=== PATIENT | male | born 1955 | race Caucasian/White ===

== ENCOUNTER 2017-03-12 15:25 | Inpatient (IN) | payer OTHER, BC ==
--- NOTE | 2017-03-12 16:34 | PDOC ---
History of Present Illness - General History Source: Patient Exam Limitations: No Limitations - History of Present Illness Initial Comments: 03/12/17 17:08 Patient is a 62 year old male with a significant past medical history of factor 5 Leiden deficiency, multiple DVTs RLE, H/O PE, 0.4cm Aortic aneurysm (last evaluated 1 month ago), b/l inguinal hernias s/p repair, HTN, DM2, EtOH abuse and h/o colonic polyps who presents to the ED requesting detox for EtOH abuse because he is going through a withdrawal. Patient states that his last drinking was 15 hours ago. Patient is requesting inpatient admission for detox rather than park care admission. PMH: Factor five LEiden deficiency, DVTs RLE, H/O PE, .4cm Aortic aneurysm ( last evaluated 1 month ago), b/l inguinal hernias s/p repair, HTN, DM2 and h/o colonic polyps. PSHX: Polypectomy, Thoracotomy for thrombectomy, IVC filter placement, Cholecystectomy SH: EtOH abuse for 40 years, non smoker, retired [employer]. PCP - Dr. Burnett GI - Dr. Sotelo Bucket Wash Operator - Dr. Pierce <Viridiana Kuo - Last Filed: 03/12/17 17:07> <Lola Carr - Last Filed: 03/12/17 19:47> - General Chief Complaint: Substance Abuse Stated Complaint: DETOX Past History <Viridiana Kuo - Last Filed: 03/12/17 17:07> - Past Medical History Anemia: No Asthma: No Cancer: No Cardiac Disorders: Yes (AORTIC ANEURSYM-"UNCHANGED") CVA: No COPD: No (60% LUNG CAPACITY DUE TO PE) CHF: No Dementia: No Diabetes: Yes GI Disorders: Yes (COLON ADENOMAS, GASTRIC POLYPS, GERD) Disorders: No HTN: Yes Hypercholesterolemia: Yes Liver Disease: Yes (MURPHY/ETOH) Seizures: No Thyroid Disease: Yes - Surgical History Abdominal Surgery: Yes (UMBILICAL HERNIA,LEFT AND RIGHT INGUINAL HERNIA WITH MESH) Appendectomy: No Cardiac Surgery: No Cholecystectomy: Yes Lung Surgery: Yes (MEDIAN STERNOTOMY FOR LUNG EMBOLECTOMIES) Neurologic Surgery: No Orthopedic Surgery: Yes (C-SPINE MICRODISECTOMY 01/02, LUMBOSACRAL LAMINECTMY) - Psycho/Social/Smoking Cessation Hx Suicidal Ideation: No Smoking History: Never smoked Have you smoked in the past 12 months: No Information on smoking cessation initiated: No Hx Alcohol Use: Yes (12pack beer) Drug/Substance Use Hx: No Substance Use Type: Alcohol Hx Substance Use Treatment: No <BrunoMiltontra Hermanh - Last Filed: 03/12/17 19:47> - Past Medical History Allergies/Adverse Reactions: Allergies Allergy/AdvReac Type Severity Reaction Status Date / Time hydromorphone HCl AdvReac HALLUCINATION, Verified 03/12/17 15:36 [From Dilaudid] personality changes Home Medications: Ambulatory Orders Cyanocobalamin/FA/Pyridoxine [Folbee Tablet] 81 mg PO DAILY 03/12/17 Dapagliflozin Propanediol [Farxiga] 5 mg PO DAILY 03/12/17 Insulin Glargine,Hum.rec.anlog [Lantus (nf)] 30 units SQ DAILY 03/12/17 Insulin Lispro [Humalog] 0 unit SQ ASDIR PRN 03/12/17 Losartan Potassium 50 mg PO DAILY 03/12/17 Metoprolol Succinate [Toprol Xl] 100 mg PO DAILY 03/12/17 Ranitidine [Zantac -] 150 mg PO DAILY 03/12/17 Rivaroxaban [Xarelto -] 20 mg PO DAILY 03/12/17 Review of Systems - Review of Systems Able to Perform ROS?: Yes Comments:: 03/12/17 17:08 CONSTITUTIONAL: Present: tremors Absent: fever, chills, diaphoresis, generalized weakness, malaise, loss of appetite HEENT: Absent: rhinorrhea, nasal congestion, throat pain, throat swelling, difficulty swallowing, mouth swelling, ear pain, eye pain, visual Changes CARDIOVASCULAR: Absent: chest pain, syncope, palpitations, irregular heart rate, lightheadedness , peripheral edema RESPIRATORY: Absent: cough, shortness of breath, dyspnea with exertion, orthopnea, wheezing, stridor, hemoptysis GASTROINTESTINAL: Absent: abdominal pain, abdominal distension, nausea, vomiting, diarrhea, constipation, melena, hematochezia GENITOURINARY: Absent: dysuria, frequency, urgency, hesitancy, hematuria, flank pain, genital pain MUSCULOSKELETAL: Absent: myalgia, arthralgia, joint swelling SKIN: Absent: rash, itching, pallor HEMATOLOGIC/IMMUNOLOGIC: Absent: easy bleeding, easy bruising, lymphadenopathy, frequent infections ENDOCRINE: Absent: unexplained weight gain, unexplained weight loss, heat intolerance, cold intolerance NEUROLOGIC: Absent: headache, focal weakness or paresthesias, dizziness, unsteady gait, seizure, mental status changes, bladder or bowel incontinence PSYCHIATRIC: Absent: anxiety, depression, suicidal or homicidal ideation, hallucinations. <Viridiana Kuo - Last Filed: 03/12/17 17:07> *Physical Exam - Vital Signs Last Vital Signs Temp Pulse Resp BP Pulse Ox 98.1 F 98 H 19 151/80 98 03/12/17 15:35 03/12/17 15:35 03/12/17 15:35 03/12/17 15:35 03/12/17 15:35 - Physical Exam Comments: 03/12/17 17:09 GENERAL: +Tremulous, +face flushed. Well developed, well nourished. Awake and alert. No acute distress. HEENT: Normocephalic, atraumatic. PERRLA, EOMI. No conjunctival pallor. Sclera are non- icteric. Moist mucous membranes. Oropharynx is clear. NECK: Supple. Full ROM. No JVD. Carotid pulses 2+ and symmetric, without bruits. No thyromegaly. No lymphadenopathy. CARDIOVASCULAR: +Tachycardic. No murmurs, rubs, or gallops. Distal pulses are 2+ and symmetric. PULMONARY: No evidence of respiratory distress. Lungs clear to auscultation bilaterally. No wheezing, rales or rhonchi. ABDOMINAL: Soft. Non-tender. Non-distended. No rebound or guarding. No organomegaly. Normoactive bowel sounds. MUSCULOSKELETAL Normal range of motion at all joints. No bony deformities or tenderness. No CVA tenderness. EXTREMITIES: No cyanosis. No clubbing. No edema. No calf tenderness. SKIN: Warm and dry. Normal capillary refill. No rashes. No jaundice. NEUROLOGICAL: Alert, awake, appropriate. Cranial nerves 2-12 intact. No deficits to light touch and temperature in face, upper extremities and lower extremities. No motor deficits in the in face, upper extremities and lower extremities. Normoreflexic in the upper and lower extremities. Normal speech. Toes are down-going bilaterally. Gait is normal without ataxia. PSYCHIATRIC: Cooperative. Good eye contact. Appropriate mood and affect. <Viridiana Kuo - Last Filed: 03/12/17 17:07> - Vital Signs Last Vital Signs Temp Pulse Resp BP Pulse Ox 98.1 F 98 H 19 151/80 98 03/12/17 15:35 03/12/17 15:35 03/12/17 15:35 03/12/17 15:35 03/12/17 15:35 <Lola Carr - Last Filed: 03/12/17 19:47> ED Treatment Course - Medications Given in the ED: ED Medications Discontinued Medications Generic Name Dose Route Start Last Admin Trade Name Freq PRN Reason Stop Dose Admin Chlordiazepoxide HCl 50 mg 03/12/17 16:52 03/12/17 16:56 Librium - PO 03/12/17 16:53 50 mg ONCE ONE Administration <Viridiana Kuo - Last Filed: 03/12/17 17:07> - LABORATORY CBC & Chemistry Diagram: 03/12/17 17:21 03/12/17 17:21 <Lola Carr - Last Filed: 03/12/17 19:47> Medical Decision Making - Medical Decision Making 03/12/17 17:03 A call was placed to Dr. Sotelo and case was discussed. 03/12/17 17:05 A call was placed to Dr. Burnett at his service. 03/12/17 17:[address] Corona <Viridiana Kuo - Last Filed: 03/12/17 17:07> *DC/Admit/Observation/Transfer - Attestations Scribe Attestion: 03/12/17 17:10 Documentation prepared by ERMIAS Palmer, acting as medical dir for Lola Carr MD. <Viridiana Kuo - Last Filed: 03/12/17 17:07> - Discharge Dispostion Admit: Yes <Lola Carr - Last Filed: 03/12/17 19:47> Diagnosis at time of Disposition: Alcohol withdrawal Qualifiers: Complication of substance-induced condition: uncomplicated Qualified Code(s): F10.230 - Alcohol dependence with withdrawal, uncomplicated Diabetes mellitus Qualifiers: Diabetes mellitus type: type 2 Diabetes mellitus complication status: with hyperglycemia Diabetes mellitus technician terminal and repeater insulin use: without snf use Qualified Code(s): E11.65 - Type 2 diabetes mellitus with hyperglycemia - Discharge Dispostion Condition at time of disposition: Stable
[2017-03-12] MEDS ORDERED: chlordiazePOXIDE HCL 25 MG CAPSULE PO ONE (16:52)
[2017-03-12] MEDS ORDERED: chlordiazePOXIDE HCL 25 MG CAPSULE ONE (16:54)
[2017-03-12] MEDS ORDERED: FOLIC ACID INJECTION - 1 MG, THIAMINE HCL 100 MG, MULTIVIT INJECTION ADULT 10 ML in SOD... IVPB ONE (17:27)
[2017-03-12 17:29] LABS: BASOPHIL 0.6 % (0-2.0); EOSINOPHIL 0.3 % (0-4.5); MCH 32.3 pg (25.7-33.7); MCHC 33.1 g/dl (32.0-35.9); MEAN CELL VOLUME 97.6 fl (80-96); MEAN PLT VOLUME 9.2 fl (7.5-11.1); PLATELET COUNT 82 K/MM3 (134-434); RDW 14.7 % (11.9-15.9); WHITE BLOOD COUNT 4.2 K/mm3 (4.0-10.0)
[2017-03-12 18:00] LABS: ALBUMIN 3.6 g/dl (3.4-5.0); ANION GAP 15 (8-16); BILIRUBIN,TOTAL 1.6 mg/dL (0.2-1.0); CALCIUM 8.5 mg/dL (8.5-10.1); CO2 21 mmol/L (21-32); COCKROFT - GAULT 171.9; CREATININE 0.7 mg/dL (0.7-1.3); GLUCOSE,RANDOM 162 mg/dL (74-106); SGOT/AST 152 U/L (15-37); SGPT/ALT 73 U/L (12-78); TOT PROT 7.9 g/dl (6.4-8.2)
[2017-03-12 18:01] LABS: ALK PHOS 121 U/L (45-117)
[2017-03-12 22:03] VITALS: BMI 31.2
[2017-03-12] MEDS ORDERED: INSULIN (NOVOLOG) ASPART 100 UNITS/ML 10ML VIAL ONE (22:09)
[2017-03-12] MEDS: INSULIN SLIDING SCALE (NOVOLOG) 1 VIAL SQ SCH (22:13)
[2017-03-12] MEDS: chlordiazePOXIDE HCL 25 MG CAPSULE PO SCH (22:13)
[2017-03-12] MEDS: SODIUM CHLORIDE 1,000 ML IV SCH (22:45)
[2017-03-13] MEDS: chlordiazePOXIDE HCL 25 MG CAPSULE PO PRN ×3 (01:13→14:03)
[2017-03-13] MEDS: chlordiazePOXIDE HCL 25 MG CAPSULE PO SCH ×4 (04:28→23:00)
[2017-03-13] MEDS: INSULIN SLIDING SCALE (NOVOLOG) 1 VIAL SQ SCH ×4 (06:18→21:26)
[2017-03-13] MEDS ORDERED: INSULIN (NOVOLOG) ASPART 100 UNITS/ML 10ML VIAL ONE ×2 (06:26→11:10)
[2017-03-13 08:57] LABS: BASOPHIL 0.8 % (0-2.0); EOSINOPHIL 0.2 % (0-4.5); MCH 32.6 pg (25.7-33.7); MCHC 33.1 g/dl (32.0-35.9); MEAN CELL VOLUME 98.6 fl (80-96); MEAN PLT VOLUME 9.5 fl (7.5-11.1); NEUTROPHILS 64.8 % (42.8-82.8); PLATELET COUNT 57 K/MM3 (134-434); RDW 14.7 % (11.9-15.9); WHITE BLOOD COUNT 3.5 K/mm3 (4.0-10.0)
[2017-03-13 09:21] LABS: ALBUMIN 3.3 g/dl (3.4-5.0); ANION GAP 16 (8-16); CALCIUM 8.4 mg/dL (8.5-10.1); CO2 21 mmol/L (21-32); COCKROFT - GAULT 149.38; CREATININE 0.8 mg/dL (0.7-1.3); GLUCOSE,RANDOM 120 mg/dL (74-106); MAGNESIUM 1.4 mg/dL (1.8-2.4); PHOSPHOROUS 2.6 mg/dL (2.5-4.9); SGOT/AST 97 U/L (15-37); SGPT/ALT 55 U/L (12-78)
[2017-03-13 09:23] LABS: ALK PHOS 104 U/L (45-117); TOT PROT 6.9 g/dl (6.4-8.2)
[2017-03-13] MEDS: METOPROLOL SUCCINATE 100 MG TAB.SR.24H (FP) PO SCH (10:01)
[2017-03-13] MEDS: LOSARTAN POTASSIUM 50 MG TABLET (FP) PO SCH (10:01)
[2017-03-13] MEDS: RANITIDINE HCL 150 MG TABLET (FP) PO SCH (10:01)
[2017-03-13] MEDS ORDERED: MAGNESIUM SULF 50% (8.12 MEQ/2 ML-1 GM VIAL) IVPB ONE (11:30)
--- NOTE | 2017-03-13 11:52 | HP ---
Admitting History and Physical - Primary Care Physician PCP: Stoney Burnett - Admission Chief Complaint: I needed to come in History of Present Illness: Mr Valle is a pleasant 62 year old male who comes in for alcohol withdrawal and detox. He says over the past 4 years he has drank a 12 pack of beer and shots of bourbon every night. He says it was making him feel bad and he was begin to fall and for this reason he decided to stop. After he stopped he began to feel very weak and dizzy. He says he also became very shaky. Because of this he came in. He denies hallucinations, fevers, chills, passing out, chest pain, shortness of breath, nausea, vomiting, diarrhea, constipation, difficulty or pain on urination, or swelling. He still feels very weak and shaky. He could not go to [facility] secondary to a conflict with his profession. 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 HTN. Chronic RBBB), HTN Pulmonary: Yes: Pulmonary Embolus (s/p IVC filter and open embolectomy at [facility]) Heme/Onc: Yes: Other (Factor V Leiden) Psych: Yes: Addictions (ETOH) Musculoskeletal: Yes: Chronic low back pain Endocrine: Yes: Diabetes Mellitus - Smoking History Smoking history: Never smoked Have you smoked in the past 12 months: No - Alcohol/Substance Use Hx Alcohol Use: Yes (12pack beer) Number of Drinks Daily: 6 (Beers) History of Substance Use: reports: None - Social History ADL: Independent History of Recent Travel: No Home Medications - Allergies Allergies/Adverse Reactions: Allergies Allergy/AdvReac Type Severity Reaction Status Date / Time hydromorphone HCl AdvReac HALLUCINATION, Verified 03/12/17 15:36 [From Dilaudid] personality changes - Home Medications Home Medications: Ambulatory Orders Cyanocobalamin/FA/Pyridoxine [Folbee Tablet] 81 mg PO DAILY 03/12/17 Dapagliflozin Propanediol [Farxiga] 5 mg PO DAILY 03/12/17 Insulin Glargine,Hum.rec.anlog [Lantus (nf)] 30 units SQ DAILY 03/12/17 Insulin Lispro [Humalog] 0 unit SQ ASDIR PRN 03/12/17 Losartan Potassium 50 mg PO DAILY 03/12/17 Metoprolol Succinate [Toprol Xl] 100 mg PO DAILY 03/12/17 Ranitidine [Zantac -] 150 mg PO DAILY 03/12/17 Rivaroxaban [Xarelto -] 20 mg PO DAILY 03/12/17 Bifidobacterium Infantis [Align] 10.5 mg PO DAILY 03/13/17 Cholecalciferol (Vitamin D3) [D-2000] 1,000 unit PO DAILY 03/13/17 Cyanocobalamin/Cobamamide [B-12 5,000 Mcg Sublingual Tab] 1 each SL DAILY Milk Thistle 300 mg PO BID 03/13/17 Family Disease History - Family Disease History Family Disease History: Heart Disease: Brother (CHF), CA: Father (Lung cancer with bone mets), Mother (liver CA), Sister (Colon CA) Review of Systems Findings/Remarks: Full review of systems obtained, as per HPI and otherwise negative Physical Examination Vital Signs: Vital Signs Temperature 98.2 F 03/13/17 08:00 Pulse Rate 69 03/13/17 08:00 Respiratory Rate 18 03/13/17 08:00 Blood Pressure 138/76 03/13/17 08:00 O2 Sat by Pulse Oximetry (%) 98 03/12/17 15:35 Constitutional: Yes: No Distress, Calm, Obese Eyes: Yes: Conjunctiva Clear, EOM Intact, PERRL HENT: Yes: Atraumatic, Normocephalic Cardiovascular: Yes: Regular Rate and Rhythm. No: Gallop, Murmur, Rub Respiratory: Yes: Regular, CTA Bilaterally. No: Rales, Rhonchi, Wheezes Gastrointestinal: Yes: Normal Bowel Sounds, Soft. No: Ascites, Tenderness Extremities: Yes: WNL Edema: No Neurological: Yes: Tremors, Weakness Labs: CBC, BMP 03/13/17 08:43 03/13/17 08:43 Imaging - Results Chest X-ray: Report Reviewed, Image Reviewed EKG: Image Reviewed Problem List - Problems (1) Alcohol withdrawal Assessment/Plan: -patient admitted to the hospital -on librium taper -VSS, only with tremors -Dr Wick consulted -PT for weakness Code(s): F10.239 - ALCOHOL DEPENDENCE WITH WITHDRAWAL, UNSPECIFIED Qualifiers : Complication of substance-induced condition: uncomplicated Qualified Code(s): F10.230 - Alcohol dependence with withdrawal, uncomplicated (2) Diabetes mellitus Assessment/Plan: -continue farxiga -diabetic diet Code(s): E11.9 - TYPE 2 DIABETES MELLITUS WITHOUT COMPLICATIONS Qualifiers: Diabetes mellitus type: type 2 Diabetes mellitus complication status: with hyperglycemia Diabetes mellitus senior living insulin use: without senior living use Qualified Code(s): E11.65 - Type 2 diabetes mellitus with hyperglycemia; Z79.4 - nursing home (current) use of insulin (3) Factor 5 Leiden mutation, heterozygous Assessment/Plan: -anticoagulated Code(s): D68.51 - ACTIVATED PROTEIN C RESISTANCE (4) HTN (hypertension) Assessment/Plan: -some hypertension, suspect that is from withdrawal -continue toprol xl and cozaar Code(s): I10 - ESSENTIAL (PRIMARY) HYPERTENSION Qualifiers: Hypertension type: essential hypertension Qualified Code(s): I10 - Essential (primary) hypertension (5) H/O pulmonary thrombosis Assessment/Plan: -continue xarelto Code(s): Z86.711 - PERSONAL HISTORY OF PULMONARY EMBOLISM (6) Hypomagnesemia Assessment/Plan: -secondary to chronic alcohol abuse -replace with IV magnesium -monitor Code(s): E83.42 - HYPOMAGNESEMIA
[2017-03-13] MEDS: RIVAROXABAN 20 MG TABLET PO SCH (12:07)
[2017-03-13] MEDS: DAPAGLIFLOZIN PROPANEDIOL 5 MG PO SCH (12:50)
--- NOTE | 2017-03-13 15:40 | CONSULT ---
[id number] - History History of Present Illness: 62 y/o man with a long hx. of alcoholism is admitted for detox. Pt. came to ED because of severe withdrawal sx. 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 HTN. Chronic RBBB), HTN Pulmonary: Yes: Pulmonary Embolus (s/p IVC filter and open embolectomy at [facility]) Psych: Yes: Addictions (ETOH) Musculoskeletal: Yes: Chronic low back pain Endocrine: Yes: Diabetes Mellitus - Significant Medical Findings: Laboratory Tests 03/12/17 03/12/17 03/12/17 17:21 17:21 17:21 WBC 4.2 RBC 4.69 Hgb 15.1 Hct 45.8 MCV 97.6 H MCHC 33.1 RDW 14.7 Plt Count 82 L MPV 9.2 Neutrophils % 73.0 Lymphocytes % 17.4 D Monocytes % 8.7 Eosinophils % 0.3 D Basophils % 0.6 Sodium 142 Potassium 4.0 Chloride 106 Carbon Dioxide 21 Anion Gap 15 BUN 8 Creatinine 0.7 Creat Clearance w eGFR > 60 POC Glucometer Random Glucose 162 H Calcium 8.5 Phosphorus Magnesium Total Bilirubin 1.6 H D AST 152 H D ALT 73 D Alkaline Phosphatase 121 H Total Protein 7.9 D Albumin 3.6 D Alcohol, Quantitative 249.8 H* 03/12/17 03/12/17 03/13/17 18:32 22:11 06:15 WBC RBC Hgb Hct MCV MCHC RDW Plt Count MPV Neutrophils % Lymphocytes % Monocytes % Eosinophils % Basophils % Sodium Potassium Chloride Carbon Dioxide Anion Gap BUN Creatinine Creat Clearance w eGFR POC Glucometer 152.57855 159 101 Random Glucose Calcium Phosphorus Magnesium Total Bilirubin AST ALT Alkaline Phosphatase Total Protein Albumin Alcohol, Quantitative 03/13/17 03/13/17 03/13/17 08:43 08:43 11:25 WBC 3.5 L RBC 4.14 Hgb 13.5 D Hct 40.8 MCV 98.6 H MCHC 33.1 RDW 14.7 Plt Count 57 L D MPV 9.5 Neutrophils % 64.8 Lymphocytes % 21.8 D Monocytes % 12.4 H Eosinophils % 0.2 Basophils % 0.8 Sodium 143 Potassium 3.5 Chloride 106 Carbon Dioxide 21 Anion Gap 16 BUN 11 D Creatinine 0.8 Creat Clearance w eGFR > 60 POC Glucometer 147 Random Glucose 120 H D Calcium 8.4 L Phosphorus 2.6 Magnesium 1.4 L D Total Bilirubin 2.0 H D AST 97 H D ALT 55 D Alkaline Phosphatase 104 Total Protein 6.9 Albumin 3.3 L Alcohol, Quantitative labs noted CIWA Score - CIWA Score Nausea/Vomitin-Mild Nausea/No Vomiting Muscle Tremors: 5 Anxiety: 5 Agitation: 4-Moderately Restless Paroxysmal Sweats: 3 Orientation: 1-Uncertain about Date Tacttile Disturbances: 1-Very Mild Itch/Numbness Auditory Disturbances: 0-None Visual Disturbances: 0-None Headache: 0-None Present CIWA-Ar Total Score: 20 Assessment Plan - Diagnosis (1) Alcohol dependence with uncomplicated withdrawal Status: Acute - Plan Plan: Detox with librium & refer to rehab - Medication Detox Regimen/Protocol: Librium
[2017-03-13 16:07] LABS: URINE APPEARANCE CLEAR; URINE BILIRUBIN NEGATIVE (NEGATIVE); URINE COLOR YELLOW; URINE GLUCOSE (UA) 3+ (NEGATIVE); URINE KETONE 2+ (NEGATIVE); URINE LEUK ESTERASE NEGATIVE (NEGATIVE); URINE NITRITE NEGATIVE (NEGATIVE); URINE PROTEIN NEGATIVE (NEGATIVE); URINE UROBILINOGEN 4.0 E.U/dl E.U./dl (0.2-1.0)
[2017-03-13 16:10] LABS: URINE BLOOD 2+ (NEGATIVE)
[2017-03-13 16:13] LABS: URINE MUCUS RARE; URINE RBC 56 /hpf (0-3); URINE WBC <1 /hpf (3-5)
[2017-03-13] MEDS: SODIUM CHLORIDE 1,000 ML IV SCH (17:59)
[2017-03-13] MEDS ORDERED: chlordiazePOXIDE HCL 25 MG CAPSULE PO ONE (20:00)
[2017-03-14] MEDS: chlordiazePOXIDE HCL 25 MG CAPSULE PO SCH ×3 (05:25→16:39)
[2017-03-14] MEDS: SODIUM CHLORIDE 1,000 ML IV SCH (05:25)
[2017-03-14] MEDS: INSULIN SLIDING SCALE (NOVOLOG) 1 VIAL SQ SCH ×4 (06:21→21:55)
[2017-03-14 07:29] LABS: BASOPHIL 0.6 % (0-2.0); EOSINOPHIL 1.1 % (0-4.5); MCH 32.4 pg (25.7-33.7); MCHC 32.7 g/dl (32.0-35.9); MEAN CELL VOLUME 99.1 fl (80-96); MEAN PLT VOLUME 9.3 fl (7.5-11.1); NEUTROPHILS 61.4 % (42.8-82.8); PLATELET COUNT 45 K/MM3 (134-434); RDW 14.2 % (11.9-15.9); WHITE BLOOD COUNT 3.9 K/mm3 (4.0-10.0)
--- NOTE | 2017-03-14 08:20 | EKG ---
Test Reason : Blood Pressure : / mmHG Vent. Rate : 075 BPM Atrial Rate : 075 BPM P-R Int : 180 ms QRS Dur : 108 ms QT Int : 426 ms P-R-T Axes : 033 -37 050 degrees QTc Int : 475 ms NORMAL SINUS RHYTHM LEFT AXIS DEVIATION INCOMPLETE RIGHT BUNDLE BRANCH BLOCK T WAVE ABNORMALITY, CONSIDER ANTERIOR ISCHEMIA PROLONGED QT ABNORMAL ECG WHEN COMPARED WITH ECG OF 20-MAR-2016 08:37, T WAVE VARIATION Confirmed by NOBLE MAIER, ROLANDA ([id number]) on 03/14/2017 8:19:45 AM Referred By: Confirmed By:ROLANDA DICKEY MD
[2017-03-14 08:22] LABS: BILIRUBIN,DIRECT 1.1 mg/dL (0.0-0.2); BILIRUBIN,TOTAL 2.1 mg/dL (0.2-1.0); COCKROFT - GAULT 149.38; CREATININE 0.8 mg/dL (0.7-1.3); MAGNESIUM 1.8 mg/dL (1.8-2.4); PHOSPHOROUS 2.1 mg/dL (2.5-4.9); TOT PROT 6.5 g/dl (6.4-8.2)
[2017-03-14] MEDS: DAPAGLIFLOZIN PROPANEDIOL 5 MG PO SCH (09:22)
[2017-03-14] MEDS: RANITIDINE HCL 150 MG TABLET (FP) PO SCH (09:23)
[2017-03-14] MEDS: THIAMINE HCL 100 MG TABLET (FP) PO SCH (09:23)
[2017-03-14] MEDS: FOLIC ACID 1 MG TABLET (FP) PO SCH (09:23)
[2017-03-14] MEDS: LOSARTAN POTASSIUM 50 MG TABLET (FP) PO SCH (09:23)
[2017-03-14] MEDS: METOPROLOL SUCCINATE 100 MG TAB.SR.24H (FP) PO SCH (09:23)
[2017-03-14] MEDS: RIVAROXABAN 20 MG TABLET PO SCH (09:23)
[2017-03-14] MEDS ORDERED: POTASSIUM CHLORIDE TABS 20 MEQ TABLET.ER (FP) PO ONE (12:28)
--- NOTE | 2017-03-14 14:11 | FALL ---
Fall Exam - Event Witnessed fall: No Location of Fall: Patient Room Fall from: bed->chair - Pre-Fall Fall Risk: High Risk Mental Status: Alert, Cooperative Current Medications: Current Medications Generic Name Dose Route Start Last Admin Trade Name Freq PRN Reason Stop Dose Admin Chlordiazepoxide HCl 25 mg 03/12/17 19:53 03/13/17 14:03 Librium - PO 03/15/17 19:52 25 mg Q4H PRN Administration WITHDRAWAL(CONT SUBST) Chlordiazepoxide HCl 25 mg 03/13/17 23:00 03/14/17 10:38 Librium - PO 03/14/17 17:01 25 mg Q0M-OOQ AKI Administration Chlordiazepoxide HCl 15 mg 03/14/17 23:00 Librium - PO 03/15/17 17:01 [id number] AKI Chlordiazepoxide HCl 10 mg 03/15/17 23:00 Librium - PO 03/16/17 17:01 W1P-XAQ AKI Folic Acid 1 mg 03/14/17 10:00 03/14/17 09:23 Folic Acid - PO 1 mg DAILY AKI Administration Insulin Aspart 0 vial 03/12/17 22:00 03/14/17 11:44 Novolog Vial Sliding Scale - SQ Not Given ACHS [facility] Protocol Losartan Potassium 50 mg 03/13/17 10:00 03/14/17 09:23 Cozaar - PO 50 mg DAILY AKI Administration Metoprolol Succinate 100 mg 03/13/17 10:00 03/14/17 09:23 Toprol Xl - PO 100 mg DAILY AKI Administration Non-Formulary Medication 81 mg 03/13/17 10:00 03/14/17 09:23 Cyanocobalamin/Fa/Pyridoxine [Folbee Tablet] PO Not Given DAILY AKI Dapagliflozin 5 mg 03/13/17 10:00 03/14/17 09:22 Propanediol (Farxiga PO 5 mg ) 5 Mg Tablet (Pt's DAILY AKI Administration Own) Potassium Phos/Sodium Phos 1 packet 03/14/17 14:00 Phos-Nak Packet - PO TID AKI Ranitidine HCl 150 mg 03/13/17 10:00 03/14/17 09:23 Zantac - PO 150 mg DAILY AKI Administration Rivaroxaban 20 mg 03/13/17 10:00 03/14/17 09:23 Xarelto - PO 20 mg DAILY AKI Administration Thiamine HCl 100 mg 03/14/17 10:00 03/14/17 09:23 Vitamin B1 - PO 100 mg DAILY AKI Administration - Post-Fall Patient Outcome: Hematoma (no obvious hematoma, however redness to L oribital, R nare nose bleed), Abrasion/Bruise (L knee) Treatment: Ice Pack Vital Signs: Vital Signs Temperature 98.6 F 03/14/17 08:02 Pulse Rate 56 L 03/14/17 08:02 Respiratory Rate 18 03/14/17 08:02 Blood Pressure 123/62 03/14/17 08:02 O2 Sat by Pulse Oximetry (%) 96 03/13/17 20:24 LOC Post-Fall: Unchanged Identify factors for HIGH RISK for Head Injury: Pt on anticoagulant, Alcoholic pt w liver dysf (xaralto)
--- NOTE | 2017-03-14 14:16 | HOSP ---
Physical Examination Vital Signs: Vital Signs Temperature 98.6 F 03/14/17 08:02 Pulse Rate 56 L 03/14/17 08:02 Respiratory Rate 18 03/14/17 08:02 Blood Pressure 123/62 03/14/17 08:02 O2 Sat by Pulse Oximetry (%) 96 03/13/17 20:24 Labs: CBC, BMP 03/14/17 06:40 03/14/17 06:40 Hospitalist Encounter Assessment: Called s/p unwitnessed fall. Pt states he was trasnferring from the bed to the chair, he was unable to find wall support and fell. He says he hit his head, his L eye, and his entire front side. He sustained an abrasion to his L knee and has a right nares nose bleed. PE Neuro: alert, awake, cn 2-12 intact HEENT: L orbital redness, mild swelling, no crepitus, no tenderness to palpation of face and skull, R nare epistaxis Abd: protubrent abd Ext: R knee abrasion , L knee abrasion no bleeding Plan: Stat Head CT Facial xray Rib xray series L knee/pelvic/hip Dr. Corona Primary notified, will follow results
--- NOTE | 2017-03-14 14:36 | PN ---
Progress Note, Physician Chief Complaint: Mr Leary says he is feeling better today, however still with tremors but improving. No cp, sob, n/v. PT notes patient is leaning to right side - Current Medication List Current Medications: Active Medications Chlordiazepoxide HCl (Librium -) 25 mg PO Q4H PRN PRN Reason: WITHDRAWAL(CONT SUBST) Stop: 03/15/17 19:52 Last Admin: 03/13/17 14:03 Dose: 25 mg Chlordiazepoxide HCl (Librium -) 25 mg PO [id number] [facility] Stop: 03/14/17 17:01 Last Admin: 03/14/17 10:38 Dose: 25 mg Chlordiazepoxide HCl (Librium -) 15 mg PO [id number] [facility] Stop: 03/15/17 17:01 Chlordiazepoxide HCl (Librium -) 10 mg PO [id number] [facility] Stop: 03/16/17 17:01 Folic Acid (Folic Acid -) 1 mg PO DAILY [facility] Last Admin: 03/14/17 09:23 Dose: 1 mg Insulin Aspart (Novolog Vial Sliding Scale -) 0 vial SQ ACHS [facility] PRN Reason: Protocol Last Admin: 03/14/17 11:44 Dose: Not Given Losartan Potassium (Cozaar -) 50 mg PO DAILY [facility] Last Admin: 03/14/17 09:23 Dose: 50 mg Metoprolol Succinate (Toprol Xl -) 100 mg PO DAILY [facility] Last Admin: 03/14/17 09:23 Dose: 100 mg Non-Formulary Medication (Cyanocobalamin/Fa/Pyridoxine [Folbee Tablet]) 81 mg PO DAILY [facility] Last Admin: 03/14/17 09:23 Dose: Not Given Dapagliflozin Propanediol (Farxiga ) 5 Mg Tablet (Pt's Own) 5 mg PO DAILY [facility] Last Admin: 03/14/17 09:22 Dose: 5 mg Potassium Phos/Sodium Phos (Phos-Nak Packet -) 1 packet PO TID [facility] Ranitidine HCl (Zantac -) 150 mg PO DAILY [facility] Last Admin: 03/14/17 09:23 Dose: 150 mg Rivaroxaban (Xarelto -) 20 mg PO DAILY [facility] Last Admin: 03/14/17 09:23 Dose: 20 mg Thiamine HCl (Vitamin B1 -) 100 mg PO DAILY [facility] Last Admin: 03/14/17 09:23 Dose: 100 mg - Objective Vital Signs: Vital Signs Temperature 98.9 F 03/14/17 14:11 Pulse Rate 67 03/14/17 14:11 Respiratory Rate 18 03/14/17 14:11 Blood Pressure 128/73 03/14/17 14:11 O2 Sat by Pulse Oximetry (%) 96 03/13/17 20:24 Constitutional: Yes: Well Nourished, No Distress, Calm Cardiovascular: Yes: Regular Rate and Rhythm. No: Gallop, Murmur, Rub Respiratory: Yes: Regular, CTA Bilaterally. No: Rales, Rhonchi, Wheezes Gastrointestinal: Yes: Normal Bowel Sounds, Soft. No: Distention, Tenderness Musculoskeletal: No: Muscle Weakness Extremities: Yes: WNL Edema: No Neurological: Yes: Alert, Oriented, Cran Nerves II-XII Intact. No: Facial Droop , Loss of Sensation, Numbness, Weakness Labs: CBC, BMP 03/14/17 06:40 03/14/17 06:40 Problem List - Problems (1) Alcohol withdrawal Code(s): F10.239 - ALCOHOL DEPENDENCE WITH WITHDRAWAL, UNSPECIFIED Qualifiers : Complication of substance-induced condition: uncomplicated Qualified Code(s): F10.230 - Alcohol dependence with withdrawal, uncomplicated (2) Diabetes mellitus Code(s): E11.9 - TYPE 2 DIABETES MELLITUS WITHOUT COMPLICATIONS Qualifiers: Diabetes mellitus type: type 2 Diabetes mellitus complication status: with hyperglycemia Diabetes mellitus nursing home insulin use: without rat exterminator use Qualified Code(s): E11.65 - Type 2 diabetes mellitus with hyperglycemia; Z79.4 - medical terminologist (current) use of insulin (3) Factor 5 Leiden mutation, heterozygous Code(s): D68.51 - ACTIVATED PROTEIN C RESISTANCE (4) HTN (hypertension) Code(s): I10 - ESSENTIAL (PRIMARY) HYPERTENSION Qualifiers: Hypertension type: essential hypertension Qualified Code(s): I10 - Essential (primary) hypertension (5) H/O pulmonary thrombosis Code(s): Z86.711 - PERSONAL HISTORY OF PULMONARY EMBOLISM (6) Hypomagnesemia Code(s): E83.42 - HYPOMAGNESEMIA (7) Hypophosphatemia Code(s): E83.39 - OTHER DISORDERS OF PHOSPHORUS METABOLISM (8) Weakness Code(s): R53.1 - WEAKNESS Assessment/Plan (1) Alcohol withdrawal Assessment/Plan: -appreciate addiction medicine assistance -continue librium taper -patient's tremors much improved today Code(s): F10.239 - ALCOHOL DEPENDENCE WITH WITHDRAWAL, UNSPECIFIED Qualifiers : Complication of substance-induced condition: uncomplicated Qualified Code(s): F10.230 - Alcohol dependence with withdrawal, uncomplicated (2) Diabetes mellitus Assessment/Plan: -continue farxiga -diabetic diet Code(s): E11.9 - TYPE 2 DIABETES MELLITUS WITHOUT COMPLICATIONS Qualifiers: Diabetes mellitus type: type 2 Diabetes mellitus complication status: with hyperglycemia Diabetes mellitus nursing home insulin use: without nursing home use Qualified Code(s): E11.65 - Type 2 diabetes mellitus with hyperglycemia; Z79.4 - long-term (current) use of insulin (3) Factor 5 Leiden mutation, heterozygous Assessment/Plan: -anticoagulated Code(s): D68.51 - ACTIVATED PROTEIN C RESISTANCE (4) HTN (hypertension) Assessment/Plan: -improved control -continue toprol xl and cozaar Code(s): I10 - ESSENTIAL (PRIMARY) HYPERTENSION Qualifiers: Hypertension type: essential hypertension Qualified Code(s): I10 - Essential (primary) hypertension (5) H/O pulmonary thrombosis Assessment/Plan: -continue xarelto Code(s): Z86.711 - PERSONAL HISTORY OF PULMONARY EMBOLISM (6) Hypomagnesemia Assessment/Plan: -replaced Code(s): E83.42 - HYPOMAGNESEMIA (7) Hypophosphatemia -replace (8) Weakness -patient with R sided leaning -also with weakness/unsteadiness with PT -evaluated, did not note facial droop -also able to move all four extremities at equal strength without difficulty -no sensory loss -will consult neurology for further evaluation
--- NOTE | 2017-03-14 16:09 | CONSULT ---
Consult - text type - Consultation Consultation Note: Neurology History of Present Illness Patient is a 62 year old male with a significant past medical history of factor 5 Leiden deficiency, multiple DVTs RLE, H/O PE, 0.4cm Aortic aneurysm (last evaluated 1 month ago), b/l inguinal hernias s/p repair, HTN, DM2, EtOH abuse and h/o colonic polyps who presents to the ED requesting detox for EtOH abuse because he is going through a withdrawal. The patient was to be leaning to the right and did have fall today. Completed CT head and without acute changes. 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 His strength seems intact and does not seem to be CVA, but I believe rehab would be beneficial for multifactorial gait disorder. - General Chief Complaint: Substance Abuse Stated Complaint: DETOX Past History - Past Medical History Anemia: No Asthma: No Cancer: No Cardiac Disorders: Yes (AORTIC ANEURSYM-"UNCHANGED") CVA: No COPD: No (60% LUNG CAPACITY DUE TO PE) CHF: No Dementia: No Diabetes: Yes GI Disorders: Yes (COLON ADENOMAS, GASTRIC POLYPS, GERD) Disorders: No HTN: Yes Hypercholesterolemia: Yes Liver Disease: Yes (MURPHY/ETOH) Seizures: No Thyroid Disease: Yes - Surgical History Abdominal Surgery: Yes (UMBILICAL HERNIA,LEFT AND RIGHT INGUINAL HERNIA WITH MESH) Appendectomy: No Cardiac Surgery: No Cholecystectomy: Yes Lung Surgery: Yes (MEDIAN STERNOTOMY FOR LUNG EMBOLECTOMIES) Neurologic Surgery: No Orthopedic Surgery: Yes (C-SPINE MICRODISECTOMY 01/02, LUMBOSACRAL LAMINECTMY) - Psycho/Social/Smoking Cessation Hx Suicidal Ideation: No Smoking History: Never smoked Have you smoked in the past 12 months: No Information on smoking cessation initiated: No Hx Alcohol Use: Yes (12pack beer) Drug/Substance Use Hx: No Substance Use Type: Alcohol Hx Substance Use Treatment: No - Past Medical History Allergies/Adverse Reactions: Allergies Allergy/AdvReac Type Severity Reaction Status Date / Time hydromorphone HCl AdvReac HALLUCINATION, Verified 03/12/17 15:36 [From Dilaudid] personality changes Home Medications: Ambulatory Orders Cyanocobalamin/FA/Pyridoxine [Folbee Tablet] 81 mg PO DAILY 03/12/17 Dapagliflozin Propanediol [Farxiga] 5 mg PO DAILY 03/12/17 Insulin Glargine,Hum.rec.anlog [Lantus (nf)] 30 units SQ DAILY 03/12/17 Insulin Lispro [Humalog] 0 unit SQ ASDIR PRN 03/12/17 Losartan Potassium 50 mg PO DAILY 03/12/17 Metoprolol Succinate [Toprol Xl] 100 mg PO DAILY 03/12/17 Ranitidine [Zantac -] 150 mg PO DAILY 03/12/17 Rivaroxaban [Xarelto -] 20 mg PO DAILY 03/12/17 Review of Systems CONSTITUTIONAL: Present: tremors Absent: fever, chills, diaphoresis, generalized weakness, malaise, loss of appetite HEENT: Absent: rhinorrhea, nasal congestion, throat pain, throat swelling, difficulty swallowing, mouth swelling, ear pain, eye pain, visual Changes CARDIOVASCULAR: Absent: chest pain, syncope, palpitations, irregular heart rate, lightheadedness , peripheral edema RESPIRATORY: Absent: cough, shortness of breath, dyspnea with exertion, orthopnea, wheezing, stridor, hemoptysis GASTROINTESTINAL: Absent: abdominal pain, abdominal distension, nausea, vomiting, diarrhea, constipation, melena, hematochezia GENITOURINARY: Absent: dysuria, frequency, urgency, hesitancy, hematuria, flank pain, genital pain MUSCULOSKELETAL: Absent: myalgia, arthralgia, joint swelling SKIN: Absent: rash, itching, pallor HEMATOLOGIC/IMMUNOLOGIC: Absent: easy bleeding, easy bruising, lymphadenopathy, frequent infections ENDOCRINE: Absent: unexplained weight gain, unexplained weight loss, heat intolerance, cold intolerance NEUROLOGIC: Absent: headache, focal weakness or paresthesias, dizziness, unsteady gait, seizure, mental status changes, bladder or bowel incontinence PSYCHIATRIC: Absent: anxiety, depression, suicidal or homicidal ideation, hallucinations. *Physical Exam Vital Signs Temperature 98.5 F 03/14/17 16:01 Pulse Rate 65 03/14/17 16:01 Respiratory Rate 18 03/14/17 16:01 Blood Pressure 129/81 03/14/17 16:01 O2 Sat by Pulse Oximetry (%) 97 03/14/17 09:00 Well developed, well nourished. Awake and alert. No acute distress. HEENT: Normocephalic, atraumatic. PERRLA, EOMI. No conjunctival pallor. Sclera are non- icteric. Moist mucous membranes. Oropharynx is clear. NECK: Supple. Full ROM. No JVD. Carotid pulses 2+ and symmetric, without bruits. No thyromegaly. No lymphadenopathy. CARDIOVASCULAR: +Tachycardic. No murmurs, rubs, or gallops. Distal pulses are 2+ and symmetric. PULMONARY: No evidence of respiratory distress. Lungs clear to auscultation bilaterally. No wheezing, rales or rhonchi. ABDOMINAL: Soft. Non-tender. Non-distended. No rebound or guarding. No organomegaly. Normoactive bowel sounds. MUSCULOSKELETAL Normal range of motion at all joints. No bony deformities or tenderness. No CVA tenderness. EXTREMITIES: No cyanosis. No clubbing. No edema. No calf tenderness. SKIN: Warm and dry. Normal capillary refill. No rashes. No jaundice. NEUROLOGICAL: Alert, awake, appropriate. Cranial nerves 2-12 intact. No deficits to light touch and temperature in face, upper extremities and lower extremities. No motor deficits in the in face, upper extremities and lower extremities. Normoreflexic in the upper and lower extremities. Normal speech. Toes are down-going bilaterally. Gait is normal without ataxia. PSYCHIATRIC: Cooperative. Good eye contact. Appropriate mood and affect. CBCD WBC 3.9 K/mm3 (4.0-10.0) L 03/14/17 06:40 RBC 4.00 M/mm3 (4.00-5.60) 03/14/17 06:40 Hgb 13.0 GM/dL (11.7-16.9) 03/14/17 06:40 Hct 39.6 % (35.4-49) 03/14/17 06:40 MCV 99.1 fl (80-96) H 03/14/17 06:40 MCHC 32.7 g/dl (32.0-35.9) 03/14/17 06:40 RDW 14.2 % (11.9-15.9) 03/14/17 06:40 Plt Count 45 K/MM3 (134-434) L D 03/14/17 06:40 MPV 9.3 fl (7.5-11.1) 03/14/17 06:40 CMP Sodium 141 mmol/L (136-145) 03/14/17 06:40 Potassium 3.4 mmol/L (3.5-5.1) L 03/14/17 06:40 Chloride 103 mmol/L (98-107) 03/14/17 06:40 Carbon Dioxide 22 mmol/L (21-32) 03/14/17 06:40 Anion Gap 16 (8-16) 03/14/17 06:40 BUN 11 mg/dL (7-18) 03/14/17 06:40 Creatinine 0.8 mg/dL (0.7-1.3) 03/14/17 06:40 Creat Clearance w eGFR > 60 (>60) 03/13/17 08:43 Calcium 8.0 mg/dL (8.5-10.1) L 03/14/17 06:40 Total Bilirubin 2.1 mg/dL (0.2-1.0) H 03/14/17 06:40 AST 67 U/L (15-37) H D 03/14/17 06:40 ALT 43 U/L (12-78) D 03/14/17 06:40 Alkaline Phosphatase 93 U/L (45-117) 03/14/17 06:40 Total Protein 6.5 g/dl (6.4-8.2) 03/14/17 06:40 Albumin 3.0 g/dl (3.4-5.0) L 03/14/17 06:40 Medical Decision Making 62 year old male with a significant past medical history of factor 5 Leiden deficiency, multiple DVTs RLE, H/O PE, 0.4cm Aortic aneurysm (last evaluated 1 month ago), b/l inguinal hernias s/p repair, HTN, DM2, EtOH abuse and h/o colonic polyps who presents to the ED requesting detox for EtOH abuse because he is going through a withdrawal. The patient was to be leaning to the right and did have fall today. Completed CT head and without acute changes. 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 His strength seems intact and does not seem to be CVA, but I believe rehab would be beneficial for multifactorial gait disorder. Tremors from withdrawal, not myoclonic, and improving per nurse. Continue Etoh withdrawal protocal, medical management and optimization. Fall precautions. Will not pursue MRI at this time, if weakness becomes focal then I would consider further imaging but at this time imbalance more likely chronic Etoh and cerebellar degeneration.
[2017-03-14] MEDS: NAPH,MB-DB/K PH,MBDB POWDER PACKET PO SCH ×2 (16:39→21:54)
[2017-03-14] MEDS ORDERED: chlordiazePOXIDE HCL 25 MG CAPSULE PO ONE (19:32)
--- NOTE | 2017-03-14 19:35 | HOSP ---
Subjective - Review of Symptoms Events since last encounter: Called by nursing for agitated patient when primary team could not be reached. HEENT: No: Head Aches Cardiovascular: No: Chest Pain, Palpitations Gastrointestinal: No: Vomiting Musculoskeletal: Yes: No Symptoms Neurological: No: Weakness, Change in speech, Confusion Physical Examination Vital Signs: Vital Signs Temperature 98.6 F 03/14/17 18:22 Pulse Rate 64 03/14/17 18:22 Respiratory Rate 18 03/14/17 18:22 Blood Pressure 135/76 03/14/17 18:22 O2 Sat by Pulse Oximetry (%) 97 03/14/17 09:00 Constitutional: Yes: Well Nourished, Anxious Psychiatric: Yes: Alert, Oriented, Agitated Labs: CBC, BMP 03/14/17 06:40 03/14/17 06:40 Hospitalist Encounter Assessment: 62 yr old man with ETOH abuse admitted for alcohol withdrawal. as per nursing, patient has been combative and agitated with recent fall earlier this afternoon. Security at bedside. He is visibly tremulous in his upper extermities and had unsteady gait. He says he feels claustrophobic and does not want to stay in bed, threatened to sign out AMA if not allowed out of his. He is alert, oriented and has capacity. With the assistance of security, who knew him personally, we were able to calm him to understand the risk of fall in his current state. He agreed to being wheeled to the solarium for change of scenery. Stated understanding of fall risk, and agreed to call for assistance when ambulating. As per nursing he has been tremelous and agitated all afternoon and said given his weight current dose of librium was ineffective. Denied any physical complaints. Recommendations/Interventions: stat 50mg of librium ordered. patient agreed to cooperate with staff for his own safety and agreed not to sign out AMA. All questions were answered to his satisfaction. on follow-up he was wheeled to solarium and was sitting with his daughter comfortably. on follow-up he was resting comfortably in bed after being wheeled back. Further assessment by primary team in the morning for dosage adjustment of librium if indicated. Visit type - Emergency Visit Emergency Visit: No - New Patient This patient is new to me today: Yes Date on this admission: 03/14/17 - Critical Care Critical Care patient: No
[2017-03-14] MEDS: chlordiazePOXIDE 5 MG CAPSULE PO SCH (23:11)
[2017-03-15] MEDS: chlordiazePOXIDE 5 MG CAPSULE PO SCH ×4 (05:41→23:20)
[2017-03-15] MEDS: NAPH,MB-DB/K PH,MBDB POWDER PACKET PO SCH ×3 (05:41→21:23)
[2017-03-15] MEDS: INSULIN SLIDING SCALE (NOVOLOG) 1 VIAL SQ SCH ×4 (06:14→21:23)
[2017-03-15 08:02] LABS: BASOPHIL 0.5 % (0-2.0); EOSINOPHIL 1.5 % (0-4.5); MCH 32.7 pg (25.7-33.7); MCHC 32.7 g/dl (32.0-35.9); MEAN PLT VOLUME 10.3 fl (7.5-11.1); NEUTROPHILS 62.9 % (42.8-82.8); PLATELET COUNT 59 K/MM3 (134-434); RDW 14.2 % (11.9-15.9); WHITE BLOOD COUNT 3.9 K/mm3 (4.0-10.0)
[2017-03-15 08:39] LABS: CALCIUM 8.5 mg/dL (8.5-10.1); COCKROFT - GAULT 132.78; CREATININE 0.9 mg/dL (0.7-1.3); MAGNESIUM 1.9 mg/dL (1.8-2.4); PHOSPHOROUS 3.3 mg/dL (2.5-4.9)
[2017-03-15] MEDS: RANITIDINE HCL 150 MG TABLET (FP) PO SCH (09:49)
[2017-03-15] MEDS: DAPAGLIFLOZIN PROPANEDIOL 5 MG PO SCH (09:49)
[2017-03-15] MEDS: THIAMINE HCL 100 MG TABLET (FP) PO SCH (09:49)
[2017-03-15] MEDS: FOLIC ACID 1 MG TABLET (FP) PO SCH (09:49)
[2017-03-15] MEDS: RIVAROXABAN 20 MG TABLET PO SCH (09:50)
[2017-03-15] MEDS: LOSARTAN POTASSIUM 50 MG TABLET (FP) PO SCH (09:50)
[2017-03-15] MEDS: METOPROLOL SUCCINATE 100 MG TAB.SR.24H (FP) PO SCH (09:50)
[2017-03-15] MEDS ORDERED: PT OWN MED DRAWER 7, Y5N ONE (09:59)
[2017-03-15] MEDS: chlordiazePOXIDE HCL 25 MG CAPSULE PO PRN (13:17)
--- NOTE | 2017-03-15 13:35 | PN ---
Progress Note (short form) - Note Progress Note: Neurology History of Present Illness Patient is a 62 year old male with a significant past medical history of factor 5 Leiden deficiency, multiple DVTs RLE, H/O PE, 0.4cm Aortic aneurysm (last evaluated 1 month ago), b/l inguinal hernias s/p repair, HTN, DM2, EtOH abuse and h/o colonic polyps who presents to the ED requesting detox for EtOH abuse because he is going through a withdrawal. The patient was to be leaning to the right and concern regarding jerking activity. Per nurse, had fall this morning and therefore completed CT again and did not show acute changes. Patient also agitated per notes this AM. 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 His strength seems intact and does not seem to be CVA, but I believe rehab would be beneficial for multifactorial gait disorder especially considering multiple falls. at bedside and in agreement. - General Chief Complaint: Substance Abuse Stated Complaint: DETOX Past History - Past Medical History Anemia: No Asthma: No Cancer: No Cardiac Disorders: Yes (AORTIC ANEURSYM-"UNCHANGED") CVA: No COPD: No (60% LUNG CAPACITY DUE TO PE) CHF: No Dementia: No Diabetes: Yes GI Disorders: Yes (COLON ADENOMAS, GASTRIC POLYPS, GERD) Disorders: No HTN: Yes Hypercholesterolemia: Yes Liver Disease: Yes (MURPHY/ETOH) Seizures: No Thyroid Disease: Yes - Surgical History Abdominal Surgery: Yes (UMBILICAL HERNIA,LEFT AND RIGHT INGUINAL HERNIA WITH MESH) Appendectomy: No Cardiac Surgery: No Cholecystectomy: Yes Lung Surgery: Yes (MEDIAN STERNOTOMY FOR LUNG EMBOLECTOMIES) Neurologic Surgery: No Orthopedic Surgery: Yes (C-SPINE MICRODISECTOMY 01/02, LUMBOSACRAL LAMINECTMY) - Psycho/Social/Smoking Cessation Hx Suicidal Ideation: No Smoking History: Never smoked Have you smoked in the past 12 months: No Information on smoking cessation initiated: No Hx Alcohol Use: Yes (12pack beer) Drug/Substance Use Hx: No Substance Use Type: Alcohol Hx Substance Use Treatment: No - Past Medical History Allergies/Adverse Reactions: Allergies Allergy/AdvReac Type Severity Reaction Status Date / Time hydromorphone HCl AdvReac HALLUCINATION, Verified 03/12/17 15:36 [From Dilaudid] personality changes Home Medications: Ambulatory Orders Cyanocobalamin/FA/Pyridoxine [Folbee Tablet] 81 mg PO DAILY 03/12/17 Dapagliflozin Propanediol [Farxiga] 5 mg PO DAILY 03/12/17 Insulin Glargine,Hum.rec.anlog [Lantus (nf)] 30 units SQ DAILY 03/12/17 Insulin Lispro [Humalog] 0 unit SQ ASDIR PRN 03/12/17 Losartan Potassium 50 mg PO DAILY 03/12/17 Metoprolol Succinate [Toprol Xl] 100 mg PO DAILY 03/12/17 Ranitidine [Zantac -] 150 mg PO DAILY 03/12/17 Rivaroxaban [Xarelto -] 20 mg PO DAILY 03/12/17 Review of Systems CONSTITUTIONAL: Present: tremors Absent: fever, chills, diaphoresis, generalized weakness, malaise, loss of appetite HEENT: Absent: rhinorrhea, nasal congestion, throat pain, throat swelling, difficulty swallowing, mouth swelling, ear pain, eye pain, visual Changes CARDIOVASCULAR: Absent: chest pain, syncope, palpitations, irregular heart rate, lightheadedness , peripheral edema RESPIRATORY: Absent: cough, shortness of breath, dyspnea with exertion, orthopnea, wheezing, stridor, hemoptysis GASTROINTESTINAL: Absent: abdominal pain, abdominal distension, nausea, vomiting, diarrhea, constipation, melena, hematochezia GENITOURINARY: Absent: dysuria, frequency, urgency, hesitancy, hematuria, flank pain, genital pain MUSCULOSKELETAL: Absent: myalgia, arthralgia, joint swelling SKIN: Absent: rash, itching, pallor HEMATOLOGIC/IMMUNOLOGIC: Absent: easy bleeding, easy bruising, lymphadenopathy, frequent infections ENDOCRINE: Absent: unexplained weight gain, unexplained weight loss, heat intolerance, cold intolerance NEUROLOGIC: Absent: headache, focal weakness or paresthesias, dizziness, unsteady gait, seizure, mental status changes, bladder or bowel incontinence PSYCHIATRIC: Absent: anxiety, depression, suicidal or homicidal ideation, hallucinations. *Physical Exam Vital Signs Temperature 98.0 F 03/15/17 12:00 Pulse Rate 61 03/15/17 12:00 Respiratory Rate 20 03/15/17 12:00 Blood Pressure 120/80 03/15/17 12:00 O2 Sat by Pulse Oximetry (%) 98 03/15/17 09:00 Well developed, well nourished. Awake and alert. No acute distress. HEENT: Normocephalic, atraumatic. PERRLA, EOMI. No conjunctival pallor. Sclera are non- icteric. Moist mucous membranes. Oropharynx is clear. NECK: Supple. Full ROM. No JVD. Carotid pulses 2+ and symmetric, without bruits. No thyromegaly. No lymphadenopathy. CARDIOVASCULAR: +Tachycardic. No murmurs, rubs, or gallops. Distal pulses are 2+ and symmetric. PULMONARY: No evidence of respiratory distress. Lungs clear to auscultation bilaterally. No wheezing, rales or rhonchi. ABDOMINAL: Soft. Non-tender. Non-distended. No rebound or guarding. No organomegaly. Normoactive bowel sounds. MUSCULOSKELETAL Normal range of motion at all joints. No bony deformities or tenderness. No CVA tenderness. EXTREMITIES: No cyanosis. No clubbing. No edema. No calf tenderness. SKIN: Warm and dry. Normal capillary refill. No rashes. No jaundice. NEUROLOGICAL: Alert, awake, appropriate. Cranial nerves 2-12 intact. No deficits to light touch and temperature in face, upper extremities and lower extremities. No motor deficits in the in face, upper extremities and lower extremities. Normoreflexic in the upper and lower extremities. Normal speech. Toes are down-going bilaterally. Gait is normal without ataxia. PSYCHIATRIC: Cooperative. Good eye contact. Appropriate mood and affect. CBCD WBC 3.9 K/mm3 (4.0-10.0) L 03/15/17 07:05 RBC 4.24 M/mm3 (4.00-5.60) 03/15/17 07:05 Hgb 13.9 GM/dL (11.7-16.9) 03/15/17 07:05 Hct 42.4 % (35.4-49) 03/15/17 07:05 MCV 100.0 fl (80-96) H 03/15/17 07:05 MCHC 32.7 g/dl (32.0-35.9) 03/15/17 07:05 RDW 14.2 % (11.9-15.9) 03/15/17 07:05 Plt Count 59 K/MM3 (134-434) L D 03/15/17 07:05 MPV 10.3 fl (7.5-11.1) D 03/15/17 07:05 CMP Sodium 138 mmol/L (136-145) 03/15/17 07:05 Potassium 3.8 mmol/L (3.5-5.1) 03/15/17 07:05 Chloride 101 mmol/L (98-107) 03/15/17 07:05 Carbon Dioxide 22 mmol/L (21-32) 03/15/17 07:05 Anion Gap 15 (8-16) 03/15/17 07:05 BUN 14 mg/dL (7-18) D 03/15/17 07:05 Creatinine 0.9 mg/dL (0.7-1.3) 03/15/17 07:05 Creat Clearance w eGFR > 60 (>60) 03/13/17 08:43 Calcium 8.5 mg/dL (8.5-10.1) 03/15/17 07:05 Total Bilirubin 2.1 mg/dL (0.2-1.0) H 03/14/17 06:40 AST 67 U/L (15-37) H D 03/14/17 06:40 ALT 43 U/L (12-78) D 03/14/17 06:40 Alkaline Phosphatase 93 U/L (45-117) 03/14/17 06:40 Total Protein 6.5 g/dl (6.4-8.2) 03/14/17 06:40 Albumin 3.0 g/dl (3.4-5.0) L 03/14/17 06:40 Medical Decision Making 62 year old male with a significant past medical history of factor 5 Leiden deficiency, multiple DVTs RLE, H/O PE, 0.4cm Aortic aneurysm (last evaluated 1 month ago), b/l inguinal hernias s/p repair, HTN, DM2, EtOH abuse and h/o colonic polyps who presents to the ED requesting detox for EtOH abuse because he is going through a withdrawal. The patient was to be leaning to the right and did have fall today. Completed CT head and without acute changes. 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 His strength seems intact and does not seem to be CVA, but I believe rehab would be beneficial for multifactorial gait disorder. Tremors from withdrawal, not myoclonic, and improving per nurse. Continue Etoh withdrawal protocal, medical management and optimization. Fall precautions. Family interested in rehab.
--- NOTE | 2017-03-15 15:56 | PN ---
Progress Note, Physician Chief Complaint: Mr Leary says he is doing better. Is not having pain from the fall. No cp, sob, n/v. - Current Medication List Current Medications: Active Medications Chlordiazepoxide HCl (Librium -) 25 mg PO Q4H PRN PRN Reason: WITHDRAWAL(CONT SUBST) Stop: 03/15/17 19:52 Last Admin: 03/15/17 13:17 Dose: 25 mg Chlordiazepoxide HCl (Librium -) 15 mg PO [id number] [facility] Stop: 03/15/17 17:01 Last Admin: 03/15/17 10:11 Dose: 15 mg Chlordiazepoxide HCl (Librium -) 10 mg PO [id number] [facility] Stop: 03/16/17 17:01 Folic Acid (Folic Acid -) 1 mg PO DAILY [facility] Last Admin: 03/15/17 09:49 Dose: 1 mg Insulin Aspart (Novolog Vial Sliding Scale -) 0 vial SQ ACHS [facility] PRN Reason: Protocol Last Admin: 03/15/17 11:44 Dose: Not Given Losartan Potassium (Cozaar -) 50 mg PO DAILY [facility] Last Admin: 03/15/17 09:50 Dose: 50 mg Metoprolol Succinate (Toprol Xl -) 100 mg PO DAILY [facility] Last Admin: 03/15/17 09:50 Dose: 100 mg Non-Formulary Medication (Cyanocobalamin/Fa/Pyridoxine [Folbee Tablet]) 81 mg PO DAILY [facility] Last Admin: 03/15/17 09:50 Dose: Not Given Dapagliflozin Propanediol (Farxiga ) 5 Mg Tablet (Pt's Own) 5 mg PO DAILY [facility] Last Admin: 03/15/17 09:49 Dose: 5 mg Potassium Phos/Sodium Phos (Phos-Nak Packet -) 1 packet PO TID [facility] Last Admin: 03/15/17 13:17 Dose: 1 packet Ranitidine HCl (Zantac -) 150 mg PO DAILY [facility] Last Admin: 03/15/17 09:49 Dose: 150 mg Rivaroxaban (Xarelto -) 20 mg PO DAILY [facility] Last Admin: 03/15/17 09:50 Dose: 20 mg Thiamine HCl (Vitamin B1 -) 100 mg PO DAILY [facility] Last Admin: 03/15/17 09:49 Dose: 100 mg - Objective Vital Signs: Vital Signs Temperature 98.1 F 03/15/17 14:37 Pulse Rate 63 03/15/17 14:37 Respiratory Rate 20 03/15/17 12:00 Blood Pressure 132/77 03/15/17 14:37 O2 Sat by Pulse Oximetry (%) 98 03/15/17 09:00 Constitutional: Yes: No Distress, Calm, Obese Cardiovascular: Yes: Regular Rate and Rhythm. No: Gallop, Murmur, Rub Respiratory: Yes: Regular, CTA Bilaterally. No: Rales, Rhonchi, Wheezes Gastrointestinal: Yes: Normal Bowel Sounds, Soft. No: Distention, Tenderness Extremities: Yes: WNL Edema: No Labs: CBC, BMP 03/15/17 07:05 03/15/17 07:05 Problem List - Problems (1) Alcohol withdrawal Code(s): F10.239 - ALCOHOL DEPENDENCE WITH WITHDRAWAL, UNSPECIFIED Qualifiers : Complication of substance-induced condition: uncomplicated Qualified Code(s): F10.230 - Alcohol dependence with withdrawal, uncomplicated (2) Diabetes mellitus Code(s): E11.9 - TYPE 2 DIABETES MELLITUS WITHOUT COMPLICATIONS Qualifiers: Diabetes mellitus type: type 2 Diabetes mellitus complication status: with hyperglycemia Diabetes mellitus termite renewal inspector insulin use: without termite renewal inspector use Qualified Code(s): E11.65 - Type 2 diabetes mellitus with hyperglycemia; Z79.4 - bed bug exterminator (current) use of insulin (3) Factor 5 Leiden mutation, heterozygous Code(s): D68.51 - ACTIVATED PROTEIN C RESISTANCE (4) HTN (hypertension) Code(s): I10 - ESSENTIAL (PRIMARY) HYPERTENSION Qualifiers: Hypertension type: essential hypertension Qualified Code(s): I10 - Essential (primary) hypertension (5) H/O pulmonary thrombosis Code(s): Z86.711 - PERSONAL HISTORY OF PULMONARY EMBOLISM (6) Hypomagnesemia Code(s): E83.42 - HYPOMAGNESEMIA (7) Hypophosphatemia Code(s): E83.39 - OTHER DISORDERS OF PHOSPHORUS METABOLISM (8) Weakness Code(s): R53.1 - WEAKNESS Assessment/Plan (1) Alcohol withdrawal Assessment/Plan: -appreciate addiction medicine assistance -continue librium taper -tremors almost resolved Code(s): F10.239 - ALCOHOL DEPENDENCE WITH WITHDRAWAL, UNSPECIFIED Qualifiers : Complication of substance-induced condition: uncomplicated Qualified Code(s): F10.230 - Alcohol dependence with withdrawal, uncomplicated (2) Diabetes mellitus Assessment/Plan: -continue farxiga -diabetic diet Code(s): E11.9 - TYPE 2 DIABETES MELLITUS WITHOUT COMPLICATIONS Qualifiers: Diabetes mellitus type: type 2 Diabetes mellitus complication status: with hyperglycemia Diabetes mellitus shelter insulin use: without termite renewal inspector use Qualified Code(s): E11.65 - Type 2 diabetes mellitus with hyperglycemia; Z79.4 - bed bug exterminator (current) use of insulin (3) Factor 5 Leiden mutation, heterozygous Assessment/Plan: -anticoagulated Code(s): D68.51 - ACTIVATED PROTEIN C RESISTANCE (4) HTN (hypertension) Assessment/Plan: -controlled -continue toprol xl and cozaar Code(s): I10 - ESSENTIAL (PRIMARY) HYPERTENSION Qualifiers: Hypertension type: essential hypertension Qualified Code(s): I10 - Essential (primary) hypertension (5) H/O pulmonary thrombosis Assessment/Plan: -continue xarelto Code(s): Z86.711 - PERSONAL HISTORY OF PULMONARY EMBOLISM (6) Hypomagnesemia Assessment/Plan: -replaced Code(s): E83.42 - HYPOMAGNESEMIA (7) Hypophosphatemia -replaced (8) Weakness with fall -appreciate neurology assistance -patient with fall yesterday, no head bleed or acute fractures -patient instructed to not get up without assistance -continue PT -will need SNF placement
--- NOTE | 2017-03-15 16:07 | PN ---
[facility] Progress Note (SOAP) Subjective: Pt. is still tremulous,restless and anxious Objective: 03/15/17 16:05 Vital Signs - 8 hr 03/15/17 03/15/17 03/15/17 08:51 09:00 12:00 Temperature 98.2 F 98.0 F Pulse Rate 57 L 61 Respiratory 20 20 Rate Blood Pressure 132/82 120/80 O2 Sat by Pulse 98 Oximetry (%) 03/15/17 14:37 Temperature 98.1 F Pulse Rate 63 Respiratory Rate Blood Pressure 132/77 O2 Sat by Pulse Oximetry (%) Laboratory Results - last 24 hr 03/14/17 03/15/17 03/15/17 16:42 06:10 07:05 WBC 3.9 L RBC 4.24 Hgb 13.9 Hct 42.4 MCV 100.0 H MCHC 32.7 RDW 14.2 Plt Count 59 L D MPV 10.3 D Neutrophils % 62.9 Lymphocytes % 22.9 Monocytes % 12.2 H Eosinophils % 1.5 Basophils % 0.5 Sodium Potassium Chloride Carbon Dioxide Anion Gap BUN Creatinine POC Glucometer 116 96 Random Glucose Calcium Phosphorus Magnesium 03/15/17 03/15/17 07:05 11:42 WBC RBC Hgb Hct MCV MCHC RDW Plt Count MPV Neutrophils % Lymphocytes % Monocytes % Eosinophils % Basophils % Sodium 138 Potassium 3.8 Chloride 101 Carbon Dioxide 22 Anion Gap 15 BUN 14 D Creatinine 0.9 POC Glucometer 124 Random Glucose 139 H D Calcium 8.5 Phosphorus 3.3 D Magnesium 1.9 labs noted Assessment: 03/15/17 16:05 Alcohol withdrawal Plan: Continue detox Librium 50mg at 8PM
[2017-03-15 16:13] LABS: URINE APPEARANCE CLEAR; URINE BILIRUBIN NEGATIVE (NEGATIVE); URINE COLOR LTYELLOW; URINE GLUCOSE (UA) 3+ (NEGATIVE); URINE KETONE 1+ (NEGATIVE); URINE LEUK ESTERASE NEGATIVE (NEGATIVE); URINE NITRITE NEGATIVE (NEGATIVE); URINE PROTEIN NEGATIVE (NEGATIVE); URINE UROBILINOGEN 4.0 E.U/dl E.U./dl (0.2-1.0)
[2017-03-15] MEDS ORDERED: INSULIN (NOVOLOG) ASPART 100 UNITS/ML 10ML VIAL ONE ×2 (16:14→17:03)
[2017-03-15 16:31] LABS: URINE BLOOD 3+ (NEGATIVE)
[2017-03-15 16:35] LABS: URINE RBC 142 /hpf (0-3); URINE WBC 12 /hpf (3-5)
[2017-03-15] MEDS ORDERED: chlordiazePOXIDE HCL 25 MG CAPSULE PO ONE (20:00)
[2017-03-16] MEDS: chlordiazePOXIDE 5 MG CAPSULE PO SCH ×3 (06:07→17:36)
[2017-03-16] MEDS: NAPH,MB-DB/K PH,MBDB POWDER PACKET PO SCH ×3 (06:08→21:47)
[2017-03-16] MEDS: INSULIN SLIDING SCALE (NOVOLOG) 1 VIAL SQ SCH ×4 (06:13→21:47)
[2017-03-16 07:48] LABS: BASOPHIL 0.4 % (0-2.0); EOSINOPHIL 1.4 % (0-4.5); MEAN CELL VOLUME 99.9 fl (80-96); MEAN PLT VOLUME 9.3 fl (7.5-11.1); NEUTROPHILS 65.2 % (42.8-82.8); PLATELET COUNT 83 K/MM3 (134-434); RDW 14.3 % (11.9-15.9); WHITE BLOOD COUNT 5.4 K/mm3 (4.0-10.0)
[2017-03-16 07:52] LABS: CALCIUM 9.2 mg/dL (8.5-10.1); COCKROFT - GAULT 149.38; CREATININE 0.8 mg/dL (0.7-1.3); MAGNESIUM 1.9 mg/dL (1.8-2.4); PHOSPHOROUS 3.7 mg/dL (2.5-4.9)
[2017-03-16 08:31] LABS: ALBUMIN 3.6 g/dl (3.4-5.0); BILIRUBIN,DIRECT 1.1 mg/dL (0.0-0.2); BILIRUBIN,TOTAL 2.1 mg/dL (0.2-1.0); TOT PROT 7.8 g/dl (6.4-8.2)
[2017-03-16] MEDS: DAPAGLIFLOZIN PROPANEDIOL 5 MG PO SCH (10:20)
[2017-03-16] MEDS: THIAMINE HCL 100 MG TABLET (FP) PO SCH (10:21)
[2017-03-16] MEDS: METOPROLOL SUCCINATE 100 MG TAB.SR.24H (FP) PO SCH (10:21)
[2017-03-16] MEDS: FOLIC ACID 1 MG TABLET (FP) PO SCH (10:21)
[2017-03-16] MEDS: RIVAROXABAN 20 MG TABLET PO SCH (10:21)
[2017-03-16] MEDS: LOSARTAN POTASSIUM 50 MG TABLET (FP) PO SCH (10:21)
[2017-03-16] MEDS: RANITIDINE HCL 150 MG TABLET (FP) PO SCH (10:21)
[2017-03-16] MEDS ORDERED: PT OWN MED DRAWER 7, Y5N ONE ×3 (10:29→21:31)
[2017-03-16] MEDS: LACTOBACILLUS ACIDOPHILUS 1 EACH TAB (FP) PO SCH (14:08)
[2017-03-16] MEDS: CEFTRIAXONE 50 ML IVPB SCH (14:08)
--- NOTE | 2017-03-16 14:50 | CONSULT ---
Consult Consult Specialty:: urology Referred by:: rey Reason for Consultation:: urinary frequency, hematuria, UTI - History of Present Illness Chief Complaint: urinary frequency, hematuria, UTI History of Present Illness: 62 year old male with one year of increasing LUTS who now has burning and frequency and gross hematuria. No other active history. - History Source History Provided By: Patient Limitations to Obtaining History: No Limitations - Past Medical History UX DEVELOPER: Yes: Other (prior back surgery, chronic sciatica) Cardio/Vascular: Yes: Aneurysm (small stable ascending aortic aneurysm. HTN. Chronic RBBB), HTN Pulmonary: Yes: Pulmonary Embolus (s/p IVC filter and open embolectomy at [facility]) Renal/: Yes: BPH Psych: Yes: Addictions (ETOH) Musculoskeletal: Yes: Chronic low back pain Endocrine: Yes: Diabetes Mellitus - Alcohol/Substance Use Hx Alcohol Use: Yes (12pack beer) Number of Drinks Daily: 6 (Beers) History of Substance Use: reports: None - Smoking History Smoking history: Never smoked Have you smoked in the past 12 months: No - Social History ADL: Independent History of Recent Travel: No Home Medications - Allergies Allergies/Adverse Reactions: Allergies Allergy/AdvReac Type Severity Reaction Status Date / Time hydromorphone HCl AdvReac HALLUCINATION, Verified 03/12/17 15:36 [From Dilaudid] personality changes - Home Medications Home Medications: Ambulatory Orders Cyanocobalamin/FA/Pyridoxine [Folbee Tablet] 81 mg PO DAILY 03/12/17 Dapagliflozin Propanediol [Farxiga] 5 mg PO DAILY 03/12/17 Insulin Glargine,Hum.rec.anlog [Lantus (nf)] 30 units SQ DAILY 03/12/17 Insulin Lispro [Humalog] 0 unit SQ ASDIR PRN 03/12/17 Losartan Potassium 50 mg PO DAILY 03/12/17 Metoprolol Succinate [Toprol Xl] 100 mg PO DAILY 03/12/17 Ranitidine [Zantac -] 150 mg PO DAILY 03/12/17 Rivaroxaban [Xarelto -] 20 mg PO DAILY 03/12/17 Bifidobacterium Infantis [Align] 10.5 mg PO DAILY 03/13/17 Cholecalciferol (Vitamin D3) [D2000] 1,000 unit PO DAILY 03/13/17 Cyanocobalamin/Cobamamide [B-12 5,000 Mcg Sublingual Tab] 1 each SL DAILY Milk Thistle 300 mg PO BID 03/13/17 Family Disease History - Family Disease History Family Disease History: Heart Disease: Brother (CHF), CA: Father (Lung cancer with bone mets), Mother (liver CA), Sister (Colon CA) Review of Systems - Review of Systems Genitourinary: reports: Burning, Dysuria, Frequency, Hematuria, Pain. denies: Incontinence Physical Exam Vital Signs: Vital Signs Temperature 97.2 F L 03/16/17 14:00 Pulse Rate 68 03/16/17 14:00 Respiratory Rate 20 03/16/17 08:15 Blood Pressure 127/76 03/16/17 14:00 O2 Sat by Pulse Oximetry (%) 96 03/16/17 09:00 Renal/: No: Bladder Distention, CVA Tenderness - Left, CVA Tenderness - Right , Mishra Present, Hematuria Labs: CBC, BMP 03/16/17 06:20 03/16/17 06:20 Problem List - Problems (1) Gross hematuria Assessment/Plan: Hematuria work up initiated Code(s): R31.0 - GROSS HEMATURIA (2) Enlarged prostate with lower urinary tract symptoms (LUTS) Assessment/Plan: flomax, pyridium, continue antibiotics for UTI Code(s): N40.1 - BENIGN PROSTATIC HYPERPLASIA WITH LOWER URINARY TRACT SYMP
[2017-03-16] MEDS: PHENAZOPYRIDINE HCL 100 MG TABLET (FP) PO SCH ×2 (16:26→21:47)
--- NOTE | 2017-03-16 16:57 | PN ---
Progress Note, Physician Chief Complaint: Mr Leary says he is feeling better. Less tremulous. No cp, sob, n/v. - Current Medication List Current Medications: Active Medications Chlordiazepoxide HCl (Librium -) 10 mg PO [id number] [facility] Stop: 03/16/17 17:01 Last Admin: 03/16/17 10:21 Dose: 10 mg Folic Acid (Folic Acid -) 1 mg PO DAILY [facility] Last Admin: 03/16/17 10:21 Dose: 1 mg Ceftriaxone Sodium (Rocephin 1gm Ivpb (Pre-Docked)) 50 mls @ 100 mls/hr IVPB DAILY [facility] Last Admin: 03/16/17 14:08 Dose: 100 mls/hr Insulin Aspart (Novolog Vial Sliding Scale -) 0 vial SQ ACHS [facility] PRN Reason: Protocol Last Admin: 03/16/17 11:44 Dose: 2 units Lactobacillus Acidophilus (Bacid -) 1 tab PO DAILY [facility] Last Admin: 03/16/17 14:08 Dose: 1 tab Losartan Potassium (Cozaar -) 50 mg PO DAILY [facility] Last Admin: 03/16/17 10:21 Dose: 50 mg Metoprolol Succinate (Toprol Xl -) 100 mg PO DAILY [facility] Last Admin: 03/16/17 10:21 Dose: 100 mg Non-Formulary Medication (Cyanocobalamin/Fa/Pyridoxine [Folbee Tablet]) 81 mg PO DAILY [facility] Last Admin: 03/16/17 10:26 Dose: Not Given Dapagliflozin Propanediol (Farxiga ) 5 Mg Tablet (Pt's Own) 5 mg PO DAILY [facility] Last Admin: 03/16/17 10:20 Dose: 5 mg Phenazopyridine HCl (Pyridium -) 100 mg PO TID [facility] Last Admin: 03/16/17 16:26 Dose: 100 mg Potassium Phos/Sodium Phos (Phos-Nak Packet -) 1 packet PO TID [facility] Last Admin: 03/16/17 14:10 Dose: 1 packet Ranitidine HCl (Zantac -) 150 mg PO DAILY [facility] Last Admin: 03/16/17 10:21 Dose: 150 mg Rivaroxaban (Xarelto -) 20 mg PO DAILY [facility] Last Admin: 03/16/17 10:21 Dose: 20 mg Tamsulosin HCl (Flomax -) 0.4 mg PO DAILY@0830 [facility] Thiamine HCl (Vitamin B1 -) 100 mg PO DAILY [facility] Last Admin: 03/16/17 10:21 Dose: 100 mg - Objective Vital Signs: Vital Signs Temperature 97.2 F L 03/16/17 14:00 Pulse Rate 68 03/16/17 14:00 Respiratory Rate 20 03/16/17 08:15 Blood Pressure 127/76 03/16/17 14:00 O2 Sat by Pulse Oximetry (%) 96 03/16/17 09:00 Constitutional: Yes: No Distress, Calm, Obese Cardiovascular: Yes: Regular Rate and Rhythm. No: Gallop, Murmur, Rub Respiratory: Yes: Regular, CTA Bilaterally. No: Rales, Rhonchi, Wheezes Gastrointestinal: Yes: Normal Bowel Sounds, Soft. No: Distention, Tenderness Extremities: Yes: WNL Edema: No Problem List - Problems (1) Alcohol withdrawal Code(s): F10.239 - ALCOHOL DEPENDENCE WITH WITHDRAWAL, UNSPECIFIED Qualifiers : Complication of substance-induced condition: uncomplicated Qualified Code(s): F10.230 - Alcohol dependence with withdrawal, uncomplicated (2) Diabetes mellitus Code(s): E11.9 - TYPE 2 DIABETES MELLITUS WITHOUT COMPLICATIONS Qualifiers: Diabetes mellitus type: type 2 Diabetes mellitus complication status: with hyperglycemia Diabetes mellitus termite control service representative insulin use: without termite control service representative use Qualified Code(s): E11.65 - Type 2 diabetes mellitus with hyperglycemia; Z79.4 - termite control service representative (current) use of insulin (3) Factor 5 Leiden mutation, heterozygous Code(s): D68.51 - ACTIVATED PROTEIN C RESISTANCE (4) HTN (hypertension) Code(s): I10 - ESSENTIAL (PRIMARY) HYPERTENSION Qualifiers: Hypertension type: essential hypertension Qualified Code(s): I10 - Essential (primary) hypertension (5) H/O pulmonary thrombosis Code(s): Z86.711 - PERSONAL HISTORY OF PULMONARY EMBOLISM (6) Hypomagnesemia Code(s): E83.42 - HYPOMAGNESEMIA (7) Hypophosphatemia Code(s): E83.39 - OTHER DISORDERS OF PHOSPHORUS METABOLISM (8) Weakness Code(s): R53.1 - WEAKNESS (9) UTI (urinary tract infection) Code(s): N39.0 - URINARY TRACT INFECTION, SITE NOT SPECIFIED Qualifiers: Urinary tract infection type: acute cystitis Hematuria presence: with hematuria Qualified Code(s): N30.01 - Acute cystitis with hematuria Assessment/Plan (1) Alcohol withdrawal Assessment/Plan: -appreciate addiction medicine assistance -continue librium taper -tremors almost resolved Code(s): F10.239 - ALCOHOL DEPENDENCE WITH WITHDRAWAL, UNSPECIFIED Qualifiers : Complication of substance-induced condition: uncomplicated Qualified Code(s): F10.230 - Alcohol dependence with withdrawal, uncomplicated (2) Diabetes mellitus Assessment/Plan: -continue farxiga -diabetic diet Code(s): E11.9 - TYPE 2 DIABETES MELLITUS WITHOUT COMPLICATIONS Qualifiers: Diabetes mellitus type: type 2 Diabetes mellitus complication status: with hyperglycemia Diabetes mellitus termite control service representative insulin use: without detention use Qualified Code(s): E11.65 - Type 2 diabetes mellitus with hyperglycemia; Z79.4 - correction (current) use of insulin (3) Factor 5 Leiden mutation, heterozygous Assessment/Plan: -anticoagulated Code(s): D68.51 - ACTIVATED PROTEIN C RESISTANCE (4) HTN (hypertension) Assessment/Plan: -controlled -continue toprol xl and cozaar Code(s): I10 - ESSENTIAL (PRIMARY) HYPERTENSION Qualifiers: Hypertension type: essential hypertension Qualified Code(s): I10 - Essential (primary) hypertension (5) H/O pulmonary thrombosis Assessment/Plan: -continue xarelto Code(s): Z86.711 - PERSONAL HISTORY OF PULMONARY EMBOLISM (6) Hypomagnesemia Assessment/Plan: -replaced Code(s): E83.42 - HYPOMAGNESEMIA (7) Hypophosphatemia -replaced (8) Weakness with fall -continue PT -plan for SNF placement (9) Acute cystitis with hematuria -cultures growing klebsiella -start rocephin -consult urology
[2017-03-16] MEDS ORDERED: INSULIN (NOVOLOG) ASPART 100 UNITS/ML 10ML VIAL ONE (17:22)
[2017-03-17] MEDS ORDERED: PT OWN MED DRAWER 7, Y5N ONE ×2 (06:06→20:54)
[2017-03-17] MEDS: PHENAZOPYRIDINE HCL 100 MG TABLET (FP) PO SCH ×3 (06:16→21:22)
[2017-03-17] MEDS: NAPH,MB-DB/K PH,MBDB POWDER PACKET PO SCH ×3 (06:17→21:22)
[2017-03-17] MEDS: INSULIN SLIDING SCALE (NOVOLOG) 1 VIAL SQ SCH ×4 (06:17→21:28)
[2017-03-17 08:21] LABS: BASOPHIL 0.7 % (0-2.0); EOSINOPHIL 1.1 % (0-4.5); MCH 32.9 pg (25.7-33.7); MCHC 33.1 g/dl (32.0-35.9); MEAN CELL VOLUME 99.5 fl (80-96); MEAN PLT VOLUME 9.6 fl (7.5-11.1); PLATELET COUNT 94 K/MM3 (134-434); RDW 14.5 % (11.9-15.9); WHITE BLOOD COUNT 5.3 K/mm3 (4.0-10.0)
[2017-03-17 08:45] LABS: CALCIUM 9.6 mg/dL (8.5-10.1); COCKROFT - GAULT 132.78; CREATININE 0.9 mg/dL (0.7-1.3); PHOSPHOROUS 4.4 mg/dL (2.5-4.9)
[2017-03-17] MEDS: CEFTRIAXONE 50 ML IVPB SCH (09:13)
[2017-03-17] MEDS: LOSARTAN POTASSIUM 50 MG TABLET (FP) PO SCH (09:14)
[2017-03-17] MEDS: TAMSULOSIN HCL 0.4 MG CAP.ER.24H (FP) PO SCH (09:14)
[2017-03-17] MEDS: LACTOBACILLUS ACIDOPHILUS 1 EACH TAB (FP) PO SCH (09:14)
[2017-03-17] MEDS: DAPAGLIFLOZIN PROPANEDIOL 5 MG PO SCH (09:14)
[2017-03-17] MEDS: THIAMINE HCL 100 MG TABLET (FP) PO SCH (09:14)
[2017-03-17] MEDS: METOPROLOL SUCCINATE 100 MG TAB.SR.24H (FP) PO SCH (09:14)
[2017-03-17] MEDS: RANITIDINE HCL 150 MG TABLET (FP) PO SCH (09:14)
[2017-03-17] MEDS: FOLIC ACID 1 MG TABLET (FP) PO SCH (09:14)
[2017-03-17] MEDS: RIVAROXABAN 20 MG TABLET PO SCH (09:14)
--- NOTE | 2017-03-17 12:45 | PN ---
Progress Note, Physician Chief Complaint: No new complaints denies any hallucinations or illusion History of Present Illness: 62 year old male who comes in for alcohol withdrawal and detox. chronic sciatica), Aneurysm (small stable ascending aortic aneurysm. HTN. Chronic RBBB) , HTN, Pulmonary Embolus (s/p IVC filter and open embolectomy at [facility], (Factor V Leiden), Diabetes Mellitus - Current Medication List Current Medications: Active Medications Folic Acid (Folic Acid -) 1 mg PO DAILY [facility] Last Admin: 03/17/17 09:14 Dose: 1 mg Ceftriaxone Sodium (Rocephin 1gm Ivpb (Pre-Docked)) 50 mls @ 100 mls/hr IVPB DAILY [facility] Last Admin: 03/17/17 09:13 Dose: 100 mls/hr Insulin Aspart (Novolog Vial Sliding Scale -) 0 vial SQ ACHS [facility] PRN Reason: Protocol Last Admin: 03/17/17 11:44 Dose: 2 units Lactobacillus Acidophilus (Bacid -) 1 tab PO DAILY [facility] Last Admin: 03/17/17 09:14 Dose: 1 tab Losartan Potassium (Cozaar -) 50 mg PO DAILY [facility] Last Admin: 03/17/17 09:14 Dose: 50 mg Metoprolol Succinate (Toprol Xl -) 100 mg PO DAILY [facility] Last Admin: 03/17/17 09:14 Dose: 100 mg Non-Formulary Medication (Cyanocobalamin/Fa/Pyridoxine [Folbee Tablet]) 81 mg PO DAILY [facility] Last Admin: 03/17/17 09:14 Dose: Not Given Dapagliflozin Propanediol (Farxiga ) 5 Mg Tablet (Pt's Own) 5 mg PO DAILY [facility] Last Admin: 03/17/17 09:14 Dose: 5 mg Phenazopyridine HCl (Pyridium -) 100 mg PO TID [facility] Last Admin: 03/17/17 06:16 Dose: 100 mg Potassium Phos/Sodium Phos (Phos-Nak Packet -) 1 packet PO TID [facility] Last Admin: 03/17/17 06:17 Dose: 1 packet Ranitidine HCl (Zantac -) 150 mg PO DAILY [facility] Last Admin: 03/17/17 09:14 Dose: 150 mg Rivaroxaban (Xarelto -) 20 mg PO DAILY [facility] Last Admin: 03/17/17 09:14 Dose: 20 mg Tamsulosin HCl (Flomax -) 0.4 mg PO DAILY@0830 [facility] Last Admin: 03/17/17 09:14 Dose: 0.4 mg Thiamine HCl (Vitamin B1 -) 100 mg PO DAILY [facility] Last Admin: 03/17/17 09:14 Dose: 100 mg - Objective Vital Signs: Vital Signs Temperature 97.8 F 03/17/17 08:00 Pulse Rate 81 03/17/17 08:00 Respiratory Rate 18 03/17/17 08:00 Blood Pressure 99/71 03/17/17 08:00 O2 Sat by Pulse Oximetry (%) 96 03/16/17 21:00 Constitutional: Yes: Well Nourished, No Distress, Calm Eyes: Yes: WNL, Conjunctiva Clear, EOM Intact HENT: Yes: WNL, Atraumatic, Normocephalic Neck: Yes: WNL, Supple, Trachea Midline Cardiovascular: Yes: WNL, Regular Rate and Rhythm Respiratory: Yes: WNL, Regular, CTA Bilaterally Gastrointestinal: Yes: WNL, Normal Bowel Sounds, Soft ...Rectal Exam: Yes: WNL Genitourinary: Yes: WNL Musculoskeletal: Yes: WNL, Back Pain Edema: Yes Edema: LLE: Trace, RLE: Trace Peripheral Pulses WNL: Yes Integumentary: Yes: WNL Neurological: Yes: WNL, Alert, Tremors. No: Lethargy, Seizure ...Motor Strength: WNL, LUE, LLE Psychiatric: Yes: WNL, Alert, Oriented Labs: CBC, BMP 03/17/17 07:20 03/17/17 07:20 - ....Imaging Cat Scan: Image Reviewed (Abdomen: Interval mid non specific thickening of rectal wall. Diverticulosis) Problem List - Problems (1) Alcohol dependence with uncomplicated withdrawal Assessment/Plan: Know case of chronic alcohalic liver disease admitted with alcohal withdrawal symptoms will refer for rehab and Detox, cont current management Code(s): F10.230 - ALCOHOL DEPENDENCE WITH WITHDRAWAL, UNCOMPLICATED (2) Gross hematuria Assessment/Plan: Possibility of UTI F/U recommondations and IV abx, Ct abdomen no acute changes. Code(s): R31.0 - GROSS HEMATURIA (3) Chronic back pain Assessment/Plan: Cont Home meds Code(s): M54.9 - DORSALGIA, UNSPECIFIED G89.29 - OTHER CHRONIC PAIN (4) Factor 5 Leiden mutation, heterozygous Assessment/Plan: With PE and DVTs on AC Code(s): D68.51 - ACTIVATED PROTEIN C RESISTANCE (5) Diabetes mellitus Assessment/Plan: Cont current mangement Code(s): E11.9 - TYPE 2 DIABETES MELLITUS WITHOUT COMPLICATIONS Qualifiers: Diabetes mellitus type: type 2 Diabetes mellitus complication status: with hyperglycemia Diabetes mellitus extermination supervisor insulin use: without extermination supervisor use Qualified Code(s): E11.65 - Type 2 diabetes mellitus with hyperglycemia; Z79.4 - watermaster (current) use of insulin (6) HTN (hypertension) Assessment/Plan: Cont all home medications. Code(s): I10 - ESSENTIAL (PRIMARY) HYPERTENSION Qualifiers: Hypertension type: essential hypertension Qualified Code(s): I10 - Essential (primary) hypertension
[2017-03-17] MEDS ORDERED: INSULIN (NOVOLOG) ASPART 100 UNITS/ML 10ML VIAL ONE ×2 (16:46→21:28)
[2017-03-18] MEDS: NAPH,MB-DB/K PH,MBDB POWDER PACKET PO SCH ×3 (06:31→21:32)
[2017-03-18] MEDS: PHENAZOPYRIDINE HCL 100 MG TABLET (FP) PO SCH ×3 (06:31→21:32)
[2017-03-18] MEDS: INSULIN SLIDING SCALE (NOVOLOG) 1 VIAL SQ SCH ×4 (06:32→21:32)
[2017-03-18 09:03] LABS: BASOPHIL 0.6 % (0-2.0); MCH 33.1 pg (25.7-33.7); MCHC 33.3 g/dl (32.0-35.9); MEAN CELL VOLUME 99.5 fl (80-96); MEAN PLT VOLUME 9.3 fl (7.5-11.1); NEUTROPHILS 60.1 % (42.8-82.8); PLATELET COUNT 89 K/MM3 (134-434); RDW 14.2 % (11.9-15.9)
[2017-03-18] MEDS ORDERED: PT OWN MED DRAWER 7, Y5N ONE ×3 (09:04→21:01)
[2017-03-18] MEDS: FOLIC ACID 1 MG TABLET (FP) PO SCH (09:09)
[2017-03-18] MEDS: TAMSULOSIN HCL 0.4 MG CAP.ER.24H (FP) PO SCH (09:09)
[2017-03-18] MEDS: LOSARTAN POTASSIUM 50 MG TABLET (FP) PO SCH (09:09)
[2017-03-18] MEDS: RIVAROXABAN 20 MG TABLET PO SCH (09:09)
[2017-03-18] MEDS: DAPAGLIFLOZIN PROPANEDIOL 5 MG PO SCH (09:09)
[2017-03-18] MEDS: THIAMINE HCL 100 MG TABLET (FP) PO SCH (09:09)
[2017-03-18] MEDS: METOPROLOL SUCCINATE 100 MG TAB.SR.24H (FP) PO SCH (09:09)
[2017-03-18] MEDS: LACTOBACILLUS ACIDOPHILUS 1 EACH TAB (FP) PO SCH (09:09)
[2017-03-18] MEDS: RANITIDINE HCL 150 MG TABLET (FP) PO SCH (09:09)
[2017-03-18] MEDS: CEFTRIAXONE 50 ML IVPB SCH (09:10)
[2017-03-18 09:18] LABS: ALBUMIN 3.3 g/dl (3.4-5.0); CALCIUM 9.1 mg/dL (8.5-10.1)
[2017-03-18 09:24] LABS: ALK PHOS 116 U/L (45-117); ANION GAP 14 (8-16); BILIRUBIN,TOTAL 2.1 mg/dL (0.2-1.0); CO2 24 mmol/L (21-32); COCKROFT - GAULT 99.58; CREATININE 1.2 mg/dL (0.7-1.3); GLUCOSE,RANDOM 158 mg/dL (74-106); SGOT/AST 66 U/L (15-37); SGPT/ALT 42 U/L (12-78); TOT PROT 7.3 g/dl (6.4-8.2)
[2017-03-18] MEDS ORDERED: INSULIN (NOVOLOG) ASPART 100 UNITS/ML 10ML VIAL ONE ×2 (11:53→16:48)
[2017-03-18] MEDS: POLYETHYLENE GLYCOL 3350 119 GM BTL PO PRN (18:48)
[2017-03-19] MEDS ORDERED: PT OWN MED DRAWER 7, Y5N ONE ×3 (05:53→21:02)
[2017-03-19] MEDS: PHENAZOPYRIDINE HCL 100 MG TABLET (FP) PO SCH ×3 (05:55→21:40)
[2017-03-19] MEDS: NAPH,MB-DB/K PH,MBDB POWDER PACKET PO SCH ×3 (05:55→21:41)
[2017-03-19] MEDS: INSULIN SLIDING SCALE (NOVOLOG) 1 VIAL SQ SCH ×4 (06:36→21:40)
[2017-03-19] MEDS: TAMSULOSIN HCL 0.4 MG CAP.ER.24H (FP) PO SCH (08:51)
[2017-03-19 08:54] LABS: BASOPHIL 0.9 % (0-2.0); MCH 32.7 pg (25.7-33.7); MCHC 32.6 g/dl (32.0-35.9); MEAN CELL VOLUME 100.4 fl (80-96); MEAN PLT VOLUME 10.1 fl (7.5-11.1); NEUTROPHILS 56.9 % (42.8-82.8); PLATELET COUNT 86 K/MM3 (134-434); RDW 14.2 % (11.9-15.9); WHITE BLOOD COUNT 4.5 K/mm3 (4.0-10.0)
[2017-03-19 09:22] LABS: ALBUMIN 3.2 g/dl (3.4-5.0); ANION GAP 13 (8-16); CALCIUM 8.8 mg/dL (8.5-10.1); CO2 25 mmol/L (21-32); COCKROFT - GAULT 132.78; CREATININE 0.9 mg/dL (0.7-1.3); GLUCOSE,RANDOM 119 mg/dL (74-106); SGOT/AST 75 U/L (15-37); SGPT/ALT 52 U/L (12-78)
[2017-03-19 09:25] LABS: ALK PHOS 111 U/L (45-117); BILIRUBIN,TOTAL 1.8 mg/dL (0.2-1.0); TOT PROT 7.2 g/dl (6.4-8.2)
[2017-03-19] MEDS: LACTOBACILLUS ACIDOPHILUS 1 EACH TAB (FP) PO SCH (10:21)
[2017-03-19] MEDS: LOSARTAN POTASSIUM 50 MG TABLET (FP) PO SCH (10:21)
[2017-03-19] MEDS: DAPAGLIFLOZIN PROPANEDIOL 5 MG PO SCH (10:22)
[2017-03-19] MEDS: THIAMINE HCL 100 MG TABLET (FP) PO SCH (10:22)
[2017-03-19] MEDS: RANITIDINE HCL 150 MG TABLET (FP) PO SCH (10:22)
[2017-03-19] MEDS: FOLIC ACID 1 MG TABLET (FP) PO SCH (10:22)
[2017-03-19] MEDS: METOPROLOL SUCCINATE 100 MG TAB.SR.24H (FP) PO SCH (10:22)
[2017-03-19] MEDS: RIVAROXABAN 20 MG TABLET PO SCH (10:23)
[2017-03-19] MEDS: CEFTRIAXONE 50 ML IVPB SCH (10:23)
--- NOTE | 2017-03-19 12:58 | PN ---
Progress Note (short form) - Note Progress Note: Neurology History of Present Illness Patient is a 62 year old male with a significant past medical history of factor 5 Leiden deficiency, multiple DVTs RLE, H/O PE, 0.4cm Aortic aneurysm (last evaluated 1 month ago), b/l inguinal hernias s/p repair, HTN, DM2, EtOH abuse and h/o colonic polyps who presents to the ED requesting detox for EtOH abuse because he is going through a withdrawal. The patient was to be leaning to the right and concern regarding jerking activity. 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 His strength remains intact and does not seem to be CVA, but I believe rehab would be beneficial for multifactorial gait disorder especially considering multiple falls. Has been getting treatment for Etoh withdrawal, Dr. Frank Morfin following. Active Medications Folic Acid (Folic Acid -) 1 mg PO DAILY [facility] Last Admin: 03/19/17 10:22 Dose: 1 mg Ceftriaxone Sodium (Rocephin 1gm Ivpb (Pre-Docked)) 50 mls @ 100 mls/hr IVPB DAILY [facility] Last Admin: 03/19/17 10:23 Dose: 100 mls/hr Insulin Aspart (Novolog Vial Sliding Scale -) 0 vial SQ ACHS [facility] PRN Reason: Protocol Last Admin: 03/19/17 06:36 Dose: Not Given Lactobacillus Acidophilus (Bacid -) 1 tab PO DAILY [facility] Last Admin: 03/19/17 10:21 Dose: 1 tab Losartan Potassium (Cozaar -) 50 mg PO DAILY [facility] Last Admin: 03/19/17 10:21 Dose: 50 mg Metoprolol Succinate (Toprol Xl -) 100 mg PO DAILY [facility] Last Admin: 03/19/17 10:22 Dose: 100 mg Non-Formulary Medication (Cyanocobalamin/Fa/Pyridoxine [Folbee Tablet]) 81 mg PO DAILY [facility] Last Admin: 03/19/17 10:22 Dose: Not Given Dapagliflozin Propanediol (Farxiga ) 5 Mg Tablet (Pt's Own) 5 mg PO DAILY [facility] Last Admin: 03/19/17 10:22 Dose: 5 mg Phenazopyridine HCl (Pyridium -) 100 mg PO TID [facility] Last Admin: 03/19/17 05:55 Dose: 100 mg Polyethylene Glycol (Miralax (For Daily Use) -) 17 gm PO DAILY PRN PRN Reason: CONSTIPATION Last Admin: 03/18/17 18:48 Dose: 17 grams Potassium Phos/Sodium Phos (Phos-Nak Packet -) 1 packet PO TID [facility] Last Admin: 03/19/17 05:55 Dose: 1 packet Ranitidine HCl (Zantac -) 150 mg PO DAILY [facility] Last Admin: 03/19/17 10:22 Dose: 150 mg Rivaroxaban (Xarelto -) 20 mg PO DAILY [facility] Last Admin: 03/19/17 10:23 Dose: 20 mg Tamsulosin HCl (Flomax -) 0.4 mg PO DAILY@0830 [facility] Last Admin: 03/19/17 08:51 Dose: 0.4 mg Thiamine HCl (Vitamin B1 -) 100 mg PO DAILY [facility] Last Admin: 03/19/17 10:22 Dose: 100 mg *Physical Exam Vital Signs Temperature 97.7 F 03/19/17 06:00 Pulse Rate 64 03/19/17 06:00 Respiratory Rate 18 03/19/17 06:00 Blood Pressure 115/72 03/19/17 06:00 O2 Sat by Pulse Oximetry (%) 96 03/18/17 20:39 Well developed, well nourished. Awake and alert. No acute distress. HEENT: Normocephalic, atraumatic. PERRLA, EOMI. No conjunctival pallor. Sclera are non- icteric. Moist mucous membranes. Oropharynx is clear. NECK: Supple. Full ROM. No JVD. Carotid pulses 2+ and symmetric, without bruits. No thyromegaly. No lymphadenopathy. CARDIOVASCULAR: +Tachycardic. No murmurs, rubs, or gallops. Distal pulses are 2+ and symmetric. PULMONARY: No evidence of respiratory distress. Lungs clear to auscultation bilaterally. No wheezing, rales or rhonchi. ABDOMINAL: Soft. Non-tender. Non-distended. No rebound or guarding. No organomegaly. Normoactive bowel sounds. MUSCULOSKELETAL Normal range of motion at all joints. No bony deformities or tenderness. No CVA tenderness. EXTREMITIES: No cyanosis. No clubbing. No edema. No calf tenderness. SKIN: Warm and dry. Normal capillary refill. No rashes. No jaundice. NEUROLOGICAL: Alert, awake, appropriate. Cranial nerves 2-12 intact. No deficits to light touch and temperature in face, upper extremities and lower extremities. No motor deficits in the in face, upper extremities and lower extremities. Normoreflexic in the upper and lower extremities. Normal speech. Toes are down-going bilaterally. Gait is normal without ataxia. PSYCHIATRIC: Cooperative. Good eye contact. Appropriate mood and affect. CBCD WBC 4.5 K/mm3 (4.0-10.0) 03/19/17 08:30 RBC 4.45 M/mm3 (4.00-5.60) 03/19/17 08:30 Hgb 14.6 GM/dL (11.7-16.9) 03/19/17 08:30 Hct 44.7 % (35.4-49) 03/19/17 08:30 MCV 100.4 fl (80-96) H 03/19/17 08:30 MCHC 32.6 g/dl (32.0-35.9) 03/19/17 08:30 RDW 14.2 % (11.9-15.9) 03/19/17 08:30 Plt Count 86 K/MM3 (134-434) L 03/19/17 08:30 MPV 10.1 fl (7.5-11.1) 03/19/17 08:30 CMP Sodium 139 mmol/L (136-145) 03/19/17 08:30 Potassium 4.3 mmol/L (3.5-5.1) 03/19/17 08:30 Chloride 101 mmol/L (98-107) 03/19/17 08:30 Carbon Dioxide 25 mmol/L (21-32) 03/19/17 08:30 Anion Gap 13 (8-16) 03/19/17 08:30 BUN 20 mg/dL (7-18) H 03/19/17 08:30 Creatinine 0.9 mg/dL (0.7-1.3) D 03/19/17 08:30 Creat Clearance w eGFR > 60 (>60) 03/19/17 08:30 Calcium 8.8 mg/dL (8.5-10.1) 03/19/17 08:30 Total Bilirubin 1.8 mg/dL (0.2-1.0) H 03/19/17 08:30 AST 75 U/L (15-37) H 03/19/17 08:30 ALT 52 U/L (12-78) D 03/19/17 08:30 Alkaline Phosphatase 111 U/L (45-117) 03/19/17 08:30 Total Protein 7.2 g/dl (6.4-8.2) 03/19/17 08:30 Albumin 3.2 g/dl (3.4-5.0) L 03/19/17 08:30 Medical Decision Making 62 year old male with a significant past medical history of factor 5 Leiden deficiency, multiple DVTs RLE, H/O PE, 0.4cm Aortic aneurysm (last evaluated 1 month ago), b/l inguinal hernias s/p repair, HTN, DM2, EtOH abuse and h/o colonic polyps who presents to the ED requesting detox for EtOH abuse because he is going through a withdrawal. CT head and without acute changes. 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 His strength seems intact and does not seem to be CVA, but I believe rehab would be beneficial for multifactorial gait disorder. Tremors from withdrawal, not myoclonic, and improving per nurse. Continue Etoh withdrawal protocal, medical management and optimization. Fall precautions.
--- NOTE | 2017-03-19 15:20 | PN ---
Progress Note, Physician Chief Complaint: Mr Leary says he is doing well. No cp, sob, n/v. Tremors resolved. - Current Medication List Current Medications: Active Medications Folic Acid (Folic Acid -) 1 mg PO DAILY [facility] Last Admin: 03/19/17 10:22 Dose: 1 mg Ceftriaxone Sodium (Rocephin 1gm Ivpb (Pre-Docked)) 50 mls @ 100 mls/hr IVPB DAILY [facility] Last Admin: 03/19/17 10:23 Dose: 100 mls/hr Insulin Aspart (Novolog Vial Sliding Scale -) 0 vial SQ ACHS [facility] PRN Reason: Protocol Last Admin: 03/19/17 12:00 Dose: 2 units Lactobacillus Acidophilus (Bacid -) 1 tab PO DAILY [facility] Last Admin: 03/19/17 10:21 Dose: 1 tab Losartan Potassium (Cozaar -) 50 mg PO DAILY [facility] Last Admin: 03/19/17 10:21 Dose: 50 mg Metoprolol Succinate (Toprol Xl -) 100 mg PO DAILY [facility] Last Admin: 03/19/17 10:22 Dose: 100 mg Non-Formulary Medication (Cyanocobalamin/Fa/Pyridoxine [Folbee Tablet]) 81 mg PO DAILY [facility] Last Admin: 03/19/17 10:22 Dose: Not Given Dapagliflozin Propanediol (Farxiga ) 5 Mg Tablet (Pt's Own) 5 mg PO DAILY [facility] Last Admin: 03/19/17 10:22 Dose: 5 mg Phenazopyridine HCl (Pyridium -) 100 mg PO TID [facility] Last Admin: 03/19/17 13:57 Dose: 100 mg Polyethylene Glycol (Miralax (For Daily Use) -) 17 gm PO DAILY PRN PRN Reason: CONSTIPATION Last Admin: 03/18/17 18:48 Dose: 17 grams Potassium Phos/Sodium Phos (Phos-Nak Packet -) 1 packet PO TID [facility] Last Admin: 03/19/17 13:57 Dose: 1 packet Ranitidine HCl (Zantac -) 150 mg PO DAILY [facility] Last Admin: 03/19/17 10:22 Dose: 150 mg Rivaroxaban (Xarelto -) 20 mg PO DAILY [facility] Last Admin: 03/19/17 10:23 Dose: 20 mg Tamsulosin HCl (Flomax -) 0.4 mg PO DAILY@0830 [facility] Last Admin: 03/19/17 08:51 Dose: 0.4 mg Thiamine HCl (Vitamin B1 -) 100 mg PO DAILY [facility] Last Admin: 03/19/17 10:22 Dose: 100 mg - Objective Vital Signs: Vital Signs Temperature 97.6 F 03/19/17 14:00 Pulse Rate 70 03/19/17 14:00 Respiratory Rate 20 03/19/17 14:00 Blood Pressure 125/75 03/19/17 10:00 O2 Sat by Pulse Oximetry (%) 96 03/18/17 20:39 Constitutional: Yes: No Distress, Calm, Obese Cardiovascular: Yes: Regular Rate and Rhythm. No: Gallop, Murmur, Rub Respiratory: Yes: Regular, CTA Bilaterally. No: Rales, Rhonchi, Wheezes Gastrointestinal: Yes: Normal Bowel Sounds, Soft. 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 Qualified Code(s): E11.65 - Type 2 diabetes mellitus with hyperglycemia; Z79.4 - prison (current) use of insulin (3) Factor 5 Leiden mutation, heterozygous Code(s): D68.51 - ACTIVATED PROTEIN C RESISTANCE (4) HTN (hypertension) Code(s): I10 - ESSENTIAL (PRIMARY) HYPERTENSION Qualifiers: Hypertension type: essential hypertension Qualified Code(s): I10 - Essential (primary) hypertension (5) H/O pulmonary thrombosis Code(s): Z86.711 - PERSONAL HISTORY OF PULMONARY EMBOLISM (6) Hypomagnesemia Code(s): E83.42 - HYPOMAGNESEMIA (7) Hypophosphatemia Code(s): E83.39 - OTHER DISORDERS OF PHOSPHORUS METABOLISM (8) Weakness Code(s): R53.1 - WEAKNESS (9) UTI (urinary tract infection) Code(s): N39.0 - URINARY TRACT INFECTION, SITE NOT SPECIFIED Qualifiers: Urinary tract infection type: acute cystitis Hematuria presence: with hematuria Qualified Code(s): N30.01 - Acute cystitis with hematuria Assessment/Plan (1) Alcohol withdrawal Assessment/Plan: -resolved Code(s): F10.239 - ALCOHOL DEPENDENCE WITH WITHDRAWAL, UNSPECIFIED Qualifiers : Complication of substance-induced condition: uncomplicated Qualified Code(s): F10.230 - Alcohol dependence with withdrawal, uncomplicated (2) Diabetes mellitus Assessment/Plan: -continue farxiga -diabetic diet Code(s): E11.9 - TYPE 2 DIABETES MELLITUS WITHOUT COMPLICATIONS Qualifiers: Diabetes mellitus type: type 2 Diabetes mellitus complication status: with hyperglycemia Diabetes mellitus 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: without custodial use Qualified Code(s): E11.65 - Type 2 diabetes mellitus with hyperglycemia; Z79.4 - prison (current) use of insulin (3) Factor 5 Leiden mutation, heterozygous Assessment/Plan: -anticoagulated Code(s): D68.51 - ACTIVATED PROTEIN C RESISTANCE (4) HTN (hypertension) Assessment/Plan: -controlled -continue toprol xl and cozaar Code(s): I10 - ESSENTIAL (PRIMARY) HYPERTENSION Qualifiers: Hypertension type: essential hypertension Qualified Code(s): I10 - Essential (primary) hypertension (5) H/O pulmonary thrombosis Assessment/Plan: -continue xarelto Code(s): Z86.711 - PERSONAL HISTORY OF PULMONARY EMBOLISM (6) Hypomagnesemia Assessment/Plan: -replaced Code(s): E83.42 - HYPOMAGNESEMIA (7) Hypophosphatemia -replaced (8) Weakness with fall -continue PT -plan for SNF placement (9) Acute cystitis with hematuria -appreciate urology assistance -continue rocephin -klebsiella, sensitive to cephalosporins
[2017-03-19] MEDS ORDERED: INSULIN (NOVOLOG) ASPART 100 UNITS/ML 10ML VIAL ONE (16:40)
[2017-03-20] MEDS: PHENAZOPYRIDINE HCL 100 MG TABLET (FP) PO SCH ×2 (05:44→13:14)
[2017-03-20] MEDS: NAPH,MB-DB/K PH,MBDB POWDER PACKET PO SCH ×2 (05:44→13:14)
[2017-03-20] MEDS: INSULIN SLIDING SCALE (NOVOLOG) 1 VIAL SQ SCH ×2 (06:14→11:35)
[2017-03-20 07:41] LABS: BASOPHIL 0.9 % (0-2.0); EOSINOPHIL 0.8 % (0-4.5); MCH 33.2 pg (25.7-33.7); MCHC 33.3 g/dl (32.0-35.9); MEAN CELL VOLUME 99.7 fl (80-96); MEAN PLT VOLUME 9.8 fl (7.5-11.1); NEUTROPHILS 58.6 % (42.8-82.8); PLATELET COUNT 115 K/MM3 (134-434); RDW 14.1 % (11.9-15.9)
[2017-03-20 08:10] LABS: ALBUMIN 3.5 g/dl (3.4-5.0); BILIRUBIN,DIRECT 1.1 mg/dL (0.0-0.2); BILIRUBIN,TOTAL 2.1 mg/dL (0.2-1.0); CALCIUM 9.1 mg/dL (8.5-10.1); COCKROFT - GAULT 132.78; CREATININE 0.9 mg/dL (0.7-1.3); PHOSPHOROUS 3.1 mg/dL (2.5-4.9); TOT PROT 7.8 g/dl (6.4-8.2)
[2017-03-20] MEDS: DAPAGLIFLOZIN PROPANEDIOL 5 MG PO SCH (09:05)
[2017-03-20] MEDS: POLYETHYLENE GLYCOL 3350 119 GM BTL PO PRN (09:05)
[2017-03-20] MEDS: TAMSULOSIN HCL 0.4 MG CAP.ER.24H (FP) PO SCH (09:06)
[2017-03-20] MEDS: FOLIC ACID 1 MG TABLET (FP) PO SCH (09:06)
[2017-03-20] MEDS: RANITIDINE HCL 150 MG TABLET (FP) PO SCH (09:06)
[2017-03-20] MEDS: LACTOBACILLUS ACIDOPHILUS 1 EACH TAB (FP) PO SCH (09:06)
[2017-03-20] MEDS: METOPROLOL SUCCINATE 100 MG TAB.SR.24H (FP) PO SCH (09:06)
[2017-03-20] MEDS: RIVAROXABAN 20 MG TABLET PO SCH (09:06)
[2017-03-20] MEDS: CEFTRIAXONE 50 ML IVPB SCH (09:07)
[2017-03-20] MEDS: LOSARTAN POTASSIUM 50 MG TABLET (FP) PO SCH (09:07)
[2017-03-20] MEDS: THIAMINE HCL 100 MG TABLET (FP) PO SCH (09:07)
[2017-03-20] MEDS ORDERED: INSULIN (NOVOLOG) ASPART 100 UNITS/ML 10ML VIAL ONE (11:27)
--- NOTE | 2017-03-20 12:07 | DS ---
Physical Examination Vital Signs: Vital Signs Temperature 98.5 F 03/20/17 07:52 Pulse Rate 67 03/20/17 07:52 Respiratory Rate 18 03/20/17 07:52 Blood Pressure 106/62 03/20/17 07:52 O2 Sat by Pulse Oximetry (%) 96 03/20/17 09:00 Constitutional: Yes: Well Nourished, No Distress, Calm Cardiovascular: Yes: Regular Rate and Rhythm. No: Gallop, Murmur, Rub Respiratory: Yes: Regular, CTA Bilaterally. No: Rales, Rhonchi, Wheezes Gastrointestinal: Yes: Normal Bowel Sounds, Soft. No: Distention, Tenderness Extremities: Yes: WNL Edema: No Labs: CBC, BMP 03/20/17 06:20 03/20/17 06:20 Discharge Summary Reason For Visit: DIABETES RACHEL, ALCH WITHDRAWL, HETEROZYGOUS V Current Active Problems Abnormal EKG (Acute) Acute low back pain (Acute) Alcohol dependence with uncomplicated withdrawal (Acute) Alcohol withdrawal (Acute) Enlarged prostate with lower urinary tract symptoms (LUTS) (Acute) Gross hematuria (Acute) Hypomagnesemia (Acute) Hypophosphatemia (Acute) UTI (urinary tract infection) (Acute) Weakness (Acute) Chronic back pain (Chronic) Diabetes mellitus (Chronic) Factor 5 Leiden mutation, heterozygous (Chronic) H/O aortic aneurysm (Chronic) HTN (hypertension) (Chronic) Hospital Course: (1) Alcohol withdrawal Code(s): F10.239 - ALCOHOL DEPENDENCE WITH WITHDRAWAL, UNSPECIFIED Qualifiers : Complication of substance-induced condition: uncomplicated Qualified Code(s): F10.230 - Alcohol dependence with withdrawal, uncomplicated (2) Diabetes mellitus Code(s): E11.9 - TYPE 2 DIABETES MELLITUS WITHOUT COMPLICATIONS Qualifiers: Diabetes mellitus type: type 2 Diabetes mellitus complication status: with hyperglycemia Diabetes 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 Qualified Code(s): E11.65 - Type 2 diabetes mellitus with hyperglycemia; Z79.4 - custodial (current) use of insulin (3) Factor 5 Leiden mutation, heterozygous Code(s): D68.51 - ACTIVATED PROTEIN C RESISTANCE (4) HTN (hypertension) Code(s): I10 - ESSENTIAL (PRIMARY) HYPERTENSION Qualifiers: Hypertension type: essential hypertension Qualified Code(s): I10 - Essential (primary) hypertension (5) H/O pulmonary thrombosis Code(s): Z86.711 - PERSONAL HISTORY OF PULMONARY EMBOLISM (6) Hypomagnesemia Code(s): E83.42 - HYPOMAGNESEMIA (7) Hypophosphatemia Code(s): E83.39 - OTHER DISORDERS OF PHOSPHORUS METABOLISM (8) Weakness Code(s): R53.1 - WEAKNESS (9) UTI (urinary tract infection) Code(s): N39.0 - URINARY TRACT INFECTION, SITE NOT SPECIFIED Qualifiers: Urinary tract infection type: acute cystitis Hematuria presence: with hematuria Qualified Code(s): N30.01 - Acute cystitis with hematuria Mr Leary is a very pleasant 62 year old male who came in with alcohol withdrawal/DTs. He was seen by addiction medicine and was started on librium taper. He tolerated well and symptoms resolved. However the course was complicated by UTI with hematuria. He was seen by urology and started on flomax. Urine came back positive for klebsiella, he was started on rocephin that was changed to keflex for full course. Currently he is safe for discharge to SNF. Plan of care explained to patient and family. 38 minutes spent in preparation of this discharge Condition: Good - Instructions Diet, Activity, Other Instructions: regular diet. Up with assistance, further activity per PT Referrals: Stoney Burnett MD [Staff Physician] - Vel Sotelo MD [Staff Physician] - Bruno Ham MD [Staff Physician] - Disposition: [facility]ACILITY - Home Medications Comprehensive Discharge Medication List: Ambulatory Orders Cyanocobalamin/FA/Pyridoxine [Folbee Tablet] 81 mg PO DAILY 03/12/17 Dapagliflozin Propanediol [Farxiga] 5 mg PO DAILY 03/12/17 Losartan Potassium 50 mg PO DAILY 03/12/17 Metoprolol Succinate [Toprol Xl] 100 mg PO DAILY 03/12/17 Ranitidine [Zantac -] 150 mg PO DAILY 03/12/17 Rivaroxaban [Xarelto -] 20 mg PO DAILY 03/12/17 Cholecalciferol (Vitamin D3) [D3-2000] 1,000 unit PO DAILY 03/13/17 Cyanocobalamin/Cobamamide [B-12 5,000 Mcg Sublingual Tab] 1 each SL DAILY Milk Thistle 300 mg PO BID 03/13/17 Cephalexin Monohydrate [Keflex -] 500 mg PO BID 9 Days 03/20/17 Folic Acid - 1 mg PO DAILY #30 tablet 03/20/17 Insulin Sliding Scale [Novolog Vial Sliding Scale -] 0 vial SQ ACHS units 03/20 Lactobacillus Acidophilus [Bacid -] 1 tab PO DAILY tab 03/20/17 Phenazopyridine HCl [Pyridium -] 100 mg PO TID tablet 03/20/17 Polyethylene Glycol 3350 [Miralax 119 gm Btl -] 17 gm PO DAILY PRN #0 bottle 01/05 Tamsulosin HCl [Flomax -] 0.4 mg PO DAILY@0830 #30 cap.sr 03/20/17 Thiamine HCl [Vitamin B1 -] 100 mg PO DAILY #30 tablet 03/20/17
--- NOTE | 2017-03-20 13:20 | PN ---
Progress Note (short form) - Note Progress Note: Neurology History of Present Illness Patient is a 62 year old male with a significant past medical history of factor 5 Leiden deficiency, multiple DVTs RLE, H/O PE, 0.4cm Aortic aneurysm (last evaluated 1 month ago), b/l inguinal hernias s/p repair, HTN, DM2, EtOH abuse and h/o colonic polyps who presents to the ED requesting detox for EtOH abuse because he is going through a withdrawal. The patient was to be leaning to the right and concern regarding jerking activity. 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 His strength remains intact and does not seem to be CVA, but I believe rehab would be beneficial for multifactorial gait disorder especially considering multiple falls. Has been getting treatment for Etoh withdrawal, Dr. Frnak Morfin following. Plan is for discharge today to [facility]. Active Medications Folic Acid (Folic Acid -) 1 mg PO DAILY [facility] Last Admin: 03/20/17 09:06 Dose: 1 mg Ceftriaxone Sodium (Rocephin 1gm Ivpb (Pre-Docked)) 50 mls @ 100 mls/hr IVPB DAILY [facility] Last Admin: 03/20/17 09:07 Dose: 100 mls/hr Insulin Aspart (Novolog Vial Sliding Scale -) 0 vial SQ ACHS [facility] PRN Reason: Protocol Last Admin: 03/20/17 11:35 Dose: 2 units Lactobacillus Acidophilus (Bacid -) 1 tab PO DAILY [facility] Last Admin: 03/20/17 09:06 Dose: 1 tab Losartan Potassium (Cozaar -) 50 mg PO DAILY [facility] Last Admin: 03/20/17 09:07 Dose: 50 mg Metoprolol Succinate (Toprol Xl -) 100 mg PO DAILY [facility] Last Admin: 03/20/17 09:06 Dose: 100 mg Non-Formulary Medication (Cyanocobalamin/Fa/Pyridoxine [Folbee Tablet]) 81 mg PO DAILY [facility] Last Admin: 03/20/17 09:06 Dose: Not Given Dapagliflozin Propanediol (Farxiga ) 5 Mg Tablet (Pt's Own) 5 mg PO DAILY [facility] Last Admin: 03/20/17 09:05 Dose: 5 mg Phenazopyridine HCl (Pyridium -) 100 mg PO TID [facility] Last Admin: 03/20/17 13:14 Dose: 100 mg Polyethylene Glycol (Miralax (For Daily Use) -) 17 gm PO DAILY PRN PRN Reason: CONSTIPATION Last Admin: 03/20/17 09:05 Dose: 17 grams Potassium Phos/Sodium Phos (Phos-Nak Packet -) 1 packet PO TID [facility] Last Admin: 03/20/17 13:14 Dose: 1 packet Ranitidine HCl (Zantac -) 150 mg PO DAILY [facility] Last Admin: 03/20/17 09:06 Dose: 150 mg Rivaroxaban (Xarelto -) 20 mg PO DAILY [facility] Last Admin: 03/20/17 09:06 Dose: 20 mg Tamsulosin HCl (Flomax -) 0.4 mg PO DAILY@0830 [facility] Last Admin: 03/20/17 09:06 Dose: 0.4 mg Thiamine HCl (Vitamin B1 -) 100 mg PO DAILY [facility] Last Admin: 03/20/17 09:07 Dose: 100 mg *Physical Exam Vital Signs Temperature 98.5 F 03/20/17 07:52 Pulse Rate 67 03/20/17 07:52 Respiratory Rate 18 03/20/17 07:52 Blood Pressure 106/62 03/20/17 07:52 O2 Sat by Pulse Oximetry (%) 96 03/20/17 09:00 Well developed, well nourished. Awake and alert. No acute distress. HEENT: Normocephalic, atraumatic. PERRLA, EOMI. No conjunctival pallor. Sclera are non- icteric. Moist mucous membranes. Oropharynx is clear. NECK: Supple. Full ROM. No JVD. Carotid pulses 2+ and symmetric, without bruits. No thyromegaly. No lymphadenopathy. CARDIOVASCULAR: +Tachycardic. No murmurs, rubs, or gallops. Distal pulses are 2+ and symmetric. PULMONARY: No evidence of respiratory distress. Lungs clear to auscultation bilaterally. No wheezing, rales or rhonchi. ABDOMINAL: Soft. Non-tender. Non-distended. No rebound or guarding. No organomegaly. Normoactive bowel sounds. MUSCULOSKELETAL Normal range of motion at all joints. No bony deformities or tenderness. No CVA tenderness. EXTREMITIES: No cyanosis. No clubbing. No edema. No calf tenderness. SKIN: Warm and dry. Normal capillary refill. No rashes. No jaundice. NEUROLOGICAL: Alert, awake, appropriate. Cranial nerves 2-12 intact. No deficits to light touch and temperature in face, upper extremities and lower extremities. No motor deficits in the in face, upper extremities and lower extremities. Normoreflexic in the upper and lower extremities. Normal speech. Toes are down-going bilaterally. Gait is normal without ataxia. PSYCHIATRIC: Cooperative. Good eye contact. Appropriate mood and affect. CBCD WBC 5.0 K/mm3 (4.0-10.0) 03/20/17 06:20 RBC 4.65 M/mm3 (4.00-5.60) 03/20/17 06:20 Hgb 15.4 GM/dL (11.7-16.9) 03/20/17 06:20 Hct 46.3 % (35.4-49) 03/20/17 06:20 MCV 99.7 fl (80-96) H 03/20/17 06:20 MCHC 33.3 g/dl (32.0-35.9) 03/20/17 06:20 RDW 14.1 % (11.9-15.9) 03/20/17 06:20 Plt Count 115 K/MM3 (134-434) L D 03/20/17 06:20 MPV 9.8 fl (7.5-11.1) 03/20/17 06:20 CMP Sodium 136 mmol/L (136-145) 03/20/17 06:20 Potassium 4.1 mmol/L (3.5-5.1) 03/20/17 06:20 Chloride 98 mmol/L (98-107) 03/20/17 06:20 Carbon Dioxide 23 mmol/L (21-32) 03/20/17 06:20 Anion Gap 15 (8-16) 03/20/17 06:20 BUN 15 mg/dL (7-18) D 03/20/17 06:20 Creatinine 0.9 mg/dL (0.7-1.3) 03/20/17 06:20 Creat Clearance w eGFR > 60 (>60) 03/19/17 08:30 Calcium 9.1 mg/dL (8.5-10.1) 03/20/17 06:20 Total Bilirubin 2.1 mg/dL (0.2-1.0) H 03/20/17 06:20 AST 111 U/L (15-37) H D 03/20/17 06:20 ALT 73 U/L (12-78) D 03/20/17 06:20 Alkaline Phosphatase 125 U/L (45-117) H 03/20/17 06:20 Total Protein 7.8 g/dl (6.4-8.2) 03/20/17 06:20 Albumin 3.5 g/dl (3.4-5.0) 03/20/17 06:20 Medical Decision Making 62 year old male with a significant past medical history of factor 5 Leiden deficiency, multiple DVTs RLE, H/O PE, 0.4cm Aortic aneurysm (last evaluated 1 month ago), b/l inguinal hernias s/p repair, HTN, DM2, EtOH abuse and h/o colonic polyps who presents to the ED requesting detox for EtOH abuse because he is going through a withdrawal. CT head and without acute changes. 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 His strength seems intact and does not seem to be CVA, but I believe rehab would be beneficial for multifactorial gait disorder. Tremors from withdrawal, not myoclonic, and subsided. For discharge to group home today.
[2017-03-20 13:23] VITALS: BP 96/63; PULSE 63; TEMP 98.4
== END 2017-03-20 13:55 | DRG 897 ==
LOC: JER 15:25 → JERBED 19:47 → UNDOADMOB 19:47 → INTOOBSV 19:47 → JERBED 19:52 → J6S 21:43 → JERBED 21:43 → OBSVTOIN 03-16 11:00
PROVIDERS: ADMIT Internal Medicine; ATTEND Internal Medicine
PROC: HZ2ZZZZ Detoxification Services for Substance Abuse Treatment (ICD-10-PCS; principal; 2017-03-13)
DX: F10.230 Alcohol dependence with withdrawal, uncomplicated (principal); D68.51 Activated protein C resistance; I10 Essential (primary) hypertension; E78.00 Pure hypercholesterolemia, unspecified; K40.20 Bilateral inguinal hernia, without obstruction or gangrene, not specified as recurrent; I71.9 Aortic aneurysm of unspecified site, without rupture; M54.40 Lumbago with sciatica, unspecified side; E83.42 Hypomagnesemia; E11.9 Type 2 diabetes mellitus without complications; R31.0 Gross hematuria; N40.1 Benign prostatic hyperplasia with lower urinary tract symptoms; R26.89 Other abnormalities of gait and mobility; K63.5 Polyp of colon; R53.1 Weakness; M84.48XD Pathological fracture, other site, subsequent encounter for fracture with routine healing; I45.19 Other right bundle-branch block; S80.212A Abrasion, left knee, initial encounter; S05.12XA Contusion of eyeball and orbital tissues, left eye, initial encounter; W18.39XA Other fall on same level, initial encounter; Y93.89 Activity, other specified; Y92.230 Patient room in hospital as the place of occurrence of the external cause; Z86.718 Personal history of other venous thrombosis and embolism; Z86.711 Personal history of pulmonary embolism; E83.39 Other disorders of phosphorus metabolism
CPT/HCPCS: 36415; 70150-TC; 70450-TC; 71010-TC; 71101-TC; 73523-TC; 73562-TC-LT; 74178-TC; 80048; 80053; 80076; 80307; 81003; 81015; 83735; 84100; 85025; 87086; 87186; 93005; 93010; 97116-GP; 97161-GP; 99283-25; G0378; Q9967

== ENCOUNTER 2018-05-10 06:37 | Day surgery (SDC) | payer OTHER, BC ==
[2018-05-09 11:21] VITALS: BMI 28.8
[2018-05-10] MEDS ORDERED: PROPOFOL 20 ML ONE ×3 (07:54)
[2018-05-10] MEDS ORDERED: LIDOCAINE HCL/PF 2% SDV 5ML VIAL ONE (07:55)
[2018-05-10] MEDS ORDERED: MIDAZOLAM HCL 2 MG/2 ML SINGLE DOSE VIAL ONE (07:55)
[2018-05-10 09:09] VITALS: TEMP 97.9
[2018-05-10 09:52] VITALS: BP 127/83; PULSE 64
--- NOTE | 2018-05-13 16:10 | PATH ---
Surgical Pathology Report Patient Name: REGLA REA [facility]. Rec. #: [id number] /Age/Gender: 1955 (Age: 63) / M Account: [id number] Location: U-ENDOSCOPY Taken: 05/10/2018 Received: 05/10/2018 Reported: 05/13/2018 Physicians: Vel Sotelo M.D. Specimen(s) Received A: BX GASTRIC POLYP B: RECTAL POLYP C: POLYP SIGMOID D: BX CECUM POLYP Clinical History History of gastric polyp, colon polyp Postoperative diagnosis: Gastric polyp, diverticulosis, polyps Final Diagnosis A. GASTRIC POLYP, POLYPECTOMY: ULCERATED AND INFLAMED GASTRIC HYPERPLASTIC POLYPS. IMMUNOSTAIN IS NEGATIVE FOR H. PYLORI ORGANISMS. B. RECTAL POLYP, POLYPECTOMY: TUBULAR ADENOMA. C. SIGMOID COLON POLYP, POLYPECTOMY: TUBULAR ADENOMA. D.CECUM POLYP, BIOPSY: COLONIC MUCOSA WITH SURFACE HYPERPLASTIC CHANGE. Electronically Signed Gilson Gaines M.D. Gross Description A. Received in formalin labeled "gastric polyp," are 2 alvarado-brown, polypoid portions of soft tissue measuring 1.0 x 0.8 x 0.7 cm and 1.5 x 1.2 x 0.9 cm. The bases are inked blue at the polyps are serially sectioned. The polyps are entirely submitted in 3 cassettes as follows: 1-one trisected polyp; 2-3-one trisected polyp. B. Received in formalin, labeled "polyp rectum" is a alvarado, polypoid portion of soft tissue measuring 0.6 cm. in greatest dimension. The specimen is submitted in toto in one cassette. C. Received in formalin, labeled "sigmoid colon" is a alvarado, irregular portion of soft tissue measuring 0.4 cm. in greatest dimension. The specimen is submitted in toto in one cassette. D. Received in formalin, labeled "polyp cecum" is a alvarado, irregular portion of soft tissue measuring 0.3 cm. in greatest dimension. The specimen is submitted in toto in one cassette. 05/10/201805/10/2018
== END 2018-05-10 10:01 | disposition home or self-care (01) ==
LOC: JASU-ENDO 06:37
PROVIDERS: ATTEND Internal Medicine Gastroenterology
PROC: 0DBN8ZX Excision of Sigmoid Colon, Via Natural or Artificial Opening Endoscopic, Diagnostic (ICD-10-PCS; 2018-05-10)
PROC: 0DBH8ZX Excision of Cecum, Via Natural or Artificial Opening Endoscopic, Diagnostic (ICD-10-PCS; 2018-05-10)
PROC: 0DBP8ZX Excision of Rectum, Via Natural or Artificial Opening Endoscopic, Diagnostic (ICD-10-PCS; principal; 2018-05-10 08:00)
DX: Z12.11 Encounter for screening for malignant neoplasm of colon (principal); Z86.010 Personal history of colon polyps; D12.0 Benign neoplasm of cecum; D12.5 Benign neoplasm of sigmoid colon; K62.1 Rectal polyp; K64.8 Other hemorrhoids; K57.30 Diverticulosis of large intestine without perforation or abscess without bleeding
CPT/HCPCS: 82962; 88305-TC; 88342-TC

== ENCOUNTER 2018-10-23 12:40 | Inpatient (IN) | payer OTHER, BC ==
[2018-10-23 12:59] VITALS: BMI 29.5
--- NOTE | 2018-10-23 13:27 | PDOC ---
History of Present Illness - General History Source: Patient Exam Limitations: No Limitations - History of Present Illness Initial Comments: 10/23/18 15:08 Mr. Leary is a 63 year old male with past medical history significant for x2 back surgery, 4.1 cm thoracic aortic aneurysm, HTN, Pulmonary Embolism (s/p IVC filter and open embolectomy at [facility] (Jun 2011), bilateral inguinal hernia, umbilical hernia, Factor V Leiden, IDDM, chronic R. leg swelling with DVT, Peripheral neuropathy w/ chronic numbness, cholecystectomy and alcohol abuse was sent to the emergency department by Vice President Medical Affairs Dr. Domínguez for shortness of breath. The patient reports secondary to stomach polyps removal (a week ago) and tooth extraction (yesterday), the patients been off his Xarelto medication for the past 8 days. The patient presents with shortness of breath, thats aggravated with laying down, no conversation dyspnea or difficulty breathing with ambulation. The patient reports he hasnt taken his medication today. The patient reports an additional concern of shaking and tremors secondary to alcohol withdrawal, last intake of beer last night. The patient reports the daily use of beer. Denies fever, chills, chest pain, abdominal pain , worsening urinary symptoms, changes in bowel habits. Medication: Metoprolol 100 mg, Ranitidine 150 mg, Xarelto, lantus, novolog, and folbee. Allergies: hydromorphone PCP: Dr. Larissa Burnett. Vice President Medical Affairs: Dr. Domínguez GI: Dr. Johnson <Melodie Guerra - Last Filed: 10/23/18 15:08> - General History Source: Patient Exam Limitations: No Limitations <Flower Lee - Last Filed: 10/25/18 07:18> - General Chief Complaint: Shortness of Breath Stated Complaint: PCP SENT/SHORTNESS OF BREATH Time Seen by Provider: 10/23/18 13:26 Past History <Melodie Guerra - Last Filed: 10/23/18 15:08> - Past Medical History Anemia: No Asthma: No Cancer: No Cardiac Disorders: Yes (AORTIC ANEURSYM-"UNCHANGED",PALPITATIONS) CVA: No COPD: No (60% LUNG CAPACITY DUE TO PE) CHF: No Dementia: No Diabetes: Yes (Type II) GI Disorders: Yes (COLON ADENOMAS, GASTRIC POLYPS, GERD) Disorders: No HTN: Yes Hypercholesterolemia: Yes Liver Disease: Yes (MURPHY/ETOH) Seizures: No Thyroid Disease: Yes - Surgical History Abdominal Surgery: Yes (UMBILICAL HERNIA,LEFT AND RIGHT INGUINAL HERNIA WITH MESH) Appendectomy: No Cardiac Surgery: No Cholecystectomy: Yes Lung Surgery: Yes (MEDIAN STERNOTOMY FOR LUNG EMBOLECTOMIES) Neurologic Surgery: No Orthopedic Surgery: Yes (C-SPINE MICRODISECTOMY 01/02, LUMBOSACRAL LAMINECTMY) - Immunization History Immunization Up to Date: Yes - Suicide/Smoking/Psychosocial Hx Smoking History: Never smoked Have you smoked in the past 12 months: No Information on smoking cessation initiated: No Hx Alcohol Use: Yes (12 BEERS DAILY) Drug/Substance Use Hx: No Substance Use Type: Alcohol Hx Substance Use Treatment: No <Flower Lee - Last Filed: 10/25/18 07:18> - Past Medical History Allergies/Adverse Reactions: Allergies Allergy/AdvReac Type Severity Reaction Status Date / Time hydromorphone HCl AdvReac HALLUCINATION, Verified 03/12/17 15:36 [From Dilaudid] personality changes Home Medications: Ambulatory Orders Metoprolol Succinate [Toprol Xl] 100 mg PO DAILY 03/12/17 Rivaroxaban [Xarelto -] 20 mg PO DAILY 03/12/17 Cholecalciferol (Vitamin D3) [D3-2000] 1,000 unit PO DAILY 03/13/17 Cyanocobalamin/Cobamamide [B-12 5,000 Mcg Sublingual Tab] 1 each SL DAILY Milk Thistle 300 mg PO BID 03/13/17 Insulin Sliding Scale [Novolog Vial Sliding Scale -] 0 vial SQ ACHS units 03/20 L.acidoph,Paracasei, B.lactis [Probiotic] 1 each PO DAILY 05/10/18 Mag Carb/Aluminum Hydrox/Algin [Gaviscon Liquid] 15 - 30 ml PO Q6H PRN #355 oz 05/10/18 Pantoprazole Sodium [Protonix -] 40 mg PO DAILY #30 tablet.ec 05/10/18 Cyanocobalamin/Folic AC/Vit B6 [Folbee Tablet] 1 each PO 10/23/18 Ranitidine [Zantac -] 150 mg PO DAILY 10/23/18 Review of Systems - Review of Systems Able to Perform ROS?: Yes Comments:: 10/23/18 15:09 Constitutional: no fevers or chills. HEENT: no headache or dizziness. No congestion. No visual/hearing disturbances. CVS: no cp or syncope. Resp: +sob. No cough. Abdomen: no abdominal pain, nausea or vomiting. Genitourinary: no urinary sx, hematuria. MUSCULOSKELETAL: No joint pain and swelling. No neck or back pain. SKIN: no redness or skin changes, no discharge, no rash. No wounds. Hematologic: no easy bruising/bleeding. NEUROLOGIC: +shaking and tremors. No headache, dizziness, LOC or altered mental status. No weakness, numbness or tingling. All other systems reviewed and negative, or as documented in HPI. <Melodie Guerra - Last Filed: 10/23/18 15:08> *Physical Exam - Vital Signs Last Vital Signs Temp Pulse Resp BP Pulse Ox 80 20 142/72 97 10/23/18 12:56 10/23/18 12:56 10/23/18 12:56 10/23/18 12:56 - Physical Exam Comments: 12/24/17 15:09 General: Well appearing, awake and alert, NAD. HEENT: NCAT, PERRL, EOMI, clear conjunctiva, anicteric, moist mucus membranes, clear oropharynx, no oral lesions.. Neck: neck supple, FROM Resp: CTAB, normal and even respirations, no respiratory distress CVS: +midline sternotomy scar. RRR, no murmurs, 2+ peripheral pulses throughout , no peripheral edema Abdomen: Ventral hernia, reducible, protuberant abdomen, nontender. Soft, no peritoneal signs. Back: nontender, normal inspection and ROM MSK: no edema, CORCORAN x4, ROM intact. No clubbing or cyanosis. normal bulk and tone. Extremities: +2+ pitting edema right greater than leg. no calf tenderness Neuro: +tongue fasciculations and tremors. alert, oriented appropriately; no focal neurologic deficits Skin: warm and well perfused, cap refill <2 sec, normal color <Melodie Guerra - Last Filed: 10/23/18 15:08> - Vital Signs Last Vital Signs Temp Pulse Resp BP Pulse Ox 80 20 142/72 97 10/23/18 12:56 10/23/18 12:56 10/23/18 12:56 10/23/18 12:56 <Flower Lee - Last Filed: 10/25/18 07:18> Moderate Sedation - Procedure Monitoring Vital Signs: Procedure Monitoring Vital Signs Temperature Pulse Rate 80 10/23/18 12:56 Respiratory Rate 20 10/23/18 12:56 Blood Pressure 142/72 10/23/18 12:56 O2 Sat by Pulse Oximetry (%) 97 10/23/18 12:56 <Melodie Guerra - Last Filed: 10/23/18 15:08> - Procedure Monitoring Vital Signs: Procedure Monitoring Vital Signs Temperature Pulse Rate 80 10/23/18 12:56 Respiratory Rate 20 10/23/18 12:56 Blood Pressure 142/72 10/23/18 12:56 O2 Sat by Pulse Oximetry (%) 97 10/23/18 12:56 <Flower Lee - Last Filed: 10/25/18 07:18> ED Treatment Course - LABORATORY CBC & Chemistry Diagram: 10/23/18 13:30 10/23/18 13:30 - ADDITIONAL ORDERS Additional order review: Laboratory Results 10/23/18 10/23/18 13:30 13:30 PT with INR 13.10 H INR 1.11 H Sodium 143 Potassium 3.7 Chloride 107 Carbon Dioxide 29 Anion Gap 6 L BUN 7 Creatinine 0.7 Creat Clearance w eGFR > 60 Random Glucose 170 H Calcium 7.9 L Magnesium 1.8 Total Bilirubin 1.0 AST 101 H ALT 40 Alkaline Phosphatase 107 Troponin I < 0.02 B-Natriuretic Peptide 50.7 Total Protein 7.8 Albumin 3.2 L 10/23/18 13:30 RBC 4.56 MCV 93.2 MCHC 31.6 L RDW 16.7 H MPV 9.0 Neutrophils % 50.6 Lymphocytes % 40.1 H D Monocytes % 8.2 Eosinophils % 0.5 Basophils % 0.6 - Medications Given in the ED: ED Medications Discontinued Medications Generic Name Dose Route Start Last Admin Trade Name Freq PRN Reason Stop Dose Admin Diazepam 10 mg 10/23/18 13:48 10/23/18 13:58 Valium - PO 10/23/18 13:49 10 mg ONCE ONE Administration Metoprolol Tartrate 100 mg 10/23/18 14:44 10/23/18 14:45 Lopressor - PO 12/05/18 14:45 100 mg ONCE ONE Administration Ranitidine HCl 150 mg 10/23/18 14:44 10/23/18 14:45 Zantac - PO 10/23/18 14:45 150 mg ONCE ONE Administration Sodium Chloride 1,000 ml 10/23/18 13:49 10/23/18 13:57 Normal Saline - IV 10/23/18 13:50 1,000 ml ONCE ONE Administration <Melodie Guerra - Last Filed: 10/23/18 15:08> - LABORATORY CBC & Chemistry Diagram: 10/24/18 05:30 10/24/18 05:30 <Flower Lee - Last Filed: 10/25/18 07:18> Medical Decision Making - Medical Decision Making 10/23/18 16:56 See HPI for details Vital signs reviewed, wnl. Prior notes reviewed, including admissions, discharges and consultations. laboratory results and imaging reviewed, basic labs and lytes wnl, coags normal Cardiac panel_neg bnp and trop, less likely unstable/massive PE EKG normal sinus rhythm, no interval abnormalities, narrow QRS, ST and T wave segments and morphology normal. Nonspecific T wave abnormalities particularly in septal-lateral, unchanged ED course: home BP and PPI med. IVF hydration. Valium for mild ETOH w/d. No delirium CTA to r/o PE given high risk and prior history, off AC x 1 week CTA neg for PE, splenomegaly and cirrhosis noted. otherwise unremarkable. Clinical callback to cards cs, Dr. Domínguez. consult put in Dispo: admit to hospitalist service, for sob workup, mild acute alcohol w/d, tele monitoring and r/o ACS new onset liver cirrhosis/hepatomegaly. s/o Dr Dahl 10/23/18 16:58 10/23/18 17:05 10/25/18 07:18 <Flower Lee - Last Filed: 10/25/18 07:18> *DC/Admit/Observation/Transfer - Attestations Scribe Attestion: 10/23/18 15:09 Documentation prepared by Melodie Guerra, acting as medical assistant instructor for Flower Lee MD. <Melodie Guerra - Last Filed: 10/23/18 15:08> - Discharge Dispostion Decision to Admit order: Yes Decision to Admit order Date/Time: 10/23/18 16:33 Decision to Admit Order Category Date Time Status Decision to Admit to Hospital Routine Admission 10/23/18 16:32 Ordered - Attestations Physician Attestion: 10/23/18 13:27 I, Flower Lee MD, attest that this document has been prepared under my direction and personally reviewed by me in its entirety. I further attest, that it accurately reflects all work, treatment, procedures and medical decision -making performed by me. <Flower Lee - Last Filed: 10/25/18 07:18> Diagnosis at time of Disposition: Dyspnea, Alcohol withdrawal, Factor V Leiden, History of pulmonary embolus (PE) , Liver cirrhosis - Discharge Dispostion Condition at time of disposition: Guarded
[2018-10-23 13:46] LABS: BASO % 0.6 % (0-2.0); EOS % 0.5 % (0-4.5); HEMATOCRIT 42.6 % (35.4-49); HEMOGLOBIN 13.4 GM/dL (11.7-16.9); LYMPH % 40.1 % (8-40); MCH 29.4 pg (25.7-33.7); MCHC 31.6 g/dl (32.0-35.9); MEAN CELL VOLUME 93.2 fl (80-96); MONO % 8.2 % (3.8-10.2); NEUT % 50.6 % (42.8-82.8); PLATELET COUNT 42 K/MM3 (134-434); RBC 4.56 M/mm3 (4.00-5.60); RDW 16.7 % (11.9-15.9); WHITE BLOOD COUNT 2.9 K/mm3 (4.0-10.0)
[2018-10-23] MEDS ORDERED: diazePAM 5 MG TABLET PO ONE (13:48)
[2018-10-23] MEDS ORDERED: SODIUM CHLORIDE 0.9% 500 ML INFUS.BAG IV ONE (13:49)
[2018-10-23] MEDS ORDERED: diazePAM 5 MG TABLET ONE (13:50)
[2018-10-23 14:00] LABS: INR 1.11 (0.83-1.09); PROTHROMBIN TIME (PATIENT) 13.1 SEC (9.7-13.0)
[2018-10-23 14:25] LABS: ALBUMIN 3.2 g/dl (3.4-5.0); ALK PHOS 107 U/L (45-117); ANION GAP 6 MMOL/L (8-16); BLOOD UREA NITROGEN 7 mg/dL (7-18); CALCIUM 7.9 mg/dL (8.5-10.1); CHLORIDE 107 mmol/L (98-107); CO2 29 mmol/L (21-32); CREATININE 0.7 mg/dL (0.55-1.3); GLUCOSE,RANDOM 170 mg/dL (74-106); MAGNESIUM 1.8 mg/dL (1.8-2.4); N-TERMINAL BNP 50.7 pg/ml (5-125); POTASSIUM 3.7 mmol/L (3.5-5.1); SGOT/AST 101 U/L (15-37); SGPT/ALT 40 U/L (13-61); SODIUM 143 mmol/L (136-145); TOT PROT 7.8 g/dl (6.4-8.2)
[2018-10-23] MEDS ORDERED: RANITIDINE HCL 150 MG TABLET (FP) PO ONE (14:44)
[2018-10-23] MEDS ORDERED: METOPROLOL TARTRATE 50 MG TABLET (FP) PO ONE (14:44)
[2018-10-23] MEDS ORDERED: METOPROLOL TARTRATE 50 MG TABLET (FP) ONE (14:55)
[2018-10-23] MEDS ORDERED: RANITIDINE HCL 150 MG TABLET (FP) ONE (14:55)
--- NOTE | 2018-10-23 15:47 | EKG ---
Test Reason : Blood Pressure : / mmHG Vent. Rate : 064 BPM Atrial Rate : 064 BPM P-R Int : 176 ms QRS Dur : 120 ms QT Int : 472 ms P-R-T Axes : 038 -33 047 degrees QTc Int : 486 ms NORMAL SINUS RHYTHM LEFT AXIS DEVIATION RSR' OR QR PATTERN IN V1 SUGGESTS RIGHT VENTRICULAR CONDUCTION DELAY NONSPECIFIC T WAVE ABNORMALITY ABNORMAL ECG WHEN COMPARED WITH ECG OF 12-MAR-2017 17:51, T WAVE INVERSION LESS EVIDENT IN ANTERIOR LEADS Confirmed by TERESA MAIER, YULIA ([id number]) on 10/23/2018 3:46:55 PM Referred By: Confirmed By:YULIA MOORE MD
[2018-10-23] MEDS ORDERED: MAG HYDROX/AL HYDROX/SIMETH 30 ML UNIT-DOSE CUP PO PRN (17:01)
[2018-10-23] MEDS ORDERED: chlordiazePOXIDE HCL 25 MG CAPSULE PO PRN (17:03)
--- NOTE | 2018-10-23 17:12 | HP ---
Admitting History and Physical - Primary Care Physician PCP: Stoney Burnett - Admission Chief Complaint: Shortness of breath History of Present Illness: 63 yrs old male known since previous hospitalization, recently underwent EGD on Sunday off AC for Gastric Polp Biopsy (recommonded by GI to resume on Sunday) also H/O T2DM, HTN, ETOH abuse and withdrawal, HTN, Pulmonary Embolism (s/p IVC filter and open embolectomy at [facility] (Jun 2011), Factor V Leiden , IDDM, chronic R. leg swelling with DVT, Peripheral neuropathy, today visited Canal [employer] Dr. Domínguez for shortness of breath and orthopnea since today morning , also c/o shaking and anxiety as he didnt drink since last night, no c/ i chest pain, palpitation, nausea, vomiting diarrahea, last BM was in am no c/o hallucinations or delusion, patient was referred to Ed for evaluation of ACS, initial Troponin I, BNP, are normal CT chest is -ve for PE, I examined the patient in ED hemodynamically stable EKG and all labs are at base line CT abd shows early signs of Cirrhosis. 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 HTN. Chronic RBBB), HTN Pulmonary: Yes: Pulmonary Embolus (s/p IVC filter and open embolectomy at [facility]) Renal/: Yes: BPH Heme/Onc: Yes: Other (Factor V Leiden) Psych: Yes: Addictions (ETOH) Musculoskeletal: Yes: Chronic low back pain Endocrine: Yes: Diabetes Mellitus - Smoking History Smoking history: Never smoked Have you smoked in the past 12 months: No - Alcohol/Substance Use Hx Alcohol Use: Yes (12 BEERS DAILY) Number of Drinks Daily: 6 (Beers) History of Substance Use: reports: None - Social History ADL: Independent History of Recent Travel: No Home Medications - Allergies Allergies/Adverse Reactions: Allergies Allergy/AdvReac Type Severity Reaction Status Date / Time hydromorphone HCl AdvReac HALLUCINATION, Verified 03/12/17 15:36 [From Dilaudid] personality changes - Home Medications Home Medications: Ambulatory Orders Metoprolol Succinate [Toprol Xl] 100 mg PO DAILY 03/12/17 Rivaroxaban [Xarelto -] 20 mg PO DAILY 03/12/17 Cholecalciferol (Vitamin D3) [D3-2000] 1,000 unit PO DAILY 03/13/17 Cyanocobalamin/Cobamamide [B-12 5,000 Mcg Sublingual Tab] 1 each SL DAILY Milk Thistle 300 mg PO BID 03/13/17 Insulin Sliding Scale [Novolog Vial Sliding Scale -] 0 vial SQ ACHS units 03/20 L.acidoph,Paracasei, B.lactis [Probiotic] 1 each PO DAILY 05/10/18 Mag Carb/Aluminum Hydrox/Algin [Gaviscon Liquid] 15 - 30 ml PO Q6H PRN #355 oz 05/10/18 Pantoprazole Sodium [Protonix -] 40 mg PO DAILY #30 tablet.ec 05/10/18 Cyanocobalamin/Folic AC/Vit B6 [Folbee Tablet] 1 each PO 10/23/18 Ranitidine [Zantac -] 150 mg PO DAILY 10/23/18 Family Disease History - Family Disease History Family Disease History: Heart Disease: Brother (CHF), CA: Father (Lung cancer with bone mets), Mother (liver CA), Sister (Colon CA) Review of Systems - Review of Systems Constitutional: denies: Chills, Diaphoresis, Fever, Lethargy Eyes: denies: Blind Spots, Blurred Vision HENT: denies: Difficult Swallowing, Ear Discharge Neck: denies: Decreased ROM, Lumps, Pain on Movement Cardiovascular: reports: Shortness of Breath, Other (Orthopnea). denies: Chest Pain, Edema, Palpitations Respiratory: reports: Cough, Exercise Intolerance, Orthopnea. denies: Hemoptysis Gastrointestinal: denies: Abdominal Pain, Bloating, Constipation Musculoskeletal: reports: Back Pain. denies: Crepitus Neurological: reports: Parasthesia. denies: Change in LOC, Change in Speech, Confusion, Headache, Incoordination, Numbness Hematology/Lymphatic: denies: Excessive Bleeding Physical Examination Vital Signs: Vital Signs Temperature 98.0 F 10/23/18 16:20 Pulse Rate 53 L 10/23/18 16:20 Respiratory Rate 20 10/23/18 12:56 Blood Pressure 117/61 10/23/18 16:20 O2 Sat by Pulse Oximetry (%) 98 10/23/18 16:20 Elderly man not in distress, c/o mild orthopnea HEENT: Mm moist, no anemia, PERRLA EOMI NECK: No JVD No Bruit CHEST: CTA B/l non tender ABD: Obese non tender EXT: Rt LE swelling non tender DIRECT SELLING COUNSELOR: tremors + otherwise AOX3 non focal Labs: CBC, BMP 10/23/18 13:30 10/23/18 13:30 WBC 2.9 K/mm3 (4.0-10.0) L 10/23/18 13:30 RBC 4.56 M/mm3 (4.00-5.60) 10/23/18 13:30 Hgb 13.4 GM/dL (11.7-16.9) 10/23/18 13:30 Hct 42.6 % (35.4-49) 10/23/18 13:30 MCV 93.2 fl (80-96) 10/23/18 13:30 MCH 29.4 pg (25.7-33.7) D 10/23/18 13:30 MCHC 31.6 g/dl (32.0-35.9) L 10/23/18 13:30 RDW 16.7 % (11.9-15.9) H 10/23/18 13:30 Plt Count 42 K/MM3 (134-434) L D 10/23/18 13:30 MPV 9.0 fl (7.5-11.1) 10/23/18 13:30 Absolute Neuts (auto) 1.5 K/mm3 (1.5-8.0) 10/23/18 13:30 Neutrophils % 50.6 % (42.8-82.8) 10/23/18 13:30 Lymphocytes % 40.1 % (8-40) H D 10/23/18 13:30 Monocytes % 8.2 % (3.8-10.2) 10/23/18 13:30 Eosinophils % 0.5 % (0-4.5) 10/23/18 13:30 Basophils % 0.6 % (0-2.0) 10/23/18 13:30 Nucleated RBC % 0 % (0-0) 10/23/18 13:30 Sodium 143 mmol/L (136-145) 10/23/18 13:30 Potassium 3.7 mmol/L (3.5-5.1) 10/23/18 13:30 Chloride 107 mmol/L (98-107) 10/23/18 13:30 Carbon Dioxide 29 mmol/L (21-32) 10/23/18 13:30 Anion Gap 6 MMOL/L (8-16) L 10/23/18 13:30 BUN 7 mg/dL (7-18) 10/23/18 13:30 Creatinine 0.7 mg/dL (0.55-1.3) 10/23/18 13:30 Creat Clearance w eGFR > 60 (>60) 10/23/18 13:30 Random Glucose 170 mg/dL (74-106) H 10/23/18 13:30 Calcium 7.9 mg/dL (8.5-10.1) L 10/23/18 13:30 Magnesium 1.8 mg/dL (1.8-2.4) 10/23/18 13:30 Total Bilirubin 1.0 mg/dL (0.2-1) 10/23/18 13:30 AST 101 U/L (15-37) H 10/23/18 13:30 ALT 40 U/L (13-61) 10/23/18 13:30 Alkaline Phosphatase 107 U/L (45-117) 10/23/18 13:30 Troponin I < 0.02 ng/ml (0.00-0.05) 10/23/18 13:30 B-Natriuretic Peptide 50.7 pg/ml (5-125) 10/23/18 13:30 Total Protein 7.8 g/dl (6.4-8.2) 10/23/18 13:30 Albumin 3.2 g/dl (3.4-5.0) L 10/23/18 13:30 Imaging - Results X-ray: Report Reviewed (No acute changes) Cat Scan: Report Reviewed (CHEST: No PE, Pulmonary atelctasis at basesm\, Suscpicion of Cirrhosis) EKG: Report Reviewed (64 RBBB at base line) Problem List - Problems (1) Dyspnea Assessment/Plan: No hypoxia, BNP -ve last ECHO yrs ago will F/U ECHO cardiology input Code(s): R06.00 - DYSPNEA, UNSPECIFIED (2) Alcohol withdrawal Assessment/Plan: Cont Librium protocol add thiamine f/u clinical course Code(s): F10.239 - ALCOHOL DEPENDENCE WITH WITHDRAWAL, UNSPECIFIED (3) Factor V Leiden Assessment/Plan: on life long AC at present on Hold after GI procedure will resume on Sunday Code(s): D68.51 - ACTIVATED PROTEIN C RESISTANCE (4) History of pulmonary embolus (PE) Assessment/Plan: off AC for Gi procedure Ct chest -ve F/U clinical course Code(s): Z86.711 - PERSONAL HISTORY OF PULMONARY EMBOLISM (5) Hypomagnesemia Assessment/Plan: Mild will cont pral replacement Code(s): E83.42 - HYPOMAGNESEMIA (6) Diabetes mellitus Assessment/Plan: T2DM on Lantus 30units in am and correction dose insulin Dianbetic diet, cont home regimen F/U HBA!C level. Code(s): E11.9 - TYPE 2 DIABETES MELLITUS WITHOUT COMPLICATIONS Qualifiers: (7) H/O aortic aneurysm Assessment/Plan: Stable Code(s): Z86.79 - PERSONAL HISTORY OF OTHER DISEASES OF THE CIRCULATORY SYSTEM (8) HTN (hypertension) Assessment/Plan: Well controlled resumed home dose Code(s): I10 - ESSENTIAL (PRIMARY) HYPERTENSION Qualifiers: (9) Thrombocytopenia Assessment/Plan: Most likely ETOH induced Code(s): D69.6 - THROMBOCYTOPENIA, UNSPECIFIED
[2018-10-23] MEDS ORDERED: traMADol HCL 50 MG TABLET ONE (17:28)
[2018-10-23] MEDS ORDERED: chlordiazePOXIDE HCL 25 MG CAPSULE ONE (17:30)
[2018-10-23] MEDS: chlordiazePOXIDE HCL 25 MG CAPSULE PO SCH ×2 (17:31→22:33)
[2018-10-23] MEDS: THIAMINE HCL 100 MG TABLET (FP) PO SCH (17:56)
[2018-10-23] MEDS ORDERED: MILK THISTLE 300 MG PO SCH (22:00)
[2018-10-24] MEDS: chlordiazePOXIDE HCL 25 MG CAPSULE PO SCH ×3 (05:44→18:56)
[2018-10-24] MEDS: INSULIN (LEVEMIR) 100 UNITS/ML UNITS SQ SCH (06:26)
[2018-10-24] MEDS: INSULIN SLIDING SCALE (NOVOLOG) 1 VIAL SQ SCH ×3 (06:26→18:56)
[2018-10-24 07:05] LABS: BASO % 0.6 % (0-2.0); EOS % 0.4 % (0-4.5); HEMATOCRIT 38.4 % (35.4-49); HEMOGLOBIN 12.3 GM/dL (11.7-16.9); LYMPH % 25.4 % (8-40); MCH 29.6 pg (25.7-33.7); MEAN CELL VOLUME 92.6 fl (80-96); MEAN PLT VOLUME 9.7 fl (7.5-11.1); MONO % 12.9 % (3.8-10.2); NEUT % 60.7 % (42.8-82.8); RBC 4.15 M/mm3 (4.00-5.60); RDW 16.5 % (11.9-15.9)
[2018-10-24 07:49] LABS: ALBUMIN 2.9 g/dl (3.4-5.0); ALK PHOS 88 U/L (45-117); ANION GAP 11 MMOL/L (8-16); BILIRUBIN,TOTAL 1.8 mg/dL (0.2-1); BLOOD UREA NITROGEN 9 mg/dL (7-18); CALCIUM 7.5 mg/dL (8.5-10.1); CHLORIDE 104 mmol/L (98-107); CO2 25 mmol/L (21-32); CREATININE 0.7 mg/dL (0.55-1.3); GLUCOSE,RANDOM 139 mg/dL (74-106); MAGNESIUM 1.4 mg/dL (1.8-2.4); POTASSIUM 3.2 mmol/L (3.5-5.1); SGOT/AST 69 U/L (15-37); SGPT/ALT 30 U/L (13-61); SODIUM 141 mmol/L (136-145); TOT PROT 6.8 g/dl (6.4-8.2)
[2018-10-24 07:50] LABS: INR 1.18 (0.83-1.09)
--- NOTE | 2018-10-24 07:54 | PN ---
Progress Note, Physician Chief Complaint: Still c/o SOB no c/o chest pain, tremors + History of Present Illness: 63 yrs old male known since previous hospitalization, recently underwent EGD on Sunday off AC for Gastric Polp Biopsy (recommonded by GI to resume on Sunday) also H/O T2DM, HTN, ETOH abuse and withdrawal, HTN, Pulmonary Embolism (s/p IVC filter and open embolectomy at [facility] (Jun 2011), Factor V Leiden , IDDM, chronic R. 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 Domínguez for shortness of breath and orthothopnea, normal serial CE X3 and non dynamic EKG - Current Medication List Current Medications: Active Medications Al Hydroxide/Mg Hydroxide (Mylanta Oral Suspension -) 30 ml PO Q6H PRN PRN Reason: DYSPEPSIA Chlordiazepoxide HCl (Librium -) 50 mg PO [id number] [facility] Stop: 10/24/18 11:01 Last Admin: 10/24/18 05:44 Dose: 50 mg Chlordiazepoxide HCl (Librium -) 25 mg PO [id number] [facility] Stop: 10/25/18 11:01 Chlordiazepoxide HCl (Librium -) 15 mg PO [id number] [facility] Stop: 10/26/18 11:01 Chlordiazepoxide HCl (Librium -) 25 mg PO Q4H PRN PRN Reason: WITHDRAWAL(CONT SUBST) Stop: 10/26/18 17:02 Chlordiazepoxide HCl (Librium -) 10 mg PO [id number] [facility] Stop: 10/27/18 11:01 Insulin Aspart (Novolog Vial Sliding Scale -) 1 vial SQ TIDAC [facility]; Protocol Last Admin: 10/24/18 06:26 Dose: Not Given Insulin Detemir (Levemir Vial) 25 units SQ AM [facility] Last Admin: 10/24/18 06:26 Dose: Not Given Metoprolol Succinate (Toprol Xl -) 100 mg PO DAILY [facility] Pantoprazole Sodium (Protonix -) 40 mg PO DAILY [facility] Thiamine HCl (Vitamin B1 -) 100 mg PO DAILY [facility] Last Admin: 10/23/18 17:56 Dose: 100 mg - Objective Vital Signs: Vital Signs Temperature 98.9 F 10/24/18 06:00 Pulse Rate 57 L 10/24/18 06:00 Respiratory Rate 18 10/24/18 06:00 Blood Pressure 120/60 10/24/18 06:00 O2 Sat by Pulse Oximetry (%) 97 10/23/18 19:35 Elderly man not in distress, c/o mild orthopnea HEENT: Mm moist, no anemia, PERRLA EOMI NECK: No JVD No Bruit CHEST: CTA B/l non tender ABD: Obese non tender EXT: Rt LE swelling non tender 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: tremors + otherwise AOX3 non focal Labs: CBC, BMP 10/24/18 05:30 INR, PTT INR 1.18 (0.83-1.09) H 10/24/18 05:30 Problem List - Problems (1) Dyspnea Assessment/Plan: No hypoxia, BNP 50, no EKG chnages, normal serial CE, last ECHO yrs ago will F /U ECHO cardiology input Code(s): R06.00 - DYSPNEA, UNSPECIFIED (2) Alcohol withdrawal Assessment/Plan: Cont Librium protocol add thiamine f/u clinical course, Detox consult Code(s): F10.239 - ALCOHOL DEPENDENCE WITH WITHDRAWAL, UNSPECIFIED (3) Factor V Leiden Assessment/Plan: on life long AC at present on Hold after GI procedure will resume on Sunday Code(s): D68.51 - ACTIVATED PROTEIN C RESISTANCE (4) History of pulmonary embolus (PE) Assessment/Plan: off AC for Gi procedure Ct chest -ve F/U clinical course Code(s): Z86.711 - PERSONAL HISTORY OF PULMONARY EMBOLISM (5) Hypomagnesemia Assessment/Plan: Mild will cont pral replacement Code(s): E83.42 - HYPOMAGNESEMIA (6) Diabetes mellitus Assessment/Plan: T2DM on Lantus 30units in am and correction dose insulin Dianbetic diet, cont home regimen F/U HBA!C level. Code(s): E11.9 - TYPE 2 DIABETES MELLITUS WITHOUT COMPLICATIONS Qualifiers: (7) H/O aortic aneurysm Assessment/Plan: Stable Code(s): Z86.79 - PERSONAL HISTORY OF OTHER DISEASES OF THE CIRCULATORY SYSTEM (8) HTN (hypertension) Assessment/Plan: Well controlled resumed home dose Code(s): I10 - ESSENTIAL (PRIMARY) HYPERTENSION Qualifiers: (9) Thrombocytopenia Assessment/Plan: Platelet count 32 K will F/U ETOH induced Code(s): D69.6 - THROMBOCYTOPENIA, UNSPECIFIED (10) Hypokalemia Assessment/Plan: Repleted KCL 40 m Eq once PO Code(s): E87.6 - HYPOKALEMIA (11) Hypomagnesemia Assessment/Plan: Mag 1.4 repleleted F/U BMP Code(s): E83.42 - HYPOMAGNESEMIA
[2018-10-24] MEDS ORDERED: POTASSIUM CHLORIDE TABS 20 MEQ TABLET.ER (FP) PO ONE (07:55)
[2018-10-24] MEDS ORDERED: MAGNESIUM SULF 50% (8.12 MEQ/2 ML-1 GM VIAL) IVPB ONE (07:56)
[2018-10-24 08:23] LABS: PLATELET COUNT 32 K/MM3 (134-434)
--- NOTE | 2018-10-24 09:19 | PN ---
Progress Note, Physician Chief Complaint: 63 M well known to me sent to ER from office yesterday w/ 2 days of worsening SOB. PMH: Massive pulmonary embolism > 5 years ago s/p pumonary embolectomy Chronic PHTN Alcoholism HTN Chronic venous insufficiency Hypercoag. state Had stopped his Xarelto for 5 days for endoscopy and dental procedure and then became sig short of breath. In office, O2 sat prior to exercise 96% and post exercise 97% ECG unchanged. Sent to ER for further w/u including CT and REGULO CTA negative for pulmonary embolism History of Present Illness: jittery - Current Medication List Current Medications: Active Medications Al Hydroxide/Mg Hydroxide (Mylanta Oral Suspension -) 30 ml PO Q6H PRN PRN Reason: DYSPEPSIA Chlordiazepoxide HCl (Librium -) 50 mg PO [id number] [facility] Stop: 10/24/18 11:01 Last Admin: 10/24/18 05:44 Dose: 50 mg Chlordiazepoxide HCl (Librium -) 25 mg PO [id number] [facility] Stop: 10/25/18 11:01 Chlordiazepoxide HCl (Librium -) 15 mg PO [id number] [facility] Stop: 10/26/18 11:01 Chlordiazepoxide HCl (Librium -) 25 mg PO Q4H PRN PRN Reason: WITHDRAWAL(CONT SUBST) Stop: 10/26/18 17:02 Chlordiazepoxide HCl (Librium -) 10 mg PO [id number] [facility] Stop: 10/27/18 11:01 Insulin Aspart (Novolog Vial Sliding Scale -) 1 vial SQ TIDAC [facility]; Protocol Last Admin: 10/24/18 06:26 Dose: Not Given Insulin Detemir (Levemir Vial) 25 units SQ AM [facility] Last Admin: 10/24/18 06:26 Dose: Not Given Metoprolol Succinate (Toprol Xl -) 100 mg PO DAILY [facility] Pantoprazole Sodium (Protonix -) 40 mg PO DAILY [facility] Potassium Chloride (K-Dur -) 20 meq PO DAILY [facility] Thiamine HCl (Vitamin B1 -) 100 mg PO DAILY [facility] Last Admin: 10/23/18 17:56 Dose: 100 mg - Objective Vital Signs: Vital Signs Temperature 98.9 F 10/24/18 06:00 Pulse Rate 57 L 10/24/18 06:00 Respiratory Rate 18 10/24/18 06:00 Blood Pressure 120/60 10/24/18 06:00 O2 Sat by Pulse Oximetry (%) 97 10/23/18 19:35 Constitutional: Yes: No Distress Cardiovascular: Yes: Regular Rate and Rhythm Respiratory: Yes: CTA Bilaterally Gastrointestinal: Yes: Soft Edema: Yes Edema: LLE: 2+ (venous insuffiency), RLE: 2+ (venous insuffiency) Neurological: Yes: Alert, Oriented ...Motor Strength: WNL Labs: CBC, BMP 10/24/18 05:30 10/24/18 05:30 INR, PTT INR 1.18 (0.83-1.09) H 10/24/18 05:30 Laboratory Tests 10/23/18 10/23/18 10/23/18 13:30 13:30 18:02 WBC Hgb Plt Count 42 L D INR Sodium Potassium Creatinine Magnesium Troponin I < 0.02 < 0.02 10/24/18 10/24/18 10/24/18 05:30 05:30 05:30 WBC 3.0 L Hgb 12.3 Plt Count 32 L* D INR 1.18 H Sodium 141 Potassium 3.2 L Creatinine 0.7 Magnesium 1.4 L Troponin I 10/24/18 05:30 WBC Hgb Plt Count INR Sodium Potassium Creatinine Magnesium Troponin I < 0.02 - ....Imaging EKG: Image Reviewed (NSR) Assessment/Plan IMP: Hypercoagulable state, hx of pulmonary embolism w/ prior pulmonary embolectomy Chronic PHTN IVC filter Alcoholism, mild withdrawal Now with dyspnea: ? related to worsening PHTN. REC: 1. CTA negative for PE, echo today to assess for PHTN. 2. Tele x 24 hours, r/o arrhythmia thus far negative. If tele remains unremarkable, may d/c tele this evening. 3. Original plan was for stress test today, but patient seems jittery and is in mild withdrawal. Continue Librium taper. Stress MPI may also be done as outpatient 4. Thrombocytopenia likely secondary to alcoholism, cirrhosis.
[2018-10-24] MEDS ORDERED: PT OWN MED DRAWER 7, Y5N ONE (09:40)
[2018-10-24] MEDS: PANTOPRAZOLE 40 MG TABLET (FP) PO SCH (09:42)
[2018-10-24] MEDS: THIAMINE HCL 100 MG TABLET (FP) PO SCH (09:42)
[2018-10-24] MEDS ORDERED: RANITIDINE HCL 150 MG TABLET (FP) PO SCH (10:00)
--- NOTE | 2018-10-24 11:14 | ECHO ---
Name: REGLA REA Exam:Adult Echocardiogram Study Date: 10/24/2018 08:24 AM Age: 63 yrs Reason For Study: SYNCOPE Height: 74 in Weight: 230 lb BSA: 2.3 m2 MMode/2D Measurements & Calculations IVSd: 1.1 cm Ao root diam: 3.1 cm LVIDd: 4.5 cm ACS: 2.0 cm LVIDs: 3.4 cm LVPWd: 2.0 cm EDV(Teich): 93.6 ml LVOT diam: 2.1 cm ESV(Teich): 48.5 ml Doppler Measurements & Calculations Med Peak E' Kaveh: 5.7 cm/sec Lat Peak E' Kaveh: 6.7 cm/sec Procedure A complete two-dimensional transthoracic echocardiogram was performed (2D, M-mode, Doppler and color flow Doppler). The study was technically difficult with many images being suboptimal in quality. Left Ventricle The left ventricular size, thickness and function are normal. The left ventricular ejection fraction is normal. Ejection Fraction = 55-60%. Regional wall motion abnormalities cannot be excluded due to limi toby visualization. Right Ventricle The right ventricle is grossly normal size. The right ventricular systolic function is grossly normal . Atria Normal left and right atrial size and function. Mitral Valve There is no mitral regurgitation noted. Tricuspid Valve There is trace tricuspid regurgitation. There was insufficient TR detected to calculate RV systolic p ressure. Aortic Valve No hemodynamically significant valvular aortic stenosis. No aortic regurgitation is present. Pulmonic Valve The pulmonic valve is not well visualized. Great Vessels The aortic root is normal size. Pericardium/Pleura There is no pericardial effusion. Interpretation Summary The study was technically difficult with many images being suboptimal in quality. The left ventricular size, thickness and function are normal The right ventricle is grossly normal size. The right ventricular systolic function is grossly normal. There is trace tricuspid regurgitation. MD Edwin Bryan 10/24/2018 11:13 AM
--- NOTE | 2018-10-24 12:44 | PN ---
[facility] Progress Note (SOAP) Subjective: 63 y.o. male with alcohol dependence referred for consultation, reports 10 beers /day x 1 years, first age of ETOH use 15 ,reports tremors if not drinking, reports he starts drinking around 12 noon , denies withdrawal seizures, denies blackouts or falls , detox x 2 most recently last March in [place] , never in inpatient rehab . Currently on chlordiazepoxide taper to start 5 p.m. today , prn chlordiazepoxide not taken . Currently reports tremors, denies sensitivity to lights and /or sounds, denies headache. PMHX : lumbar spine x2 surgery, 4.1 cm thoracic aortic aneurysm, HTN, Pulmonary Embolism (s/p IVC filter and open embolectomy at [facility] Jun 2011, bilateral inguinal hernia, umbilical hernia, Factor V Leiden, IDDM, chronic R. leg swelling with DVT, Peripheral neuropathy w/ chronic numbness, cholecystectomy Objective: wnwd , resting in bed , denies nausea/ vomiting / AAO x 3 , + UE tremors CBC WBC 3.0 K/mm3 (4.0-10.0) L 10/24/18 05:30 RBC 4.15 M/mm3 (4.00-5.60) 10/24/18 05:30 Hgb 12.3 GM/dL (11.7-16.9) 10/24/18 05:30 Hct 38.4 % (35.4-49) 10/24/18 05:30 MCV 92.6 fl (80-96) 10/24/18 05:30 MCH 29.6 pg (25.7-33.7) 10/24/18 05:30 MCHC 32.0 g/dl (32.0-35.9) 10/24/18 05:30 RDW 16.5 % (11.9-15.9) H 10/24/18 05:30 Plt Count 32 K/MM3 (134-434) L* D 10/24/18 05:30 MPV 9.7 fl (7.5-11.1) 10/24/18 05:30 Absolute Neuts (auto) 1.8 K/mm3 (1.5-8.0) 10/24/18 05:30 Neutrophils % 60.7 % (42.8-82.8) 10/24/18 05:30 Lymphocytes % 25.4 % (8-40) D 10/24/18 05:30 Monocytes % 12.9 % (3.8-10.2) H 10/24/18 05:30 Eosinophils % 0.4 % (0-4.5) 10/24/18 05:30 Basophils % 0.6 % (0-2.0) 10/24/18 05:30 Nucleated RBC % 0 % (0-0) 10/24/18 05:30 Vital Signs - 24 hr 10/23/18 10/23/18 10/23/18 12:56 16:20 19:35 Temperature 98.0 F 98.2 F Pulse Rate 80 55 L Pulse Rate [ 53 L Left] Respiratory 20 20 Rate Blood Pressure 142/72 117/60 Blood Pressure 117/61 [Left Arm] O2 Sat by Pulse 97 98 97 Oximetry (%) 10/24/18 10/24/18 10/24/18 02:00 06:00 10:00 Temperature 98.9 F 98.9 F 98.4 F Pulse Rate 54 L 57 L 70 Pulse Rate [ Left] Respiratory 20 18 18 Rate Blood Pressure 135/75 120/60 137/74 Blood Pressure [Left Arm] O2 Sat by Pulse Oximetry (%) 10/24/18 12:44 10/24/18 12:46 Assessment: 10/24/18 12:46 alcohol dependence with withdrawal Plan: encouraged use of prn chlordiazepoxide . Pt verbalizes understanding
[2018-10-24] MEDS ORDERED: RIVAROXABAN 20 MG TABLET PO SCH (18:00)
[2018-10-25] MEDS: chlordiazePOXIDE HCL 25 MG CAPSULE PO SCH ×3 (00:09→11:05)
[2018-10-25] MEDS: INSULIN SLIDING SCALE (NOVOLOG) 1 VIAL SQ SCH ×4 (06:02→17:34)
[2018-10-25] MEDS: INSULIN (LEVEMIR) 100 UNITS/ML UNITS SQ SCH (06:03)
[2018-10-25 07:31] LABS: BASO % 0.5 % (0-2.0); EOS % 1.8 % (0-4.5); HEMATOCRIT 36.8 % (35.4-49); HEMOGLOBIN 12.7 GM/dL (11.7-16.9); LYMPH % 31.3 % (8-40); MCH 31.6 pg (25.7-33.7); MCHC 34.5 g/dl (32.0-35.9); MEAN CELL VOLUME 91.5 fl (80-96); MEAN PLT VOLUME 10.6 fl (7.5-11.1); MONO % 13.7 % (3.8-10.2); NEUT % 52.7 % (42.8-82.8); PLATELET COUNT 38 K/MM3 (134-434); RBC 4.02 M/mm3 (4.00-5.60); RDW 16.4 % (11.9-15.9); WHITE BLOOD COUNT 3.1 K/mm3 (4.0-10.0)
[2018-10-25 08:16] LABS: ALBUMIN 1.8 g/dl (3.4-5.0); ALK PHOS 88 U/L (45-117); ANION GAP 10 MMOL/L (8-16); BLOOD UREA NITROGEN 14 mg/dL (7-18); CHLORIDE 103 mmol/L (98-107); CO2 25 mmol/L (21-32); CREATININE 0.7 mg/dL (0.55-1.3); GLUCOSE,RANDOM 113 mg/dL (74-106); MAGNESIUM 1.5 mg/dL (1.8-2.4); POTASSIUM 3.3 mmol/L (3.5-5.1); SGOT/AST 43 U/L (15-37); SGPT/ALT 25 U/L (13-61); SODIUM 138 mmol/L (136-145); TOT PROT 6.5 g/dl (6.4-8.2)
[2018-10-25] MEDS ORDERED: MAGNESIUM OXIDE 400 MG TABLET (FP) PO ONE (08:32)
--- NOTE | 2018-10-25 09:14 | PN ---
Progress Note, Physician Chief Complaint: TELE: NSR No further SOB, feels less anxious - Current Medication List Current Medications: Active Medications Al Hydroxide/Mg Hydroxide (Mylanta Oral Suspension -) 30 ml PO Q6H PRN PRN Reason: DYSPEPSIA Chlordiazepoxide HCl (Librium -) 25 mg PO [id number] [facility] Stop: 10/25/18 11:01 Last Admin: 10/25/18 05:24 Dose: 25 mg Chlordiazepoxide HCl (Librium -) 15 mg PO [id number] [facility] Stop: 10/26/18 11:01 Chlordiazepoxide HCl (Librium -) 25 mg PO Q4H PRN PRN Reason: WITHDRAWAL(CONT SUBST) Stop: 10/26/18 17:02 Chlordiazepoxide HCl (Librium -) 10 mg PO [id number] [facility] Stop: 10/27/18 11:01 Insulin Aspart (Novolog Vial Sliding Scale -) 1 vial SQ TIDAC [facility]; Protocol Last Admin: 10/25/18 06:02 Dose: 2 units Insulin Detemir (Levemir Vial) 25 units SQ AM [facility] Last Admin: 10/25/18 06:03 Dose: 25 units Magnesium Chloride (Slow-Mag -) 128 mg PO DAILY [facility] Metoprolol Succinate (Toprol Xl -) 100 mg PO DAILY [facility] Last Admin: 10/24/18 09:42 Dose: 100 mg Pantoprazole Sodium (Protonix -) 40 mg PO DAILY [facility] Last Admin: 10/24/18 09:42 Dose: 40 mg Potassium Chloride (K-Dur -) 40 meq PO DAILY [facility] Potassium Chloride (Potassium Chloride Oral Liquid) 40 meq PO BID [facility] Stop: 10/25/18 22:01 Thiamine HCl (Vitamin B1 -) 100 mg PO DAILY [facility] Last Admin: 10/24/18 09:42 Dose: 100 mg - Objective Vital Signs: Vital Signs Temperature 97.2 F L 10/25/18 06:00 Pulse Rate 54 L 10/25/18 06:00 Respiratory Rate 20 10/25/18 06:00 Blood Pressure 158/86 10/25/18 06:00 O2 Sat by Pulse Oximetry (%) 97 10/24/18 21:00 Constitutional: Yes: Calm Cardiovascular: Yes: Regular Rate and Rhythm Respiratory: Yes: CTA Bilaterally Gastrointestinal: Yes: Soft Edema: Yes Edema: LLE: 1+ (venous insuffiency), RLE: 1+ (venous insuffiency) Neurological: Yes: Alert Labs: CBC, BMP 10/25/18 05:30 10/25/18 05:30 INR, PTT INR 1.18 (0.83-1.09) H 10/24/18 05:30 Laboratory Tests 10/25/18 10/25/18 05:30 05:30 WBC 3.1 L Hgb 12.7 Plt Count 38 L Sodium 138 Potassium 3.3 L Creatinine 0.7 Magnesium 1.5 L - ....Imaging EKG: Image Reviewed Assessment/Plan IMP: Alcoholism Mild withdrawal, anxiety Cirrhosis Hypercoag state, hx Pulmonary embolism, embolectomy and filter REC: Cont AC No evidence of sig PHTN on echo. Replete lytes Rx of withdrawal as per PMD Can have outpatient stress test when withdrawal improves. D/C tele
[2018-10-25] MEDS: THIAMINE HCL 100 MG TABLET (FP) PO SCH (09:21)
[2018-10-25] MEDS: PANTOPRAZOLE 40 MG TABLET (FP) PO SCH (09:21)
[2018-10-25] MEDS: POTASSIUM CHLORIDE TABS 20 MEQ TABLET.ER (FP) PO SCH (09:21)
--- NOTE | 2018-10-25 09:23 | PN ---
Progress Note, Physician Chief Complaint: Pt lying in bed in no acute distress. Feeling better, still has tremors, has not gotten up. Denies any chest pain, sob, n/v/d - Current Medication List Current Medications: Active Medications Al Hydroxide/Mg Hydroxide (Mylanta Oral Suspension -) 30 ml PO Q6H PRN PRN Reason: DYSPEPSIA Chlordiazepoxide HCl (Librium -) 25 mg PO [id number] [facility] Stop: 10/25/18 11:01 Last Admin: 10/25/18 05:24 Dose: 25 mg Chlordiazepoxide HCl (Librium -) 15 mg PO [id number] [facility] Stop: 10/26/18 11:01 Chlordiazepoxide HCl (Librium -) 25 mg PO Q4H PRN PRN Reason: WITHDRAWAL(CONT SUBST) Stop: 10/26/18 17:02 Chlordiazepoxide HCl (Librium -) 10 mg PO [id number] [facility] Stop: 10/27/18 11:01 Insulin Aspart (Novolog Vial Sliding Scale -) 1 vial SQ TIDAC [facility]; Protocol Last Admin: 10/25/18 06:02 Dose: 2 units Insulin Detemir (Levemir Vial) 25 units SQ AM [facility] Last Admin: 10/25/18 06:03 Dose: 25 units Magnesium Chloride (Slow-Mag -) 128 mg PO DAILY [facility] Metoprolol Succinate (Toprol Xl -) 100 mg PO DAILY [facility] Last Admin: 10/25/18 09:21 Dose: 100 mg Pantoprazole Sodium (Protonix -) 40 mg PO DAILY [facility] Last Admin: 10/25/18 09:21 Dose: 40 mg Potassium Chloride (K-Dur -) 40 meq PO DAILY [facility] Last Admin: 10/25/18 09:21 Dose: 40 meq Potassium Chloride (Potassium Chloride Oral Liquid) 40 meq PO BID [facility] Stop: 10/25/18 22:01 Thiamine HCl (Vitamin B1 -) 100 mg PO DAILY [facility] Last Admin: 10/25/18 09:21 Dose: 100 mg - Objective Vital Signs: Vital Signs Temperature 97.2 F L 10/25/18 06:00 Pulse Rate 54 L 10/25/18 06:00 Respiratory Rate 20 10/25/18 06:00 Blood Pressure 158/86 10/25/18 06:00 O2 Sat by Pulse Oximetry (%) 97 10/24/18 21:00 Constitutional: Yes: Well Nourished, No Distress Cardiovascular: Yes: Regular Rate and Rhythm. No: Murmur Respiratory: Yes: WNL, Regular, CTA Bilaterally. No: Accessory Muscle Use, Rales, Rhonchi, SOB, Tachypnea Gastrointestinal: Yes: WNL, Normal Bowel Sounds, Soft, Abdomen, Obese, Hepatomegaly. No: Distention, Tenderness Genitourinary: Yes: WNL Musculoskeletal: Yes: WNL Extremities: Yes: WNL Edema: No Neurological: Yes: Alert, Oriented, Tremors Psychiatric: Yes: WNL, Alert, Oriented Labs: CBC, BMP 10/25/18 05:30 10/25/18 05:30 INR, PTT INR 1.18 (0.83-1.09) H 10/24/18 05:30 Assessment/Plan (1) Dyspnea Assessment/Plan: resolved acs ruled out, outpt follow up case discussed with cardiology Code(s): R06.00 - DYSPNEA, UNSPECIFIED (2) Alcohol withdrawal Assessment/Plan: continue librium detox PT eval pending Code(s): F10.239 - ALCOHOL DEPENDENCE WITH WITHDRAWAL, UNSPECIFIED (3) Liver cirrhosis Assessment/Plan: ast, tbilli/ammonia elevated w/ electrolyte abnormalities abd US- hepatomegaly, hepatocellular disease GI consult pending continue on going discussion with pt on alcohol cessation Code(s): K74.60 - UNSPECIFIED CIRRHOSIS OF LIVER Qualifiers: Hepatic cirrhosis type: alcoholic cirrhosis (4) Hyperbilirubinemia Code(s): E80.6 - OTHER DISORDERS OF BILIRUBIN METABOLISM (5) Thrombocytopenia Assessment/Plan: stable, decreased from prev admissions hematology consulted Code(s): D69.6 - THROMBOCYTOPENIA, UNSPECIFIED (6) Increased ammonia level Assessment/Plan: mental status at baseline lactulose bid trend Code(s): R79.89 - OTHER SPECIFIED ABNORMAL FINDINGS OF BLOOD CHEMISTRY (7) Hypomagnesemia Assessment/Plan: MgCl ordered monitor bmp Code(s): E83.42 - HYPOMAGNESEMIA (8) Hypokalemia Assessment/Plan: kcl scheduled kcl 40meq x 2 Code(s): E87.6 - HYPOKALEMIA (9) Factor V Leiden Assessment/Plan: on hold due to recent gi procedure resume tomorrow Code(s): D68.51 - ACTIVATED PROTEIN C RESISTANCE (10) History of pulmonary embolus (PE) Assessment/Plan: as above Code(s): Z86.711 - PERSONAL HISTORY OF PULMONARY EMBOLISM (11) Diabetes mellitus Assessment/Plan: stable bgm continue lantus Code(s): E11.9 - TYPE 2 DIABETES MELLITUS WITHOUT COMPLICATIONS Qualifiers: (12) H/O aortic aneurysm Assessment/Plan: stable Code(s): Z86.79 - PERSONAL HISTORY OF OTHER DISEASES OF THE CIRCULATORY SYSTEM (13) HTN (hypertension) Assessment/Plan: controlled continue home regimen Code(s): I10 - ESSENTIAL (PRIMARY) HYPERTENSION Qualifiers: (14) Encounter for alcohol cessation counseling Assessment/Plan: discussed with pt importance of alcohol cessation explained risks and complications of drinking on going discussion with pt Code(s): JIM0217 -
[2018-10-25 09:33] LABS: CALCIUM 8.1 mg/dL (8.5-10.1)
[2018-10-25] MEDS ORDERED: POTASSIUM CHLORIDE TABS 20 MEQ TABLET.ER (FP) PO SCH (10:00)
[2018-10-25] MEDS: MAGNESIUM CL 64 MG TABLET.SA PO SCH (10:14)
--- NOTE | 2018-10-25 10:14 | CONSULT ---
Consultation: REQUESTING PROVIDER: Dr. Corona CONSULT REQUEST FOR HEMATOLOGY/ONCOLOGY: We have been asked to medically evaluate this patient for Anemia and Thrombocytopenia. HISTORY OF PRESENT ILLNESS: Patient is a 63 ear old male with a PMHx of HTN, IDDMII with peripheral neuropathy, Pulmonary Embolism (s/p IVC filter and embolectomy), DVT, Factor V Leiden on Xarelto, Thoracic aneurysm, b/l inguinal hernia, EtoH abuse who was sent over by his Day Guard for worsening shortness of breath. According to patient, his Xarelto was on hold for the last 8 days due to two procedures done (Polypectomy last week and tooth extraction 10/23/18). Patient reported that his shortness of breath was worse when laying down or taking deep breaths. However, on my encounter, patient denies any current shortness of breath. Patient also reports tremors and states he's had this before due to alcohol withdrawals and is concerned as his last beer intake was two days ago. Patient currently denies any Fever, chills, chest pain, nauea, vomiting, abdominal pain, chest pain, palpitations, dysuria, hematuria, melena, hematochezia, hematemesis. PMHx: As per HPI PSHx: Pulmonary embolectomy Cholecystectomy Umbilical hernia Left and right inguinal hernia repair with mesh Median sternotomy C-Spne Microdisectomy (12/2013) Lumbosacral Laminectomy Social Hx: Denies Drug use Denies smoking Drinks a pack of beer everyday for several years Allergies: hydromorphone REVIEW OF SYSTEMS: CONSTITUTIONAL: Absent: fever, chills, diaphoresis, generalized weakness, malaise, loss of appetite, weight change HEENT: Absent: rhinorrhea, nasal congestion, throat pain, throat swelling, difficulty swallowing, mouth swelling, ear pain, eye pain, visual changes CARDIOVASCULAR: Absent: chest pain, syncope, palpitations, irregular heart rate, lightheadedness , peripheral edema RESPIRATORY: shortness of breath Absent: cough, dyspnea with exertion, orthopnea, wheezing, stridor, hemoptysis GASTROINTESTINAL: Absent: abdominal pain, abdominal distension, nausea, vomiting, diarrhea, constipation, melena, hematochezia GENITOURINARY: Absent: dysuria, frequency, urgency, hesitancy, hematuria, flank pain, genital pain MUSCULOSKELETAL: Absent: myalgia, arthralgia, joint swelling, back pain, neck pain SKIN: Absent: rash, itching, pallor HEMATOLOGIC/IMMUNOLOGIC: Absent: easy bleeding, easy bruising, lymphadenopathy, frequent infections ENDOCRINE: Absent: unexplained weight gain, unexplained weight loss, heat intolerance, cold intolerance NEUROLOGIC: Absent: headache, focal weakness or paresthesias, dizziness, unsteady gait, seizure, mental status changes, bladder or bowel incontinence PSYCHIATRIC: Absent: anxiety, depression, suicidal or homicidal ideation, hallucinations. PHYSICAL EXAMINATION Vital Signs Temperature 98.4 F 10/25/18 10:00 Pulse Rate 73 10/25/18 10:00 Respiratory Rate 22 H 10/25/18 10:00 Blood Pressure 143/92 10/25/18 10:00 O2 Sat by Pulse Oximetry (%) 95 10/25/18 09:00 GENERAL: Awake, alert, and fully oriented, in no acute distress. HEAD: Normal with no signs of trauma. EYES: Pupils equal, round and reactive to light, extraocular movements intact, sclera anicteric, conjunctiva clear. No lid lag. EARS, NOSE, THROAT: Oropharynx clear without exudates. Moist mucous membranes. NECK: Normal range of motion, supple without lymphadenopathy, JVD, or masses. LUNGS: Breath sounds equal, clear to auscultation bilaterally. No wheezes, and no crackles. No accessory muscle use. HEART: Regular rate and rhythm, normal S1 and S2 without murmur, rub or gallop. (+) midline sternotomy scar ABDOMEN: Soft, nontender, not distended, normoactive bowel sounds, no guarding, no rebound, no masses. No hepatomegaly or splenomegaly. MUSCULOSKELETAL: No CVA tenderness. EXTREMITIES: 2+ pitting edema bilaterally NEUROLOGICAL: Cranial nerves II-XII intact. Normal speech.Tremors of UE PSYCHIATRIC: Cooperative. Good eye contact. Appropriate mood and affect. SKIN: Warm, dry, normal turgor, no rashes or lesions noted. Laboratory Results 10/25/18 10/25/18 10/25/18 05:30 05:30 05:41 WBC 3.1 L RBC 4.02 Hgb 12.7 Hct 36.8 MCV 91.5 MCH 31.6 MCHC 34.5 RDW 16.4 H Plt Count 38 L MPV 10.6 Absolute Neuts (auto) 1.6 Neutrophils % 52.7 Lymphocytes % 31.3 D Monocytes % 13.7 H Eosinophils % 1.8 D Basophils % 0.5 Nucleated RBC % 0 Sodium 138 Potassium 3.3 L Chloride 103 Carbon Dioxide 25 Anion Gap 10 BUN 14 Creatinine 0.7 Creat Clearance w eGFR > 60 POC Glucometer 150 Random Glucose 113 H Calcium 8.1 L Magnesium 1.5 L Total Bilirubin 2.0 H AST 43 H ALT 25 Alkaline Phosphatase 88 Total Protein 6.5 Albumin 1.8 L Active Medications Generic Name Dose Route Start Last Admin Trade Name Freq PRN Reason Stop Dose Admin Al Hydroxide/Mg Hydroxide 30 ml 10/23/18 17:01 Mylanta Oral Suspension - PO Q6H PRN DYSPEPSIA Chlordiazepoxide HCl 25 mg 10/24/18 17:00 10/25/18 05:24 Librium - PO 10/25/18 11:01 25 mg [id number] [facility] Administration Chlordiazepoxide HCl 15 mg 10/25/18 17:00 Librium - PO 10/26/18 11:01 [id number] [facility] Chlordiazepoxide HCl 25 mg 10/23/18 17:03 Librium - PO 10/26/18 17:02 Q4H PRN WITHDRAWAL(CONT SUBST) Chlordiazepoxide HCl 10 mg 10/26/18 17:00 Librium - PO 10/27/18 11:01 [id number] [facility] Insulin Aspart 1 vial 10/24/18 07:00 10/25/18 06:02 Novolog Vial Sliding Scale - SQ 2 units TIDAC [facility] Administration Protocol Insulin Detemir 25 units 10/24/18 07:00 10/25/18 06:03 Levemir Vial SQ 25 units AM [facility] Administration Magnesium Chloride 128 mg 10/25/18 10:00 Slow-Mag - PO DAILY [facility] Metoprolol Succinate 100 mg 10/24/18 10:00 10/25/18 09:21 Toprol Xl - PO 100 mg DAILY [facility] Administration Pantoprazole Sodium 40 mg 10/24/18 10:00 10/25/18 09:21 Protonix - PO 40 mg DAILY [facility] Administration Potassium Chloride 40 meq 10/25/18 10:00 10/25/18 09:21 K-Dur - PO 40 meq DAILY [facility] Administration Potassium Chloride 40 meq 10/25/18 14:00 Potassium Chloride Oral Liquid PO 10/25/18 22:01 BID [facility] Thiamine HCl 100 mg 10/23/18 17:15 10/25/18 09:21 Vitamin B1 - PO 100 mg DAILY [facility] Administration ASSESSMENT/PLAN: Patient is a 63 year old female who was sent over by his language translator for shortness of breath and to rule out PE. Patient's CTA negative for CTA but labs revealed Leukopenia and thrombocytopenia. We were consulted for further evaluation. Problem List: Shortness of breath Thrombocytopenia Leukopenia History of macrocytic anemia Alcohol Withdrawal Alcohol abuse Cirrhosis HTN IDDMII Peripheral neuropathy Pulmonary Embolism s/p IVC filter and embolectomy DVT Factor V Leiden on Xarelto b/l inguinal hernia Thoracic aneurysm Hypokalemic Hypomagnesemia PLAN: -Acute problem includes thrombocytopenia, likely related to liver disease and alcohol abuse. -Will need to check coags -Patient has had macrocytic picture in the past consistent with macrocytic anemia likely secondary to alcohol abuse. Will order iron studies, B12 and folate. -Patient will need GI evaluation and reconsider AC due to cirrhosis and thrombocytopenia. As of now, will hold AC due to thrombocytopenia Dispo: We will continue to follow the patient. Thank you for this consultative opportunity. Visit type - Emergency Visit Emergency Visit: Yes ED Registration Date: 10/23/18 Care time: The patient presented to the Emergency Department on the above date and was hospitalized for further evaluation of their emergent condition. - New Patient This patient is new to me today: Yes Date on this admission: 10/25/18 - Critical Care Critical Care patient: No
[2018-10-25] MEDS ORDERED: MAG HYDROX/AL HYDROX/SIMETH 30 ML UNIT-DOSE CUP PO PRN (12:17)
[2018-10-25] MEDS: LACTULOSE 20 GM/30 ML UDC (FOR ORAL USE ONLY) PO SCH ×2 (12:56→22:58)
[2018-10-25] MEDS ORDERED: POTASSIUM CHLORIDE ORAL LIQUID 20 MEQ/15 ML PO SCH (14:00)
--- NOTE | 2018-10-25 14:36 | CON.GI ---
Consult Consult Specialty:: Gastroenterology Referred by:: Brigida LIN Reason for Consultation:: Alcoholic hepatitis and cirrhosis - History of Present Illness Chief Complaint: Dyspnea History of Present Illness: 63M with alcoholic hepatitis and now cirrhosis is admitted with dyspnea and concerns for a repeat pulmonary embolism as his anticoagulants were being held following a right molar extraction of a broken infected tooth last week. He is now having alcohol withdrawal with hallucinations. He denies any rectal bleeding. He has been through 3 week alcohol detox regimens twice recently but failed to remain alcohol free. He drinks beer and whiskey daily. He last had an EGD and a colonoscopy with ia on 05/10/18 when he had recurrent large hyperplastic antral poyps debulked. GERD above a hiatal henia was again found but no varices were seen. Colonoscopy led to the removal of tubular adenomas from the rectum and sigmoid and a hyperplastic cecal poyp. Diverticulosis was found in the distal half of the colon. he had a FH for esophageal, small bowel and colon cancers. He takes Xarelto since he suffered multiple pulmonary emboli which required multiple embolectomies leaving yany with 60% lung capacity. He has Factor V Leiden deficiency. He has never had ascites or hepatic encephalopathy but his is now thrombocytopenic and hypoalbuminemic. - History Source History Provided By: Patient Limitations to Obtaining History: No Limitations - Past Medical History [facility]ICKEN [facility]ONER: Yes: Peripheral Neuropathy (upper and lower extremities), Other (prior back surgery, chronic sciatica) Cardio/Vascular: Yes: Aneurysm (small stable ascending aortic aneurysm. HTN. Chronic RBBB), Deep Vein Thrombosis, HTN Pulmonary: Yes: Pulmonary Embolus (s/p IVC filter and open embolectomies at [facility] leaving 60% lung capacity) Gastrointestinal: Yes: Diverticulosis, GERD, Hemorrhoids, Other (multiple colon adenomas and recurring large gastric antrum hyperplastic polypectomies) Hepatobiliary: Yes: Cirrhosis (Alcoholic hepatitis superimposed on cirrhosis) Renal/: Yes: BPH Heme/Onc: Yes: Other (Factor V Leiden deficiency) Infectious Disease: Yes: Other (genital herpes) Psych: Yes: Addictions (ETOH) Musculoskeletal: Yes: Chronic low back pain (compression fractures thoracic spine) Endocrine: Yes: Diabetes Mellitus - Past Surgical History Past Surgical History: Yes: Cataract Removal (bilateral), Cholecystectomy ( laparoscopic), Colonoscopy, Hernia Repair (RIH with mesh and LIH and umbilical hernia repairs), Laminectomy (lumbosacral), Tonsillectomy, Upper Endoscopy Additional Surgical History: medium sternotomy for pulmonary open embolectomies. IVC filter. 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 Place of : [facility] History of Recent Travel: No Home Medications - Allergies Allergies/Adverse Reactions: Allergies Allergy/AdvReac Type Severity Reaction Status Date / Time hydromorphone HCl AdvReac HALLUCINATION, Verified 03/12/17 15:36 [From Dilaudid] personality changes - Home Medications Home Medications: Ambulatory Orders Metoprolol Succinate [Toprol Xl] 100 mg PO DAILY 03/12/17 Rivaroxaban [Xarelto -] 20 mg PO DAILY 03/12/17 Cholecalciferol (Vitamin D3) [D3-2000] 1,000 unit PO DAILY 03/13/17 Cyanocobalamin/Cobamamide [B-12 5,000 Mcg Sublingual Tab] 1 each SL DAILY Milk Thistle 300 mg PO BID 03/13/17 Insulin Sliding Scale [Novolog Vial Sliding Scale -] 0 vial SQ ACHS units 03/20 L.acidoph,Paracasei, B.lactis [Probiotic] 1 each PO DAILY 05/10/18 Mag Carb/Aluminum Hydrox/Algin [Gaviscon Liquid] 15 - 30 ml PO Q6H PRN #355 oz 05/10/18 Pantoprazole Sodium [Protonix -] 40 mg PO DAILY #30 tablet.ec 05/10/18 Cyanocobalamin/Folic AC/Vit B6 [Folbee Tablet] 1 each PO 10/23/18 Ranitidine [Zantac -] 150 mg PO DAILY 10/23/18 Family Disease History - Family Disease History Family Disease History: Heart Disease: Brother (CHF), CA: Father (Lung cancer with bone mets), Sister (Colon CA in her 60s), Other: Mother ( alcoholic cirrhosis), Son (Facor V Leiden deficiency) Other Family History: Uncle had esop[hageal and colon cancers. Cousin of small bowel adenocarcinoma Review of Systems - Review of Systems Constitutional: reports: Diaphoresis Eyes: reports: Blurred Vision HENT: reports: Toothache Neck: reports: Stiffness Cardiovascular: reports: Palpitations, Shortness of Breath Respiratory: reports: Exercise Intolerance Gastrointestinal: reports: Indigestion, Other (heartburn) Musculoskeletal: reports: Back Pain, Joint Pain, Muscle Cramps Neurological: reports: Dizziness, Numbness, Unsteady Gait Physical Exam-GI Vital Signs: Vital Signs Temperature 98.4 F 10/25/18 10:00 Pulse Rate 73 10/25/18 10:00 Respiratory Rate 22 H 10/25/18 10:00 Blood Pressure 143/92 10/25/18 10:00 O2 Sat by Pulse Oximetry (%) 95 10/25/18 09:00 CBC,CMP WBC 3.1 K/mm3 (4.0-10.0) L 10/25/18 05:30 RBC 4.02 M/mm3 (4.00-5.60) 10/25/18 05:30 Hgb 12.7 GM/dL (11.7-16.9) 10/25/18 05:30 Hct 36.8 % (35.4-49) 10/25/18 05:30 MCV 91.5 fl (80-96) 10/25/18 05:30 MCH 31.6 pg (25.7-33.7) 10/25/18 05:30 MCHC 34.5 g/dl (32.0-35.9) 10/25/18 05:30 RDW 16.4 % (11.9-15.9) H 10/25/18 05:30 Plt Count 38 K/MM3 (134-434) L 10/25/18 05:30 MPV 10.6 fl (7.5-11.1) 10/25/18 05:30 Absolute Neuts (auto) 1.6 K/mm3 (1.5-8.0) 10/25/18 05:30 Neutrophils % 52.7 % (42.8-82.8) 10/25/18 05:30 Lymphocytes % 31.3 % (8-40) D 10/25/18 05:30 Monocytes % 13.7 % (3.8-10.2) H 10/25/18 05:30 Eosinophils % 1.8 % (0-4.5) D 10/25/18 05:30 Basophils % 0.5 % (0-2.0) 10/25/18 05:30 Nucleated RBC % 0 % (0-0) 10/25/18 05:30 Sodium 138 mmol/L (136-145) 10/25/18 05:30 Potassium 3.3 mmol/L (3.5-5.1) L 10/25/18 05:30 Chloride 103 mmol/L (98-107) 10/25/18 05:30 Carbon Dioxide 25 mmol/L (21-32) 10/25/18 05:30 Anion Gap 10 MMOL/L (8-16) 10/25/18 05:30 BUN 14 mg/dL (7-18) 10/25/18 05:30 Creatinine 0.7 mg/dL (0.55-1.3) 10/25/18 05:30 Creat Clearance w eGFR > 60 (>60) 10/25/18 05:30 POC Glucometer 200 UNITS (80-120) 10/25/18 11:17 Random Glucose 113 mg/dL (74-106) H 10/25/18 05:30 Calcium 8.1 mg/dL (8.5-10.1) L 10/25/18 05:30 Magnesium 1.5 mg/dL (1.8-2.4) L 10/25/18 05:30 Total Bilirubin 2.0 mg/dL (0.2-1) H 10/25/18 05:30 AST 43 U/L (15-37) H 10/25/18 05:30 ALT 25 U/L (13-61) 10/25/18 05:30 Alkaline Phosphatase 88 U/L (45-117) 10/25/18 05:30 Ammonia 49.80 umol/L (11-32) H 10/25/18 09:50 Creatine Kinase 89 IU/L (26-308) 10/24/18 05:30 Troponin I < 0.02 ng/ml (0.00-0.05) 10/24/18 05:30 B-Natriuretic Peptide 50.7 pg/ml (5-125) 10/23/18 13:30 Total Protein 6.5 g/dl (6.4-8.2) 10/25/18 05:30 Albumin 1.8 g/dl (3.4-5.0) L 10/25/18 05:30 Current Medications Generic Name Dose Route Start Last Admin Trade Name Josue PRN Reason Stop Dose Admin Al Hydroxide/Mg Hydroxide 30 ml 10/25/18 12:17 Mylanta Oral Suspension - PO Q6H PRN DYSPEPSIA Chlordiazepoxide HCl 25 mg 10/25/18 12:17 Librium - PO 10/26/18 17:02 Q4H PRN WITHDRAWAL(CONT SUBST) Chlordiazepoxide HCl 15 mg 10/25/18 17:00 Librium - PO 10/26/18 11:01 [id number] AKI Chlordiazepoxide HCl 10 mg 10/26/18 17:00 Librium - PO 10/27/18 11:01 [id number] AKI Insulin Aspart 1 vial 10/25/18 16:30 10/25/18 12:49 Novolog Vial Sliding Scale - SQ 4 units TIDAC AKI Administration Protocol Insulin Detemir 25 units 10/26/18 07:00 Levemir Vial SQ AM AKI Lactulose 20 gm 10/25/18 11:00 10/25/18 12:56 Cephulac (Oral Use) PO 20 gm BID AKI Administration Magnesium Chloride 128 mg 10/25/18 10:00 10/25/18 10:14 Slow-Mag - PO 128 mg DAILY AKI Administration Metoprolol Succinate 100 mg 10/26/18 10:00 Toprol Xl - PO DAILY AKI Pantoprazole Sodium 40 mg 10/26/18 10:00 Protonix - PO DAILY AKI Potassium Chloride 40 meq 10/25/18 10:00 10/25/18 09:21 K-Dur - PO 40 meq DAILY AKI Administration Thiamine HCl 100 mg 10/26/18 10:00 Vitamin B1 - PO DAILY AKI Constitutional: Yes: Anxious, Other (Tremulous Hallucinating) HENT: Yes: Atraumatic Neck: Yes: Supple Cardiovascular: Yes: Tachycardia, Other (healed median sternotomy incision) Gastrointestinal Inspection: Yes: Distention, Scars (healed RIH, LIH, umbilical and laparoscopic incisions) ...Auscultate: Yes: Normoactive Bowel Sounds ...Palpate: Yes: Soft, Other (nontender) ...Percussion: Yes: Tympanitic ...Rectal Exam: Yes: Guaiac Negative, Other (2+ prostate) Neurological: Yes: Tremors, Unsteady Gait, Other (hallucinating) Labs: CBC, BMP 10/25/18 05:30 10/25/18 05:30 INR, PTT INR 1.18 (0.83-1.09) H 10/24/18 05:30 Laboratory Tests 10/24/18 10/25/18 10/25/18 05:30 05:30 05:30 Hgb 12.7 Plt Count 38 L PT with INR 14.00 H BUN 14 Creatinine 0.7 Total Bilirubin 2.0 H AST 43 H ALT 25 Alkaline Phosphatase 88 Ammonia Albumin 1.8 L 10/25/18 09:50 Hgb Plt Count PT with INR BUN Creatinine Total Bilirubin AST ALT Alkaline Phosphatase Ammonia 49.80 H Albumin Imaging - Results Ultrasound: Report Reviewed (Kyle Corrales Name: REGLA REA DEPARTMENT OF RADIOLOGY Phys: Carlito,Brigida [facility] : 1955 Age: 63 Sex: M [facility] Acct: [id number] Loc: [id number] [facility] Exam Date: 10/25/18 Status: [place] [address] Unit Number: [id number] EXAM#: TYPE/EXAM: RESULT: [id number] US/ABDOMEN US -LIMITED Abnormal liver enzymes. For evaluation of the liver. Right upper abdomen ultrasound. Compared to prior upper abdomen ultrasound dated 03/24/2016 The liver is enlarged measuring 20 cm in sagittal length with a cyst slightly to moderately dense echotexture. There is an echogenic density in the right hepatic lobe measuring 8 mm compatible with a calcific density which is nonspecific. Status post cholecystectomy. No intra or extrahepatic bile duct dilatation is seen. The right kidney measures 12.4 cm sagittal length and appears unremarkable. Nonvisualization of the pancreas Visualized portion of the proximal abdominal aorta and inferior vena cava appear unremarkable. Normal flow in the main portal vein. IMPRESSION: Hepatomegaly with fatty infiltration versus hepatocellular disease. Tiny calcific density in the right hepatic lobe again seen now measuring 7 mm Status post cholecystectomy Nonvisualization of the pancreas Reported By: Frank Hoang MD 10/25/18 1244 Technologist: Tennille Parisi Transcribed Date/Time: 10/25/18 1244 Support Team Assoc: Frank Hoang Printed Date /Time: By: Signed by: Frank Honag Signed on: 25-Oct-2018 12:45) Problem List - Problems (1) Alcoholic cirrhosis of liver without ascites Assessment/Plan: I have informed Regla that his alcoholic hepatitis has progressed to cirrhosis and that he is at high risk f bleeding due to thrombocytopenia. I have warned him not to get out if bed without assistance and that a fall could kill him. I have told him that he can never have any more alcohol. 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 I have told him that he cannot have any more dental work until his platelet count improves adequately. Code(s): K70.30 - ALCOHOLIC CIRRHOSIS OF LIVER WITHOUT ASCITES (2) Alcoholic hepatitis without ascites Code(s): K70.10 - ALCOHOLIC HEPATITIS WITHOUT ASCITES (3) Thrombocytopenia concurrent with and due to alcoholism Code(s): D69.59 - OTHER SECONDARY THROMBOCYTOPENIA; F10.20 - ALCOHOL DEPENDENCE , UNCOMPLICATED (4) Hypoalbuminemia Code(s): E88.09 - [facility] DISORDERS OF PLASMA-PROTEIN METABOLISM, NEC (5) Colon adenomas Code(s): D12.6 - BENIGN NEOPLASM OF COLON, UNSPECIFIED (6) Multiple gastric polyps Code(s): K31.7 - POLYP OF STOMACH AND DUODENUM (7) GERD with esophagitis Code(s): K21.0 - GASTRO-ESOPHAGEAL REFLUX DISEASE WITH ESOPHAGITIS (8) Diverticulosis Code(s): K57.90 - DVRTCLOS OF INTEST, PART UNSP, W/O PERF OR ABSCESS W/O BLEED (9) Lolis filter in place Code(s): Z95.828 - PRESENCE OF OTHER VASCULAR IMPLANTS AND GRAFTS (10) Diabetic neuropathy associated with type 2 diabetes mellitus Code(s): E11.40 - TYPE 2 DIABETES MELLITUS WITH DIABETIC NEUROPATHY, UNSP (11) Genital herpes in men Code(s): A60.02 - HERPESVIRAL INFECTION OF OTHER MALE GENITAL ORGANS (12) Alcohol withdrawal Assessment/Plan: Continue current detox regimen. See above Code(s): F10.239 - ALCOHOL DEPENDENCE WITH WITHDRAWAL, UNSPECIFIED (13) Dyspnea Code(s): R06.00 - DYSPNEA, UNSPECIFIED (14) History of pulmonary embolus (PE) Code(s): Z86.711 - PERSONAL HISTORY OF PULMONARY EMBOLISM (15) Chronic back pain Code(s): M54.9 - DORSALGIA, UNSPECIFIED; G89.29 - OTHER CHRONIC PAIN (16) Diabetes mellitus Code(s): E11.9 - TYPE 2 DIABETES MELLITUS WITHOUT COMPLICATIONS Qualifiers: (17) Factor 5 Leiden mutation, heterozygous Code(s): D68.51 - ACTIVATED PROTEIN C RESISTANCE (18) H/O aortic aneurysm Code(s): Z86.79 - PERSONAL HISTORY OF OTHER DISEASES OF THE CIRCULATORY SYSTEM (19) Alcohol withdrawal delirium Code(s): F10.231 - ALCOHOL DEPENDENCE WITH WITHDRAWAL DELIRIUM Assessment/Plan Alcoholic hepatitis superimposed on cirrhosis now with thrombocytopenia, coagulopathy and hypoalbuminemia. I informed the patient of his grim prognosis and the need to absolutely abstain from any further alcohol and the need for a senior care detox program . Dr. Rodriguez will be covering this weekend
[2018-10-25] MEDS ORDERED: chlordiazePOXIDE 5 MG CAPSULE PO SCH (17:00)
[2018-10-25] MEDS: chlordiazePOXIDE 5 MG CAPSULE PO SCH ×2 (17:30→22:58)
--- NOTE | 2018-10-25 18:20 | PN ---
Teaching Attending Note Name of Resident: Dilma Hackett ATTENDING PHYSICIAN STATEMENT I saw and evaluated the patient. I reviewed the resident's note and discussed the case with the resident. I agree with the resident's findings and plan as documented ASSESSMENT AND PLAN: Patient is a 63 year old male who was sent over by his resident in diagnostic radiology for shortness of breath and to rule out PE. Patient's CTA negative for CTA but labs revealed Leukopenia and thrombocytopenia. Problem List: Shortness of breath Thrombocytopenia Leukopenia History of macrocytic anemia Alcohol Withdrawal Alcohol abuse Cirrhosis /splenomegaly HTN IDDMII Peripheral neuropathy h/o DVT/Pulmonary Embolism s/p IVC filter and embolectomy---2010 Factor V Leiden on Xarelto b/l inguinal hernia Thoracic aneurysm Hypokalemic Hypomagnesemia PLAN: Difficult situation of 63 year old with cirrhosis/splenomegaly, alcohol abise, alcoholic hepatitis, neuropathy, h/o falls, h/o factor V leiden with massive PE requiring thoracotomy in 2010 Discussed in detail with family about pros/cons of a/c in this setting Holding .c given plATELETS < 50,000 ALSO NEED to ascertain gait stability/all riskonce he is over this acute intoxication ----risks may out weigh benefits discussed potentially liufe threatening consequences of vbleeding/clotting complications with patient in detail will continue to follow
[2018-10-26] MEDS: chlordiazePOXIDE HCL 25 MG CAPSULE PO PRN ×2 (03:05→10:30)
[2018-10-26 06:56] LABS: BASO % 6.4 % (0-2.0); EOS % 2.1 % (0-4.5); HEMATOCRIT 40.9 % (35.4-49); HEMOGLOBIN 13.1 GM/dL (11.7-16.9); LYMPH % 23.9 % (8-40); MCH 29.8 pg (25.7-33.7); MCHC 32.1 g/dl (32.0-35.9); MEAN CELL VOLUME 92.9 fl (80-96); MEAN PLT VOLUME 10.1 fl (7.5-11.1); MONO % 10.6 % (3.8-10.2); PLATELET COUNT 45 K/MM3 (134-434); RDW 16.5 % (11.9-15.9); WHITE BLOOD COUNT 3.7 K/mm3 (4.0-10.0)
[2018-10-26] MEDS: INSULIN (LEVEMIR) 100 UNITS/ML UNITS SQ SCH (06:56)
[2018-10-26] MEDS: INSULIN SLIDING SCALE (NOVOLOG) 1 VIAL SQ SCH ×3 (06:56→16:58)
[2018-10-26] MEDS: chlordiazePOXIDE 5 MG CAPSULE PO SCH ×4 (06:57→23:05)
[2018-10-26] MEDS ORDERED: INSULIN (LEVEMIR) 100 UNITS/ML UNITS SQ ONE (07:00)
--- NOTE | 2018-10-26 08:21 | PN ---
Progress Note, Physician Chief Complaint: Still c/o SOB no c/o chest pain, tremors + History of Present Illness: 63 yrs old male known since previous hospitalization, recently underwent EGD on Sunday off for Gastric Polp Biopsy (recommonded by GI to resume on Sunday) also H/O T2DM, HTN, ETOH abuse and withdrawal, HTN, Pulmonary Embolism (s/p IVC filter and open embolectomy at [facility] (Jun 2011), Factor V Leiden , IDDM, chronic R. leg swelling with DVT, Peripheral neuropathy, today visited Safety Advisor Dr. Domínguez for shortness of breath and orthothopnea, normal serial CE X3 and non dynamic EKG - Current Medication List Current Medications: Active Medications Al Hydroxide/Mg Hydroxide (Mylanta Oral Suspension -) 30 ml PO Q6H PRN PRN Reason: DYSPEPSIA Chlordiazepoxide HCl (Librium -) 25 mg PO Q4H PRN PRN Reason: WITHDRAWAL(CONT SUBST) Stop: 10/26/18 17:02 Last Admin: 10/26/18 03:05 Dose: 25 mg Chlordiazepoxide HCl (Librium -) 15 mg PO [id number] [facility] Stop: 10/26/18 11:01 Last Admin: 10/26/18 06:57 Dose: 15 mg Chlordiazepoxide HCl (Librium -) 10 mg PO [id number] [facility] Stop: 10/27/18 11:01 Insulin Aspart (Novolog Vial Sliding Scale -) 1 vial SQ TIDAC [facility]; Protocol Last Admin: 10/26/18 06:56 Dose: 2 units Insulin Detemir (Levemir Vial) 25 units SQ AM [facility] Last Admin: 10/26/18 06:56 Dose: 25 units Lactulose (Cephulac (Oral Use)) 20 gm PO BID [facility] Last Admin: 10/25/18 22:58 Dose: 20 gm Magnesium Chloride (Slow-Mag -) 128 mg PO DAILY [facility] Last Admin: 10/25/18 10:14 Dose: 128 mg Metoprolol Succinate (Toprol Xl -) 100 mg PO DAILY [facility] Pantoprazole Sodium (Protonix -) 40 mg PO DAILY [facility] Potassium Chloride (K-Dur -) 40 meq PO DAILY [facility] Last Admin: 10/25/18 09:21 Dose: 40 meq Thiamine HCl (Vitamin B1 -) 100 mg PO DAILY AKI - Objective Vital Signs: Vital Signs Temperature 97.7 F 10/26/18 07:33 Pulse Rate 67 10/26/18 07:33 Respiratory Rate 20 10/26/18 07:33 Blood Pressure 135/76 10/26/18 07:33 O2 Sat by Pulse Oximetry (%) 95 10/25/18 21:00 Elderly man not in distress, c/o mild orthopnea HEENT: Mm moist, no anemia, PERRLA EOMI NECK: No JVD No Bruit CHEST: CTA B/l non tender ABD: Obese non tender EXT: Rt LE swelling non tender PODOPEDIATRICIAN: tremors + otherwise AOX3 non focal Labs: CBC, BMP 10/26/18 06:30 INR, PTT INR 1.18 (0.83-1.09) H 10/24/18 05:30 Problem List - Problems (1) Dyspnea Assessment/Plan: Improved normal ECHO F/U Out patient for NST Code(s): R06.00 - DYSPNEA, UNSPECIFIED (2) Alcohol withdrawal Assessment/Plan: Cont Librium protocol add thiamine f/u clinical course, Detox consult Code(s): F10.239 - ALCOHOL DEPENDENCE WITH WITHDRAWAL, UNSPECIFIED (3) Factor V Leiden Assessment/Plan: on life long AC at present on Hold after GI procedure will resume on Sunday Code(s): D68.51 - ACTIVATED PROTEIN C RESISTANCE (4) History of pulmonary embolus (PE) Assessment/Plan: off AC for Gi procedure and low platelet Ct chest -ve F/U clinical course Code(s): Z86.711 - PERSONAL HISTORY OF PULMONARY EMBOLISM (5) Hypomagnesemia Assessment/Plan: Mild will cont pral replacement Code(s): E83.42 - HYPOMAGNESEMIA (6) Diabetes mellitus Assessment/Plan: T2DM on Lantus 30units in am and correction dose insulin Dianbetic diet, cont home regimen F/U HBA!C level. Code(s): E11.9 - TYPE 2 DIABETES MELLITUS WITHOUT COMPLICATIONS Qualifiers: (7) H/O aortic aneurysm Assessment/Plan: Stable Code(s): Z86.79 - PERSONAL HISTORY OF OTHER DISEASES OF THE CIRCULATORY SYSTEM (8) HTN (hypertension) Assessment/Plan: Well controlled resumed home dose Code(s): I10 - ESSENTIAL (PRIMARY) HYPERTENSION Qualifiers: (9) Thrombocytopenia Assessment/Plan: Platelet count 45 K improving will F/U ETOH induced Code(s): D69.6 - THROMBOCYTOPENIA, UNSPECIFIED (10) Hypokalemia Assessment/Plan: Repleted KCL 40 m Eq once PO Code(s): E87.6 - HYPOKALEMIA (11) Hypomagnesemia Assessment/Plan: Mag 1.4 repleleted F/U BMP Code(s): E83.42 - HYPOMAGNESEMIA
[2018-10-26] MEDS ORDERED: PT OWN MED DRAWER 7, Y5N ONE (09:37)
--- NOTE | 2018-10-26 10:14 | PN ---
Progress Note (short form) - Note Progress Note: Subjective: --No acute overnight events Objective: Vital Signs 10/26/18 07:33 Temperature 97.7 F Pulse Rate 67 Respiratory 20 Rate Blood Pressure 135/76 Gen: well appearing male sitting upright in NAD HEENT: NC/AT. OP Clear, MMM Cardiac: S1/S2 no murmurs appreciated. Pulm: clear breath sounds bilaterally. No rales. Ext: 1+ edema bilaterally with venous insufficiency, R>LLE swelling Laboratory Last Values WBC 3.7 K/mm3 (4.0-10.0) L 10/26/18 06:30 RBC 4.40 M/mm3 (4.00-5.60) 10/26/18 06:30 Hgb 13.1 GM/dL (11.7-16.9) 10/26/18 06:30 Hct 40.9 % (35.4-49) 10/26/18 06:30 MCV 92.9 fl (80-96) 10/26/18 06:30 MCH 29.8 pg (25.7-33.7) 10/26/18 06:30 MCHC 32.1 g/dl (32.0-35.9) 10/26/18 06:30 RDW 16.5 % (11.9-15.9) H 10/26/18 06:30 Plt Count 45 K/MM3 (134-434) L 10/26/18 06:30 MPV 10.1 fl (7.5-11.1) 10/26/18 06:30 Absolute Neuts (auto) 2.1 K/mm3 (1.5-8.0) 10/26/18 06:30 Neutrophils % 57.0 % (42.8-82.8) 10/26/18 06:30 Lymphocytes % 23.9 % (8-40) D 10/26/18 06:30 Monocytes % 10.6 % (3.8-10.2) H 10/26/18 06:30 Eosinophils % 2.1 % (0-4.5) 10/26/18 06:30 Basophils % 6.4 % (0-2.0) H* 10/26/18 06:30 Nucleated RBC % 0 % (0-0) 10/26/18 06:30 Retic Count 1.57 % (0.5-1.5) H 10/26/18 06:30 PT with INR 14.00 SEC (9.7-13.0) H 10/24/18 05:30 INR 1.18 (0.83-1.09) H 10/24/18 05:30 Sodium 138 mmol/L (136-145) 10/25/18 05:30 Potassium 3.3 mmol/L (3.5-5.1) L 10/25/18 05:30 Chloride 103 mmol/L (98-107) 10/25/18 05:30 Carbon Dioxide 25 mmol/L (21-32) 10/25/18 05:30 Anion Gap 10 MMOL/L (8-16) 10/25/18 05:30 BUN 14 mg/dL (7-18) 10/25/18 05:30 Creatinine 0.7 mg/dL (0.55-1.3) 10/25/18 05:30 Creat Clearance w eGFR > 60 (>60) 10/25/18 05:30 POC Glucometer 154 UNITS (80-120) 10/26/18 06:44 Random Glucose 113 mg/dL (74-106) H 10/25/18 05:30 Calcium 8.1 mg/dL (8.5-10.1) L 10/25/18 05:30 Magnesium 1.5 mg/dL (1.8-2.4) L 10/25/18 05:30 Ferritin 77.4 ng/ml (8-388) 10/26/18 06:30 Total Bilirubin 2.0 mg/dL (0.2-1) H 10/25/18 05:30 AST 43 U/L (15-37) H 10/25/18 05:30 ALT 25 U/L (13-61) 10/25/18 05:30 Alkaline Phosphatase 88 U/L (45-117) 10/25/18 05:30 Ammonia 49.80 umol/L (11-32) H 10/25/18 09:50 Creatine Kinase 89 IU/L (26-308) 10/24/18 05:30 Troponin I < 0.02 ng/ml (0.00-0.05) 10/24/18 05:30 B-Natriuretic Peptide 50.7 pg/ml (5-125) 10/23/18 13:30 Total Protein 6.5 g/dl (6.4-8.2) 10/25/18 05:30 Albumin 1.8 g/dl (3.4-5.0) L 10/25/18 05:30 Vitamin B12 642 pg/ml (193-986) 10/26/18 06:30 Active Medications Al Hydroxide/Mg Hydroxide (Mylanta Oral Suspension -) 30 ml PO Q6H PRN PRN Reason: DYSPEPSIA Chlordiazepoxide HCl (Librium -) 25 mg PO Q4H PRN PRN Reason: WITHDRAWAL(CONT SUBST) Stop: 10/26/18 17:02 Last Admin: 10/26/18 03:05 Dose: 25 mg Chlordiazepoxide HCl (Librium -) 15 mg PO [id number] [facility] Stop: 10/26/18 11:01 Last Admin: 10/26/18 06:57 Dose: 15 mg Chlordiazepoxide HCl (Librium -) 10 mg PO [id number] [facility] Stop: 10/27/18 11:01 Insulin Aspart (Novolog Vial Sliding Scale -) 1 vial SQ TIDAC [facility]; Protocol Last Admin: 10/26/18 06:56 Dose: 2 units Insulin Detemir (Levemir Vial) 25 units SQ AM [facility] Last Admin: 10/26/18 06:56 Dose: 25 units Lactulose (Cephulac (Oral Use)) 20 gm PO BID [facility] Last Admin: 10/25/18 22:58 Dose: 20 gm Magnesium Chloride (Slow-Mag -) 128 mg PO DAILY [facility] Last Admin: 10/25/18 10:14 Dose: 128 mg Metoprolol Succinate (Toprol Xl -) 100 mg PO DAILY [facility] Pantoprazole Sodium (Protonix -) 40 mg PO DAILY [facility] Potassium Chloride (K-Dur -) 40 meq PO DAILY [facility] Last Admin: 10/25/18 09:21 Dose: 40 meq Thiamine HCl (Vitamin B1 -) 100 mg PO DAILY [facility] A/P: No change in prior recommendations as below. IMP: Alcoholism Mild withdrawal, anxiety Cirrhosis Hypercoag state, hx Pulmonary embolism, embolectomy and filter REC: Cont AC No evidence of sig PHTN on echo. Replete lytes (K+ 3.3 10/25, ensure to replete if low today) Rx of withdrawal as per PMD Can have outpatient stress test when withdrawal improves. He should follow-up as an outpatient with Dr. Domínguez. Gustavo Sherman MD
[2018-10-26] MEDS: LACTULOSE 20 GM/30 ML UDC (FOR ORAL USE ONLY) PO SCH ×2 (10:29→23:04)
[2018-10-26] MEDS: THIAMINE HCL 100 MG TABLET (FP) PO SCH (10:30)
[2018-10-26] MEDS: PANTOPRAZOLE 40 MG TABLET (FP) PO SCH (10:30)
[2018-10-26] MEDS: POTASSIUM CHLORIDE TABS 20 MEQ TABLET.ER (FP) PO SCH (10:32)
[2018-10-26 11:39] LABS: ANISOCYTOSIS 1+; MACROCYTOSIS 0; PLATELET ESTIMATE DECREASED; TEAR DROP CELLS 1+
[2018-10-26 12:14] LABS: ANION GAP 10 MMOL/L (8-16); BLOOD UREA NITROGEN 8 mg/dL (7-18); CALCIUM 8.4 mg/dL (8.5-10.1); CHLORIDE 104 mmol/L (98-107); CO2 23 mmol/L (21-32); CREATININE 0.7 mg/dL (0.55-1.3); GLUCOSE,RANDOM 142 mg/dL (74-106); MAGNESIUM 1.8 mg/dL (1.8-2.4); POTASSIUM 3.7 mmol/L (3.5-5.1); SODIUM 137 mmol/L (136-145)
[2018-10-26] MEDS: MAGNESIUM CL 64 MG TABLET.SA PO SCH (14:45)
[2018-10-26 15:34] LABS: LDH 198 U/L (87-246)
[2018-10-26] MEDS ORDERED: chlordiazePOXIDE HCL 10 MG CAPSULE PO SCH (17:00)
[2018-10-27] MEDS: INSULIN (LEVEMIR) 100 UNITS/ML UNITS SQ SCH (06:03)
[2018-10-27] MEDS: chlordiazePOXIDE 5 MG CAPSULE PO SCH ×2 (06:03→11:10)
[2018-10-27] MEDS: INSULIN SLIDING SCALE (NOVOLOG) 1 VIAL SQ SCH ×3 (06:03→16:51)
[2018-10-27 07:35] LABS: BASO % 0.4 % (0-2.0); EOS % 1.6 % (0-4.5); HEMATOCRIT 40.7 % (35.4-49); HEMOGLOBIN 13.1 GM/dL (11.7-16.9); LYMPH % 28.3 % (8-40); MCH 29.6 pg (25.7-33.7); MCHC 32.1 g/dl (32.0-35.9); MEAN CELL VOLUME 92.4 fl (80-96); MEAN PLT VOLUME 10.1 fl (7.5-11.1); MONO % 15.3 % (3.8-10.2); NEUT % 54.4 % (42.8-82.8); PLATELET COUNT 60 K/MM3 (134-434); RBC 4.41 M/mm3 (4.00-5.60); RDW 16.4 % (11.9-15.9); WHITE BLOOD COUNT 3.8 K/mm3 (4.0-10.0)
[2018-10-27 08:05] LABS: SERUM IRON SATURATION 27 % (15-55); TOTAL IRON BINDING CAPACITY 302 ug/dL (250-450); UIBC 221 ug/dL (111-343)
[2018-10-27 08:26] LABS: ALBUMIN 2.9 g/dl (3.4-5.0); ALK PHOS 92 U/L (45-117); ANION GAP 11 MMOL/L (8-16); BILIRUBIN,TOTAL 1.7 mg/dL (0.2-1); BLOOD UREA NITROGEN 11 mg/dL (7-18); CALCIUM 8.6 mg/dL (8.5-10.1); CHLORIDE 101 mmol/L (98-107); CO2 24 mmol/L (21-32); CREATININE 0.8 mg/dL (0.55-1.3); GLUCOSE,RANDOM 196 mg/dL (74-106); POTASSIUM 3.7 mmol/L (3.5-5.1); SGOT/AST 51 U/L (15-37); SGPT/ALT 27 U/L (13-61); SODIUM 136 mmol/L (136-145); TOT PROT 6.9 g/dl (6.4-8.2)
--- NOTE | 2018-10-27 08:46 | PN ---
Progress Note, Physician Chief Complaint: Feels improved no c/o SOB History of Present Illness: 63 yrs old male known since previous hospitalization, recently underwent EGD on Sunday off AC for Gastric Polp Biopsy (recommonded by GI to resume on Sunday) also H/O T2DM, HTN, ETOH abuse and withdrawal, HTN, Pulmonary Embolism (s/p IVC filter and open embolectomy at [facility] (Jun 2011), Factor V Leiden , IDDM, chronic R. leg swelling with DVT, Peripheral neuropathy, today visited Bridge Worker Dr. Domínguez for shortness of breath and orthothopnea, normal serial CE X3 and non dynamic EKG - Current Medication List Current Medications: Active Medications Al Hydroxide/Mg Hydroxide (Mylanta Oral Suspension -) 30 ml PO Q6H PRN PRN Reason: DYSPEPSIA Chlordiazepoxide HCl (Librium -) 10 mg PO [id number] [facility] Stop: 10/27/18 11:01 Last Admin: 10/27/18 06:03 Dose: 10 mg Insulin Aspart (Novolog Vial Sliding Scale -) 1 vial SQ TIDAC [facility]; Protocol Last Admin: 10/27/18 06:03 Dose: 2 units Insulin Detemir (Levemir Vial) 25 units SQ AM [facility] Last Admin: 10/27/18 06:03 Dose: 25 units Lactulose (Cephulac (Oral Use)) 20 gm PO BID [facility] Last Admin: 10/26/18 23:04 Dose: 20 gm Magnesium Chloride (Slow-Mag -) 128 mg PO DAILY [facility] Last Admin: 10/26/18 14:45 Dose: 128 mg Metoprolol Succinate (Toprol Xl -) 100 mg PO DAILY [facility] Last Admin: 10/26/18 10:30 Dose: 100 mg Pantoprazole Sodium (Protonix -) 40 mg PO DAILY [facility] Last Admin: 10/26/18 10:30 Dose: 40 mg Potassium Chloride (K-Dur -) 40 meq PO DAILY [facility] Last Admin: 10/26/18 10:32 Dose: 40 meq Thiamine HCl (Vitamin B1 -) 100 mg PO DAILY [facility] Last Admin: 10/26/18 10:30 Dose: 100 mg - Objective Vital Signs: Vital Signs Temperature 98 F 10/27/18 06:30 Pulse Rate 60 10/27/18 06:30 Respiratory Rate 20 10/27/18 06:30 Blood Pressure 134/78 10/27/18 06:30 O2 Sat by Pulse Oximetry (%) 95 10/26/18 09:00 Elderly man not in distress, feels improved denies any SOB or chest pain HEENT: Mm moist, no anemia, PERRLA EOMI NECK: No JVD No Bruit CHEST: CTA B/l non tender ABD: Obese non tender EXT: Rt LE swelling regressing, non tender CLINICAL CASE MANAGER: tremors + otherwise AOX3 non focal Labs: CBC, BMP 10/27/18 07:00 10/27/18 07:00 INR, PTT INR 1.18 (0.83-1.09) H 10/24/18 05:30 Problem List - Problems (1) Dyspnea Assessment/Plan: Improved normal ECHO F/U Out patient for NST Code(s): R06.00 - DYSPNEA, UNSPECIFIED (2) Alcohol withdrawal Assessment/Plan: Cont Librium protocol add thiamine f/u clinical course, Detox consult appreciated Code(s): F10.239 - ALCOHOL DEPENDENCE WITH WITHDRAWAL, UNSPECIFIED (3) Factor V Leiden Assessment/Plan: Platelet count improves to 60k will resume AC as it was planned for Sunday after the procedure Code(s): D68.51 - ACTIVATED PROTEIN C RESISTANCE (4) History of pulmonary embolus (PE) Assessment/Plan: Platelete countimproves 60 K start AC today, Ct chest -ve on admission Code(s): Z86.711 - PERSONAL HISTORY OF PULMONARY EMBOLISM (5) Diabetes mellitus Assessment/Plan: T2DM on Lantus 30units in am and correction dose insulin Diabetic at home diet Levimir 28 units with Correction dose pre meal insulin Code(s): E11.9 - TYPE 2 DIABETES MELLITUS WITHOUT COMPLICATIONS Qualifiers: (6) H/O aortic aneurysm Assessment/Plan: Stable Code(s): Z86.79 - PERSONAL HISTORY OF OTHER DISEASES OF THE CIRCULATORY SYSTEM (7) HTN (hypertension) Assessment/Plan: Well controlled resumed home dose Code(s): I10 - ESSENTIAL (PRIMARY) HYPERTENSION Qualifiers: (8) Thrombocytopenia Assessment/Plan: Platelet count 60 K improving will F/U ETOH induced Code(s): D69.6 - THROMBOCYTOPENIA, UNSPECIFIED
[2018-10-27] MEDS ORDERED: PT OWN MED DRAWER 7, Y5N ONE (09:55)
[2018-10-27] MEDS: POTASSIUM CHLORIDE TABS 20 MEQ TABLET.ER (FP) PO SCH (09:58)
[2018-10-27] MEDS: MAGNESIUM CL 64 MG TABLET.SA PO SCH (09:58)
[2018-10-27] MEDS: LACTULOSE 20 GM/30 ML UDC (FOR ORAL USE ONLY) PO SCH ×2 (09:58→21:01)
[2018-10-27] MEDS: PANTOPRAZOLE 40 MG TABLET (FP) PO SCH (09:58)
[2018-10-27] MEDS: THIAMINE HCL 100 MG TABLET (FP) PO SCH (09:59)
[2018-10-27] MEDS ORDERED: INSULIN (LEVEMIR) 100 UNITS/ML UNITS SQ SCH (14:06)
[2018-10-27] MEDS ORDERED: RIVAROXABAN 15 MG TABLET PO SCH (18:00)
[2018-10-27] MEDS ORDERED: RIVAROXABAN 20 MG TABLET PO SCH (18:00)
[2018-10-28] MEDS: INSULIN SLIDING SCALE (NOVOLOG) 1 VIAL SQ SCH ×2 (06:19→11:52)
[2018-10-28] MEDS ORDERED: INSULIN (LEVEMIR) 100 UNITS/ML UNITS SQ ONE (06:52)
[2018-10-28 07:20] VITALS: PULSE 69
[2018-10-28 07:49] LABS: BASO % 0.6 % (0-2.0); EOS % 1.7 % (0-4.5); HEMATOCRIT 41.6 % (35.4-49); HEMOGLOBIN 14.3 GM/dL (11.7-16.9); LYMPH % 27.5 % (8-40); MCH 31.7 pg (25.7-33.7); MCHC 34.3 g/dl (32.0-35.9); MEAN CELL VOLUME 92.5 fl (80-96); MEAN PLT VOLUME 9.9 fl (7.5-11.1); MONO % 17.8 % (3.8-10.2); NEUT % 52.4 % (42.8-82.8); PLATELET COUNT 85 K/MM3 (134-434); WHITE BLOOD COUNT 4.8 K/mm3 (4.0-10.0)
[2018-10-28 08:47] LABS: ANION GAP 10 MMOL/L (8-16); BLOOD UREA NITROGEN 11 mg/dL (7-18); CALCIUM 8.9 mg/dL (8.5-10.1); CHLORIDE 102 mmol/L (98-107); CO2 23 mmol/L (21-32); GLUCOSE,RANDOM 197 mg/dL (74-106); POTASSIUM 3.9 mmol/L (3.5-5.1); SODIUM 135 mmol/L (136-145)
--- NOTE | 2018-10-28 09:06 | PN ---
Progress Note, Physician Chief Complaint: seen and examined. No acute distress Wants to go home. - Current Medication List Current Medications: Active Medications Al Hydroxide/Mg Hydroxide (Mylanta Oral Suspension -) 30 ml PO Q6H PRN PRN Reason: DYSPEPSIA Folic Acid (Folic Acid -) 1 mg PO DAILY [facility] Insulin Aspart (Novolog Vial Sliding Scale -) 1 vial SQ TIDAC [facility]; Protocol Last Admin: 10/28/18 06:19 Dose: 2 units Insulin Detemir (Levemir Vial) 28 units SQ AM [facility] Last Admin: 10/28/18 06:19 Dose: 28 units Lactulose (Cephulac (Oral Use)) 20 gm PO BID [facility] Last Admin: 10/27/18 21:01 Dose: Not Given Magnesium Chloride (Slow-Mag -) 128 mg PO DAILY [facility] Last Admin: 10/27/18 09:58 Dose: 128 mg Metoprolol Succinate (Toprol Xl -) 100 mg PO DAILY [facility] Last Admin: 10/27/18 09:59 Dose: 100 mg Pantoprazole Sodium (Protonix -) 40 mg PO DAILY [facility] Last Admin: 10/27/18 09:58 Dose: 40 mg Potassium Chloride (K-Dur -) 40 meq PO DAILY [facility] Last Admin: 10/27/18 09:58 Dose: 40 meq Rivaroxaban (Xarelto -) 20 mg PO DAILY@1800 [facility] Last Admin: 10/27/18 17:54 Dose: 20 mg Thiamine HCl (Vitamin B1 -) 100 mg PO DAILY [facility] Last Admin: 10/27/18 09:59 Dose: 100 mg - Objective Vital Signs: Vital Signs Temperature 98 F 10/28/18 07:18 Pulse Rate 69 10/28/18 07:18 Respiratory Rate 20 10/28/18 07:18 Blood Pressure 117/74 10/28/18 07:18 O2 Sat by Pulse Oximetry (%) 96 10/27/18 23:33 Constitutional: Yes: No Distress, Calm Eyes: Yes: Conjunctiva Clear Cardiovascular: Yes: Regular Rate and Rhythm Respiratory: Yes: CTA Bilaterally (no rales or wheezing) Gastrointestinal: Yes: Soft (nontender) Edema: Yes Edema: LLE: 1+ (venous stasis), RLE: 1+ (venous stasis) Neurological: Yes: Alert ...Motor Strength: WNL Labs: CBC, BMP 10/28/18 06:15 10/28/18 06:15 INR, PTT INR 1.18 (0.83-1.09) H 10/24/18 05:30 Laboratory Tests 10/24/18 10/28/18 10/28/18 05:30 06:15 06:15 WBC 4.8 Hgb 14.3 Hct 41.6 Plt Count 85 L D INR 1.18 H Sodium 135 L Potassium 3.9 BUN 11 Creatinine 1.0 POC Glucometer Calcium 8.9 10/28/18 06:15 WBC Hgb Hct Plt Count INR Sodium Potassium BUN Creatinine POC Glucometer 184 Calcium - ....Imaging EKG: Image Reviewed Assessment/Plan IMP: Alcoholism Mild withdrawal, anxiety Cirrhosis Hypercoag state, hx Pulmonary embolism, embolectomy and filter REC: Cont AC No evidence of sig PHTN on echo. Replete lytes Rx of withdrawal as per PMD Can have outpatient stress test when withdrawal improves. Will sign off today, please call again as /if needed. He should follow up with me in 1-2 weeks
[2018-10-28] MEDS: PANTOPRAZOLE 40 MG TABLET (FP) PO SCH (09:10)
[2018-10-28] MEDS: POTASSIUM CHLORIDE TABS 20 MEQ TABLET.ER (FP) PO SCH (09:10)
[2018-10-28] MEDS: LACTULOSE 20 GM/30 ML UDC (FOR ORAL USE ONLY) PO SCH (09:10)
[2018-10-28] MEDS: THIAMINE HCL 100 MG TABLET (FP) PO SCH (09:10)
[2018-10-28] MEDS ORDERED: PT OWN MED DRAWER 7, Y5N ONE (09:12)
[2018-10-28] MEDS: MAGNESIUM CL 64 MG TABLET.SA PO SCH (09:13)
[2018-10-28] MEDS ORDERED: FOLIC ACID 1 MG TABLET (FP) PO SCH (10:00)
--- NOTE | 2018-10-28 10:51 | PN ---
GI Progress Note Subjective: G NOte: NO longer tremulous. is at bedside. I again warned Stoney of the risks of any further alcohol intake particularly hemorrhage. 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 - Objective Vital Signs: Vital Signs Temperature 98 F 10/28/18 07:18 Pulse Rate 69 10/28/18 07:18 Respiratory Rate 20 10/28/18 07:18 Blood Pressure 117/74 10/28/18 07:18 O2 Sat by Pulse Oximetry (%) 96 10/27/18 23:33 Laboratory Tests 10/24/18 10/27/18 10/27/18 05:30 07:00 07:00 Plt Count 60 L D INR 1.18 H Total Bilirubin 1.7 H AST 51 H ALT 27 Alkaline Phosphatase 92 Albumin 2.9 L 10/28/18 06:15 Plt Count 85 L D INR Total Bilirubin AST ALT Alkaline Phosphatase Albumin Constitutional: Calm ...Auscultate: Yes: Normoactive Bowel Sounds ...Palpate: Yes: Soft, Other (nontender) Labs: CBC, BMP 10/28/18 06:15 10/28/18 06:15 INR, PTT INR 1.18 (0.83-1.09) H 10/24/18 05:30 Assessment/Plan Alcoholic hepatitis superimposed on cirrhosis now with thrombocytopenia, coagulopathy and hypoalbuminemia with slight rise in platelet count. 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 Problem List - Problems (1) Alcoholic cirrhosis of liver without ascites Code(s): K70.30 - ALCOHOLIC CIRRHOSIS OF LIVER WITHOUT ASCITES (2) Alcoholic hepatitis without ascites Code(s): K70.10 - ALCOHOLIC HEPATITIS WITHOUT ASCITES (3) Thrombocytopenia concurrent with and due to alcoholism Code(s): D69.59 - OTHER SECONDARY THROMBOCYTOPENIA; F10.20 - ALCOHOL DEPENDENCE , UNCOMPLICATED (4) Hypoalbuminemia Code(s): E88.09 - OTH DISORDERS OF PLASMA-PROTEIN METABOLISM, NEC (5) Colon adenomas Code(s): D12.6 - BENIGN NEOPLASM OF COLON, UNSPECIFIED (6) Multiple gastric polyps Code(s): K31.7 - POLYP OF STOMACH AND DUODENUM (7) GERD with esophagitis Code(s): K21.0 - GASTRO-ESOPHAGEAL REFLUX DISEASE WITH ESOPHAGITIS (8) Diverticulosis Code(s): K57.90 - DVRTCLOS OF INTEST, PART UNSP, W/O PERF OR ABSCESS W/O BLEED (9) [place] filter in place Code(s): Z95.828 - PRESENCE OF OTHER VASCULAR IMPLANTS AND GRAFTS (10) Diabetic neuropathy associated with type 2 diabetes mellitus Code(s): E11.40 - TYPE 2 DIABETES MELLITUS WITH DIABETIC NEUROPATHY, UNSP (11) Genital herpes in men Code(s): A60.02 - HERPESVIRAL INFECTION OF OTHER MALE GENITAL ORGANS (12) Alcohol withdrawal Code(s): F10.239 - ALCOHOL DEPENDENCE WITH WITHDRAWAL, UNSPECIFIED (13) Dyspnea Code(s): R06.00 - DYSPNEA, UNSPECIFIED (14) History of pulmonary embolus (PE) Code(s): Z86.711 - PERSONAL HISTORY OF PULMONARY EMBOLISM (15) Chronic back pain Code(s): M54.9 - DORSALGIA, UNSPECIFIED; G89.29 - OTHER CHRONIC PAIN (16) Diabetes mellitus Code(s): E11.9 - TYPE 2 DIABETES MELLITUS WITHOUT COMPLICATIONS Qualifiers: (17) Factor 5 Leiden mutation, heterozygous Code(s): D68.51 - ACTIVATED PROTEIN C RESISTANCE (18) H/O aortic aneurysm Code(s): Z86.79 - PERSONAL HISTORY OF OTHER DISEASES OF THE CIRCULATORY SYSTEM (19) Alcohol withdrawal delirium Code(s): F10.231 - ALCOHOL DEPENDENCE WITH WITHDRAWAL DELIRIUM
[2018-10-28 12:02] VITALS: BP 123/73; TEMP 98.2
--- NOTE | 2018-10-28 12:13 | DS ---
Physical Examination Vital Signs: Vital Signs Temperature 98.2 F 10/28/18 10:00 Pulse Rate 69 10/28/18 10:00 Respiratory Rate 18 10/28/18 10:00 Blood Pressure 123/73 10/28/18 10:00 O2 Sat by Pulse Oximetry (%) 96 10/28/18 09:00 Constitutional: Yes: Well Nourished, No Distress Cardiovascular: Yes: WNL, Regular Rate and Rhythm Respiratory: Yes: WNL, Regular, CTA Bilaterally. No: Accessory Muscle Use, SOB , Tachypnea, Wheezes Gastrointestinal: Yes: WNL, Normal Bowel Sounds, Soft. No: Distention, Tenderness Renal/: Yes: WNL Musculoskeletal: Yes: WNL Extremities: Yes: WNL Edema: No Neurological: Yes: WNL, Alert, Oriented Psychiatric: Yes: WNL, Alert, Oriented Labs: CBC, BMP 10/28/18 06:15 10/28/18 06:15 Discharge Summary Reason For Visit: ALCOHOL WITHDRAWAL SYNDROME Current Active Problems Alcohol withdrawal (Acute) Alcohol withdrawal delirium (Acute) Alcoholic cirrhosis of liver without ascites (Acute) Alcoholic hepatitis without ascites (Acute) Colon adenomas (Acute) Diabetic neuropathy associated with type 2 diabetes mellitus (Acute) Diverticulosis (Acute) Dyspnea (Acute) Encounter for alcohol cessation counseling (Acute) Factor V Leiden (Acute) GERD with esophagitis (Acute) Genital herpes in men (Acute) [place] filter in place (Acute) History of pulmonary embolus (PE) (Acute) Hyperbilirubinemia (Acute) Hypoalbuminemia (Acute) Hypokalemia (Acute) Hypomagnesemia (Acute) Increased ammonia level (Acute) Liver cirrhosis (Acute) Multiple gastric polyps (Acute) Thrombocytopenia (Acute) Thrombocytopenia concurrent with and due to alcoholism (Acute) Hospital Course: 63 [facility] admitted for evaluation of sob and acute alcohol withdrawal. Cardiology evaluated, sob ruled out. Pt underwent librium detox, pt reports doing well, ambulated with PT, pt reports he wants to go home. Plts noted to be lower than pt's baseline, abd US revealed hepatocellular disease/cirrhosis. Alcoholic hepatitis w/ thrombocytopenia, coagulopathy and hypoalbuminemia noted, discussed with pt in detail of the complications of drinking and the importance of abstaining from any alcohol. Informed pt and of the risks and benefits of being on anticoagulation, pt to continue discussion with PCP. Hematology/GI consult appreciated. Labs stable , vitals stable. Pt is medically cleared for discharge home. 35 minutes spent in discharge planning Condition: Guarded - Instructions Diet, Activity, Other Instructions: abstain from alcohol follow up as directed Referrals: Magan Domínguez MD [Staff Physician] - Vel Sotelo MD [Staff Physician] - Stoney Burnett MD [Primary Care Provider] - 1 Week Disposition: HOME - Home Medications Comprehensive Discharge Medication List: Ambulatory Orders Metoprolol Succinate [Toprol Xl] 100 mg PO DAILY 03/12/17 Rivaroxaban [Xarelto -] 20 mg PO DAILY 03/12/17 Cholecalciferol (Vitamin D3) [D3-2000] 1,000 unit PO DAILY 03/13/17 Cyanocobalamin/Cobamamide [B-12 5,000 Mcg Sublingual Tab] 1 each SL DAILY Milk Thistle 300 mg PO BID 03/13/17 Insulin Sliding Scale [Novolog Vial Sliding Scale -] 0 vial SQ ACHS units 03/20 L.acidoph,Paracasei, B.lactis [Probiotic] 1 each PO DAILY 05/10/18 Mag Carb/Aluminum Hydrox/Algin [Gaviscon Liquid] 15 - 30 ml PO Q6H PRN #355 oz 05/10/18 Pantoprazole Sodium [Protonix -] 40 mg PO DAILY #30 tablet.ec 05/10/18 Cyanocobalamin/Folic AC/Vit B6 [Folbee Tablet] 1 each PO 10/23/18 Ranitidine [Zantac -] 150 mg PO DAILY 10/23/18 Folic Acid/Vitamin B Comp W-C [Nephrocaps Softgel [Nf] -] 1 mg PO DAILY #30 capsule 10/28/18 Lactulose (Oral Use) [Cephulac -] 20 gm PO BID #30 udc 10/28/18
== END 2018-10-28 12:35 | disposition home or self-care (01) | DRG 433 ==
LOC: JER 12:40 → JERBED 16:32 → J4W 18:45 → J8W 10-25 12:12
PROVIDERS: ADMIT Internal Medicine; ATTEND Internal Medicine
PROC: HZ2ZZZZ Detoxification Services for Substance Abuse Treatment (ICD-10-PCS; principal; 2018-10-23)
DX: K70.30 Alcoholic cirrhosis of liver without ascites (principal); F10.239 Alcohol dependence with withdrawal, unspecified; D68.51 Activated protein C resistance; J98.11 Atelectasis; D68.59 Other primary thrombophilia; M48.54XA Collapsed vertebra, not elsewhere classified, thoracic region, initial encounter for fracture; F10.231 Alcohol dependence with withdrawal delirium; I10 Essential (primary) hypertension; E78.5 Hyperlipidemia, unspecified; K42.9 Umbilical hernia without obstruction or gangrene; I71.2 Thoracic aortic aneurysm, without rupture; E11.42 Type 2 diabetes mellitus with diabetic polyneuropathy; D69.6 Thrombocytopenia, unspecified; E83.42 Hypomagnesemia; R06.00 Dyspnea, unspecified; E87.6 Hypokalemia; I27.20 Pulmonary hypertension, unspecified; F41.9 Anxiety disorder, unspecified; R79.89 Other specified abnormal findings of blood chemistry; E80.6 Other disorders of bilirubin metabolism; D72.819 Decreased white blood cell count, unspecified; K57.90 Diverticulosis of intestine, part unspecified, without perforation or abscess without bleeding; N40.0 Benign prostatic hyperplasia without lower urinary tract symptoms; K64.9 Unspecified hemorrhoids; I45.10 Unspecified right bundle-branch block; A60.00 Herpesviral infection of urogenital system, unspecified; M54.5 Low back pain; K70.10 Alcoholic hepatitis without ascites; D12.6 Benign neoplasm of colon, unspecified; K21.0 Gastro-esophageal reflux disease with esophagitis; K31.7 Polyp of stomach and duodenum; R16.1 Splenomegaly, not elsewhere classified; Z86.711 Personal history of pulmonary embolism
CPT/HCPCS: 36415; 71046-TC-FY; 71275-TC; 76705-TC; 80048; 80053; 82140; 82550; 82607; 82728; 82746; 82962; 83540; 83550; 83615; 83735; 83880; 84466; 84484; 85025; 85044; 85610; 93005; 93010; 93306-TC; 97116-GP; 97161-GP; 99284-25

== ENCOUNTER 2018-11-16 06:57 | Emergency (ER) | payer OTHER, BC ==
[2018-11-16 07:33] VITALS: TEMP 98.4; BMI 29.5
--- NOTE | 2018-11-16 07:37 | PDOC ---
History of Present Illness - General Chief Complaint: Injury Stated Complaint: INJURY RIGHT ANKLE (DIABETIC) Time Seen by Provider: 11/16/18 07:35 - History of Present Illness Initial Comments: 11/16/18 09:06 The patient is a 63 year old male with a history of HTN, HLD, DM, Hypothyroidism , Aortic Aneurysm, Liver Cirrhosis who presents for evaluation of right ankle pain. The patient reports twisting his right ankle 5 days ago with noted pain to the lateral aspect of his ankle. He states that the pain has been getting progressively worse prompting his presentation to the ED for further evaluation. He denies falling, head trauma, other injuries and otherwise denies fevers, chills, SOB, chest pain, nausea, vomiting, abdominal pain, or changes with urination or bowel movements. Past History - Past Medical History Allergies/Adverse Reactions: Allergies Allergy/AdvReac Type Severity Reaction Status Date / Time hydromorphone HCl AdvReac HALLUCINATION, Verified 11/16/18 07:30 [From Dilaudid] personality changes Home Medications: Ambulatory Orders Metoprolol Succinate [Toprol Xl] 100 mg PO DAILY 03/12/17 Rivaroxaban [Xarelto -] 20 mg PO DAILY 03/12/17 Cholecalciferol (Vitamin D3) [D3-2000] 1,000 unit PO DAILY 03/13/17 Cyanocobalamin/Cobamamide [B-12 5,000 Mcg Sublingual Tab] 1 each SL DAILY Milk Thistle 300 mg PO BID 03/13/17 Insulin Sliding Scale [Novolog Vial Sliding Scale -] 0 vial SQ ACHS units 03/20 L.acidoph,Paracasei, B.lactis [Probiotic] 1 each PO DAILY 05/10/18 Mag Carb/Aluminum Hydrox/Algin [Gaviscon Liquid] 15 - 30 ml PO Q6H PRN #355 oz 05/10/18 Pantoprazole Sodium [Protonix -] 40 mg PO DAILY #30 tablet.ec 05/10/18 Cyanocobalamin/Folic AC/Vit B6 [Folbee Tablet] 1 each PO 10/23/18 Ranitidine [Zantac -] 150 mg PO DAILY 10/23/18 Folic Acid/Vitamin B Comp W-C [Nephrocaps Softgel [Nf] -] 1 mg PO DAILY #30 capsule 10/28/18 Lactulose (Oral Use) [Cephulac -] 20 gm PO BID #30 udc 10/28/18 Anemia: No Asthma: No Cancer: No Cardiac Disorders: Yes (AORTIC ANEURSYM-"UNCHANGED",PALPITATIONS) CVA: No COPD: No (60% LUNG CAPACITY DUE TO PE) CHF: No Dementia: No Diabetes: Yes (Type II) GI Disorders: Yes (COLON ADENOMAS, GASTRIC POLYPS, GERD) Disorders: No HTN: Yes Hypercholesterolemia: Yes Liver Disease: Yes (MURPHY/ETOH) Seizures: No Thyroid Disease: Yes - Surgical History Abdominal Surgery: Yes (UMBILICAL HERNIA,LEFT AND RIGHT INGUINAL HERNIA WITH MESH) Appendectomy: No Cardiac Surgery: No Cholecystectomy: Yes Lung Surgery: Yes (MEDIAN STERNOTOMY FOR LUNG EMBOLECTOMIES) Neurologic Surgery: No Orthopedic Surgery: Yes (C-SPINE MICRODISECTOMY 01/02, LUMBOSACRAL LAMINECTMY) - Immunization History Immunization Up to Date: Yes - Suicide/Smoking/Psychosocial Hx Smoking History: Never smoked Have you smoked in the past 12 months: No Hx Alcohol Use: Yes (12 BEERS DAILY plus whiskey) Drug/Substance Use Hx: No Substance Use Type: Alcohol Hx Substance Use Treatment: No Review of Systems - Review of Systems Comments:: 11/16/18 09:09 Constitutional: No fevers, chills, fatigue, malaise HEENT: No Rhinorrhea, nasal congestion, visual changes Cardiovascular: No chest pain, syncope, palpitations, lightheadedness Respiratory: No Cough, SOB, Hemoptysis, Gastrointestinal: No Abdominal pain, Nausea, Vomiting, Constipation, Diarrhea, Melena Genitourinary: No Dysuria, Frequency, Urgency, Hesitancy, Hematuria, Flank pain Musculoskeletal: Right ankle pain. No Myalgia, arthralgia Skin: No rashes, itching, bruising, pallor Neurologic: No Headache, Dizziness, Numbness, Weakness, or Tingling Psychiatric: No Hallucinations. No SI or HI *Physical Exam - Vital Signs Last Vital Signs Temp Pulse Resp BP Pulse Ox 98.4 F 71 18 95/59 L 99 11/16/18 07:19 11/16/18 07:19 11/16/18 07:19 11/16/18 07:19 11/16/18 07:19 - Physical Exam Comments: 11/16/18 09:10 General Appearance: Nourished. No Apparent Distress HEENT: No Pharyngeal Erythema, Tonsillar Exudate, Tonsillar Erythema Neck: No Cervical Lymphadenopathy Respiratory/Chest: Lungs Clear, Normal Breath Sounds. No Crackles, Rales, Rhonchi, Wheezing Cardiovascular: Regular Rhythm, Regular Rate. No Murmur, Gallops, Rubs Gastrointestinal/Abdominal: Normal Bowel Sounds, Soft. No Guarding, Rebound, Tenderness Musculoskeletal: No CVA Tenderness Extremity: Tenderness to palpation on the lateral aspect of the right ankle. Bruising noted to the right ankle. 2+ edema in the lower extremities bilaterally. 2+ dp pulses bilaterally. Normal Capillary Refill Integumentary: Normal Color, Dry, Warm Neurologic: Fully Oriented, Alert, Normal Mood/Affect, Normal Response, Moderate Sedation - Procedure Monitoring Vital Signs: Procedure Monitoring Vital Signs Temperature 98.4 F 11/16/18 07:19 Pulse Rate 71 11/16/18 07:19 Respiratory Rate 18 11/16/18 07:19 Blood Pressure 95/59 L 11/16/18 07:19 O2 Sat by Pulse Oximetry (%) 99 11/16/18 07:19 ED Treatment Course - RADIOLOGY Radiology Studies Ordered: Category Date Time Status ANKLE & FOOT-RIGHT* [RAD] Stat Radiology 11/16/18 07:36 Ordered Medical Decision Making - Medical Decision Making 11/16/18 09:11 The patient is a 63 year old male with a history of HTN, HLD, DM, Hypothyroidism , Aortic Aneurysm, Liver Cirrhosis who presents for evaluation of right ankle pain. Plain films were obtained to evaluate further and noted to have a right distal fibular fracture as read by our radiologist. The patient has been able to ambulate on the right foot throughout the week and here in the ED and appears clinically well on exam. We will wrap and brace the patient's right ankle and are comfortable discharging the patient home with orthopedic follow up. We discussed the results, plan, and return precautions with the patient who voiced understanding and is agreeable with the plan. *DC/Admit/Observation/Transfer Diagnosis at time of Disposition: Closed fibular fracture Qualifiers: Encounter type: initial encounter Fibula location: distal Fracture morphology: unspecified fracture morphology Laterality: right Qualified Code(s): S82.831A - Other fracture of upper and lower end of right fibula, initial encounter for closed fracture - Discharge Dispostion Disposition: HOME Condition at time of disposition: Stable Decision to Admit order: No - Referrals Referrals: Stoney Burnett MD [Primary Care Provider] - Jorge Luis Treadwell DO [Staff Physician] - - Patient Instructions Printed Discharge Instructions: DI for Ankle Fracture Additional Instructions: Please return to the ER if you experience concerning or worsening symptoms including worsening difficulty breathing, weakness, or chest pain. Your xrays show that you have a fracture in your Fibula here in the ER. You may use tylenol and motrin at home to help manage your pain. Please call to schedule a follow up appointment with your primary care provider and our brand marketing specialist within 2-3 days to discuss your ER visit and further management of your symptoms. - Post Discharge Activity
--- NOTE | 2018-11-16 08:20 | PDOC ---
Attending Attestation - Resident Resident Name: Richi Guerra - ED Attending Attestation I have performed the following: I have examined & evaluated the patient, The case was reviewed & discussed with the resident, I agree w/resident's findings & plan, Exceptions are as noted - HPI HPI: 11/16/18 08:57 Mr Leary is a 63 yo M who presents to the ER with a complaint of ankle pain Pt states that he twisted his ankle on (5 days ago) He has a history of neuropathy in both feet which make him walk with a limp He denies falling, he denies head trauma, he denies LOC, he denies amnesia He has been ambulating with the assistance of a cane - Physicial Exam PE: 11/16/18 09:06 On examination Pt is awake and alert Answers questions appropriately EOMI, PERRLA No signs of head trauma RRR Protruberant abdomen, non tender to palpation No bruising noted on exposed skin Right foot swollen, tender to palpation laterally - Medical Decision Making 11/16/18 09:09 X ray performed Demonstrates distal fibula fracture Maikol wrapped Ortho follow up No signs of other traumatic injury will discharge to home Follow up with PMD
[2018-11-16 08:48] VITALS: BP 106/71; PULSE 69
== END 2018-11-16 09:00 | disposition home or self-care (01) ==
LOC: JER 06:57
PROC: 2W3QX1Z Immobilization of Right Lower Leg using Splint (ICD-10-PCS; principal; 2018-11-16)
DX: S82.831A Other fracture of upper and lower end of right fibula, initial encounter for closed fracture (principal); X50.1XXA Overexertion from prolonged static or awkward postures, initial encounter; Y93.89 Activity, other specified; Y92.89 Other specified places as the place of occurrence of the external cause; Y99.8 Other external cause status; I10 Essential (primary) hypertension; E11.9 Type 2 diabetes mellitus without complications; Z79.4 Long term (current) use of insulin; E78.5 Hyperlipidemia, unspecified; E03.9 Hypothyroidism, unspecified; I71.9 Aortic aneurysm of unspecified site, without rupture; K74.60 Unspecified cirrhosis of liver; Z86.711 Personal history of pulmonary embolism; Z79.01 Long term (current) use of anticoagulants; Z87.19 Personal history of other diseases of the digestive system
CPT/HCPCS: 73610-TC-RT-FY; 73630-TC-RT-FY; 99282-25

== ENCOUNTER 2019-04-07 16:20 | Inpatient (IN) | payer OTHER, BC | END 2019-04-11 14:19 | disposition home or self-care (01) | LOC: J5S 04-08 03:41 → JER 16:20 → JERBED 22:38 ==

== ENCOUNTER 2019-09-16 22:33 | Emergency (ER) | payer OTHER, BC ==
[2019-09-16 22:48] VITALS: BMI 34.4
--- NOTE | 2019-09-17 00:08 | PDOC ---
Attending Attestation - Resident Resident Name: Jose De Jesus Blackwood - ED Attending Attestation I have performed the following: I have examined & evaluated the patient, The case was reviewed & discussed with the resident, I agree w/resident's findings & plan
[2019-09-17 01:40] LABS: BASO % 0.7 % (0-2.0); EOS % 0.2 % (0-4.5); HEMATOCRIT 40.7 % (35.4-49); HEMOGLOBIN 12.9 GM/dL (11.7-16.9); LYMPH % 25.7 % (8-40); MCH 27.3 pg (25.7-33.7); MCHC 31.6 g/dl (32.0-35.9); MEAN CELL VOLUME 86.2 fl (80-96); MEAN PLT VOLUME 9.3 fl (7.5-11.1); MONO % 11.4 % (3.8-10.2); PLATELET COUNT 67 K/MM3 (134-434); RBC 4.72 M/mm3 (4.00-5.60); RDW 17.1 % (11.9-15.9); WHITE BLOOD COUNT 3.7 K/mm3 (4.0-10.0)
--- NOTE | 2019-09-17 01:43 | PDOC ---
Documentation entered by Jennifer Cerda SCRIBE, acting as scribe for Lola Carr MD. Lola Carr MD: This documentation has been prepared by the Zaida fox Adrianna, SCRIBE, under my direction and personally reviewed by me in its entirety. I confirm that the documentation accurately reflects all work, treatment, procedures, and medical decision making performed by me. Attending Attestation - Resident Resident Name: Jose De Jesus Blackwood - ED Attending Attestation I have performed the following: I have examined & evaluated the patient, The case was reviewed & discussed with the resident, I agree w/resident's findings & plan, Exceptions are as noted - HPI HPI: The patient is a 64 year old male, with a significant PMH of EtOH abuse, back surgeries, 4.1 cm thoracic aortic aneurysm, HTN, pulmonary embolism (s/p IVC filter and open embolectomy at [facility] (Jun 2011), bilateral inguinal hernia, umbilical hernia, Factor V Leiden, IDDM, chronic right LE swelling with DVT, and peripheral neuropathy w/ chronic numbness, who presents to the ED for evaluation s/p fall. Patient was getting out of the car earlier tonight, when he tripped and fell onto his right side. He endorses headache, right forehead pain, right arm/elbow pain, and right anterior rib cage pain. Patient admits to drinking earlier tonight. Allergies: Gabapentin, hydromorphone Surgical History: umbilical hernia repair, left and right inguinal hernia repair with mesh, cholecystectomy, median sternotomy for lung embolectomies, IVC filter, c-spine microdiscectomy, lumbosacral laminectomy, Social History: EtOH abuse. Denies tobacco or illicit drug use PCP: Dr. Burnett - Physicial Exam PE: GENERAL: +Intoxicated but conversant. Awake, alert, and fully oriented, in no acute distress HEAD: +Large 5cm X 2cm right forehead hematoma over the right eyebrow. No scalp lacerations appreciated. EYES: PERRLA, EOMI, sclera anicteric, conjunctiva clear. No visual problems. ENT: Auricles normal inspection, hearing grossly normal, nares patent, oropharynx clear without exudates. Moist mucosa NECK: Normal ROM, supple, no lymphadenopathy, JVD, or masses. No midline cervical vertebral tenderness to palpation. LUNGS: Breath sounds equal, clear to auscultation bilaterally. No wheezes, and no crackles HEART: Regular rate and rhythm, normal S1 and S2, no murmurs, rubs or gallops ABDOMEN: +Right anterior rib cage tenderness to palpation. +Protuberant belly. Soft, normoactive bowel sounds. No guarding, no rebound. No masses EXTREMITIES: +Chronic venous stasis of the bilateral lower extremities. + Chronic 2+ pitting edema of the bilateral lower extremities. +3cm abrasion to the right elbow. No clubbing or cyanosis. NEUROLOGICAL: Cranial nerves II through XII grossly intact. Normal speech, normal gait SKIN: Warm, Dry, normal turgor, no rashes noted. - Medical Decision Making 09/17/19 02:04 64-year-old intoxicated male fell getting out of the car tonight sustaining head , facial, right rib cage and right arm injuries Imaging studies are pending for the head, neck, rib cage and right arm Labs are pending Patient signed out to Dr. chamorro
--- NOTE | 2019-09-17 01:57 | PDOC ---
History of Present Illness - General Chief Complaint: Injury Stated Complaint: FALL/HITTING HEAD Time Seen by Provider: 09/17/19 00:05 History Source: Patient, Spouse ( present at bedside.) Exam Limitations: No Limitations - History of Present Illness Initial Comments: HPI: 64 y/o male presenting to [facility] ER complaining of pain and swelling to right upper eyelid, pain to right anterior chest wall, and pain to right elbow. Pt was intoxicated this evening after drinking several beer and liquor drinks. He fell while getting out of his car at home. (the home delivery driver) did not witness the fall. Found him by the car. Estimates unwitnessed period of approx. 5 min. Does not believe he lost consciousness. Was able to walk the pt with assistance of a friend. drove the pt to the ER for further evaluation. denies knowledge of previous withdrawal seizure. Medical Hx: - EtOH abuse - HTN - Insulin dependent diabetes - Diabetic peripheral neuropathy in hands and feet - Factor V Leiden on Xeralto - H/o PE w/ IVC filter - DVT in R leg Review of Systems: 10 point review of systems completed. All systems negative except as noted above. Physical Examination: Constitutional- Adult male in no acute distress but obvious discomfort. Found semi-fowlers on hospital bed. Answered all questions. Smell of alcohol about person. Head- Normocephalic. Swelling and ecchymosis to right upper eyelid and surrounding supraorbital region. No Battles signs or Raccoon eyes. Eyes- Pupils 4mm and PERRL bilaterally. Sclerae white. Ears- Hearing grossly intact. No discharge. Nose- No nasal discharge. Throat- Oral cavity and pharynx normal. No bleeding or intraoral trauma. Neck- Supple, trachea is midline. No c-spine tenderness. No step off. Cardiovascular / Chest- Regular rate and regular rhythm. No murmur, rubs, clicks , or gallops. Peripheral pulses- radial pulses full. Diffuse tenderness to right anterolateral chest wall. Respiratory- Breathing unlabored. Equal chest rise and fall. Clear to auscultation bilaterally. No stridor, no wheezing, no rhonchi. Gastrointestinal- abdomen is soft, non-tender, non-distended. Insulin injection site bruising to lower abdomen. reports these are old. Neuro- Alert and oriented x4. Moving all four extremities spontaneously. MSK- Superficial abrasion to medial aspect of right elbow. Good active and passive ROM of right elbow. No bony deformity to long bones. Skin- [place], warm, and dry. Psych- Affect- appropriate. Mood- normal. Speech was non-labored, non- pressured. MDM: *Reviewed vital signs, nursing notes, and prior visit documentation (if available). 64 y/o male presenting with multiple injuries after fall while intoxicated. Anticoagulated on Xeralto. Afebrile. Vitals unremarkable for hypotension or tachycardia. Physical exam as described above. CT of head and c-spine unremarkable for acute findings. Plain films reveal likely right rib fracture per ED wet read. Will obtain trauma chest, abdomen, and pelvis scan to eval for occult trauma given the unreliable nature of pt and rib fractures. CTAB revealed grade 2 splenic laceration. Pt reasessed. Denies abdominal pain or left shoulder pain. No change in abd exam. Do not have PCC available at this facility for Xarelto reversal. Vitals remain stable from arrival. Will transfer emergently to [facility] for trauma evaluation. 17 Sep 2019 05:[address] [facility] Transfer Center contacted. Pt was auto accepted by trauma service (attending Dr. Toure). Requested status upgrade to Code Red given anticoagulated status. CT scans uploaded to [facility] PACS. 17 Sep 2019 06:29 AM Telephone discussion with Dr. Toure. Verbally appraised of the pts HPI, ED course, and current plan of management. Will continue to accept the pt was a transfer. Jose De Jesus Blackwood M.D., PGY2 Emergency Medicine Resident Past History - Past Medical History Allergies/Adverse Reactions: Allergies Allergy/AdvReac Type Severity Reaction Status Date / Time gabapentin Allergy Verified 09/17/19 00:24 hydromorphone HCl AdvReac HALLUCINATION, Verified 04/07/19 16:41 [From Dilaudid] personality changes Home Medications: Ambulatory Orders Metoprolol Succinate [Toprol Xl] 100 mg PO DAILY 03/12/17 Rivaroxaban [Xarelto -] 20 mg PO DAILY 03/12/17 Cholecalciferol (Vitamin D3) [D3-2000] 1,000 unit PO DAILY 03/13/17 Cyanocobalamin/Cobamamide [B-12 5,000 Mcg Sublingual Tab] 1 each SL DAILY Milk Thistle 300 mg PO BID 03/13/17 Ranitidine [Zantac -] 150 mg PO DAILY 10/23/18 Insulin NPH Hum/Reg Insulin Hm [Novolin 70-30 Flexpen] 15 unit SQ TID 04/11/19 Insulin Aspart [Novolog] 5 unit SQ DAILY 09/17/19 Insulin Glargine,Hum.rec.anlog [Lantus] 40 unit SQ DAILY 09/17/19 L.acidoph,Paracasei, B.lactis [Probiotic] 1 each PO DAILY 09/17/19 Anemia: No Asthma: No Cancer: No Cardiac Disorders: Yes (AORTIC ANEURSYM-"UNCHANGED",PALPITATIONS) CVA: No COPD: No (60% LUNG CAPACITY DUE TO PE) CHF: No Dementia: No Diabetes: Yes (Type II) GI Disorders: Yes (COLON ADENOMAS, GASTRIC POLYPS, GERD) Disorders: No HTN: Yes Hypercholesterolemia: Yes Liver Disease: Yes (MURPHY/ETOH) Seizures: No Thyroid Disease: Yes - Surgical History Abdominal Surgery: Yes (UMBILICAL HERNIA,LEFT AND RIGHT INGUINAL HERNIA WITH MESH) Appendectomy: No Cardiac Surgery: No Cholecystectomy: Yes Lung Surgery: Yes (MEDIAN STERNOTOMY FOR LUNG EMBOLECTOMIES) Neurologic Surgery: No Orthopedic Surgery: Yes (C-SPINE MICRODISECTOMY 01/02, LUMBOSACRAL LAMINECTMY) - Immunization History Immunization Up to Date: Yes - Psycho Social/Smoking Cessation Hx Smoking History: Never smoked Have you smoked in the past 12 months: No Hx Alcohol Use: Yes Drug/Substance Use Hx: No Substance Use Type: Alcohol Hx Substance Use Treatment: No *Physical Exam - Vital Signs Last Vital Signs Temp Pulse Resp BP Pulse Ox 97.6 F 61 17 140/91 95 09/16/19 23:10 09/16/19 23:10 09/16/19 23:10 09/16/19 23:10 09/16/19 23:10 ED Treatment Course - LABORATORY CBC & Chemistry Diagram: 09/17/19 01:20 09/17/19 01:20 - ADDITIONAL ORDERS Additional order review: Laboratory Results 09/17/19 09/16/19 01:20 23:29 PTT (Actin FS) 32.8 POC Glucometer 253 09/17/19 09/16/19 01:20 23:29 RBC 4.72 MCV 86.2 MCHC 31.6 L RDW 17.1 H MPV 9.3 Neutrophils % 62.0 Lymphocytes % 25.7 Monocytes % 11.4 H Eosinophils % 0.2 D Basophils % 0.7 POC Glucometer 253 - RADIOLOGY Radiology Studies Ordered: Category Date Time Status CERVICAL SPINE CT W/O CONTR [CT] Stat CT Scan 09/17/19 00:[address] W/O CONTRAST [CT] Stat CT Scan 09/17/19 00:06 Taken ELBOW-RIGHT [RAD] Stat Radiology 09/17/19 00:10 Taken RIBS RIGHT SIDE [RAD] Stat Radiology 09/17/19 00:09 Taken Radiograph Interpretation: HCT: THIS IS A PRELIMINARY REPORT FROM [employer] [employer] DATE OF SERVICE: 2019-09-17 00:40:39 IMAGES: 168 EXAM: HEAD CT WITHOUT CONTRAST HISTORY: Patient fell. Head trauma. COMPARISON: None. FINDINGS: Involutional changes. No hemorrhage. Osseous structures are intact. Right frontal/periorbital scalp injury/hematoma. One or more of the following dose reduction techniques were used: automated exposure control, adjustment of the mA and/or kV according to patient size, use of iterative reconstructive technique. THIS DOCUMENT HAS BEEN ELECTRONICALLY SIGNED Stoney Cerrato MD 09/17/2019 02:[address]: THIS IS A PRELIMINARY REPORT FROM [employer] DATE OF SERVICE: 2019-09-17 00:34:55 IMAGES: [id number] EXAM: CT facial bones without contrast HISTORY: Intoxicated. Fall. COMPARISON: None. FINDINGS: Negative for orbital or facial fracture. Globes and orbits are intact. Right periorbital/frontal scalp injury. One or more of the following dose reduction techniques were used: automated exposure control, adjustment of the mA and/or kV according to patient size, use of iterative reconstructive technique. THIS DOCUMENT HAS BEEN ELECTRONICALLY SIGNED Stoney Cerrato MD 09/17/2019 01:58 EST C-Spine CT: THIS IS A PRELIMINARY REPORT FROM [employer] DATE OF SERVICE: 2019-09-17 00:30:54 IMAGES: [id number] EXAM: CT cervical spine without contrast HISTORY: Intoxicated and fall COMPARISON: None. FINDINGS: Negative for cervical spine fracture or malalignment. Status post C5-6 interbody fusion Disc protrusion C3-4. One or more of the following dose reduction techniques were used: automated exposure control, adjustment of the mA and/or kV according to patient size, use of iterative reconstructive technique. THIS DOCUMENT HAS BEEN ELECTRONICALLY SIGNED Stoney Cerrato MD 09/17/2019 02:[address] of Chest, Abdomen, and Pelvis w/ Contrast: THIS IS A PRELIMINARY REPORT FROM [employer] DATE OF SERVICE: 2019-09-17 02:45:01 IMAGES: [id number] EXAM: CHEST/ABDOMEN/PELVIS CT WITH CONTRAST HISTORY: Intoxicated with multiple rib fractures. COMPARISON: Report only of CT abdomen/pelvis of 02/26/2013. Images not provided. FINDINGS: Note should be made that attempts were made to obtain images of prior CT scan of the abdomen/pelvis of 02/26/2013 without success. Unremarkable imaged thyroid gland. Mild ectasia ascending aorta. Rest of the aorta normal in caliber without evidence of aortic dissection. No central PE noted. Mild cardiomegaly but no pericardial effusion. No acute mediastinal fluid collections. No pneumothorax. Volume dependent atelectatic changes with right lower lobe consolidation. No pleural effusions. Cirrhotic appearing liver with hepatic steatosis and splenomegaly. Normal caliber portal vein with normal opacification. Perisplenic varices and recanalization of the umbilical vein. Mild perihepatic and perisplenic ascites. Clefting seen in the anterior spleen with linear lucency along the posterior superior aspect of the spleen which does not have typical appearance of clefting and this extends from the capsular surface inward and measures 15 mm. This is best seen on series 6 images 26-38 and series [id number] images 76-84. No liver laceration noted. Surgical clips from previous cholecystectomy. Unremarkable adrenals. Stranding along the head of the pancreas. Perinephric stranding bilaterally. No signs of renal injury. Distended urinary bladder. Mild prostatomegaly. No evidence of free intraperitoneal air. No signs of bowel injury. Small hiatal hernia. Colonic diverticulosis. No evidence of diverticulitis. No evidence of appendicitis. Pericolonic stranding seen throughout the abdomen and pelvis. No pelvic ascites noted. Bilateral inguinal hernias containing fat. IVC filter noted with its tip at the level of the right renal vein. Sternotomy wires noted. Degenerative changes the imaged spine, shoulders, and hips. Mildly displaced right fifth lateral rib fracture. Mild anterior wedging of the T4, T12 and L1 vertebral bodies, not acute in nature. Disc osteophyte complexes at L4-L5 and L5-S1. Old healed left lateral 11th rib fracture is noted. IMPRESSION: 1. Laceration of the posterior upper spleen with AAST grade 2 injury. 2. Mildly displaced right lateral fifth rib fracture with consolidation in the right lower lobe probably representing associated lung injury. 3. Cirrhotic liver with hepatic steatosis, splenomegaly, perisplenic varices, and recanalization of the umbilical vein and small volume perihepatic and perisplenic ascites, indicative of portal hypertension. 4. 4. Stranding along the head of the pancreas. Correlate for pancreatitis. Other pertinent positive findings as noted above. Critical findings were discussed with Dr. Jose De Jesus Blackwood on 09/17/2019 at 5:46 AM. One or more of the following dose reduction techniques were used: automated exposure control, adjustment of the mA and/or kV according to patient size, use of iterative reconstructive technique. THIS DOCUMENT HAS BEEN ELECTRONICALLY SIGNED Hannah Arce MD 09/17/2019 05:55 EST Discharge - Discharge Information Problems reviewed: Yes Clinical Impression/Diagnosis: Splenic laceration Qualifiers: Encounter type: initial encounter Qualified Code(s): S36.039A - Unspecified laceration of spleen, initial encounter Alcohol intoxication Qualifiers: Complication of substance-induced condition: uncomplicated Qualified Code(s): F10.920 - Alcohol use, unspecified with intoxication, uncomplicated Fall Qualifiers: Encounter type: initial encounter Qualified Code(s): W19.XXXA - Unspecified fall, initial encounter Traumatic ecchymosis of right eye Qualifiers: Encounter type: initial encounter Qualified Code(s): S05.11XA - Contusion of eyeball and orbital tissues, right eye, initial encounter Rib fracture Qualifiers: Encounter type: initial encounter Rib fracture type: single rib Fracture type: closed Laterality: right Qualified Code(s): S22.31XA - Fracture of one rib, right side, initial encounter for closed fracture Condition: Stable - Admission No - Follow up/Referral Referrals: Stoney Burnett MD [Primary Care Provider] - - Patient Discharge Instructions - Post Discharge Activity - Transfer to Acute Care Facility Receiving Facility Name: [facility]
[2019-09-17 02:00] LABS: BILIRUBIN,TOTAL 0.5 mg/dL (0.2-1); BLOOD UREA NITROGEN 6.4 mg/dL (7-18); CALCIUM 8.4 mg/dL (8.5-10.1); CREATININE 0.9 mg/dL (0.55-1.3); POTASSIUM 4.6 mmol/L (3.5-5.1); TOT PROT 7.3 g/dl (6.4-8.2)
[2019-09-17 02:01] LABS: INR 1.11 (0.83-1.09); PROTHROMBIN TIME (PATIENT) 13.1 SEC (9.7-13.0)
[2019-09-17 06:58] VITALS: BP 119/64; PULSE 67; TEMP 98
--- NOTE | 2019-09-17 12:09 | EKG ---
Test Reason : Blood Pressure : / mmHG Vent. Rate : 064 BPM Atrial Rate : 064 BPM P-R Int : 210 ms QRS Dur : 120 ms QT Int : 472 ms P-R-T Axes : 033 -42 038 degrees QTc Int : 486 ms SINUS RHYTHM WITH 1ST DEGREE A-V BLOCK LEFT AXIS DEVIATION RIGHT BUNDLE BRANCH BLOCK ABNORMAL ECG WHEN COMPARED WITH ECG OF 07-APR-2019 23:39, NO SIGNIFICANT CHANGE WAS FOUND Confirmed by YULIA MOORE MD ([id number]) on 09/17/2019 12:09:36 PM Referred By: Confirmed By:YULIA MOORE MD
== END 2019-09-17 07:00 | disposition short-term general hospital (02) ==
LOC: JER 22:33
DX: S36.039A Unspecified laceration of spleen, initial encounter (principal); S22.41XA Multiple fractures of ribs, right side, initial encounter for closed fracture; S05.11XA Contusion of eyeball and orbital tissues, right eye, initial encounter; F10.120 Alcohol abuse with intoxication, uncomplicated; Y90.8 Blood alcohol level of 240 mg/100 ml or more; V48.4XXA Person boarding or alighting a car injured in noncollision transport accident, initial encounter; Y92.414 Local residential or business street as the place of occurrence of the external cause; Y93.89 Activity, other specified; Y99.8 Other external cause status; E11.42 Type 2 diabetes mellitus with diabetic polyneuropathy; Z79.4 Long term (current) use of insulin; K74.60 Unspecified cirrhosis of liver; E78.00 Pure hypercholesterolemia, unspecified; I10 Essential (primary) hypertension; I71.2 Thoracic aortic aneurysm, without rupture; D68.51 Activated protein C resistance; K75.81 Nonalcoholic steatohepatitis (NASH); E07.9 Disorder of thyroid, unspecified; Z79.01 Long term (current) use of anticoagulants; Z86.718 Personal history of other venous thrombosis and embolism; Z86.711 Personal history of pulmonary embolism; Z95.828 Presence of other vascular implants and grafts; Z87.19 Personal history of other diseases of the digestive system; Z98.890 Other specified postprocedural states; Z88.5 Allergy status to narcotic agent; Z88.8 Allergy status to other drugs, medicaments and biological substances
CPT/HCPCS: 36415; 70450-TC; 70486-TC; 71101-TC-RT-FY; 71260-TC; 72125-TC; 73070-TC-RT-FY; 74177-TC; 80053; 80307; 82962; 85025; 85610; 85730; 93005; 93010; 99285-25

== ENCOUNTER 2019-12-10 08:18 | Day surgery (SDC) | payer OTHER, BC ==
[2019-12-09 17:38] VITALS: BMI 30.2
[2019-12-10] MEDS ORDERED: CEFAZOLIN 1 GM/D5W 2 GM/100 ML BAG ONE (09:37)
[2019-12-10] MEDS ORDERED: ceFAZolin SODIUM 1 GM VIAL IVPB ONE (09:40)
[2019-12-10 09:57] VITALS: TEMP 98.6
[2019-12-10 11:11] VITALS: BP 130/73; PULSE 62
== END 2019-12-10 11:11 | disposition home or self-care (01) ==
LOC: JASU-ENDO 08:18
PROVIDERS: ATTEND Internal Medicine Gastroenterology
PROC: 06L38CZ Occlusion of Esophageal Vein with Extraluminal Device, Via Natural or Artificial Opening Endoscopic (ICD-10-PCS; principal; 2019-12-10 09:00)
DX: Z13.810 Encounter for screening for upper gastrointestinal disorder (principal); I85.00 Esophageal varices without bleeding; K21.9 Gastro-esophageal reflux disease without esophagitis; K31.7 Polyp of stomach and duodenum

== ENCOUNTER 2020-01-14 07:27 | Day surgery (SDC) | payer OTHER, BC ==
[2020-01-13 15:03] VITALS: BMI 30.2
[2020-01-14] MEDS ORDERED: TETRACAINE/BENZOCAINE/BUTAMBEN 20 GM SPR TP ONE (09:10)
[2020-01-14 09:52] VITALS: TEMP 97.6
[2020-01-14 10:33] VITALS: BP 122/72; PULSE 87
--- NOTE | 2020-01-15 16:29 | PATH ---
Surgical Pathology Report Patient Name: REGLA REA [facility]. Rec. #: [id number] /Age/Gender: 1955 (Age: 64) / M Account: [id number] Location: [facility]-ENDOSCOPY Taken: 01/14/2020 Received: 01/14/2020 Reported: 01/15/2020 Physicians: Vel Sotelo M.D. Specimen(s) Received GASTRIC ANTRUM MULTIPLE POLYPECTOMY - HOT SNARE Clinical History Surveillance for esophageal varices and gastric polyps Postoperative diagnosis: Resolved esophageal varices, portal gastropathy, recurring gastric antrum polyps Final Diagnosis GASTRIC ANTRUM POLYPS, POLYPECTOMY: HYPERPLASTIC POLYP, MULTIPLE FRAGMENTS. IMMUNOSTAIN FOR H. PYLORI IS NEGATIVE. Electronically Signed Gilson Gaines M.D. Gross Description Received in formalin labeled "gastric antrum polypectomy multiple," is a 1.5 x 1.0 x 0.8 cm alvarado-brown, polypoid portion of soft tissue. Separately received within the same container are 5 alvarado, irregular to polypoid portions of soft tissue ranging from 0.2-0.6 cm in greatest dimension. The large polyp is trisected and the specimen is entirely submitted in 3 cassettes as follows: [id number] polyp; 3-separately received soft tissue fragments. /01/14/2020 [facility]01/14/2020
== END 2020-01-14 10:47 | disposition home or self-care (01) ==
LOC: JASU-ENDO 07:27
PROVIDERS: ATTEND Internal Medicine Gastroenterology
PROC: 0DB68ZX Excision of Stomach, Via Natural or Artificial Opening Endoscopic, Diagnostic (ICD-10-PCS; principal; 2020-01-14 08:45)
DX: K76.6 Portal hypertension (principal); K31.89 Other diseases of stomach and duodenum; K31.7 Polyp of stomach and duodenum

== ENCOUNTER 2020-08-25 20:15 | Emergency (ER) | payer OTHER, BC ==
[2020-08-25 20:28] VITALS: TEMP 98.8; BMI 26.9
[2020-08-25] MEDS ORDERED: DIPHTH,PERTUSS(ACELL),TET 0.5 ML DISP.SYRIN IM ONE ×2 (21:06→21:58)
--- NOTE | 2020-08-25 21:13 | PDOC ---
History of Present Illness - General Chief Complaint: Alcohol intoxication Stated Complaint: FALL, LACERATION, INTOX Time Seen by Provider: 08/25/20 20:55 Past History - Medical History Allergies/Adverse Reactions: Allergies Allergy/AdvReac Type Severity Reaction Status Date / Time gabapentin AdvReac HALLUCINATI Verified 08/25/20 20:28 ON hydromorphone HCl AdvReac HALLUCINATION, Verified 08/25/20 20:28 [From Dilaudid] personality changes solifenacin [From Vesicare] AdvReac HALLUCINATI Verified 08/25/20 20:28 ON Home Medications: Ambulatory Orders Rivaroxaban [Xarelto -] 20 mg PO DAILY 03/12/17 Vitamin B Complex 1 each PO DAILY 12/09/19 Pantoprazole Sodium 40 mg PO BID #180 tablet. 12/10/19 Nadolol [Corgard -] 20 mg PO DAILY #30 tablet 03/09/20 Furosemide 20 mg PO DAILY 04/05/20 Duloxetine HCl [Cymbalta] 30 mg PO DAILY 04/07/20 Anemia: No Asthma: No Cancer: No Cardiac Disorders: Yes (AORTIC ANEURSYM-"UNCHANGED",PALPITATIONS) CVA: No COPD: No (60% LUNG CAPACITY DUE TO PE) CHF: No Dementia: No Diabetes: Yes (Type II) GI Disorders: Yes (COLON ADENOMAS, GASTRIC POLYPS, GERD,VARICES,) Disorders: No HTN: Yes Hypercholesterolemia: Yes Liver Disease: Yes (MURPHY/ETOH) Seizures: No Thyroid Disease: Yes - Surgical History Abdominal Surgery: Yes (UMBILICAL HERNIA,LEFT AND RIGHT INGUINAL HERNIA WITH MESH) Appendectomy: No Cardiac Surgery: No Cholecystectomy: Yes Lung Surgery: Yes (MEDIAN STERNOTOMY FOR LUNG EMBOLECTOMIES) Neurologic Surgery: No Orthopedic Surgery: Yes (C-SPINE MICRODISECTOMY 01/02, LUMBOSACRAL LAMINECTMY) - Immunization History Immunization Up to Date: Yes - Psycho-Social/Smoking History Smoking History: Never smoked Have you smoked in the past 12 months: No Information on smoking cessation initiated: No - Substance Abuse Hx (Audit-C & DAST Scrn) How often the patient has a drink containing alcohol: 2-3 times / week Number of drinks the patient has on a typical day: 5 or 6 How often the patient has six or more drinks on one occasion: Weekly Score: In Men: 4 or > Positive; In Women: 3 or > Positive: 8 Screen Result (Pos requires Nsg. Audit-10AR): Positive In the last yr the pt used illegal drug/Rx for NonMed reason: No Score: Yes response is considered Positive: 0 Screen Result (Positive result requires Nsg. DAST-10): Negative *Physical Exam - Vital Signs Last Vital Signs Temp Pulse Resp BP Pulse Ox 98.8 F 65 18 142/84 97 08/25/20 20:25 08/25/20 20:25 08/25/20 20:25 08/25/20 20:25 08/25/20 20:25 Procedures - Laceration/Wound Repair Posterior Head Wound Length: to 2.5 cm Wound Explored: clean, no foreign body present Wound's Depth, Shape: superficial, linear Irrigated w/ Saline: Yes Betadine Prep: No Wound Repaired With: Tram Number of Sutures: 2 Layer Closure: No Sterile Dressing Applied: Yes ED Treatment Course - LABORATORY CBC & Chemistry Diagram: 08/25/20 22:00 08/25/20 22:00 - RADIOLOGY Radiology Studies Ordered: Category Date Time Status CERVICAL SPINE CT W/O CONTR [CT] Stat CT Scan 08/25/20 21:[address] WITHOUT CONTRAST [CT] Stat CT Scan 08/25/20 21:11 Ordered CHEST PA & LAT [RAD] Stat Radiology 08/25/20 21:11 Ordered Medical Decision Making - Medical Decision Making 08/25/20 21:24 Factor V Leiden, PE/DVT on Xeralto, alcohol abuse (denies detox), and DM syncope and collapse with head injury at bar drinking c/o back head pain refused detox last tetanus unknown 08/25/20 22:07 Lac repaired with tram x2 by Dr Trammell 08/26/20 03:48 Neurologically intact Ambulates without difficulty CT results discussed with pt; outpatient f/u Pt self-monitoring blood glucose; hypoglycemic but resolved with juice; asymptomatic Safe for d/c Discharge - Discharge Information Problems reviewed: Yes Clinical Impression/Diagnosis: Scalp laceration, Closed head injury, Alcohol intoxication Condition: Improved Disposition: HOME - Admission No - Follow up/Referral - Patient Discharge Instructions Patient Printed Discharge Instructions: DI for Laceration Repair -- Tram, DI for Alcohol Use Disorder, DI for Closed Head Injury Additional Instructions: You have been seen in the Emergency Department for your head injury pain. Your EKG, chest X-ray, CT scans, and labs show no signs concerning for an emergent c ondition such as a heart attack or pneumonia. There are some abnormalities on your CT scans that need to be followed up by your primary care doctor. Take your results to the doctor at your next visit. Follow-up with your primary care doctor within 1 week. Your laceration (cut) has been repaired with 2 tram. Return to the ED or go to your primary care doctor in 7 days to have the tram removed. If you experience pain, you can take Tylenol or Ibuprofen as directed on the medication bottle, but do not exceed 3g of Ibuprofen or 4g of Tylenol a day. Return to the Emergency Department immediately if you experience chest pain, difficulty breathing, passing out, vomiting or any other new or worsening symptom. Monitor your wound for any signs of infection such as warmth, worsening pain, pus drainage, or redness, and return to the ED immediately if you experience any of these. - Post Discharge Activity
--- OUTSIDE RECORDS SUMMARY | 2020-08-25 22:02 | XMS ---
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 diabetes-2014. Diabetes Care.2014;37(Reveles pp 1):S14-S80, table 8.

(4.0-5.6) % </td> aPTT panel - 28.4 secs 25.0-3 <td> 08/11/2020 [facility] Platelet poor 6.5 22:59</td><td> [facility] plasma secs Partial [facility] [employer] Time </td><td> 28.4
(25.0-36.5) secs
PLEASE NOTE: New reference range in effect June 07, 2020.

(25.0-36.5) secs </td> Glucose 262 mg/dL 70-105 <td> 08/13/2020 [facility] [Mass/volume] mg/dL 12:01</td><td> [facility] in Capillary Glucose - [facility] blood by [employer]inger [employer] Glucometer </td><td><sai raph styleCode="Bold "> 262 H </paragraph>
(70-105) mg/dL </td> ID Date Data Source [id number] 08/11/2020 10:42:00 PM EDT [facility] [id number] Corporation Name Value Range Interpretation Description Data Source(s ) Supporting Code Document(s ) Specimen 08/14/20 <td> [facility] expiration 20 23:59 08/11/2020 [facility] date of Blood 22:42</td><td> Care Specimen Corporation Expiration Date </td><td> 08/14/2020 23:59
</td> Antibody NEG <td> [facility] Screen 08/11/2020 [facility] 22:42</td><td> Care Antibody Corporation Screen </td><td> NEG
</td> ABO-Rh Type AB POS <td> [facility] 08/11/2020 [facility] 22:42</td><td> Care ABO-Rh Type Corporation </td><td> AB POS
</td> ID Date Data Source [id number] 08/11/2020 10:21:00 PM EDT [facility] [id number] Corporation Name Value Range Interpretation Description Data Sup porting Code Source(s) Document(s ) Chest (PACSIMAGE <td> 08/11/2020 [facility] Portable 22:21</td><td> [facility] ) Final Chest Portable Health Care Result </td><td><paragr [facility] [employer] Name: juany ÁLVARO, styleCode="Fabian ARAUZ MRN: cs">(PACSIMAGE [id number] Sex: M : 1955 )</paragraph><br Location: M />
Final Admitting Result Physician:

EMERGENCY Name: Chelly FLEMINGing REGLA Physician:
MRN: AYDEE GARCIA [id number] Sex: M Exam: CHEST
PORTABLE : 08/11/2020 1955 23:09 Location: M EXAM: Chest
Portable 1 view Admitting Physician: COMPARISON: EMERGENCY 11/24/2019 SERVICE INDICATION:
ADMISSION Requesting FINDINGS: Physician: AYDEE NEIL TUBES: none.

LUNGS AND Exam: CHEST PLEURA: No PORTABLE significant 08/11/2020 23:09 interval change in minor

bibasilar EXAM: Chest atelectasis Portable 1 view with minimal blunting of the

costophrenic COMPARISON: angles.. 11/24/2019 HEART AND

MEDIASTINUM: INDICATION: Stable, status ADMISSION post median

sternotomy FINDINGS: with multiple

fractured LINES AND sternal wires. TUBES: none. BONES AND SOFT
TISSUES: LUNGS AND Degenerative PLEURA: No changes. significant Chronic rib interval change fractures. in minor Cervical spine bibasilar orthopedic
hardware is atelectasis with again minimal blunting visualized. of the IMPRESSION: costophrenic No angles.. significant
interval HEART AND change. MEDIASTINUM: Resident Stable, status Radiologist: post median Marjorie Randolph sternotomy Resident
Radiologistt with multiple Attending fractured Radiologist: sternal wires. Phil Pitts MD
Finalizing BONES AND SOFT Radiologist: TISSUES: Phil Pitts MD Degenerative Transcribed changes. Chronic Date: rib fractures. 08/11/2020
23:25 Cervical spine Finalized Date: orthopedic 08/12/2020 hardware is 08:35 again visualized.

IMPRESSION:

No significant interval change.

< br/>
Resident Radiologist: Marjorie Randolph MD Resident Radiologistt
Attending Radiologist: Phil Pitts MD
Finalizing Radiologist: Phil Pitts MD
Transcribed Date: 08/11/2020 23:25
Finalized Date: 08/12/2020 08:35

</td> Chest CT (PACSIMAGE <td> 08/12/2020 [facility] 04:27</td><td> County contrast ) Final Chest With Health Care IV Result Contrast-CT Corporation Name: </td><td>juany Vargas MRN: styleCode="Fabian [id number] Sex: M cs">(PACSIMAGE : 1955 Location: )</paragraph><br Admitting />
Final Physician: Result EMERGENCY

SERVICE Name: Requesting TRANCYNGER, Physician: REGLA GARCIA
MRN: Exam: CT [id number] Sex: M THORAX C+
08/12/2020 : 05:09 1955 EXAM: CT Scan Location: M of the Chest
with Contrast Admitting CLINICAL Physician: INFORMATION: EMERGENCY Rule out PE. SERVICE TECHNIQUE:
Multiple Requesting contiguous Physician: AYDEE axial images JOSE were obtained

from the Exam: CT THORAX thoracic inlet C+ 08/12/2020 through the 05:09 adrenal glands

with the use of EXAM: CT Scan intravenous of the Chest contrast with Contrast material. Coronal and

sagittal CLINICAL reformatted INFORMATION: images were Rule out PE. provided for review.

CONTRAST: 100 TECHNIQUE: cc intravenous Multiple Omnipaque 350. contiguous axial images were COMPARISON: CT obtained from chest abdomen
pelvis dated the thoracic 11/24/2019 inlet through FINDINGS: the adrenal LUNGS: Trace glands with the dependent use of atelectasis.
AIRWAYS: intravenous Patent. contrast MEDIASTINUM, material. ELLYN AND LYMPH Coronal and NODES: No sagittal enlarged lymph reformatted nodes are
seen within the images were chest. Normal provided for visualized review. thyroid. Normal

esophagus.. CONTRAST: 100 cc PLEURA: No intravenous effusion. Omnipaque 350. HEART AND PERICARDIUM:

< Cardiomegaly. br/> Mild coronary COMPARISON: CT calcification. chest abdomen No pericardial pelvis dated effusion. 11/24/2019 VESSELS: Mildly

enlarged FINDINGS: ascending

thoracic aorta LUNGS: Trace measuring up dependent to 4.2 cm, atelectasis. similar to
prior. No AIRWAYS: Patent. atherosclerotic
calcification. MEDIASTINUM, Normal size ELLYN AND LYMPH central NODES: No pulmonary enlarged lymph arteries. nodes are Pulmonary
artery seen within the enhancement chest. Normal is excellent. visualized No evidence of thyroid. Normal pulmonary esophagus.. embolism.
SOFT TISSUES: PLEURA: No Normal. UPPER effusion. ABDOMEN:
Splenomegaly HEART AND and hepatic PERICARDIUM: steatosis. Cardiomegaly. Liver Mild coronary granulomas. calcification. Liver has a
nodular contour No pericardial with trace effusion. perihepatic
ascites. VESSELS: Mildly Cirrhosis is enlarged probable. ascending Postcholecystec thoracic aorta snow. BONES: measuring up Degenerative
changes. to 4.2 cm, Chronic similar to bilateral rib prior. No fractures. atherosclerotic Age-indetermina calcification. te compression
fracture Normal size deformities of central T3, T4, T12, pulmonary and partially arteries. visualized L1 Pulmonary artery vertebral enhancement bodies. C5-6
fusion. is excellent. No Healed evidence of sternotomy. pulmonary IMPRESSION : embolism. 1. No
pulmonary SOFT TISSUES: embolism. 2. Normal. Cardiomegaly
with borderline UPPER ABDOMEN: aneurysmal Splenomegaly and ascending hepatic thoracic steatosis. Liver aorta. 3. granulomas. Splenomegaly
and hepatic Liver has a steatosis. nodular contour Probable with trace cirrhosis 4. perihepatic Multiple ascites. age-indetermina Cirrhosis te compression
is fracture probable. deformities Postcholecystect of the thoracic sunita. and lumbar
BONES: spine. 5. Degenerative Minor coronary changes. Chronic artery bilateral rib calcification. fractures.
Resident Age-indeterminat Radiologist: e compression Marjorie Agustín fracture Resident deformities of Radiologistt T3, T4, Attending
T12, Radiologist: and partially Jalil Alvarez visualized L1 Finalizing vertebral Radiologist: bodies. C5-6 Jalil Alvarez fusion.
Transcribed Healed Date: sternotomy. 08/12/2020

05:37 IMPRESSION : Finalized Date: 08/12/2020

15:22 1. No pulmonary embolism.
2. Cardiomegaly with borderline aneurysmal ascending thoracic
aorta.
3. Splenomegaly and hepatic steatosis. Probable cirrhosis
4. Multiple age-indeterminat e compression fracture deformities
of the thoracic and lumbar spine.
5. Minor coronary artery calcification.

< br/> Resident Radiologist: Marjorie Randolph MD Resident Radiologistt
Attending Radiologist: Jalil Alvarez MD
Finalizing Radiologist: Jalil Alvarez MD
Transcribed Date: 08/12/2020 05:37
Finalized Date: 08/12/2020 15:22

</td> ID Date Data Source [id number] 08/11/2020 12:00:00 AM EDT [facility] Name Value Range Interpretation Code Description Data Nimisha rce(s) Supporting Document(s ) SARS-COV-2 [facility] RNA RT-PCR [facility] This lab was ordered by [facility] and reported by [facility]. ID Date Data Source [id number] 04/07/2020 01:30:00 PM EDT [facility] Name Value Range Interpretation Description Data Sup porting Code Source(s) Document(s ) SARS [facility] CORONAVIRUS 2 RNA This lab was ordered by [facility] and reported by [facility]. ID Date Data Source [id number] 04/06/2020 10:36:00 AM EDT [facility] Name Value Range Interpretation Description Data Sup porting Code Source(s) Document(s ) SARS [facility] CORONAVIRUS 2 RNA This lab was ordered by [facility] and reported by [facility]. ID Date Data Source [id number] 03/11/2020 12:00:00 AM EDT [facility] Name Value Range Interpretation Code Description Data Nimisha rce(s) Supporting Document(s ) 2018-nCoV [facility] RNA XXX HEIDE+probe- Imp This lab was ordered by [facility] [employer] [facility] [employer] [place] and reported by [employer] ID Date Data Source [id number] 02/24/2020 12:00:00 AM EDT [facility] Name Value Range Interpretation Code Description Data Nimisha rce(s) Supporting Document(s ) 2018-nCoV [facility] RNA XXX HEIDE+probe- Imp This lab was ordered by [employer] [facility] [employer] [place] and reported by [employer] ID Date Data Source [id number] 02/22/2020 08:30:00 AM EDT [facility] Name Value Range Interpretation Description Data Sup porting Code Source(s) Document(s ) SARS [facility] CORONAVIRUS 2 RNA This lab was ordered by [facility] and reported by [facility]. ID Date Data Source [id number] 11/25/2019 02:32:00 AM EST [facility] [id number] Corporation Name Value Range Interpretation Description Data Sup porting Code Source(s) Document(s ) Leukocytes 6.0 k/mm3 4.8-10. <td> [facility] [#/volume] in 8 k/mm3 11/25/2019 [facility] Blood by 02:32</td><t Health Care Automated count d> WBC [employer] </td><td> 6.0
(4.8-10.8) k/mm3 </td> Hemoglobin 13.4 g/dL 14.0-18 <td> [facility] [Mass/volume] .0 g/dL 11/25/2019 [facility] in Blood 02:32</td><t Health Care d> HGB [employer] </td><td><pa ragraph styleCode="B old"> 13.4 L </paragraph>
(14.0-18.0) g/dL </td> Hematocrit 42.9 % 40.8-46 <td> [facility] [Volume .9 % 11/25/2019 [facility] Fraction] of 02:32</td><t Health Care Blood by d> HCT [employer] Automated count </td><td> 42.9
(40.8-46.9) % </td> Erythrocytes 4.95 m/mm3 4.70-6. <td> [facility] [#/volume] in 10 11/25/2019 [facility] Blood m/mm3 02:32</td><t Health Care d> RBC [employer] </td><td> 4.95
(4.70-6.10) m/mm3 </td> Erythrocyte 31.2 % 32.0-36 <td> [facility] mean .0 % 11/25/2019 [facility] corpuscular 02:32</td><t Health Care hemoglobin d> [facility] [employer] concentration </td><td><pa [Mass/volume] ragraph in Blood from styleCode="B Fetus by old"> Automated count 31.2 L </paragraph>
(32.0-36.0) % </td> Erythrocyte 16.4 % 11.5-14 <td> [facility] distribution .5 % 11/25/2019 [facility] width [Entitic 02:32</td><t Health Care volume] by d> RDW [employer] Automated count </td><td><pa ragraph styleCode="B old"> 16.4 H </paragraph>
(11.5-14.5) % </td> Erythrocyte 86.7 fL 80.0-94 <td> [facility] mean .0 fL 11/25/2019 [facility] corpuscular 02:32</td><t Health Care volume [Entitic d> MCV [employer] volume] by </td><td> Automated count 86.7
(80.0-94.0) fL </td> Erythrocyte 27.1 pg 27.0-31 <td> [facility] mean .5 pg 11/25/2019 [facility] corpuscular 02:32</td><t Health Care hemoglobin d> [employer] [Entitic mass] </td><td> by Automated count 27.1
(27.0-31.5) pg </td> Platelet mean 10.7 fL 9.8-12. <td> [facility] volume [Entitic 8 fL 11/25/2019 [facility] volume] in 02:32</td><t Health Care Blood by d> MPV [employer] Automated count </td><td> 10.7
(9.8-12.8) fL </td> Glucose 140 mg/dL 70-105 <td> [facility] [Mass/volume] mg/dL 11/25/2019 [facility] in Blood 02:32</td><t Health Care d> Corporation Glucose-Seru m </td><td><pa ragraph styleCode="B old"> 140 H </paragraph>
(70-105) mg/dL </td> Platelets 111 k/mm3 160-410 <td> [facility] [#/volume] in k/mm3 11/25/2019 [facility] Blood by 02:32</td><t Health Care Automated count d> Platelet Corporation Count </td><td><luke watson styleCode="B old"> 111 L </paragraph>
(160-410) k/mm3 </td> Chloride 99 mEq/L 98-107 <td> [facility] [Moles/volume] mEq/L 11/25/2019 [facility] in Serum or 02:32</td><t Health Care Plasma d> Chloride Corporation </td><td> 99
(98-107) mEq/L </td> Potassium 3.7 mEq/L 3.5-5.1 <td> [facility] [Moles/volume] mEq/L 11/25/2019 [facility] in Serum or 02:32</td><t Health Care Plasma d> [employer] Potassium-Se rum </td><td> 3.7
(3.5-5.1) mEq/L </td> Sodium 135 mEq/L 135-145 <td> [facility] [Moles/volume] mEq/L 11/25/2019 [facility] in Serum or 02:32</td><t Health Care Plasma d> [employer] Sodium-Serum </td><td> 135
(135-145) mEq/L </td> Urea nitrogen 8 mg/dL 6-22 <td> [facility] [Mass/volume] mg/dL 11/25/2019 [facility] in Blood 02:32</td><t Health Care d> BUN [employer] </td><td> 8
(6-22) mg/dL </td> Carbon dioxide, 26 mEq/L 22-30 <td> [facility] total mEq/L 11/25/2019 [facility] [Moles/volume] 02:32</td><t Health Care in Serum or d> CO2 Corporation Plasma </td><td> 26
(22-30) mEq/L </td> Creatinine 0.83 mg/dL 0.72-1. <td> [facility] [Moles/volume] 25 11/25/2019 [facility] in Serum or mg/dL 02:32</td><t Health Care Plasma d> Corporation Creatinine. </td><td> 0.83
(0.72-1.25) mg/dL </td> Calcium 9.2 mg/dL 8.6-10. <td> [facility] [Mass/volume] 2 mg/dL 11/25/2019 [facility] in Blood 02:32</td><t Health Care d> Calcium Corporation </td><td> 9.2
(8.6-10.2) mg/dL </td> Hemolysis index No <td> [facility] Serum or Hemolysis 11/25/2019 [facility] Plasma 02:32</td><t Health Care d> Hemolysis Corporation Index </td><td> No Hemolysis
</td> Lipemic index No Lipemia <td> [facility] or 11/25/2019 [facility] Plasma 02:32</td><t Health Care d> Lipemia Corporation Index </td><td> No Lipemia
</td> Anion gap in 10 mEq/L 7-13 <td> [facility] Serum or Plasma mEq/L 11/25/2019 [facility] 02:32</td><t Health Care d> Anion Gap Corporation </td><td> 10
(7-13) mEq/L </td> Glucose 157 mg/dL 70-105 <td> [facility] [Mass/volume] mg/dL 11/25/2019 [facility] in Capillary 17:09</td><t Health Care blood by d> Glucose - Corporation Glucometer Finger Stick </td><td><p aragraph styleCode="B old"> 157 H </paragraph>
(70-105) mg/dL </td> Magnesium 1.7 mg/dL 1.6-2.6 <td> [facility] [Mass/volume] mg/dL 11/25/2019 [facility] in Serum or 02:32</td><t Health Care Plasma d> Magnesium Corporation Level </td><td> 1.7
(1.6-2.6) mg/dL </td> Icteric index Not Icteric <td> [facility] or 11/25/2019 [facility] Plasma 02:32</td><t Health Care d> Icteric Corporation Index </td><td> Not Icteric
</td> Phosphate 3.8 mg/dL 2.3-4.7 <td> [facility] [Mass/volume] mg/dL 11/25/2019 [facility] in Serum or 02:32</td><t Health Care Plasma d> Inorganic [employer] Phosphorus </td><td> 3.8
(2.3-4.7) mg/dL </td> ID Date Data Source [id number] 11/24/2019 11:16:00 AM EST [facility] [id number] Corporation Name Value Range Interpretation Description Data Sup porting Code Source(s) Document(s ) Carotid/V (PACSIMAGE <td> 11/24/2019 [facility] ertebrl 11:16</td><td> [facility] Arteries ) Final Carotid/Vertebrl Health Care Dpl-US Result Arteries Dpl-US Corporation Name: </td><td><paragr juany REA MRN: styleCode="Itali [id number] Sex: M cs">(PACSIMAGE : 1955 Location: )</paragraph><br Admitting />
Final Physician: CATHY SCOTTARDO

Requesting Name: Physician: JEFFREY REA
MRN: Exam: US DPLX [id number] Sex: M CAROTID/VERT
ART 11/24/2019 : 11:48 1955 CLINICAL Location: INFORMATION:
Syncope. Admitting TECHNIQUE: Physician: CATHY Sonogram of the EDSON vertebral and
carotid Requesting arteries with Physician: color and JEFFREY spectral CYNTHIA Doppler

supplementation Exam: US DPLX . CAROTID/VERT ART COMPARISON: 11/24/2019 11:48 None. FINDINGS:

Right: CLINICAL Diffuse intimal INFORMATION: thickening.
There is plaque Syncope. noted within

the carotid TECHNIQUE: bulb. No
hemodynamically Sonogram of the significant vertebral and narrowing is carotid arteries seen in the with color and right common
carotid or spectral internal Doppler carotid supplementation. arteries. Peak systolic

velocities: * COMPARISON: Common carotid
artery - None. proximal: 82.3

cm/s * Common FINDINGS: carotid artery
- mid: 98.8 Right: cm/s * Common
carotid artery Diffuse intimal - distal: 83.9 thickening. cm/s * There is plaque External noted within the carotid artery:
83.6 cm/s * carotid Internal bulb. No carotid artery hemodynamically - proximal: significant 43.5 cm/s * narrowing is Internal seen carotid artery
in the - mid: 58.8 right common cm/s * carotid or Internal internal carotid carotid artery arteries. - distal: 62.3

cm/s * ICA Peak systolic /CCA ratio: velocities: 0.74 *
Vertebral * Common carotid artery: normal artery - cephalad flow proximal: 82.3 Left: cm/s Diffuse intimal
* thickening. Common carotid There is plaque artery - mid: noted within 98.8 cm/s the carotid
* bulb. No Common carotid hemodynamically artery - distal: significant 83.9 cm/s narrowing is

seen in the * External right common carotid artery: carotid or 83.6 cm/s internal
* carotid Internal carotid arteries. artery - Peak systolic proximal: 43.5 velocities: * cm/s Common carotid
* artery - Internal carotid proximal: 78.8 artery - mid: cm/s * Common 58.8 cm/s carotid artery
* - mid: 78.0 Internal carotid cm/s * Common artery - distal: carotid artery 62.3 cm/s - distal: 70.9

cm/s * * ICA /CCA External ratio: 0.74 carotid artery:
76.5 cm/s * * Vertebral Internal artery: normal carotid artery cephalad flow - proximal: 52.2 cm/s *

Internal Left: carotid artery
- mid: 37.3 Diffuse intimal cm/s * thickening. Internal There is plaque carotid artery noted within the - distal: 61.0
cm/s * ICA carotid /CCA ratio: bulb. No 0.86 * hemodynamically Vertebral significant artery: normal narrowing is cephalad flow seen IMPRESSION:
in the 1. No evidence right common of carotid or hemodynamically internal carotid significant arteries. narrowing of

the above Peak systolic arteries. 2. velocities: Bilateral
diffuse intimal * Common carotid thickening and artery - plaque at the proximal: 78.8 carotid cm/s bulbs.
* Resident Common carotid Radiologist: artery - mid: Alejandra Nichole MD 78.0 cm/s Resident
* Radiologist Common carotid Attending artery - distal: Radiologist: 70.9 cm/s George Morales

Finalizing * External Radiologist: carotid artery: George Morales 76.5 cm/s
* Transcribed Internal carotid Date: artery - 11/24/2019 proximal: 52.2 11:52 cm/s Finalized Date:
* 11/24/2019 Internal carotid 11:54 artery - mid: 37.3 cm/s
* Internal carotid artery - distal: 61.0 cm/s

* ICA /CCA ratio: 0.86
* Vertebral artery: normal cephalad flow

IMPRESSION:
1. No evidence of hemodynamically significant narrowing of the
above arteries.
2. Bilateral diffuse intimal thickening and plaque at the carotid
bulbs.

Resident Radiologist: Alejandra Nichole MD Resident Radiologist
Attending Radiologist: George Morales MD
Finalizing Radiologist: George Morales MD
Transcribed Date: 11/24/2019 11:52
Finalized Date: 11/24/2019 11:54

</td> Chest/Abd (PACSIMAGE <td> 11/24/2019 [facility] /Pelvis 02:12</td><td> County With ) Final Chest/Abd/Pelvis Health Care Cont-CT Result With Cont-CT Corporation Name: </td><td><paragr FROILANCYNGDEVANTE juany ARAUZ MRN: styleCode="Fabian [id number] Sex: M cs">(PACSIMAGE : 1955 Location: M )</paragraph><br Admitting />
Final Physician: Result EMERGENCY

SERVICE Name: Requesting TRANCYNGER, Physician: REGLA HAGER
MRN: Exam: CT [id number] Sex: M THORAX/ABD/PELV
C+ 11/24/2019 : 02:33 1955 CLINICAL Location: M INDICATION:
Trauma Admitting TECHNIQUE: Physician: Contrast EMERGENCY enhanced CT of SERVICE the chest,
abdomen and Requesting pelvis was Physician: DOROTHEA performed. 100 PLANSKY ml of Omnipaque

350 was Exam: CT utilized for THORAX/ABD/PELV intravenous C+ 11/24/2019 contrast. Oral 02:33 contrast was

administered. CLINICAL COMPARISON: INDICATION: Outside CT from Trauma 09/17/2019

FINDINGS: TECHNIQUE: Contrast MEDIASTINUM/HIL enhanced CT of A: the chest, Ectatic/borderl abdomen and ine aneurysmal pelvis dilatation of
was the ascending performed. 100 thoracic aorta ml of Omnipaque measuring 3.9 350 was utilized cm. for intravenous HEART/CARDIOVAS
CULAR: The contrast. heart is normal Oral contrast in size. There was is no administered. pericardial effusion.

Pulmonary COMPARISON: arterial Outside CT from enlargement, 09/17/2019 correlate for pulmonary

< hypertension. br/> FINDINGS: LUNGS/PLEURA:

No pneumothorax. MEDIASTINUM/ELLYN Trace left : sided pleural Ectatic/borderli fluid. ne aneurysmal Minimal dilatation of dependent
bibasilar the ascending atelectasis and thoracic aorta left-sided measuring 3.9 pulmonary cm. contusion.

LIVER: No HEART/CARDIOVASC definite acute ULAR: The heart traumatic is normal in injury. Trace size. There is fat stranding no or low-density
fluid adjacent pericardial to the right effusion. hepatic lobe in Pulmonary the region of arterial Morison's enlargement, pouch. There is correlate hepatic volume
redistribution for pulmonary with hypertension. hepatomegaly and hepatic

steatosis. The LUNGS/PLEURA: No portal veins pneumothorax. are patent. Trace left sided BILIARY: pleural fluid. There is no
biliary ductal Minimal dilatation. dependent SPLEEN: The bibasilar spleen is atelectasis and enlarged. left-sided PANCREAS: The pulmonary pancreas is
normal in size. contusion. There is no

pancreatic LIVER: No ductal definite acute dilatation. traumatic ADRENAL injury. Trace GLANDS: The fat stranding adrenal glands
are normal in or low-density size. fluid adjacent KIDNEYS: The to the right kidneys are hepatic lobe in normal in size the and the
region nephrograms are of Morison's symmetric. pouch. There is There is no hepatic volume hydronephrosis. redistribution LYMPH
NODES: There is with no abdominal or hepatomegaly and pelvic hepatic adenopathy. steatosis. The VASCULAR: portal veins are There is no
abdominal patent. aortic

aneurysm. BILIARY: BOWEL: The There is no small and large biliary ductal bowel are dilatation. normal caliber.

There is no SPLEEN: The evidence of spleen is obstruction. enlarged. PERITONEUM:

There is no PANCREAS: The free air or pancreas is fluid. normal in size. BLADDER: There is no Nonspecific pancreatic wall
thickening, ductal correlate with dilatation. symptomatology

and ADRENAL urinalysis. GLANDS: The BONES AND SOFT adrenal glands TISSUES: There are normal in are multilevel size. degenerative

changes. Age KIDNEYS: The indeterminant kidneys are compression normal in size deformities of and the the T3 and T4 nephrograms are vertebral
bodies, please symmetric. refer to There is no separately hydronephrosis. reported/concur rently

performed LYMPH NODES: spine CT for There is no further abdominal or evaluation. pelvic Left third and adenopathy. fourth rib

fractures. VASCULAR: Multiple There is no healing abdominal aortic right-sided rib aneurysm. fractures.

IMPRESSION: BOWEL: The Left third small and large and fourth rib bowel are normal fractures. caliber. There Borderline is aneurysmal
no dilatation of evidence of the ascending obstruction. aorta. Pulmonary

arterial PERITONEUM: enlargement, There is no free correlate for air or fluid. pulmonary hypertension..

Hepatic BLADDER: steatosis, Nonspecific wall hepatomegaly thickening, and findings correlate with suggesting symptomatology hepatic
fibrosis. and Splenomegaly. urinalysis.

Resident BONES AND Radiologist: SOFT TISSUES: Attending There are Radiologist: multilevel Barney moore MD Finalizing changes. Radiologist:
Age Barney kahninant compression Transcribed deformities of Date: the T3 and T4 11/24/2019 vertebral 12:12
Finalized Date: bodies, please 11/24/2019 refer to 12:50 separately reported/concurr ently performed
spine CT for further evaluation. Left third and fourth rib fractures.
Multiple healing right-sided rib fractures.

IMPRESSION:

Left third and fourth rib fractures.

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

Pulmonary arterial enlargement, correlate for pulmonary hypertension..

Hepatic steatosis, hepatomegaly and findings suggesting hepatic
fibrosis.

Splenomegaly.

< br/>

Resident Radiologist:
Attending Radiologist: Barney Smith MD
Finalizing Radiologist: Barney Smith MD
Transcribed Date: 11/24/2019 12:12
Finalized Date: 11/24/2019 12:50

</td> Chest (PACSIMAGE <td> 11/24/2019 [facility] Portable 06:46</td><td> [facility] Final Chest Portable Health Care Result </td><td>[employer]! Name: aph TRANSADANGER, styleCode="Fabian ARAUZ MRN: cs">(PACSIMAGE [id number] Sex: M : 1955 )</paragraph><br Location: M />
Final Admitting Result Physician: CATHY

EDSON Name: Requesting TRANCYNGER, Physician: REGLA WRAY
MRN: Exam: CHEST [id number] Sex: M PORTABLE
11/24/2019 : 07:23 1955 EXAM: Chest Location: M Portable 1 view
Admitting COMPARISON: Physician: CATHY 09/21/2019 chest [facility] x-ray
INDICATION: Requesting Polytrauma, Physician: RUDDY hemothorax. KAMALA FINDINGS:

LINES AND Exam: CHEST TUBES: None. PORTABLE LUNGS AND 11/24/2019 07:23 PLEURA: Minor basilar

atelectasis. EXAM: Chest Minimal Portable 1 view blunting of the

costophrenic COMPARISON: sulci. HEART 09/21/2019 chest AND x-ray MEDIASTINUM:

Stable INDICATION: cardiomegaly, Polytrauma, post median hemothorax. sternotomy.

The sternal FINDINGS: closure is well aligned. The

superior 2 LINES AND TUBES: sternal wires None. are fractured,
LUNGS as before. AND PLEURA: BONES AND SOFT Minor basilar TISSUES: atelectasis. Degenerative Minimal blunting change.
Bilateral of the lateral rib costophrenic fractures. sulci. IMPRESSION:
HEART 1. Stable AND MEDIASTINUM: appearance of Stable the chest over cardiomegaly, 3 days. post median Resident sternotomy. Radiologist:
Attending The sternal Radiologist: closure is well Jalil Alvarez aligned. The MD Finalizing superior 2 Radiologist: sternal wires Jalil Alvarez
are fractured, Transcribed as before. Date:
11/24/2019 BONES AND SOFT 10:27 TISSUES: Finalized Date: Degenerative 11/24/2019 change. 10:28 Bilateral lateral
rib fractures.

IMPRESSION:

1. Stable appearance of the chest over 3 days.

< br/>
Resident Radiologist:
Attending Radiologist: Jalil Alvarez MD
Finalizing Radiologist: Jalil Alvarez MD
Transcribed Date: 11/24/2019 10:27
Finalized Date: 11/24/2019 10:28

</td> CT LS (PACSIMAGE <td> 11/24/2019 [facility] Spine 2D 02:12</td><td> [facility] ) Final CT LS Spine 2D Health Care Result [employer] Name: </td><td><paragr TRANCYNGER, juany ARAUZ MRN: styleCode="Itali [id number] Sex: M cs">(PACSIMAGE : 1955 Location: )</paragraph><br Admitting />
Final Physician: Result EMERGENCY

SERVICE Name: Requesting TRANCYNGER, Physician: REGLA HAGER
MRN: Exam: CT LS [id number] Sex: M SPINE 2D RECON
11/24/2019 : 02:33 1955 CLINICAL Location: STATEMENT:
Trauma. Admitting TECHNIQUE: CT Physician: images of the EMERGENCY lumbar spine SERVICE was created
from Requesting concurrently Physician: DOROTHEA performed CT of MADAN the

thorax/abdomen/ Exam: CT LS pelvis. SPINE 2D RECON Reformatted 11/24/2019 02:33 coronal and sagittal images

were created. CLINICAL COMPARISON: STATEMENT: No prior Trauma. studies are

available. TECHNIQUE: CT CONTRAST: None images of the FINDINGS: lumbar spine was ALIGNMENT: The created from spinal concurrently alignment is
maintained. performed CT of BONES: There the is no displaced thorax/abdomen/p fracture. feliciano. DISCS AND FACET Reformatted JOINTS: Disc coronal space narrowing
and and endplate sagittal images degenerative were created. changes at L5-S1.

Degenerative COMPARISON: No changes at prior studies L4-L5 and L5-S1 are available. with disc bulges versus

disc CONTRAST: None herniations. There is neural

foraminal FINDINGS: stenoses at
these levels. ALIGNMENT: The Please refer spinal alignment to concurrently is maintained. performed CT of the

thorax/abdomen/ BONES: There is pelvis for no displaced findings within fracture. the chest,

abdomen, and DISCS AND pelvis. FACET JOINTS: IMPRESSION: Disc space 1. No displaced narrowing and fracture or endplate dislocation. degenerative 2. Degenerative
changes as changes at described. L5-S1. Degenerative Resident changes at L4-L5 Radiologist: and L5-S1 with Attending
Radiologist: disc bulges Ashok Mayen MD versus disc Finalizing herniations. Radiologist: There is neural Ashok Mayen MD foraminal Transcribed
Date: stenoses at 11/24/2019 these levels. 07:24 Finalized Date:

11/24/2019 Please refer to 07:[address] of the thorax/abdomen/p feliciano
for findings within the chest, abdomen, and pelvis.

IMPRESSION:
1. No displaced fracture or dislocation.
2. Degenerative changes as described.

< br/>
Resident Radiologist:
Attending Radiologist: Ashok Mayen MD
Finalizing Radiologist: Ashok Mayen MD
Transcribed Date: 11/24/2019 07:24
Finalized Date: 11/24/2019 07:30

</td> CT T (PACSIMAGE <td> 11/24/2019 [facility] Spine 2D 05:20</td><td> [facility] ) Final CT T Spine 2D Health Care Result [employer] Name: </td><td><paragr FROILANSADAjuany DUNN MRN: styleCode="Fabian [id number] Sex: M cs">(PACSIMAGE : 1955 Location: M )</paragraph><br Admitting />
Final Physician: CATHY Result [facility]

Requesting Name: Physician: JEFFREY REA CYNTHIA
MRN: Exam: CT T [id number] Sex: M SPINE 2D RECON
11/24/2019 : 05:33 1955 CLINICAL Location: STATEMENT:
Trauma. Admitting TECHNIQUE: CT Physician: CATHY images of the [facility] thoracic spine
was created Requesting from Physician: concurrently JEFFREY performed CT of CYNTHIA the

thorax/abdomen/ Exam: CT T pelvis. SPINE 2D RECON Reformatted 11/24/2019 05:33 coronal and sagittal images

were created. CLINICAL COMPARISON: STATEMENT: No prior Trauma. studies are

available. TECHNIQUE: CT CONTRAST: None images of the FINDINGS: thoracic spine ALIGNMENT: The was created from spinal concurrently alignment is
maintained. performed CT of BONES: There the are superior thorax/abdomen/p endplate feliciano. compression Reformatted deformities at coronal T3 and T4 with
and less than 50 sagittal images percent were created. vertebral body height loss

without COMPARISON: No retropulsion prior studies fossa are available. demonstrates into the spinal

canal. There CONTRAST: None is linear-like hyperdensity

along the FINDINGS: superior
endplate of ALIGNMENT: The T3 which may spinal alignment represent a is maintained. fracture cleft and is

suspicious BONES: There are for an superior acute-subacute endplate fracture. MRI compression of the thoracic deformities at spine is
suggested for T3 and T4 with further less than 50 evaluation. percent DISCS AND vertebral body FACET JOINTS: height loss The
intervertebral without disc heights retropulsion are maintained. fossa There is no demonstrates significant into the spinal bony spinal canal. canal or neural
There foraminal is linear-like stenosis. hyperdensity Please refer to along the concurrently superior performed CT of endplate the
of thorax/abdomen/ T3 which may pelvis for represent a findings within fracture cleft the chest, and is abdomen, and suspicious pelvis.
IMPRESSION: for an Findings as acute-subacute described fracture. MRI of suspicious for the thoracic an spine is acute-subacute
fracture suggested for within the further superior evaluation. endplate of T3.

MRI of the DISCS AND thoracic spine FACET JOINTS: is suggested The for further intervertebral evaluation as disc heights are clinically maintained. appropriate..
There is no Resident significant bony Radiologist: spinal canal or Attending neural foraminal Radiologist:
Ashok Mayen MD stenosis. Finalizing Radiologist:

Ashok Mayen MD Please refer to Transcribed concurrently Date: performed CT of 11/24/2019 the 07:23 thorax/abdomen/p Finalized Date: feliciano 11/24/2019
for 10:57 findings within the chest, abdomen, and pelvis.

IMPRESSION:
Findings as described suspicious for an acute-subacute fracture
within the superior endplate of T3. MRI of the thoracic spine
is suggested for further evaluation as clinically appropriate..

< br/>
Resident Radiologist:
Attending Radiologist: Ashok Mayen MD
Finalizing Radiologist: Ashok Mayen MD
Transcribed Date: 11/24/2019 07:23
Finalized Date: 11/24/2019 10:57

</td> ID Date Data Source [id number] 11/24/2019 09:13:00 AM [facility] [id number] Corporation Name Value Range Interpretation Description Data Sup porting Code Source(s) Document(s ) Echo 2D [id number] [facility] <td> 11/24/2019 [facility] M-Mode [id number] 09:13</td><td> [facility] [id number] Echo 2D M-Mode Health Care (TTE) Non-Invasive Complete (TTE) [facility] Cardiology </td><td> Laboratory [id number] Advanced
Physician [facility] Services,
[id number] [place]
[address] Phone [phone] Non-Invasive Adult
Echocardiogram Cardiology Report Name:
Sherita REA
Study Advanced Date:
11/24/2019 Physician 09:13 AM Services,
BP: 111/82 [address] : Road 1955
[place], [place] Gender:
Male Age: 64 5989 yrs
Phone [phone] Height: 74 in
Account [phone] Fax Number:
[phone] Weight: 232 lb
BSA: 2.3 m2 Adult Patient Echocardiogram Location: CDU Report Reason For
Study: SYNCOPE Name: & COLLAPSE TRANNenita CORONADO Physician: Leland MARIE, Date: 11/24/2019 Performed By: 09:13 AM Kody
EDIE Seaman Interpretation BP: Summary Study 111/82 mmHg quality is
poor. The : left ventricle 1955 is normal in size. Upper Gender: normal left Male ventricular
Age: wall thickness. 64 yrs Left ventricular Height: 74 systolic in function is
normal. Left Account Number: ventricular [id number] ejection fraction is Weight: 232 lb 55%. No
obvious BSA: 2.3 m2 regional wall motion
abnormalities Patient noted. Grade Location: CDU I diastolic
dysfunction, Reason For consistent with Study: SYNCOPE abnormal LV & COLLAPSE relaxation. The right

ventricle is Ordering normal in size. Physician: The right CYNTHIA, ventricular BINYAMIN systolic
function is Performed By: normal. There Gates, is no Urszula, RCS pericardial effusion.

ICD-10 Interpretation Syncope and Summary collapse - R55.
Procedure Study quality A complete is poor. two-dimensional
transthoracic The left echocardiogram ventricle is was performed normal in size. (2D, M-mode, spectral and
Upper color flow normal left Doppler). ventricular (06651). Study wall thickness. quality is poor. A
Left Definity ventricular contrast systolic injection was function is performed to normal. opacify the
left ventricle. Left Left ventricular Ventricle The ejection left ventricle fraction is is normal in 55%. size. Upper
No normal left obvious ventricular regional wall wall motion thickness. Left abnormalities ventricular noted. systolic
function is Grade I normal. Left diastolic ventricular dysfunction, ejection consistent with fraction is abnormal LV 55%. No obvious relaxation. regional wall
motion The right abnormalities ventricle is noted. Grade I normal in size. diastolic dysfunction,
The consistent with right abnormal LV ventricular relaxation. systolic Right function is Ventricle The normal. right ventricle
is normal in There is no size. The right pericardial ventricular effusion. systolic

function is ICD-10 normal.
Left Atrium Syncope and Indexed left collapse - R55. atrial volume is normal.

Right Atrium Procedure Normal right
atrial size. A complete Aortic Valve two-dimensional There is mild transthoracic aortic valve echocardiogram calcification. was performed There is no (2D, aortic
stenosis. No M-mode, aortic spectral and regurgitation. color flow Mitral Doppler). Valve Normal (32884). Study thickness quality is mitral valve poor. A leaflets. Mild
mitral annular Definity calcification. contrast There is no injection was mitral valve performed to stenosis. opacify the Trivial mitral left ventricle. valve regurgitation.

Tricuspid Left Ventricle Valve Normal
thickness The left tricuspid valve ventricle is leaflets. There normal in size. is no tricuspid Upper normal stenosis. left Trivial ventricular tricuspid valve wall regurgitation.
Pulmonic thickness. Left Valve The ventricular pulmonic valve systolic is not function is visualized. normal. Left There is no ventricular pulmonic valve
stenosis. No ejection significant fraction is pulmonic 55%. No obvious regurgitation. regional wall Aorta The motion aortic root is abnormalities mildly dilated.
The ascending noted. Grade aorta is mildly I diastolic dilated. The dysfunction, visualized area consistent with of aortic arch abnormal LV is normal in
size. relaxation. Pulmonary Artery There

was Right insufficient Ventricle tricuspid
regurgitation The right detected to ventricle is calculate normal in size. pulmonary The right artery systolic ventricular pressure. systolic Venous The
inferior vena function is cava was not normal. visualized

during the Left Atrium exam.
Pericardium Indexed left There is no atrial volume pericardial is normal. effusion. MMode/2D

Measurements & Right Atrium Calculations
IVSd: 1.1 cm Normal right LVIDd: 5.5 cm atrial size. LV mass(C)d: 256.9

grams LVIDs: Aortic Valve 3.8 cm
LV There is mild mass(C)dI: aortic valve 111.1 grams/m2 calcification. LVPWd: 1.1 cm There is no aortic stenosis. No
aortic __ Ao root regurgitation. diam: Asc Aorta diam: 4.1

cm Left Mitral Valve atrial volume
(2c): 3.8 cm Normal Ao thickness arch diam: 2.5 mitral valve cm 21.3 leaflets. Mild ml LA mitral annular dimension: calcification.
Left There is no atrial volume mitral valve (4c): 3.6 cm stenosis. Trivial mitral valve 28.8 ml regurgitation.

Tricuspid Valve
_ RA area Normal (4c): Left thickness atrial volume tricuspid valve index Left leaflets. There atrial volume is no tricuspid index (4c): stenosis. 17.1 cm2
(2c): 9.2 Trivial ml/m2 tricuspid valve 12.5 ml/m2 regurgitation. Doppler Measurements &

Calculations Pulmonic MV E max jordan: Valve 69.4 cm/sec MV
The dec time: 0.27 pulmonic valve sec Lat E' is not jordan: 7.7 cm/sec visualized. MV A max jordan: There is no 87.3 cm/sec pulmonic valve stenosis.
No significant pulmonic _ Med E' regurgitation. jordan: 6.4 cm/sec E/E'

Lateral: 9.0 Aorta AV v max:
The 184.6 cm/sec aortic root is E/E' Medial: mildly dilated. 10.8 AV The ascending max P.6 aorta is mildly mmHg dilated.
The visualized area of aortic arch is normal _ LVOT max in size. P.6 mmHg

PA max P.8 Pulmonary mmHg TR v Artery max: 138.0
cm/sec LVOT v There was max: 138.2 insufficient cm/sec LVOT tricuspid VTI: 23.0 cm regurgitation detected to calculate
pulmonary _ RV S artery systolic jordan: 15.2 pressure. cm/sec E/E'

Average: 9.9 Venous TR max
gradient: 7.6 The inferior mmHg vena cava was not visualized during the exam.

Pericardium _
Reading There is no Physician: pericardial Hannah Cordova effusion. 11/24/2019 10:48 AM

MMode/2D Measurements & Calculations
IVSd: 1.1 cm LVIDd: 5.5 cm LV mass(C)d: 256.9 grams
LVIDs: 3.8 cm LV mass(C)dI: 111.1 grams/m2
LVPWd: 1.1 cm
_
Ao root diam: Asc Aorta diam: 4.1 cm Left atrial volume (2c):
3.8 cm Ao arch diam: 2.5 cm 21.3 ml
LA dimension: Left atrial volume (4c):
3.6 cm 28.8 ml

_
RA area (4c): Left atrial volume index Left atrial volume index (4c):

17.1 cm2 (2c): 9.2 ml/m2 12.5 ml/m2

Doppler Measurements & Calculations
MV E max jordan: 69.4 cm/sec MV dec time: 0.27 sec Lat E' jordan: 7.7 cm/sec
MV A max jordan: 87.3 cm/sec
_

Med E' jordan: 6.4 cm/sec E/E' Lateral: 9.0 AV v max: 184.6 cm/sec
E/E' Medial: 10.8 AV max P.6 mmHg
_

LVOT max P.6 mmHg PA max P.8 mmHg TR v max: 138.0 cm/sec
LVOT v max: 138.2 cm/sec
LVOT VTI: 23.0 cm
_

RV S jordan: 15.2 cm/sec E/E' Average: 9.9 TR max gradient: 7.6 mmHg

_

Reading Physician:
MD Hannah Cordova 11/24/2019 10:48 AM

</td> ID Date Data Source [id number] 09/26/2019 01:35:00 AM EST [facility] [id number] Corporation Name Value Range Interpretation Description Data Sup porting Code Source(s) Document(s ) Erythrocytes 4.64 m/mm3 4.70-6 <td> 09/26/2019 Zhao hernandez [#/volume] in .10 01:35</td><td> [facility] Blood m/mm3 RBC Health Care </td><td><sai Corporation raph styleCode="Bold "> 4.64 L </paragraph>
(4.70-6.10) m/mm3 </td> Leukocytes 5.6 k/mm3 4.8-10 <td> 09/26/2019 [facility] [#/volume] in .8 01:35</td><td> [facility] Blood by k/mm3 WBC </td><td> Health Care Automated Corporation count 5.6
(4.8-10.8) k/mm3 </td> Hematocrit 41.0 % 40.8-4 <td> 09/26/2019 [facility] [Volume 6.9 % 01:35</td><td> [facility] Fraction] of HCT </td><td> Health Care Blood by Corporation Automated 41.0 count
(40.8-46.9) % </td> Erythrocyte 88.4 fL 80.0-9 <td> 09/26/2019 [facility] mean 4.0 fL 01:35</td><td> [facility] corpuscular MCV </td><td> Health Care volume Corporation [Entitic 88.4 volume] by Automated
count (80.0-94.0) fL </td> Erythrocyte 16.7 % 11.5-1 <td> 09/26/2019 [facility] distribution 4.5 % 01:35</td><td> County width [Entitic RDW Health Care volume] by </td><td><Kalibrr Automated raph count styleCode="Bold "> 16.7 H </paragraph>
(11.5-14.5) % </td> Erythrocyte 30.7 % 32.0-3 <td> 09/26/2019 [facility] mean 6.0 % 01:35</td><td> [facility] corpuscular [facility] Health Care hemoglobin </td><td><Kalibrr concentration raph [Mass/volume] styleCode="Bold in Blood from "> Fetus by 30.7 Automated L count </paragraph>
(32.0-36.0) % </td> Erythrocyte 27.2 pg 27.0-3 <td> 09/26/2019 [facility] mean 1.5 pg 01:35</td><td> [facility] corpuscular MCH </td><td> Health Care hemoglobin Corporation [Entitic mass] 27.2 by Automated count
(27.0-31.5) pg </td> Hemoglobin 12.6 g/dL 14.0-1 <td> 09/26/2019 [facility] [Mass/volume] 8.0 01:35</td><td> County in Blood g/dL [facility] Care </td><td><Kalibrr raph styleCode="Bold "> 12.6 L </paragraph>
(14.0-18.0) g/dL </td> Monocytes/Leuk 16.3 % 0.0-11 <td> 09/23/2019 [facility] er ocytes [Pure .0 % 01:46</td><td> County number Monocytes. Health Care fraction] in </td><td><Kalibrr Blood by raph Automated styleCode="Bold count "> 16.3 H </paragraph>
(0.0-11.0) % </td> Basophils 0.6 % 0.0-2. <td> 09/23/2019 [facility] [#/volume] in 0 % 01:46</td><td> [facility] Blood by Basophils Health Care Automated </td><td> Corporation count 0.6
(0.0-2.0) % </td> Lymphocytes 24.6 % 16.0-5 <td> 09/23/2019 [facility] [#/volume] in 0.0 % 01:46</td><td> [facility] Blood by Lymphocytes Health Care Automated </td><td> Corporation count 24.6
(16.0-50.0) % </td> Platelet mean 12.9 fL 9.8-12 <td> 09/26/2019 [facility] r volume .8 fL 01:35</td><td> [facility] [Entitic MPV Health Care volume] in </td><td><sai [employer] Blood by raph Automated styleCode="Bold count "> 12.9 H </paragraph>
(9.8-12.8) fL </td> Platelets 126 k/mm3 160-41 <td> 09/26/2019 [facility] [#/volume] in 0 01:35</td><td> [facility] Blood by k/mm3 Platelet Count Health Care Automated </td><td><sai [facility] [employer] [facility] count raph styleCode="Bold "> 126 L </paragraph>
(160-410) k/mm3 </td> Basophils+Eosi 1.1 % 0.0-5. <td> 09/23/2019 [facility] er nophils+Monocy 0 % 01:46</td><td> [facility] anthony [#/volume] Eosinophils Health Care in Blood by </td><td> [facility] [employer] [facility] Automated count 1.1
(0.0-5.0) % </td> Neutrophils 56.8 % 34.0-7 <td> 09/23/2019 [facility] [#] in Body 6.0 % 01:46</td><td> [facility] fluid by Neutrophils Health Care Manual count </td><td> Corporation 56.8
(34.0-76.0) % </td> Schistocytes Occasional <td> 09/18/2019 [facility] r [Presence] in 19:10</td><td> [facility] Blood by Light Schistocytes Health Care microscopy </td><td> [facility] [employer] [facility] Occasional
</td> Anisocytosis Slight <td> 09/23/2019 [facility] [Presence] in 01:46</td><td> [facility] Blood by Light Anisocytosis Health Care microscopy </td><td> [facility] [employer] [facility] Slight
</td> Polychromasia Slight <td> 09/23/2019 [facility] r [Presence] in 01:46</td><td> [facility] Blood by Light Polychromasia Health Care microscopy </td><td> [facility] [employer] Slight
</td> Ovalocytes Few <td> 09/22/2019 [facility] [Presence] in 03:04</td><td> [facility] Blood by Light Ovalocytes Health Care microscopy </td><td> [facility] [employer] Few
</td> Immature 0.6 % 0.0-0. <td> 09/23/2019 [facility] granulocytes/1 5 % 01:46</td><td> [facility] 00 leukocytes IG% Health Care in Blood by </td><td>[facility] Automated raph count styleCode="Bold "> 0.6 H </paragraph>
(0.0-0.5) %
The IG fraction represents metamyelocytes, myelocytes and/or
promyelocytes and is only reported as part of the automated
differential when found at a percentage of less than 6.
If higher than 6%, a manual differential will be performed.

(0.0-0.5) % </td> Chloride 105 mEq/L 98-107 <td> 09/26/2019 [facility] [Moles/volume] mEq/L 11:50</td><td> County in Serum or Chloride Health Care Plasma </td><td> [facility] [employer] 105
(98-107) mEq/L </td> Urea nitrogen 10 mg/dL 6-22 <td> 09/26/2019 [facility] r [Mass/volume] mg/dL 11:50</td><td> County in Blood BUN </td><td> [facility] Corporation 10
(6-22) mg/dL </td> Glucose 247 mg/dL 70-105 <td> 09/26/2019 [facility] [Mass/volume] mg/dL 11:50</td><td> County in Blood Glucose-Serum Health Care </td><td><Kalibrr raph styleCode="Bold "> 247 H </paragraph>
(70-105) mg/dL </td> Carbon 21 mEq/L 22-30 <td> 09/26/2019 [facility] dioxide, total mEq/L 11:50</td><td> County [Moles/volume] CO2 Health Care in Serum or </td><td><Kalibrr Plasma raph styleCode="Bold "> 21 L </paragraph>
(22-30) mEq/L </td> Sodium 136 mEq/L 135-14 <td> 09/26/2019 [facility] [Moles/volume] 5 11:50</td><td> County in Serum or mEq/L Sodium-Serum Health Care Plasma </td><td> [facility] [employer] [facility] 136
(135-145) mEq/L </td> Potassium 4.1 mEq/L 3.5-5. <td> 09/26/2019 [facility] [Moles/volume] 1 11:50</td><td> County in Serum or mEq/L Potassium-Serum Health Care Plasma </td><td> [facility] [employer] [facility] 4.1
(3.5-5.1) mEq/L </td> Albumin 3.3 g/dL 3.4-4. <td> 09/17/2019 [facility] [Mass/volume] 8 g/dL 07:40</td><td> County in Serum or Albumin Health Care Plasma </td><td><Kalibrr raph styleCode="Bold "> 3.3 L </paragraph>
(3.4-4.8) g/dL </td> Bilirubin.tota 0.8 mg/dL 0.2-1. <td> 09/17/2019 [facility] er l 3 07:40</td><td> [facility] [Mass/volume] mg/dL Bilirubin - Health Care in Blood Total [facility] [employer] </td><td> 0.8
(0.2-1.3) mg/dL </td> Aspartate 53 U/L 4-35 <td> 09/17/2019 [facility] aminotransfera U/L 07:40</td><td> [facility] se [Enzymatic AST (SGOT) Health Care activity/volum </td><td><sai Corporati on e] in Serum or raph Plasma styleCode="Bold "> 53 H </paragraph>
(4-35) U/L </td> Creatinine 1.03 mg/dL 0.72-1 <td> 09/26/2019 [facility] [Moles/volume] .25 11:50</td><td> County in Serum or mg/dL Creatinine. Health Care Plasma </td><td> [facility] [employer] [facility] 1.03
(0.72-1.25) mg/dL </td> Proteins - 7.3 g/dL 6.4-8. <td> 09/17/2019 [facility] Total 3 g/dL 07:40</td><td> [facility] Proteins - Health Care Total [facility] [employer] </td><td> 7.3
(6.4-8.3) g/dL </td> Alanine 20 U/L 6-55 <td> 09/17/2019 [facility] aminotransfera U/L 07:40</td><td> [facility] se [Enzymatic ALT (SGPT) Health Care activity/volum </td><td> Corporation e] in Serum or Plasma 20
(6-55) U/L </td> Icteric index Not Icteric <td> 09/26/2019 [facility] ter of Serum or 11:50</td><td> County Plasma Icteric Index Health Care </td><td> [facility] [employer] Not Icteric
</td> Hemolysis No <td> 09/26/2019 [facility] index of Serum Hemolysis 11:50</td><td> County or Plasma Hemolysis Index Health Care </td><td> [facility] [employer] No Hemolysis
</td> Anion gap in 10 mEq/L 7-13 <td> 09/26/2019 [facility] Serum or mEq/L 11:50</td><td> [facility] Plasma Anion Gap [facility] </td><td> [facility] 10
(7-13) mEq/L </td> Globulin 4.0 gm/dL 2.9-4. <td> 09/17/2019 [facility] [Mass/volume] 0 07:40</td><td> County in Serum gm/dL Globulin [facility] </td><td> [facility] 4.0
(2.9-4.0) gm/dL </td> Lipemic index No Lipemia <td> 09/26/2019 [facility] er of Serum or 11:50</td><td> [facility] Plasma Lipemia Index [facility] </td><td> [facility] [employer] [facility] No Lipemia
</td> Calcium 10.1 mg/dL 8.6-10 <td> 09/26/2019 [facility] [Mass/volume] .2 11:50</td><td> County in Blood mg/dL Calcium [facility] </td><td> [facility] [employer] [facility] 10.1
(8.6-10.2) mg/dL </td> Glucose 235 mg/dL 70-105 <td> 09/26/2019 [facility] [Mass/volume] mg/dL 12:07</td><td> County in Capillary Glucose - [facility] blood by Finger Stick [facility] Glucometer </td><td><sai raph styleCode="Bold "> 235 H </paragraph>
(70-105) mg/dL </td> Magnesium 1.8 mg/dL 1.6-2. <td> 09/26/2019 [facility] [Mass/volume] 6 01:35</td><td> County in Serum or mg/dL Magnesium Level [facility] Plasma </td><td> [facility] [employer] [facility] 1.8
(1.6-2.6) mg/dL </td> Amylase 83 U/L 22-100 <td> 09/20/2019 [facility] [Enzymatic U/L 02:21</td><td> County activity/volum Amylase Level Health Care e] in Serum or </td><td> [facility] Plasma 83
(22-100) U/L </td> aPTT panel - 29.1 secs 25.0-3 <td> 09/24/2019 [facility] Platelet poor 2.0 16:27</td><td> [facility] plasma secs Partial Health Care Thromboplastin [facility] Time </td><td> 29.1
(25.0-32.0) secs
Sample Integrity Confirmed
Note Significant Change in Values

(25.0-32.0) secs </td> Phosphate 3.3 mg/dL 2.3-4. <td> 09/26/2019 [facility] [Mass/volume] 7 01:35</td><td> [facility] in Serum or mg/dL Inorganic Health Care Plasma Phosphorus [facility] </td><td> 3.3
(2.3-4.7) mg/dL </td> Prothrombin 11.3 secs 9.8-12 <td> 09/22/2019 [facility] time (PT) .0 14:55</td><td> [facility] secs Prothrombin Health Care Time. [facility] </td><td> 11.3
(9.8-12.0) secs </td> ID Date Data Source [id number] 09/21/2019 05:45:00 AM EST [facility] [id number] Corporation Name Value Range Interpretation Description Data Sup porting Code Source(s) Document(s ) Chest (PACSIMAGE <td> [facility] Portable 09/21/2019 [facility] ) Final 05:45</td><td> Care Result Chest Portable [facility] [employer] [facility] Name: </td><td><rory Knapp MRN: styleCode="Janna [id number] Sex: M lics">(PACSIMA : GE 1955 Location: M )</paragraph>< Admitting br/>
Physician: Final Result THALIA BAILEY Requesting

Physician: Name: RAFAEL AYALA TRANCYNGER, Exam: REGLA CHEST PORTABLE
09/21/2019 06:31 Sex: M DATE OF
EXAMINATION: : 09/21/2019 6:31 1955 AM DATE OF Location: M DICTATION:
09/21/2019 Admitting 10:27 AM Physician: CLINICAL THALIA BAILEY INDICATION:
Fall related Requesting trauma, rule Physician: out effusion RAFAELJES AYALA COMPARISON: 07/02/2011

TECHNIQUE: A Exam: CHEST single frontal PORTABLE portable view 09/21/2019 of the chest 06:31 was obtained..

<br/ INTERPRETATION > DATE OF : Disc EXAMINATION: arthroplasty 09/21/2019 6:31 within the AM cervical spine
DATE partially OF DICTATION: imaged. 09/21/2019 Patient is 10:27 AM status post median

sternotomy, CLINICAL with INDICATION: interrupted Fall related sternal wires trauma, rule present. The out effusion cardiac silhouette is

not enlarged. COMPARISON: Left lower 07/02/2011 lobe airspace opacity

present. The TECHNIQUE: A lateral single frontal costophrenic portable view angles are of the chest sharp. There was obtained.. is no pneumothorax.

INTERPRETATION IMPRESSION: : Disc No displaced arthroplasty fracture or within the pneumothorax. cervical spine Left lower partially lobe airspace
opacity, imaged. representing Patient is atelectasis or status post pneumonia. median sternotomy, Resident with Radiologist: interrupted Attending
Radiologist: sternal Sanya wires present. Miguel The cardiac MD silhouette is Finalizing not enlarged. Radiologist: Sanya
Left [place] lower lobe MD airspace Transcribed opacity Date: present. The 09/21/2019 lateral 10:27 costophrenic Finalized
Date: angles are 09/21/2019 sharp. There 10:28 is no pneumothorax.

IMPRESSION:
No displaced fracture or pneumothorax.

Left lower lobe airspace opacity, representing atelectasis or
pneumonia.

<br/ >

Resident Radiologist:
Attending Radiologist: Sanya Rivera MD
Finalizing Radiologist: Sanya Rivera MD
Transcribed Date: 09/21/2019 10:27
Finalized Date: 09/21/2019 10:28

</td > ID Date Data Source [id number] 09/17/2019 08:40:00 AM EDT [facility] [id number] Corporation Name Value Range Interpretation Description Data Source(s ) Supporting Code Document(s ) ABO-Rh Type AB POS <td> [facility] 09/17/2019 [facility] 07:40</td><td> Care ABO-Rh Type Corporation </td><td> AB POS
</td> Specimen 09/20/20 <td> [facility] expiration 19 23:59 09/17/2019 [facility] date of Blood 07:40</td><td> Care Specimen Corporation Expiration Date </td><td> 09/20/2019 23:59
</td> Antibody NEG <td> [facility] Screen 09/17/2019 [facility] 07:40</td><td> Care Antibody Corporation Screen </td><td> NEG
</td> Procedure Vital Signs ID Date Data Source UNK Name Value Range Interpretation Code Description Data Source(s) Diastolic blood 63 {} Normal (applies to 63 {} [place] pressure non-numeric results) [facility] Corpor[facility] on Systolic blood 127 {} Normal (applies to 127 {} [place] pressure non-numeric results) [facility] ty [facility] Corpor[facility] on First Respiration 17.0000 {} Normal (applies to 17.0000 {} [facility] rate Set non-numeric results) [facility] ty [facility] Corpor[facility] on Heart rate 84.0000 {} Normal (applies to 84.0000 {} [place] non-numeric results) [facility] on Body temperature 97.8000 {} Normal (applies to 97.8000 {} [facility] non-numeric results) [facility] ty [facility] Corpor[facility] on wt - obtain Normal (applies to {} [facility] [place] non-numeric results) [facility] ty [facility] on weight - kg 95.5000 {} Normal (applies to 95.5000 {} [place] non-numeric results) [facility] ty [facility] Corpor[facility] on Diastolic blood 94 {} Normal (applies to 94 {} [place] pressure non-numeric results) Coun ty [facility] on Systolic blood 151 {} Normal (applies to 151 {} [place] pressure non-numeric results) Coun ty [facility] Corporati on First Respiration 16.0000 {} Normal (applies to 16.0000 {} [facility] rate Set non-numeric results) Coun ty [facility] Corpor[facility] on Heart rate 89.0000 {} Normal (applies to 89.0000 {} [place] non-numeric results) Coun ty [facility] Corpor[facility] on Body temperature 97.1000 {} Normal (applies to 97.1000 {} [facility] non-numeric results) Coun ty [facility] Corpor[facility] on Diastolic blood 83 {} Normal (applies to 83 {} [place] pressure non-numeric results) [facility] ty [facility] Corpor[facility] on Systolic blood 147 {} Normal (applies to 147 {} [place] pressure non-numeric results) Coun ty [facility] Corporati on First Respiration 16.0000 {} Normal (applies to 16.0000 {} [facility] rate Set non-numeric results) Coun ty [facility] Corpor[facility] on Heart rate 76.0000 {} Normal (applies to 76.0000 {} [place] non-numeric results) [facility] ty [facility] on Body temperature 97.4000 {} Normal (applies to 97.4000 {} [facility] non-numeric results) Coun ty [facility] Corpor[facility] on wt - obtain Normal (applies to {} [facility] [place] non-numeric results) [facility] ty [facility] Corpor[facility] on weight - kg 105.0000 {} Normal (applies to 105.0000 {} [place] non-numeric results) [facility] ty [facility] Corpor[facility] on Diastolic blood 84 {} Normal (applies to 84 {} [place] pressure non-numeric results) Coun ty [facility] Corpor[facility] on Systolic blood 124 {} Normal (applies to 124 {} [place] pressure non-numeric results) Coun ty [facility] Corporati on First Respiration 18.0000 {} Normal (applies to 18.0000 {} [facility] rate Set non-numeric results) Coun ty [facility] Corpor[facility] on Heart rate 67.0000 {} Normal (applies to 67.0000 {} [place] non-numeric results) Coun ty [facility] Corpor[facility] on Body temperature 97.6000 {} Normal (applies to 97.6000 {} [facility] non-numeric results) Coun ty [facility] Corporati on Diastolic blood 89 {} Normal (applies to 89 {} [place] pressure non-numeric results) Coun ty [facility] Corpor[facility] on Systolic blood 129 {} Normal (applies to 129 {} [place] pressure non-numeric results) Coun ty [facility] Corporati on First Respiration 18.0000 {} Normal (applies to 18.0000 {} [facility] rate Set non-numeric results) Coun ty [facility] Corpor[facility] on Heart rate 68.0000 {} Normal (applies to 68.0000 {} [facility] [place] non-numeric results) [facility] ty [facility] Corpor[facility] on Body temperature 96.9000 {} Normal (applies to 96.9000 {} [facility] non-numeric results) Coun ty [facility] Corpor[facility] on wt - obtain Normal (applies to {} [facility] [place] non-numeric results) Coun ty [facility] Corpor[facility] on weight - kg 105.6000 {} Normal (applies to 105.6000 {} [place] non-numeric results) Coun ty [facility] Corpor[facility] on Diastolic blood 77 {} Normal (applies to 77 {} [place] pressure non-numeric results) Coun ty [facility] Corpor[facility] on Systolic blood 144 {} Normal (applies to 144 {} [place] pressure non-numeric results) Coun ty [facility] Corporati on First Respiration 24.0000 {} Normal (applies to 24.0000 {} [facility] rate Set non-numeric results) Coun ty [facility] Corporati on Heart rate 57.0000 {} Normal (applies to 57.0000 {} [facility] [facility] non-numeric results) Coun ty [facility] Corpor[facility] on Body temperature 98.8000 {} Normal (applies to 98.8000 {} [facility] non-numeric results) Coun ty [facility] Corporati on Patient Treatment Plan of Care Planned Activity Planned Date Details Description Data Source (s) Andrey Beckwithazepam) I 08/11/2020 11:59:22 [facility] EDT Health Care Cor poration Potassium Chloride 1 08/11/2020 11:59:14 [facility] EDT Health Care Cor poration Zofran 4mg/2mL (Onda 08/11/2020 10:28:39 [facility] EDT [facility] Care Cor poration Libriium (Chlordiaze 08/11/2020 10:28:31 [facility] EDT Health Care Cor poration Lasix (Furosemide) 08/11/2020 10:28:10 [facility] EDT Health Care Cor poration 0.9% NaCl IV 08/11/2020 10:28:07 [facility] EDT Health Care Cor poration Ativan (Lorazepam) I 11/24/2019 01:23:38 [facility] EST Health Care Cor poration
[2020-08-25] MEDS ORDERED: LORazepam 0.5 MG TABLET PO ONE (22:20)
--- NOTE | 2020-08-25 22:25 | PDOC ---
Documentation entered by Joya Russo SCRIBE, acting as scribe for Galina Randolph DO. Galina Randloph DO: This documentation has been prepared by the ruddy, Joya Russo SCRIBE, under my direction and personally reviewed by me in its entirety. I confirm that the documentation accurately reflects all work, treatment, procedures, and medical decision making performed by me. Attending Attestation - Resident Resident Name: Nelsy Light - ED Attending Attestation I have performed the following: I have examined & evaluated the patient, The case was reviewed & discussed with the resident, I agree w/resident's findings & plan, Exceptions are as noted - HPI HPI: 08/25/20 20:57 Patient is a 65 year old male with a significant past medical history of alcohol abuse and diabetes who presents to the ED with a head laceration. Patient denies: any other related symptoms Allergies: gabapentin, hydromorphone HCl, and solifenacin - Physicial Exam PE: 08/25/20 22:17 Gen: aaox3, intoxicated heent: EOMI, PERRL, MMM head: 1.5cm lac without active bleedingg to the R posterior aspect of the head neck: no midline ttp back: no midline ttp t/l spine, ambulatory with a steady gait heart: +s1s2 reg lungs: cta b/l abd: soft, nt/nd +bs ext: no c/c/e neuro: cn ii-xii grossly intact, no focal deficits - Medical Decision Making 08/25/20 22:20 a/p: 65yo male with etoh abuse who drank to much, passed out and fell hitting his head -no neck pain -no cp/sob -no palpitations -states he drank too much -hx [facility], states he is not ready to go back to [facility] at this time -will send labs, ekg, head ct, c spine -tetanus -lac repair by the resident 08/26/20 00:[address] imaging pending reads pt has been ambulatory with a steady gait in the ER 08/26/20 02:15 no acute findings on head ct no t spine ttp, given copy of ct report to the patient, no c or t spine ttp Heart Score/ECG Review - ECG Intrepretation Comment:: 08/26/20 00:54 sinus at 72, L axis, pacs, q waves inferior leads which are age indeterminate, no acute st changes Discharge - Discharge Information Problems reviewed: Yes Clinical Impression/Diagnosis: Scalp laceration, Closed head injury, Alcohol intoxication Condition: Fair - Admission No - Follow up/Referral - Patient Discharge Instructions - Post Discharge Activity
[2020-08-25] MEDS ORDERED: LORazepam 0.5 MG TABLET ONE (22:30)
[2020-08-25 22:38] LABS: URINE APPEARANCE CLEAR; URINE BILIRUBIN NEGATIVE (NEGATIVE); URINE COLOR YELLOW; URINE GLUCOSE (UA) NEGATIVE (NEGATIVE); URINE KETONE NEGATIVE (NEGATIVE); URINE LEUK ESTERASE NEGATIVE (NEGATIVE); URINE NITRITE NEGATIVE (NEGATIVE); URINE PROTEIN NEGATIVE (NEGATIVE); URINE UROBILINOGEN 0.2 mg/dL (0.2-1.0)
[2020-08-25 22:40] LABS: BASO % 0.7 % (0-2.0); HEMATOCRIT 35.7 % (35.4-49); LYMPH % 43.1 % (8-40); MCH 28.5 pg (25.7-33.7); MCHC 33.5 g/dl (32.0-35.9); MEAN CELL VOLUME 85.1 fl (80-96); MEAN PLT VOLUME 8.1 fl (7.5-11.1); NEUT % 45.2 % (42.8-82.8); PLATELET COUNT 129 K/MM3 (134-434); RDW 16.4 % (11.9-15.9); WHITE BLOOD COUNT 4.3 K/mm3 (4.0-10.0)
[2020-08-25 22:41] LABS: PHENCYCLIDINE,URINE NEGATIVE ng/ml (CUTOFF=25); URINE BENZODIAZEPINES NEGATIVE ng/ml (CUTOFF=200)
[2020-08-25 23:12] LABS: ALBUMIN 3.2 g/dl (3.4-5.0); ALK PHOS 91 U/L (45-117); ANION GAP 9 MMOL/L (8-16); BILIRUBIN,TOTAL 0.7 mg/dL (0.2-1); BLOOD UREA NITROGEN 3.2 mg/dL (7-18); CALCIUM 8.2 mg/dL (8.5-10.1); CHLORIDE 109 mmol/L (98-107); CO2 26 mmol/L (21-32); CREATININE 0.8 mg/dL (0.55-1.3); GLUCOSE,RANDOM 106 mg/dL (74-106); POTASSIUM 3.4 mmol/L (3.5-5.1); SGOT/AST 20 U/L (15-37); SGPT/ALT 17 U/L (13-61); SODIUM 143 mmol/L (136-145); TOT PROT 7.3 g/dl (6.4-8.2)
[2020-08-25] MEDS ORDERED: POTASSIUM CHLORIDE TABS 20 MEQ TABLET.ER (FP) PO ONE (23:26)
[2020-08-25 23:27] LABS: COCAINE, UR NEGATIVE ng/ml (CUTOFF=300); METHADONE, UR NEGATIVE ng/ml (CUTOFF=300); OPIATES, URI NEGATIVE ng/ml (CUTOFF=300); URINE AMPHETAMINES NEGATIVE ng/ml (CUTOFF=500); URINE BARBITURATES NEGATIVE ng/ml (CUTOFF=200)
[2020-08-25] MEDS ORDERED: LORazepam 1 MG TABLET PO ONE (23:53)
[2020-08-26] MEDS ORDERED: LORazepam 1 MG TABLET ONE (01:15)
[2020-08-26] MEDS ORDERED: POTASSIUM CHLORIDE TABS 20 MEQ TABLET.ER (FP) PO ONE (01:15)
[2020-08-26] MEDS ORDERED: IBUPROFEN 400 MG TABLET (FP) PO ONE ×2 (01:50→01:52)
[2020-08-26 04:01] VITALS: BP 134/86; PULSE 76
--- NOTE | 2020-08-26 13:22 | EKG ---
Test Reason : Blood Pressure : / mmHG Vent. Rate : 072 BPM Atrial Rate : 072 BPM P-R Int : 182 ms QRS Dur : 120 ms QT Int : 464 ms P-R-T Axes : 034 -33 019 degrees QTc Int : 508 ms SINUS RHYTHM WITH PREMATURE ATRIAL COMPLEXES LEFT AXIS DEVIATION NON-SPECIFIC INTRA-VENTRICULAR CONDUCTION DELAY ABNORMAL ECG WHEN COMPARED WITH ECG OF 05-APR-2020 12:34, PREMATURE VENTRICULAR COMPLEXES ARE NO LONGER PRESENT PREMATURE ATRIAL COMPLEXES ARE NOW PRESENT NONSPECIFIC T WAVE ABNORMALITY NO LONGER EVIDENT IN LATERAL LEADS Confirmed by MAGALIS WALTERS MD ([id number]) on 08/26/2020 1:22:07 PM Referred By: Confirmed By:MAGALIS WALTERS MD
== END 2020-08-26 04:02 | disposition home or self-care (01) ==
LOC: JER 20:15
PROC: 3E0234Z Introduction of Serum, Toxoid and Vaccine into Muscle, Percutaneous Approach (ICD-10-PCS; principal; 2020-08-25)
DX: S01.01XA Laceration without foreign body of scalp, initial encounter (principal); S09.90XA Unspecified injury of head, initial encounter; F10.129 Alcohol abuse with intoxication, unspecified
CPT/HCPCS: 36415; 70450-TC; 71046-TC-FY; 72125-TC; 80053; 80307; 81003; 82550; 82962; 83735; 84100; 84484; 85025; 85730; 86850; 86900; 86901; 90715; 93005; 93010; 99285-25

== ENCOUNTER 2020-10-02 05:09 | Emergency (ER) | payer OTHER, BC ==
[2020-10-02 05:33] VITALS: TEMP 98.3; BMI 26.9
[2020-10-02 05:45] LABS: BASO % 0.6 % (0-2.0); EOS % 0.4 % (0-4.5); HEMATOCRIT 34.7 % (35.4-49); HEMOGLOBIN 11.1 GM/dL (11.7-16.9); LYMPH % 25.4 % (8-40); MCH 26.8 pg (25.7-33.7); MCHC 32.1 g/dl (32.0-35.9); MEAN CELL VOLUME 83.4 fl (80-96); MEAN PLT VOLUME 8.6 fl (7.5-11.1); MONO % 12.4 % (3.8-10.2); NEUT % 61.2 % (42.8-82.8); PLATELET COUNT 64 K/MM3 (134-434); RBC 4.16 M/mm3 (4.00-5.60); RDW 17.9 % (11.9-15.9); WHITE BLOOD COUNT 3.3 K/mm3 (4.0-10.0)
[2020-10-02 05:52] LABS: INR 1.12 (0.83-1.09); PROTHROMBIN TIME (PATIENT) 13.7 SEC (9.7-13.0)
[2020-10-02 05:55] LABS: ACTIVATED PTT 31.7 SECONDS (25.2-36.5)
[2020-10-02 06:11] LABS: CHLORIDE 103 mmol/L (98-107); POTASSIUM 3.5 mmol/L (3.5-5.1); SODIUM 137 mmol/L (136-145)
[2020-10-02 06:14] LABS: ANION GAP 7 MMOL/L (8-16); BLOOD UREA NITROGEN 6.8 mg/dL (7-18); CO2 27 mmol/L (21-32); GLUCOSE,RANDOM 224 mg/dL (74-106)
[2020-10-02 06:16] LABS: LIPASE 275 U/L (73-393)
[2020-10-02 06:17] LABS: CREATININE 1.2 mg/dL (0.55-1.3); SGOT/AST 14 U/L (15-37); SGPT/ALT 14 U/L (13-61)
[2020-10-02 06:19] LABS: BILIRUBIN,TOTAL 0.7 mg/dL (0.2-1); TOT PROT 6.8 g/dl (6.4-8.2)
[2020-10-02 06:20] LABS: ALK PHOS 88 U/L (45-117)
[2020-10-02] MEDS ORDERED: LIDOCAINE 5% TOPICAL PATCH TP ONE (06:33)
[2020-10-02] MEDS ORDERED: ACETAMINOPHEN 1000 MG/100 ML VIAL (NON FORMULARY) IVPB ONE (06:33)
[2020-10-02] MEDS ORDERED: LIDOCAINE 5% TOPICAL PATCH ONE (06:36)
[2020-10-02] MEDS ORDERED: ACETAMINOPHEN INJECTION 100 ML IVPB ONE (06:36)
[2020-10-02 07:10] VITALS: BP 121/74; PULSE 84
[2020-10-02] MEDS ORDERED: KETOROLAC TROMETHAMINE 30 MG/1 ML VIAL IVPUSH ONE (07:12)
[2020-10-02] MEDS ORDERED: KETOROLAC TROMETHAMINE 30 MG/1 ML VIAL ONE (07:19)
[2020-10-02] MEDS ORDERED: LIDOCAINE PATCH REMOVAL MC SCH (22:00)
== END 2020-10-02 07:35 | disposition home or self-care (01) ==
LOC: JER 05:09
PROC: 3E0333Z Introduction of Anti-inflammatory into Peripheral Vein, Percutaneous Approach (ICD-10-PCS; principal; 2020-10-02)
PROC: 3E0333Z Introduction of Anti-inflammatory into Peripheral Vein, Percutaneous Approach (ICD-10-PCS; 2020-10-02)
DX: I48.91 Unspecified atrial fibrillation (principal); R07.9 Chest pain, unspecified
CPT/HCPCS: 36415; 71045-TC-FY; 80053; 82550; 83690; 84484; 85025; 85610; 85730; 93005; 93010; 99285-25; J0131

== ENCOUNTER 2020-11-19 04:56 | Inpatient (IN) | payer OTHER, BC ==
[2020-11-19 05:50] LABS: BASO % 1.5 % (0-2.0); EOS % 0.6 % (0-4.5); HEMOGLOBIN 12.1 GM/dL (11.7-16.9); LYMPH % 52.1 % (8-40); MCH 26.1 pg (25.7-33.7); MCHC 32.6 g/dl (32.0-35.9); MEAN PLT VOLUME 8.8 fl (7.5-11.1); MONO % 7.3 % (3.8-10.2); NEUT % 38.5 % (42.8-82.8); PLATELET COUNT 112 K/MM3 (134-434); RBC 4.62 M/mm3 (4.00-5.60); RDW 19.8 % (11.9-15.9); WHITE BLOOD COUNT 4.4 K/mm3 (4.0-10.0)
[2020-11-19 06:00] LABS: INR 1.03 (0.83-1.09); PROTHROMBIN TIME (PATIENT) 12.7 SEC (9.7-13.0)
[2020-11-19 06:02] LABS: ACTIVATED PTT 35.9 SECONDS (25.2-36.5)
[2020-11-19 06:07] LABS: CHLORIDE 106 mmol/L (98-107); SODIUM 142 mmol/L (136-145)
[2020-11-19 06:09] LABS: ALBUMIN 3.5 g/dl (3.4-5.0); ANION GAP 8 MMOL/L (8-16); BLOOD UREA NITROGEN 6.8 mg/dL (7-18); CALCIUM 8.3 mg/dL (8.5-10.1); CO2 27 mmol/L (21-32); GLUCOSE,RANDOM 221 mg/dL (74-106)
[2020-11-19 06:12] LABS: SGPT/ALT 18 U/L (13-61)
[2020-11-19 06:13] LABS: CREATININE 0.9 mg/dL (0.55-1.3); SGOT/AST 41 U/L (15-37)
[2020-11-19 06:14] LABS: BILIRUBIN,TOTAL 0.7 mg/dL (0.2-1); TOT PROT 8.2 g/dl (6.4-8.2)
[2020-11-19 06:15] LABS: ALK PHOS 107 U/L (45-117)
[2020-11-19 06:17] LABS: N-TERMINAL BNP 29.2 pg/ml (5-125)
[2020-11-19] MEDS ORDERED: chlordiazePOXIDE HCL 25 MG CAPSULE PO ONE (07:13)
[2020-11-19] MEDS ORDERED: chlordiazePOXIDE HCL 25 MG CAPSULE ONE ×2 (07:17→10:49)
[2020-11-19] MEDS ORDERED: PANTOPRAZOLE SOD 40 MG SUSPENSION PACKET PO SCH (10:00)
[2020-11-19] MEDS ORDERED: RIVAROXABAN 20 MG TABLET PO SCH (10:00)
[2020-11-19] MEDS ORDERED: FUROSEMIDE 40 MG TABLET (FP) ONE (10:49)
[2020-11-19] MEDS ORDERED: sitaGLIPtin PHOSPHATE 50 MG TABLET ONE (10:49)
[2020-11-19] MEDS ORDERED: THIAMINE HCL 100 MG TABLET (FP) ONE (10:49)
[2020-11-19] MEDS ORDERED: FOLIC ACID 1 MG TABLET (FP) ONE (10:50)
[2020-11-19] MEDS ORDERED: PANTOPRAZOLE 40 MG TABLET ONE (10:53)
[2020-11-19] MEDS: THIAMINE HCL 100 MG TABLET (FP) PO SCH (10:55)
[2020-11-19] MEDS: FUROSEMIDE 20 MG TABLET (FP) PO SCH (10:55)
[2020-11-19] MEDS: chlordiazePOXIDE HCL 25 MG CAPSULE PO SCH ×3 (10:55→22:19)
[2020-11-19] MEDS: FOLIC ACID 1 MG TABLET (FP) PO SCH (10:55)
[2020-11-19] MEDS: NADOLOL 20 MG TABLET (FP) PO SCH (11:09)
[2020-11-19 13:09] VITALS: BMI 29.6
[2020-11-19] MEDS ORDERED: DIPHTH,PERTUSS(ACELL),TET 0.5 ML DISP.SYRIN IM ONE ×2 (14:45→19:00)
[2020-11-19] MEDS: chlordiazePOXIDE HCL 25 MG CAPSULE PO PRN (14:52)
[2020-11-19] MEDS: ACETAMINOPHEN 325 MG TABLET (FP) PO PRN ×2 (16:16→22:19)
[2020-11-19] MEDS: RIVAROXABAN 20 MG TABLET PO SCH (17:18)
[2020-11-19] MEDS: PANTOPRAZOLE 40 MG TABLET PO SCH (22:19)
[2020-11-19] MEDS: INSULIN SLIDING SCALE (NOVOLOG) 1 VIAL SQ SCH (22:52)
[2020-11-20] MEDS: chlordiazePOXIDE HCL 25 MG CAPSULE PO SCH ×4 (05:48→23:43)
[2020-11-20] MEDS: ACETAMINOPHEN 325 MG TABLET (FP) PO PRN ×3 (05:48→22:43)
[2020-11-20] MEDS: INSULIN SLIDING SCALE (NOVOLOG) 1 VIAL SQ SCH ×4 (06:10→21:20)
[2020-11-20] MEDS: FOLIC ACID 1 MG TABLET (FP) PO SCH (09:21)
[2020-11-20] MEDS: FUROSEMIDE 20 MG TABLET (FP) PO SCH (09:21)
[2020-11-20] MEDS: THIAMINE HCL 100 MG TABLET (FP) PO SCH (09:21)
[2020-11-20] MEDS: PANTOPRAZOLE 40 MG TABLET PO SCH ×2 (09:21→21:20)
[2020-11-20] MEDS: NADOLOL 20 MG TABLET (FP) PO SCH (09:22)
[2020-11-20] MEDS ORDERED: PT OWN MED DRAWER 7, Y5N ONE ×2 (09:22→15:32)
[2020-11-20] MEDS ORDERED: dilTIAZem HCL 50 MG/10 ML - 10 ML VIAL IVPUSH ONE (11:27)
[2020-11-20] MEDS: dilTIAZem HCL 30 MG TABLET PO SCH ×2 (13:08→21:20)
[2020-11-20] MEDS ORDERED: NADOLOL 20 MG TABLET (FP) PO ONE (15:15)
[2020-11-20] MEDS: RIVAROXABAN 20 MG TABLET PO SCH (17:47)
[2020-11-20] MEDS: chlordiazePOXIDE HCL 25 MG CAPSULE PO PRN (21:19)
[2020-11-21] MEDS: ACETAMINOPHEN 325 MG TABLET (FP) PO PRN ×3 (05:07→19:13)
[2020-11-21] MEDS: dilTIAZem HCL 30 MG TABLET PO SCH ×3 (05:08→22:12)
[2020-11-21] MEDS: chlordiazePOXIDE HCL 25 MG CAPSULE PO SCH ×4 (05:08→22:11)
[2020-11-21] MEDS: INSULIN SLIDING SCALE (NOVOLOG) 1 VIAL SQ SCH ×4 (06:02→22:10)
[2020-11-21] MEDS ORDERED: PT OWN MED DRAWER 7, Y5N ONE ×2 (09:13→21:59)
[2020-11-21] MEDS: THIAMINE HCL 100 MG TABLET (FP) PO SCH (09:30)
[2020-11-21] MEDS: FOLIC ACID 1 MG TABLET (FP) PO SCH (09:30)
[2020-11-21] MEDS: PANTOPRAZOLE 40 MG TABLET PO SCH ×2 (09:30→22:11)
[2020-11-21] MEDS: FUROSEMIDE 20 MG TABLET (FP) PO SCH (09:30)
[2020-11-21] MEDS ORDERED: NADOLOL 40 MG TABLET (FP) PO SCH (10:00)
[2020-11-21] MEDS: RIVAROXABAN 20 MG TABLET PO SCH (18:11)
[2020-11-21] MEDS: ZOLPIDEM TARTRATE 5 MG TABLET PO PRN (22:11)
[2020-11-21] MEDS: NADOLOL 20 MG TABLET (FP) PO SCH (22:11)
[2020-11-22] MEDS ORDERED: chlordiazePOXIDE HCL 10 MG CAPSULE PO PRN
[2020-11-22] MEDS: dilTIAZem HCL 30 MG TABLET PO SCH ×3 (06:38→22:36)
[2020-11-22] MEDS: chlordiazePOXIDE HCL 10 MG CAPSULE PO SCH ×4 (06:40→22:36)
[2020-11-22] MEDS: ACETAMINOPHEN 325 MG TABLET (FP) PO PRN ×3 (06:41→22:44)
[2020-11-22] MEDS: INSULIN SLIDING SCALE (NOVOLOG) 1 VIAL SQ SCH ×4 (06:41→22:35)
[2020-11-22] MEDS ORDERED: PT OWN MED DRAWER 7, Y5N ONE ×2 (09:32→22:27)
[2020-11-22] MEDS: NADOLOL 20 MG TABLET (FP) PO SCH ×2 (09:34→22:36)
[2020-11-22] MEDS: FUROSEMIDE 20 MG TABLET (FP) PO SCH (09:35)
[2020-11-22] MEDS: THIAMINE HCL 100 MG TABLET (FP) PO SCH (09:35)
[2020-11-22] MEDS: FOLIC ACID 1 MG TABLET (FP) PO SCH (09:35)
[2020-11-22] MEDS: PANTOPRAZOLE 40 MG TABLET PO SCH ×2 (09:35→22:36)
[2020-11-22] MEDS: RIVAROXABAN 20 MG TABLET PO SCH (17:24)
[2020-11-22] MEDS: ZOLPIDEM TARTRATE 5 MG TABLET PO PRN (22:44)
[2020-11-23] MEDS: chlordiazePOXIDE HCL 10 MG CAPSULE PO SCH ×2 (05:58→17:10)
[2020-11-23] MEDS: INSULIN SLIDING SCALE (NOVOLOG) 1 VIAL SQ SCH ×5 (06:04→21:16)
[2020-11-23] MEDS: dilTIAZem HCL 30 MG TABLET PO SCH ×3 (06:05→21:16)
[2020-11-23] MEDS ORDERED: PT OWN MED DRAWER 7, Y5N ONE ×3 (09:26→21:15)
[2020-11-23] MEDS: FOLIC ACID 1 MG TABLET (FP) PO SCH (09:36)
[2020-11-23] MEDS: THIAMINE HCL 100 MG TABLET (FP) PO SCH (09:36)
[2020-11-23] MEDS: FUROSEMIDE 20 MG TABLET (FP) PO SCH (09:36)
[2020-11-23] MEDS: PANTOPRAZOLE 40 MG TABLET PO SCH ×2 (09:37→21:16)
[2020-11-23] MEDS: NADOLOL 20 MG TABLET (FP) PO SCH ×2 (09:37→21:16)
[2020-11-23] MEDS: INSULIN (LEVEMIR) 100 UNITS/ML UNITS SQ SCH ×2 (12:17→21:17)
[2020-11-23] MEDS: ACETAMINOPHEN 325 MG TABLET (FP) PO PRN ×2 (14:39→22:40)
[2020-11-23] MEDS: RIVAROXABAN 20 MG TABLET PO SCH (17:10)
[2020-11-23 21:01] LABS: BASO % 0.4 % (0-2.0); EOS % 1.2 % (0-4.5); HEMATOCRIT 39.7 % (35.4-49); HEMOGLOBIN 12.8 GM/dL (11.7-16.9); MCH 26.2 pg (25.7-33.7); MCHC 32.3 g/dl (32.0-35.9); MEAN CELL VOLUME 81.1 fl (80-96); MEAN PLT VOLUME 9.3 fl (7.5-11.1); MONO % 9.8 % (3.8-10.2); NEUT % 67.6 % (42.8-82.8); PLATELET COUNT 103 K/MM3 (134-434); RBC 4.89 M/mm3 (4.00-5.60); RDW 19.5 % (11.9-15.9); WHITE BLOOD COUNT 6.1 K/mm3 (4.0-10.0)
[2020-11-23 21:25] LABS: ALBUMIN 3.4 g/dl (3.4-5.0); BLOOD UREA NITROGEN 13.3 mg/dL (7-18); CALCIUM 8.9 mg/dL (8.5-10.1); MAGNESIUM 1.6 mg/dL (1.8-2.4)
[2020-11-23 21:28] LABS: CREATININE 1.2 mg/dL (0.55-1.3)
[2020-11-23 21:30] LABS: BILIRUBIN,TOTAL 0.6 mg/dL (0.2-1)
[2020-11-23] MEDS: ZOLPIDEM TARTRATE 5 MG TABLET PO PRN (22:39)
[2020-11-24] MEDS ORDERED: chlordiazePOXIDE HCL 10 MG CAPSULE PO ONE (05:00)
[2020-11-24] MEDS: dilTIAZem HCL 30 MG TABLET PO SCH (05:58)
[2020-11-24] MEDS: INSULIN (LEVEMIR) 100 UNITS/ML UNITS SQ SCH (07:11)
[2020-11-24] MEDS: INSULIN SLIDING SCALE (NOVOLOG) 1 VIAL SQ SCH ×2 (07:12→11:40)
[2020-11-24 07:14] LABS: BASO % 0.2 % (0-2.0); EOS % 0.9 % (0-4.5); HEMATOCRIT 39.4 % (35.4-49); HEMOGLOBIN 12.9 GM/dL (11.7-16.9); MCH 26.5 pg (25.7-33.7); MCHC 32.7 g/dl (32.0-35.9); MEAN PLT VOLUME 9.4 fl (7.5-11.1); NEUT % 60.9 % (42.8-82.8); PLATELET COUNT 97 K/MM3 (134-434); RBC 4.86 M/mm3 (4.00-5.60); WHITE BLOOD COUNT 6.8 K/mm3 (4.0-10.0)
[2020-11-24 07:25] LABS: ALBUMIN 3.4 g/dl (3.4-5.0); BLOOD UREA NITROGEN 11.7 mg/dL (7-18); CALCIUM 8.8 mg/dL (8.5-10.1)
[2020-11-24 07:26] LABS: MAGNESIUM 1.6 mg/dL (1.8-2.4)
[2020-11-24 07:29] LABS: BILIRUBIN,TOTAL 0.8 mg/dL (0.2-1)
[2020-11-24 07:30] LABS: TOT PROT 7.7 g/dl (6.4-8.2)
[2020-11-24] MEDS ORDERED: MAGNESIUM OXIDE 400 MG TABLET (FP) PO ONE (07:45)
[2020-11-24] MEDS ORDERED: PT OWN MED DRAWER 7, Y5N ONE (10:31)
[2020-11-24] MEDS: PANTOPRAZOLE 40 MG TABLET PO SCH (10:48)
[2020-11-24] MEDS: FOLIC ACID 1 MG TABLET (FP) PO SCH (10:48)
[2020-11-24] MEDS: THIAMINE HCL 100 MG TABLET (FP) PO SCH (10:48)
[2020-11-24] MEDS: NADOLOL 20 MG TABLET (FP) PO SCH (10:48)
[2020-11-24] MEDS: FUROSEMIDE 20 MG TABLET (FP) PO SCH (10:48)
[2020-11-24 14:30] VITALS: BP 99/60; PULSE 84; TEMP 98.9
== END 2020-11-24 16:42 | disposition home or self-care (01) | DRG 897 ==
LOC: JER 04:56 → JERBED 07:54 → J4S 11:45
PROVIDERS: ADMIT Internal Medicine; ATTEND Nurse Practitioner Family
DX: F10.230 Alcohol dependence with withdrawal, uncomplicated (principal); I47.1 Supraventricular tachycardia; D68.2 Hereditary deficiency of other clotting factors; E78.5 Hyperlipidemia, unspecified; R55 Syncope and collapse; Z86.718 Personal history of other venous thrombosis and embolism; Z79.01 Long term (current) use of anticoagulants; Z86.711 Personal history of pulmonary embolism; E11.9 Type 2 diabetes mellitus without complications; R29.6 Repeated falls; I25.10 Atherosclerotic heart disease of native coronary artery without angina pectoris; F10.20 Alcohol dependence, uncomplicated; K70.30 Alcoholic cirrhosis of liver without ascites; Z79.84 Long term (current) use of oral hypoglycemic drugs; I48.0 Paroxysmal atrial fibrillation; D69.6 Thrombocytopenia, unspecified; Z86.73 Personal history of transient ischemic attack (TIA), and cerebral infarction without residual deficits; S01.81XA Laceration without foreign body of other part of head, initial encounter; W19.XXXA Unspecified fall, initial encounter; Y93.89 Activity, other specified; Y92.000 Kitchen of unspecified non-institutional (private) residence as the place of occurrence of the external cause; Y99.8 Other external cause status
CPT/HCPCS: 36415; 70450-TC; 71045-TC-FY; 72125-TC; 80053; 82947; 82962; 83735; 83880; 84484; 85025; 85610; 85730; 90715; 93005; 93010; 97116-GP; 97161-GP; 99285-25; C9803; U0003

== ENCOUNTER 2020-12-08 21:27 | Emergency (ER) | payer OTHER, BC ==
[2020-12-08 21:57] VITALS: BMI 28.2
[2020-12-08] MEDS ORDERED: ACETAMINOPHEN 325 MG TABLET (FP) PO ONE (23:11)
[2020-12-08] MEDS ORDERED: LIDOCAINE HCL 1%, 10 MG/ML (50 mL VIAL) SQ ONE (23:36)
[2020-12-08] MEDS ORDERED: LIDOCAINE 1%/EPI 1:100000 (50 ML MULTI DOSE VIAL) ONE (23:45)
[2020-12-08] MEDS ORDERED: ACETAMINOPHEN 325 MG TABLET (FP) ONE (23:58)
[2020-12-08] MEDS ORDERED: LIDOCAINE HCL 1%, 10 MG/ML (20ML VIAL) ONE (23:58)
[2020-12-09] MEDS ORDERED: CLINDAMYCIN HCL 150 MG CAPSULE (FP) PO ONE (01:41)
[2020-12-09 01:43] VITALS: BP 120/78; PULSE 70; TEMP 98.3
== END 2020-12-09 02:29 | disposition home or self-care (01) ==
LOC: JER 21:27
DX: S81.812A Laceration without foreign body, left lower leg, initial encounter (principal); Z48.02 Encounter for removal of sutures
CPT/HCPCS: 70450-TC; 73590-TC-LT-FY; 99284-25

== ENCOUNTER 2020-12-17 17:35 | Inpatient (IN) | payer OTHER, BC ==
[2020-12-17] MEDS ORDERED: AMPICILLIN NA/SULBACTAM NA 3 GM in SODIUM CHLORIDE 100 ML IVPB ONE (18:21)
[2020-12-17 19:12] LABS: BASO % 0.6 % (0-2.0); EOS % 1.8 % (0-4.5); HEMATOCRIT 34.9 % (35.4-49); HEMOGLOBIN 11.2 GM/dL (11.7-16.9); LYMPH % 28.4 % (8-40); MCH 25.8 pg (25.7-33.7); MEAN CELL VOLUME 80.6 fl (80-96); MEAN PLT VOLUME 10.2 fl (7.5-11.1); MONO % 15.9 % (3.8-10.2); NEUT % 53.3 % (42.8-82.8); PLATELET COUNT 100 K/MM3 (134-434); RBC 4.33 M/mm3 (4.00-5.60); RDW 19.8 % (11.9-15.9); WHITE BLOOD COUNT 4.1 K/mm3 (4.0-10.0)
[2020-12-17 19:20] LABS: INR 1.7 (0.83-1.09); POTASSIUM 4.2 mmol/L (3.5-5.1); PROTHROMBIN TIME (PATIENT) 20.2 SEC (9.7-13.0)
[2020-12-17 19:22] LABS: ACTIVATED PTT 39.7 SECONDS (25.2-36.5); ALBUMIN 3.2 g/dl (3.4-5.0); BLOOD UREA NITROGEN 7.8 mg/dL (7-18); CALCIUM 8.5 mg/dL (8.5-10.1)
[2020-12-17 19:27] LABS: BILIRUBIN,TOTAL 0.5 mg/dL (0.2-1); TOT PROT 7.8 g/dl (6.4-8.2)
[2020-12-17] MEDS ORDERED: VANCOMYCIN 1 GM in D5W (PRE-DOCKED) 1,000 MG/250 ML IVPB ONE (19:41)
[2020-12-17] MEDS ORDERED: VANCOMYCIN 1 GRAM (PRE-DOCKED) 1,000 MG/250 ML BAG IVPB ONE (20:35)
[2020-12-17 21:18] LABS: ERYTHROCYTE SEDIMENTATION RATE 16 mm/hr (0-20)
[2020-12-17] MEDS ORDERED: ACETAMINOPHEN INJECTION 100 ML IVPB ONE (22:10)
[2020-12-17] MEDS: ACETAMINOPHEN 1000 MG/100 ML VIAL (NON FORMULARY) IVPB PRN (22:38)
[2020-12-17] MEDS ORDERED: FUROSEMIDE 20 MG TABLET (FP) PO SCH (23:00)
[2020-12-17] MEDS ORDERED: FUROSEMIDE 40 MG TABLET (FP) ONE (23:21)
[2020-12-18] MEDS ORDERED: PIPERACILLIN/TAZOBACTAM 3.375 GM VIAL IVPB ONE ×3 (01:59→17:13)
[2020-12-18] MEDS ORDERED: DEXTROSE 5%-WATER - 50 ML IVPB ONE ×3 (02:00→17:13)
[2020-12-18] MEDS: PIPERACILLIN/TAZOB 3.375 GM 3.375 GM in DEXTROSE 5%-WATER - 50 ML IVPB SCH ×3 (02:39→17:19)
[2020-12-18 04:51] VITALS: BMI 29.2
[2020-12-18] MEDS: ACETAMINOPHEN 1000 MG/100 ML VIAL (NON FORMULARY) IVPB PRN (05:35)
[2020-12-18] MEDS: INSULIN SLIDING SCALE (NOVOLOG) 1 VIAL SQ SCH ×4 (06:07→21:12)
[2020-12-18] MEDS ORDERED: INSULIN SLIDING SCALE (NOVOLOG) 1 VIAL SQ SCH (07:00)
[2020-12-18 08:36] LABS: INR 1.27 (0.83-1.09); PROTHROMBIN TIME (PATIENT) 15.5 SEC (9.7-13.0)
[2020-12-18 08:38] LABS: BASO % 0.6 % (0-2.0); EOS % 1.4 % (0-4.5); HEMATOCRIT 34.4 % (35.4-49); HEMOGLOBIN 11.2 GM/dL (11.7-16.9); LYMPH % 28.8 % (8-40); MCH 25.8 pg (25.7-33.7); MCHC 32.5 g/dl (32.0-35.9); MEAN CELL VOLUME 79.3 fl (80-96); MEAN PLT VOLUME 8.9 fl (7.5-11.1); MONO % 14.6 % (3.8-10.2); NEUT % 54.6 % (42.8-82.8); PLATELET COUNT 93 K/MM3 (134-434); RBC 4.34 M/mm3 (4.00-5.60); RDW 19.7 % (11.9-15.9); WHITE BLOOD COUNT 3.6 K/mm3 (4.0-10.0)
[2020-12-18 08:39] LABS: ACTIVATED PTT 32.2 SECONDS (25.2-36.5)
[2020-12-18 08:53] LABS: POTASSIUM 3.6 mmol/L (3.5-5.1)
[2020-12-18] MEDS ORDERED: VANCOMYCIN HCL 1,500 MG in DEXTROSE 5%-WATER - 500 ML IVPB SCH (09:00)
[2020-12-18 09:02] LABS: ALBUMIN 2.9 g/dl (3.4-5.0); BILIRUBIN,TOTAL 0.6 mg/dL (0.2-1); BLOOD UREA NITROGEN 8.7 mg/dL (7-18); CALCIUM 8.2 mg/dL (8.5-10.1); MAGNESIUM 1.9 mg/dL (1.8-2.4)
[2020-12-18 09:03] LABS: TOT PROT 6.9 g/dl (6.4-8.2)
[2020-12-18 09:05] LABS: CREATININE 0.9 mg/dL (0.55-1.3)
[2020-12-18] MEDS ORDERED: DOCUSATE SODIUM 100 MG CAPSULE (FP) PO PRN (09:05)
[2020-12-18 09:06] LABS: PHOSPHOROUS 3.3 mg/dL (2.5-4.9)
[2020-12-18] MEDS ORDERED: FUROSEMIDE 20 MG TABLET (FP) PO SCH (09:11)
[2020-12-18] MEDS: PANTOPRAZOLE 40 MG TABLET PO SCH ×2 (09:22→21:06)
[2020-12-18] MEDS: NADOLOL 20 MG TABLET (FP) PO SCH (09:22)
[2020-12-18] MEDS: oxyCODONE HCL 5 MG TABLET PO PRN ×2 (09:23→17:19)
[2020-12-18] MEDS ORDERED: PT OWN MED DRAWER 7, Y5N ONE ×3 (10:34→21:40)
[2020-12-18] MEDS: GENTAMICIN SO4 0.1% TOPICAL OINTMENT 15 GM/TUBE TUBE TP SCH (12:45)
[2020-12-18] MEDS: RIVAROXABAN 20 MG TABLET PO SCH (17:19)
[2020-12-18] MEDS ORDERED: INSULIN (NOVOLOG) ASPART 100 UNITS/ML 10ML VIAL ONE (21:11)
[2020-12-18] MEDS: VANCOMYCIN HCL 1,500 MG in DEXTROSE 5%-WATER - 500 ML IVPB SCH (22:07)
[2020-12-19] MEDS ORDERED: MELATONIN 5 MG TABLETS PO ONE ×2 (00:19→20:30)
[2020-12-19] MEDS: INSULIN SLIDING SCALE (NOVOLOG) 1 VIAL SQ SCH ×4 (06:38→21:29)
[2020-12-19] MEDS: GENTAMICIN SO4 0.1% TOPICAL OINTMENT 15 GM/TUBE TUBE TP SCH ×4 (06:51→21:31)
[2020-12-19] MEDS: oxyCODONE HCL 5 MG TABLET PO PRN ×3 (08:44→21:34)
[2020-12-19 09:26] LABS: BASO % 0.9 % (0-2.0); EOS % 1.5 % (0-4.5); HEMATOCRIT 35.7 % (35.4-49); HEMOGLOBIN 11.7 GM/dL (11.7-16.9); LYMPH % 24.9 % (8-40); MCH 25.9 pg (25.7-33.7); MCHC 32.8 g/dl (32.0-35.9); MEAN PLT VOLUME 9.1 fl (7.5-11.1); MONO % 12.7 % (3.8-10.2); PLATELET COUNT 118 K/MM3 (134-434); RBC 4.52 M/mm3 (4.00-5.60); RDW 19.9 % (11.9-15.9); WHITE BLOOD COUNT 5.1 K/mm3 (4.0-10.0)
[2020-12-19 09:31] LABS: POTASSIUM 3.8 mmol/L (3.5-5.1)
[2020-12-19 09:36] LABS: ALBUMIN 3.1 g/dl (3.4-5.0); BLOOD UREA NITROGEN 8.1 mg/dL (7-18); CALCIUM 8.6 mg/dL (8.5-10.1)
[2020-12-19 09:39] LABS: CREATININE 0.9 mg/dL (0.55-1.3)
[2020-12-19 09:41] LABS: BILIRUBIN,TOTAL 0.7 mg/dL (0.2-1); TOT PROT 7.4 g/dl (6.4-8.2)
[2020-12-19] MEDS ORDERED: PT OWN MED DRAWER 7, Y5N ONE ×2 (10:50→20:41)
[2020-12-19] MEDS: NADOLOL 20 MG TABLET (FP) PO SCH (12:00)
[2020-12-19] MEDS: PANTOPRAZOLE 40 MG TABLET PO SCH ×2 (12:00→21:30)
[2020-12-19] MEDS: VANCOMYCIN HCL 1,500 MG in DEXTROSE 5%-WATER - 500 ML IVPB SCH ×2 (12:02→21:32)
[2020-12-19] MEDS: THIAMINE HCL 100 MG TABLET (FP) PO SCH (13:29)
[2020-12-19] MEDS: MULTIVITAMINS (DAILY MVI) TABLET (FP) PO SCH (13:29)
[2020-12-19] MEDS: FOLIC ACID 1 MG TABLET (FP) PO SCH (13:29)
[2020-12-19] MEDS: RIVAROXABAN 20 MG TABLET PO SCH (17:40)
[2020-12-20] MEDS: INSULIN SLIDING SCALE (NOVOLOG) 1 VIAL SQ SCH ×4 (06:10→22:55)
[2020-12-20 09:23] LABS: BASO % 0.7 % (0-2.0); EOS % 1.6 % (0-4.5); HEMATOCRIT 33.8 % (35.4-49); HEMOGLOBIN 10.8 GM/dL (11.7-16.9); MCH 25.5 pg (25.7-33.7); MEAN CELL VOLUME 79.9 fl (80-96); MONO % 14.1 % (3.8-10.2); NEUT % 50.6 % (42.8-82.8); PLATELET COUNT 101 K/MM3 (134-434); RBC 4.23 M/mm3 (4.00-5.60); RDW 19.8 % (11.9-15.9); WHITE BLOOD COUNT 4.8 K/mm3 (4.0-10.0)
[2020-12-20] MEDS ORDERED: PT OWN MED DRAWER 7, Y5N ONE ×2 (09:44→22:04)
[2020-12-20 09:52] LABS: POTASSIUM 3.8 mmol/L (3.5-5.1)
[2020-12-20] MEDS: VANCOMYCIN HCL 1,500 MG in DEXTROSE 5%-WATER - 500 ML IVPB SCH (09:52)
[2020-12-20] MEDS: FUROSEMIDE 20 MG TABLET (FP) PO SCH (09:52)
[2020-12-20] MEDS: oxyCODONE HCL 5 MG TABLET PO PRN (09:53)
[2020-12-20] MEDS: THIAMINE HCL 100 MG TABLET (FP) PO SCH (09:55)
[2020-12-20] MEDS: NADOLOL 20 MG TABLET (FP) PO SCH (09:55)
[2020-12-20] MEDS: FOLIC ACID 1 MG TABLET (FP) PO SCH (09:55)
[2020-12-20] MEDS: GENTAMICIN SO4 0.1% TOPICAL OINTMENT 15 GM/TUBE TUBE TP SCH ×2 (09:56→22:55)
[2020-12-20] MEDS: PANTOPRAZOLE 40 MG TABLET PO SCH ×2 (09:56→22:56)
[2020-12-20] MEDS: MULTIVITAMINS (DAILY MVI) TABLET (FP) PO SCH (09:56)
[2020-12-20 09:58] LABS: ALBUMIN 2.9 g/dl (3.4-5.0); BLOOD UREA NITROGEN 8.2 mg/dL (7-18)
[2020-12-20 09:59] LABS: CALCIUM 8.7 mg/dL (8.5-10.1); MAGNESIUM 1.7 mg/dL (1.8-2.4)
[2020-12-20] MEDS: PIPERACILLIN/TAZOB 3.375 GM 3.375 GM in DEXTROSE 5%-WATER - 50 ML IVPB SCH (10:02)
[2020-12-20 10:04] LABS: BILIRUBIN,TOTAL 0.7 mg/dL (0.2-1); PHOSPHOROUS 3.9 mg/dL (2.5-4.9)
[2020-12-20 10:05] LABS: TOT PROT 6.7 g/dl (6.4-8.2)
[2020-12-20] MEDS ORDERED: MAGNESIUM 1GM/D5W 100ML - 100 ML IVPB IVPB ONE (13:30)
[2020-12-20] MEDS: RIVAROXABAN 20 MG TABLET PO SCH (17:05)
[2020-12-21] MEDS: oxyCODONE HCL 5 MG TABLET PO PRN (01:20)
[2020-12-21] MEDS: VANCOMYCIN HCL 1,500 MG in DEXTROSE 5%-WATER - 500 ML IVPB SCH ×3 (01:22→21:24)
[2020-12-21] MEDS: INSULIN SLIDING SCALE (NOVOLOG) 1 VIAL SQ SCH ×4 (06:29→22:22)
[2020-12-21 10:15] LABS: BASO % 0.2 % (0-2.0); HEMATOCRIT 34.1 % (35.4-49); HEMOGLOBIN 11.1 GM/dL (11.7-16.9); LYMPH % 22.5 % (8-40); MCH 25.9 pg (25.7-33.7); MCHC 32.5 g/dl (32.0-35.9); MEAN CELL VOLUME 79.6 fl (80-96); MONO % 12.9 % (3.8-10.2); NEUT % 63.4 % (42.8-82.8); PLATELET COUNT 109 K/MM3 (134-434); RBC 4.29 M/mm3 (4.00-5.60); RDW 19.8 % (11.9-15.9); WHITE BLOOD COUNT 5.3 K/mm3 (4.0-10.0)
[2020-12-21] MEDS ORDERED: PT OWN MED DRAWER 7, Y5N ONE ×4 (10:30→23:03)
[2020-12-21] MEDS: FOLIC ACID 1 MG TABLET (FP) PO SCH (10:37)
[2020-12-21] MEDS: NADOLOL 20 MG TABLET (FP) PO SCH (10:37)
[2020-12-21 10:38] LABS: POTASSIUM 3.6 mmol/L (3.5-5.1)
[2020-12-21] MEDS: THIAMINE HCL 100 MG TABLET (FP) PO SCH (10:38)
[2020-12-21] MEDS: MULTIVITAMINS (DAILY MVI) TABLET (FP) PO SCH (10:38)
[2020-12-21] MEDS: PANTOPRAZOLE 40 MG TABLET PO SCH ×2 (10:38→21:25)
[2020-12-21] MEDS: INSULIN (LEVEMIR) 100 UNITS/ML UNITS SQ SCH ×2 (10:38→21:25)
[2020-12-21 10:49] LABS: ALBUMIN 2.9 g/dl (3.4-5.0); BLOOD UREA NITROGEN 10.4 mg/dL (7-18)
[2020-12-21 10:51] LABS: PHOSPHOROUS 3.4 mg/dL (2.5-4.9)
[2020-12-21 10:52] LABS: BILIRUBIN,TOTAL 0.8 mg/dL (0.2-1); TOT PROT 6.9 g/dl (6.4-8.2)
[2020-12-21 10:53] LABS: CALCIUM 8.6 mg/dL (8.5-10.1); MAGNESIUM 1.7 mg/dL (1.8-2.4)
[2020-12-21] MEDS ORDERED: INSULIN (NOVOLOG) ASPART 100 UNITS/ML 10ML VIAL ONE (12:17)
[2020-12-21] MEDS ORDERED: ALBUTEROL SO4 0.083% IH SOL 2.5 MG/3 ML VIAL.NEB. NEB PRN (13:38)
[2020-12-21] MEDS ORDERED: MAGNESIUM SULF 50% (8.12 MEQ/2 ML-1 GM VIAL) IVPB ONE (14:15)
[2020-12-21] MEDS: GENTAMICIN SO4 0.1% TOPICAL OINTMENT 15 GM/TUBE TUBE TP SCH ×2 (14:27→21:25)
[2020-12-21] MEDS ORDERED: INSULIN (LEVEMIR) 100 UNITS/ML UNITS SQ ONE (14:46)
[2020-12-21] MEDS: RIVAROXABAN 20 MG TABLET PO SCH (17:28)
[2020-12-21] MEDS: MELATONIN 5 MG TABLETS PO SCH (21:25)
[2020-12-22] MEDS: ACETAMINOPHEN 325 MG TABLET (FP) PO PRN ×2 (04:41→09:15)
[2020-12-22] MEDS: INSULIN SLIDING SCALE (NOVOLOG) 1 VIAL SQ SCH ×4 (06:10→21:50)
[2020-12-22] MEDS: FUROSEMIDE 20 MG TABLET (FP) PO SCH (09:06)
[2020-12-22] MEDS: PANTOPRAZOLE 40 MG TABLET PO SCH ×2 (09:06→21:50)
[2020-12-22] MEDS: NADOLOL 20 MG TABLET (FP) PO SCH (09:06)
[2020-12-22] MEDS: MULTIVITAMINS (DAILY MVI) TABLET (FP) PO SCH (09:07)
[2020-12-22] MEDS: FOLIC ACID 1 MG TABLET (FP) PO SCH (09:07)
[2020-12-22] MEDS: THIAMINE HCL 100 MG TABLET (FP) PO SCH (09:07)
[2020-12-22] MEDS: GENTAMICIN SO4 0.1% TOPICAL OINTMENT 15 GM/TUBE TUBE TP SCH ×2 (10:01→21:47)
[2020-12-22] MEDS ORDERED: INSULIN (LEVEMIR) 100 UNITS/ML UNITS SQ ONE (10:04)
[2020-12-22] MEDS: INSULIN (LEVEMIR) 100 UNITS/ML UNITS SQ SCH ×2 (10:05→21:50)
[2020-12-22] MEDS: VANCOMYCIN HCL 1,500 MG in DEXTROSE 5%-WATER - 500 ML IVPB SCH ×2 (10:41→21:44)
[2020-12-22] MEDS: RIVAROXABAN 20 MG TABLET PO SCH (17:43)
[2020-12-22] MEDS: MELATONIN 5 MG TABLETS PO SCH (21:50)
[2020-12-23] MEDS: INSULIN SLIDING SCALE (NOVOLOG) 1 VIAL SQ SCH ×4 (06:48→21:06)
[2020-12-23] MEDS: INSULIN (LEVEMIR) 100 UNITS/ML UNITS SQ SCH (09:13)
[2020-12-23] MEDS: MULTIVITAMINS (DAILY MVI) TABLET (FP) PO SCH (09:15)
[2020-12-23] MEDS: FOLIC ACID 1 MG TABLET (FP) PO SCH (09:15)
[2020-12-23] MEDS: NADOLOL 20 MG TABLET (FP) PO SCH (09:15)
[2020-12-23] MEDS: PANTOPRAZOLE 40 MG TABLET PO SCH ×2 (09:15→21:03)
[2020-12-23] MEDS: THIAMINE HCL 100 MG TABLET (FP) PO SCH (09:15)
[2020-12-23 10:01] LABS: BASO % 0.8 % (0-2.0); EOS % 1.6 % (0-4.5); HEMATOCRIT 37.6 % (35.4-49); HEMOGLOBIN 12.2 GM/dL (11.7-16.9); LYMPH % 26.7 % (8-40); MCH 25.7 pg (25.7-33.7); MCHC 32.5 g/dl (32.0-35.9); MEAN CELL VOLUME 79.3 fl (80-96); MEAN PLT VOLUME 9.4 fl (7.5-11.1); MONO % 14.2 % (3.8-10.2); NEUT % 56.7 % (42.8-82.8); PLATELET COUNT 125 K/MM3 (134-434); RBC 4.74 M/mm3 (4.00-5.60); RDW 19.5 % (11.9-15.9); WHITE BLOOD COUNT 4.9 K/mm3 (4.0-10.0)
[2020-12-23 10:27] LABS: POTASSIUM 3.8 mmol/L (3.5-5.1)
[2020-12-23] MEDS: VANCOMYCIN HCL 1,500 MG in DEXTROSE 5%-WATER - 500 ML IVPB SCH ×2 (10:34→21:03)
[2020-12-23 10:38] LABS: CALCIUM 9.2 mg/dL (8.5-10.1)
[2020-12-23 10:39] LABS: ALBUMIN 3.4 g/dl (3.4-5.0); BLOOD UREA NITROGEN 11.1 mg/dL (7-18); MAGNESIUM 1.8 mg/dL (1.8-2.4)
[2020-12-23 10:42] LABS: PHOSPHOROUS 3.8 mg/dL (2.5-4.9)
[2020-12-23 10:43] LABS: TOT PROT 7.8 g/dl (6.4-8.2)
[2020-12-23] MEDS: ACETAMINOPHEN 325 MG TABLET (FP) PO PRN (11:42)
[2020-12-23] MEDS: GENTAMICIN SO4 0.1% TOPICAL OINTMENT 15 GM/TUBE TUBE TP SCH (11:48)
[2020-12-23] MEDS: Insulin (LOG) Aspart 100 UNITS/ML VIAL SQ SCH ×2 (12:16→16:39)
[2020-12-23] MEDS: RIVAROXABAN 20 MG TABLET PO SCH (17:48)
[2020-12-23] MEDS ORDERED: PT OWN MED DRAWER 7, Y5N ONE (20:47)
[2020-12-23] MEDS: MELATONIN 5 MG TABLETS PO SCH (21:03)
[2020-12-23] MEDS ORDERED: INSULIN (LEVEMIR) 100 UNITS/ML UNITS SQ SCH (22:00)
[2020-12-23] MEDS ORDERED: oxyCODONE HCL 5 MG TABLET PO ONE (23:09)
[2020-12-24] MEDS: INSULIN (LEVEMIR) 100 UNITS/ML UNITS SQ SCH (06:15)
[2020-12-24] MEDS: INSULIN SLIDING SCALE (NOVOLOG) 1 VIAL SQ SCH ×2 (06:16→12:18)
[2020-12-24] MEDS: Insulin (LOG) Aspart 100 UNITS/ML VIAL SQ SCH (06:17)
[2020-12-24] MEDS: ACETAMINOPHEN 325 MG TABLET (FP) PO PRN (09:17)
[2020-12-24] MEDS: THIAMINE HCL 100 MG TABLET (FP) PO SCH (09:23)
[2020-12-24] MEDS: NADOLOL 20 MG TABLET (FP) PO SCH (09:23)
[2020-12-24] MEDS: MULTIVITAMINS (DAILY MVI) TABLET (FP) PO SCH (09:23)
[2020-12-24] MEDS: FOLIC ACID 1 MG TABLET (FP) PO SCH (09:23)
[2020-12-24] MEDS: PANTOPRAZOLE 40 MG TABLET PO SCH (09:24)
[2020-12-24] MEDS: FUROSEMIDE 20 MG TABLET (FP) PO SCH (09:28)
[2020-12-24 10:10] LABS: HEMATOCRIT 37.6 % (35.4-49); HEMOGLOBIN 12.3 GM/dL (11.7-16.9); MCH 25.6 pg (25.7-33.7); MCHC 32.7 g/dl (32.0-35.9); MEAN CELL VOLUME 78.3 fl (80-96); MEAN PLT VOLUME 9.5 fl (7.5-11.1); PLATELET COUNT 136 K/MM3 (134-434); RBC 4.81 M/mm3 (4.00-5.60); RDW 19.6 % (11.9-15.9); WHITE BLOOD COUNT 5.5 K/mm3 (4.0-10.0)
[2020-12-24 10:28] LABS: POTASSIUM 3.8 mmol/L (3.5-5.1)
[2020-12-24 10:32] LABS: BLOOD UREA NITROGEN 13.1 mg/dL (7-18); MAGNESIUM 1.7 mg/dL (1.8-2.4)
[2020-12-24 10:36] LABS: PHOSPHOROUS 3.4 mg/dL (2.5-4.9)
[2020-12-24] MEDS ORDERED: Insulin (LOG) Aspart 100 UNITS/ML VIAL SQ SCH (11:00)
[2020-12-24] MEDS: VANCOMYCIN HCL 1,500 MG in DEXTROSE 5%-WATER - 500 ML IVPB SCH (12:06)
[2020-12-24 20:04] VITALS: BP 131/74; PULSE 62; TEMP 98.2
[2020-12-24] MEDS ORDERED: INSULIN (LEVEMIR) 100 UNITS/ML UNITS SQ SCH (22:00)
[2020-12-25] MEDS ORDERED: INSULIN (LEVEMIR) 100 UNITS/ML UNITS SQ SCH (07:00)
== END 2020-12-24 15:36 | disposition home health service (06) | DRG 863 ==
LOC: JER 17:35 → JERFT 17:35 → JERBED 19:52 → J5S 12-18 01:29
PROVIDERS: ADMIT Internal Medicine; ATTEND Internal Medicine
DX: T81.49XA Infection following a procedure, other surgical site, initial encounter (principal); L03.116 Cellulitis of left lower limb; D68.2 Hereditary deficiency of other clotting factors; J98.11 Atelectasis; D68.51 Activated protein C resistance; Z79.4 Long term (current) use of insulin; Y84.8 Other medical procedures as the cause of abnormal reaction of the patient, or of later complication, without mention of misadventure at the time of the procedure; Z86.718 Personal history of other venous thrombosis and embolism; Z86.711 Personal history of pulmonary embolism; Z79.01 Long term (current) use of anticoagulants; I10 Essential (primary) hypertension; F10.10 Alcohol abuse, uncomplicated; E78.5 Hyperlipidemia, unspecified; E11.42 Type 2 diabetes mellitus with diabetic polyneuropathy; I48.91 Unspecified atrial fibrillation; E11.65 Type 2 diabetes mellitus with hyperglycemia; Z86.73 Personal history of transient ischemic attack (TIA), and cerebral infarction without residual deficits; R29.6 Repeated falls; D69.6 Thrombocytopenia, unspecified; R07.9 Chest pain, unspecified; K74.60 Unspecified cirrhosis of liver
CPT/HCPCS: 36415; 71045-TC-FY; 71046-TC-FY; 71275-TC; 73590-TC-LT-FY; 80048; 80053; 82962; 83735; 84100; 84484; 85025; 85027; 85379; 85610; 85651; 85730; 86140; 87040; 87070; 87186; 87205; 93005; 93010; 97116-GP; 97161-GP; 99285-25; C9803; G0480; J0131; U0003

== ENCOUNTER 2021-01-01 17:01 | Emergency (ER) | payer OTHER, BC ==
[2021-01-01 17:08] VITALS: BP 113/73; PULSE 61; TEMP 97.6; BMI 54.6
== END 2021-01-01 19:00 | disposition home or self-care (01) ==
LOC: JER 17:01
DX: Z48.00 Encounter for change or removal of nonsurgical wound dressing (principal)
CPT/HCPCS: 99281-25

== ENCOUNTER 2021-04-06 08:47 | Inpatient (IN) | payer OTHER, BC ==
[2021-04-06] MEDS ORDERED: chlordiazePOXIDE HCL 25 MG CAPSULE PO ONE ×2 (09:08→16:49)
[2021-04-06 09:56] LABS: BASO % 3.2 % (0-2.0); EOS % 1.4 % (0-4.5); HEMOGLOBIN 10.7 GM/dL (11.7-16.9); LYMPH % 44.6 % (8-40); MCHC 32.4 g/dl (32.0-35.9); MEAN CELL VOLUME 80.5 fl (80-96); MEAN PLT VOLUME 8.6 fl (7.5-11.1); MONO % 13.8 % (3.8-10.2); PLATELET COUNT 156 K/MM3 (134-434); RDW 18.3 % (11.9-15.9); WHITE BLOOD COUNT 4.3 K/mm3 (4.0-10.0)
[2021-04-06] MEDS ORDERED: chlordiazePOXIDE HCL 25 MG CAPSULE ONE ×3 (10:32→22:03)
[2021-04-06 10:43] LABS: ALBUMIN 3.1 g/dl (3.4-5.0); BLOOD UREA NITROGEN 3.4 mg/dL (7-18); CALCIUM 8.3 mg/dL (8.5-10.1); MAGNESIUM 1.8 mg/dL (1.8-2.4)
[2021-04-06 10:45] LABS: CREATININE 0.7 mg/dL (0.55-1.3)
[2021-04-06 10:47] LABS: BILIRUBIN,TOTAL 0.4 mg/dL (0.2-1); TOT PROT 7.2 g/dl (6.4-8.2)
[2021-04-06] MEDS ORDERED: THIAMINE HCL 200 MG/2 ML VIAL IVPB ONE (11:11)
[2021-04-06] MEDS ORDERED: FOLIC ACID INJECTION - 1 MG, THIAMINE HCL 100 MG, MULTIVIT INJECTION ADULT 10 ML in SOD... IVPB ONE (11:12)
[2021-04-06] MEDS ORDERED: THIAMINE HCL 200 MG/2 ML VIAL ONE (11:22)
[2021-04-06 14:28] LABS: PH,URINE 5.5 (5.0-8.0); URINE APPEARANCE CLEAR; URINE BILIRUBIN NEGATIVE (NEGATIVE); URINE COLOR YELLOW; URINE GLUCOSE (UA) NEGATIVE (NEGATIVE); URINE KETONE NEGATIVE (NEGATIVE); URINE LEUK ESTERASE NEGATIVE (NEGATIVE); URINE NITRITE NEGATIVE (NEGATIVE); URINE PROTEIN NEGATIVE (NEGATIVE); URINE UROBILINOGEN 0.2 mg/dL (0.2-1.0)
[2021-04-06 14:36] LABS: METHADONE, UR NEGATIVE ng/ml (CUTOFF=300); OPIATES, URI NEGATIVE ng/ml (CUTOFF=300); URINE AMPHETAMINES NEGATIVE ng/ml (CUTOFF=500); URINE BARBITURATES NEGATIVE ng/ml (CUTOFF=200)
[2021-04-06 14:37] LABS: PHENCYCLIDINE,URINE NEGATIVE ng/ml (CUTOFF=25)
[2021-04-06 14:40] LABS: COCAINE, UR NEGATIVE ng/ml (CUTOFF=300); URINE BENZODIAZEPINES POSITIVE ng/ml (CUTOFF=200)
[2021-04-06] MEDS: INSULIN SLIDING SCALE (NOVOLOG) 1 VIAL SQ SCH ×2 (17:05→22:14)
[2021-04-06] MEDS ORDERED: ACETAMINOPHEN 325 MG TABLET (FP) PO ONE (18:16)
[2021-04-06] MEDS ORDERED: ACETAMINOPHEN 325 MG TABLET (FP) ONE (18:22)
[2021-04-06] MEDS ORDERED: PANTOPRAZOLE 40 MG TABLET ONE (21:40)
[2021-04-06] MEDS ORDERED: dilTIAZem HCL 60 MG TABLET ONE (21:40)
[2021-04-06] MEDS ORDERED: chlordiazePOXIDE HCL 25 MG CAPSULE PO PRN (21:57)
[2021-04-06] MEDS: PANTOPRAZOLE 40 MG TABLET PO SCH (22:02)
[2021-04-06] MEDS ORDERED: INSULIN SLIDING SCALE (NOVOLOG) 1 VIAL SQ ONE (22:06)
[2021-04-06] MEDS: chlordiazePOXIDE HCL 25 MG CAPSULE PO SCH (22:14)
[2021-04-07 03:13] VITALS: BMI 15.8
[2021-04-07] MEDS: chlordiazePOXIDE HCL 25 MG CAPSULE PO SCH ×4 (05:22→22:29)
[2021-04-07 06:02] LABS: BASO % 0.3 % (0-2.0); EOS % 0.4 % (0-4.5); HEMATOCRIT 33.2 % (35.4-49); HEMOGLOBIN 10.7 GM/dL (11.7-16.9); LYMPH % 25.3 % (8-40); MCH 25.8 pg (25.7-33.7); MCHC 32.3 g/dl (32.0-35.9); MEAN CELL VOLUME 79.9 fl (80-96); MEAN PLT VOLUME 8.2 fl (7.5-11.1); MONO % 10.7 % (3.8-10.2); NEUT % 63.3 % (42.8-82.8); PLATELET COUNT 133 K/MM3 (134-434); RBC 4.15 M/mm3 (4.00-5.60); RDW 18.5 % (11.9-15.9); WHITE BLOOD COUNT 4.4 K/mm3 (4.0-10.0)
[2021-04-07 06:41] LABS: CALCIUM 8.1 mg/dL (8.5-10.1)
[2021-04-07 06:42] LABS: ALBUMIN 2.7 g/dl (3.4-5.0); BLOOD UREA NITROGEN 5.4 mg/dL (7-18); MAGNESIUM 1.6 mg/dL (1.8-2.4)
[2021-04-07 06:45] LABS: CREATININE 0.6 mg/dL (0.55-1.3)
[2021-04-07 06:47] LABS: BILIRUBIN,TOTAL 0.7 mg/dL (0.2-1); TOT PROT 6.5 g/dl (6.4-8.2)
[2021-04-07] MEDS: INSULIN SLIDING SCALE (NOVOLOG) 1 VIAL SQ SCH ×4 (07:00→22:30)
[2021-04-07] MEDS ORDERED: POTASSIUM CHLORIDE TABS 20 MEQ TABLET.ER (FP) PO ONE (08:15)
[2021-04-07] MEDS ORDERED: MAGNESIUM OXIDE 400 MG TABLET (FP) PO ONE (08:15)
[2021-04-07] MEDS: THIAMINE HCL 100 MG TABLET (FP) PO SCH (09:31)
[2021-04-07] MEDS: PANTOPRAZOLE 40 MG TABLET PO SCH ×2 (09:31→22:29)
[2021-04-07] MEDS: FOLIC ACID 1 MG TABLET (FP) PO SCH (09:32)
[2021-04-07] MEDS ORDERED: PT OWN MED DRAWER 7, Y5N ONE (09:36)
[2021-04-07] MEDS: NADOLOL 20 MG TABLET (FP) PO SCH (09:38)
[2021-04-07 10:14] LABS: SARS-CoV-2 NAA Not Detected (Not Detected)
[2021-04-07] MEDS: ASCORBIC ACID 250 MG TABLET (FP) PO SCH (11:08)
[2021-04-07] MEDS: BACITRACIN 15 GM TUBE TOPICAL OINTMENT TP SCH ×2 (13:01→22:29)
[2021-04-08] MEDS: chlordiazePOXIDE HCL 25 MG CAPSULE PO SCH ×3 (06:12→17:01)
[2021-04-08] MEDS: INSULIN SLIDING SCALE (NOVOLOG) 1 VIAL SQ SCH ×4 (06:13→21:51)
[2021-04-08] MEDS ORDERED: PT OWN MED DRAWER 7, Y5N ONE (09:22)
[2021-04-08] MEDS: FOLIC ACID 1 MG TABLET (FP) PO SCH (09:30)
[2021-04-08] MEDS: NADOLOL 20 MG TABLET (FP) PO SCH (09:31)
[2021-04-08] MEDS: THIAMINE HCL 100 MG TABLET (FP) PO SCH (09:31)
[2021-04-08] MEDS: PANTOPRAZOLE 40 MG TABLET PO SCH ×2 (09:31→21:52)
[2021-04-08] MEDS: ASCORBIC ACID 250 MG TABLET (FP) PO SCH (09:31)
[2021-04-08] MEDS: BACITRACIN 15 GM TUBE TOPICAL OINTMENT TP SCH ×2 (09:31→21:52)
[2021-04-08] MEDS ORDERED: chlordiazePOXIDE HCL 25 MG CAPSULE PO PRN (18:27)
[2021-04-08] MEDS ORDERED: chlordiazePOXIDE HCL 25 MG CAPSULE PO SCH (23:00)
[2021-04-09] MEDS ORDERED: chlordiazePOXIDE HCL 10 MG CAPSULE PO PRN ×2
[2021-04-09] MEDS ORDERED: chlordiazePOXIDE HCL 10 MG CAPSULE PO SCH (05:00)
[2021-04-09] MEDS: chlordiazePOXIDE HCL 10 MG CAPSULE PO SCH ×4 (05:08→22:12)
[2021-04-09] MEDS: INSULIN SLIDING SCALE (NOVOLOG) 1 VIAL SQ SCH ×4 (06:05→21:53)
[2021-04-09] MEDS: THIAMINE HCL 100 MG TABLET (FP) PO SCH (09:30)
[2021-04-09] MEDS: PANTOPRAZOLE 40 MG TABLET PO SCH ×2 (09:30→21:53)
[2021-04-09] MEDS: NADOLOL 20 MG TABLET (FP) PO SCH (09:30)
[2021-04-09] MEDS: FOLIC ACID 1 MG TABLET (FP) PO SCH (09:30)
[2021-04-09] MEDS: RIVAROXABAN 20 MG TABLET PO SCH (09:30)
[2021-04-09] MEDS ORDERED: INSULIN (NOVOLOG) ASPART 100 UNITS/ML 10ML VIAL ONE (11:24)
[2021-04-09] MEDS: ASCORBIC ACID 250 MG TABLET (FP) PO SCH (11:34)
[2021-04-09] MEDS: BACITRACIN 15 GM TUBE TOPICAL OINTMENT TP SCH ×2 (16:49→21:56)
[2021-04-10] MEDS ORDERED: guaiFENesin/D-M SUGAR-FREE/ACLHOL-FREE 5 ML UNIT DOSE PO PRN (01:04)
[2021-04-10] MEDS ORDERED: chlordiazePOXIDE HCL 10 MG CAPSULE PO SCH ×2 (05:00)
[2021-04-10] MEDS: INSULIN SLIDING SCALE (NOVOLOG) 1 VIAL SQ SCH (06:02)
[2021-04-10] MEDS ORDERED: PT OWN MED DRAWER 7, Y5N ONE (09:38)
[2021-04-10] MEDS: FOLIC ACID 1 MG TABLET (FP) PO SCH (09:43)
[2021-04-10] MEDS: PANTOPRAZOLE 40 MG TABLET PO SCH (09:43)
[2021-04-10] MEDS: NADOLOL 20 MG TABLET (FP) PO SCH (09:43)
[2021-04-10] MEDS: ASCORBIC ACID 250 MG TABLET (FP) PO SCH (09:43)
[2021-04-10] MEDS: RIVAROXABAN 20 MG TABLET PO SCH (09:43)
[2021-04-10] MEDS: THIAMINE HCL 100 MG TABLET (FP) PO SCH (09:43)
[2021-04-10] MEDS: BACITRACIN 15 GM TUBE TOPICAL OINTMENT TP SCH (09:44)
[2021-04-10 10:05] VITALS: BP 127/81; PULSE 62; TEMP 98
[2021-04-10 10:53] LABS: BASO % 0.7 % (0-2.0); EOS % 1.3 % (0-4.5); HEMATOCRIT 33.3 % (35.4-49); HEMOGLOBIN 10.6 GM/dL (11.7-16.9); LYMPH % 28.7 % (8-40); MCH 25.4 pg (25.7-33.7); MCHC 31.8 g/dl (32.0-35.9); MEAN CELL VOLUME 79.9 fl (80-96); MEAN PLT VOLUME 8.8 fl (7.5-11.1); MONO % 10.4 % (3.8-10.2); NEUT % 58.9 % (42.8-82.8); PLATELET COUNT 121 K/MM3 (134-434); RBC 4.16 M/mm3 (4.00-5.60); RDW 18.3 % (11.9-15.9); WHITE BLOOD COUNT 4.8 K/mm3 (4.0-10.0)
[2021-04-10 11:17] LABS: ALBUMIN 2.7 g/dl (3.4-5.0); BLOOD UREA NITROGEN 7.5 mg/dL (7-18); CALCIUM 8.3 mg/dL (8.5-10.1); MAGNESIUM 1.8 mg/dL (1.8-2.4)
[2021-04-10 11:21] LABS: CREATININE 0.8 mg/dL (0.55-1.3)
[2021-04-10 11:22] LABS: BILIRUBIN,TOTAL 0.5 mg/dL (0.2-1); TOT PROT 6.4 g/dl (6.4-8.2)
[2021-04-11] MEDS ORDERED: chlordiazePOXIDE HCL 10 MG CAPSULE PO ONE ×2 (05:00)
== END 2021-04-10 10:30 | disposition home or self-care (01) | DRG 914 ==
LOC: JER 08:47 → JERBED 13:27 → J4S 22:48 → J5S 04-08 17:43
PROVIDERS: ATTEND Nurse Practitioner Acute Care
DX: S09.90XA Unspecified injury of head, initial encounter (principal); D68.2 Hereditary deficiency of other clotting factors; F10.230 Alcohol dependence with withdrawal, uncomplicated; F10.220 Alcohol dependence with intoxication, uncomplicated; W19.XXXA Unspecified fall, initial encounter; Y93.89 Activity, other specified; Y92.89 Other specified places as the place of occurrence of the external cause; Y99.8 Other external cause status; I10 Essential (primary) hypertension; Z86.711 Personal history of pulmonary embolism; Z86.718 Personal history of other venous thrombosis and embolism; D64.9 Anemia, unspecified; K21.9 Gastro-esophageal reflux disease without esophagitis; R29.6 Repeated falls; E11.42 Type 2 diabetes mellitus with diabetic polyneuropathy; Z79.4 Long term (current) use of insulin; I45.10 Unspecified right bundle-branch block
CPT/HCPCS: 36415; 70450-TC; 71045-TC-FY; 72125-TC; 72170-TC-FY; 80053; 80307; 81003; 82607; 82728; 82962; 83540; 83550; 83735; 84100; 85025; 93005; 93010; 97116-GP; 97161-GP; 99285-25; C9803; U0003; U0005

== ENCOUNTER 2021-04-28 03:16 | Inpatient (IN) | payer OTHER, BC ==
[2021-04-28 04:50] LABS: INR 1.34 (0.83-1.09); PROTHROMBIN TIME (PATIENT) 16.4 SEC (9.7-13.0)
[2021-04-28 04:51] LABS: BASO % 0.2 % (0-2.0); EOS % 0.1 % (0-4.5); HEMATOCRIT 30.3 % (35.4-49); HEMOGLOBIN 9.7 GM/dL (11.7-16.9); LYMPH % 8.2 % (8-40); MEAN PLT VOLUME 8.8 fl (7.5-11.1); MONO % 8.9 % (3.8-10.2); NEUT % 82.6 % (42.8-82.8); PLATELET COUNT 64 K/MM3 (134-434); RBC 3.88 M/mm3 (4.00-5.60); RDW 19.4 % (11.9-15.9); WHITE BLOOD COUNT 14.1 K/mm3 (4.0-10.0)
[2021-04-28 04:53] LABS: ACTIVATED PTT 32.6 SECONDS (25.2-36.5)
[2021-04-28 05:02] LABS: CHLORIDE 104 mmol/L (98-107); SODIUM 137 mmol/L (136-145)
[2021-04-28 05:04] LABS: ANION GAP 10 MMOL/L (8-16); BLOOD UREA NITROGEN 5.3 mg/dL (7-18); CALCIUM 7.3 mg/dL (8.5-10.1); CO2 23 mmol/L (21-32); GLUCOSE,RANDOM 282 mg/dL (74-106)
[2021-04-28 05:05] LABS: ALBUMIN 2.6 g/dl (3.4-5.0)
[2021-04-28 05:08] LABS: CREATININE 0.8 mg/dL (0.55-1.3); SGOT/AST 22 U/L (15-37); SGPT/ALT 18 U/L (13-61)
[2021-04-28 05:09] LABS: BILIRUBIN,TOTAL 0.7 mg/dL (0.2-1); TOT PROT 6.8 g/dl (6.4-8.2)
[2021-04-28 05:10] LABS: ALK PHOS 108 U/L (45-117)
[2021-04-28] MEDS ORDERED: ACETAMINOPHEN 325 MG TABLET (FP) PO ONE (06:11)
[2021-04-28] MEDS ORDERED: ACETAMINOPHEN 325 MG TABLET (FP) ONE (06:12)
[2021-04-28] MEDS ORDERED: THIAMINE HCL 200 MG/2 ML VIAL IVPB ONE (10:30)
[2021-04-28 10:36] LABS: LDH 254 U/L (87-246)
[2021-04-28 11:20] LABS: RETICULOCYTES 1.34 % (0.5-1.5)
[2021-04-28] MEDS ORDERED: THIAMINE HCL 200 MG/2 ML VIAL ONE (11:20)
[2021-04-28] MEDS ORDERED: dilTIAZem HCL 60 MG TABLET ONE (11:20)
[2021-04-28] MEDS ORDERED: PANTOPRAZOLE 40 MG TABLET ONE (11:20)
[2021-04-28] MEDS ORDERED: FOLIC ACID 1 MG TABLET (FP) ONE (11:21)
[2021-04-28] MEDS ORDERED: CHOLECALCIFEROL (VIT D3) 1,000 UNIT (25 MCG) TABLET ONE (11:21)
[2021-04-28] MEDS: INSULIN SLIDING SCALE (NOVOLOG) 1 VIAL SQ SCH ×2 (11:53→17:09)
[2021-04-28] MEDS: FOLIC ACID 1 MG TABLET (FP) PO SCH (11:53)
[2021-04-28] MEDS: PANTOPRAZOLE 40 MG TABLET PO SCH ×2 (11:53→22:10)
[2021-04-28] MEDS: CHOLECALCIFEROL (VIT D3) 1,000 UNIT (25 MCG) TABLET PO SCH (11:53)
[2021-04-28] MEDS: NADOLOL 20 MG TABLET (FP) PO SCH (11:53)
[2021-04-28] MEDS: VITAMIN B COMPLEX W/C COMBO TABLET (FP) PO SCH (11:54)
[2021-04-28] MEDS ORDERED: CALCIUM CARBONATE 650 MG TABLET PO ONE (14:00)
[2021-04-28 15:44] LABS: URINE BARBITURATES NEGATIVE ng/ml (CUTOFF=200)
[2021-04-28 15:45] LABS: METHADONE, UR NEGATIVE ng/ml (CUTOFF=300); OPIATES, URI NEGATIVE ng/ml (CUTOFF=300); PHENCYCLIDINE,URINE NEGATIVE ng/ml (CUTOFF=25)
[2021-04-28 15:48] LABS: COCAINE, UR NEGATIVE ng/ml (CUTOFF=300); URINE AMPHETAMINES NEGATIVE ng/ml (CUTOFF=500); URINE BENZODIAZEPINES POSITIVE ng/ml (CUTOFF=200)
[2021-04-28] MEDS ORDERED: chlordiazePOXIDE HCL 25 MG CAPSULE PO SCH (17:00)
[2021-04-28] MEDS: LORazepam 1 MG TABLET PO PRN (18:02)
[2021-04-28 18:14] VITALS: BMI 28.8
[2021-04-28] MEDS ORDERED: chlordiazePOXIDE HCL 25 MG CAPSULE PO PRN (21:03)
[2021-04-28] MEDS ORDERED: chlordiazePOXIDE HCL 25 MG CAPSULE PO ONE (21:03)
[2021-04-29] MEDS: INSULIN SLIDING SCALE (NOVOLOG) 1 VIAL SQ SCH ×5 (00:02→22:11)
[2021-04-29] MEDS: chlordiazePOXIDE HCL 25 MG CAPSULE PO SCH ×5 (00:07→22:00)
[2021-04-29] MEDS: LORazepam 1 MG TABLET PO PRN ×3 (01:16→22:39)
[2021-04-29] MEDS ORDERED: ACETAMINOPHEN 325 MG TABLET (FP) PO ONE (02:07)
[2021-04-29 08:00] LABS: HEMATOCRIT 30.8 % (35.4-49); HEMOGLOBIN 9.7 GM/dL (11.7-16.9); MCH 24.6 pg (25.7-33.7); MCHC 31.4 g/dl (32.0-35.9); MEAN CELL VOLUME 78.4 fl (80-96); MEAN PLT VOLUME 9.2 fl (7.5-11.1); PLATELET COUNT 64 K/MM3 (134-434); RBC 3.93 M/mm3 (4.00-5.60); RDW 19.5 % (11.9-15.9); WHITE BLOOD COUNT 11.6 K/mm3 (4.0-10.0)
[2021-04-29 08:01] LABS: INR 1.26 (0.83-1.09); PROTHROMBIN TIME (PATIENT) 15.4 SEC (9.7-13.0)
[2021-04-29 08:04] LABS: ACTIVATED PTT 28.4 SECONDS (25.2-36.5)
[2021-04-29 08:19] LABS: ALBUMIN 2.4 g/dl (3.4-5.0); CALCIUM 7.4 mg/dL (8.5-10.1)
[2021-04-29 08:20] LABS: BLOOD UREA NITROGEN 7.2 mg/dL (7-18); MAGNESIUM 1.7 mg/dL (1.8-2.4)
[2021-04-29 08:23] LABS: CREATININE 0.7 mg/dL (0.55-1.3); PHOSPHOROUS 2.1 mg/dL (2.5-4.9)
[2021-04-29 08:24] LABS: BILIRUBIN,TOTAL 1.2 mg/dL (0.2-1); TOT PROT 6.1 g/dl (6.4-8.2)
[2021-04-29] MEDS ORDERED: PT OWN MED DRAWER 7, Y5N ONE (10:05)
[2021-04-29] MEDS: NADOLOL 20 MG TABLET (FP) PO SCH (10:59)
[2021-04-29] MEDS: CHOLECALCIFEROL (VIT D3) 1,000 UNIT (25 MCG) TABLET PO SCH (10:59)
[2021-04-29] MEDS: PANTOPRAZOLE 40 MG TABLET PO SCH ×2 (10:59→22:01)
[2021-04-29] MEDS: FOLIC ACID 1 MG TABLET (FP) PO SCH (10:59)
[2021-04-29] MEDS: VITAMIN B COMPLEX W/C COMBO TABLET (FP) PO SCH (11:00)
[2021-04-29] MEDS ORDERED: IRON SUCROSE INJECTION 200 MG in SODIUM CHLORIDE 90 ML IVPB ONE (13:00)
[2021-04-29] MEDS ORDERED: MAGNESIUM 1GM/D5W 100ML - 100 ML IVPB IVPB ONE (13:00)
[2021-04-29] MEDS: NAPH,MB-DB/K PH,MBDB POWDER PACKET PO SCH ×2 (13:11→22:01)
[2021-04-29] MEDS ORDERED: chlordiazePOXIDE HCL 25 MG CAPSULE PO PRN (21:07)
[2021-04-29] MEDS: MUPIROCIN 2% TOPICAL OINTMENT 22 GM TUBE TP SCH (22:01)
[2021-04-29 23:16] LABS: PH,URINE 7.5 (5.0-8.0); URINE APPEARANCE CLEAR; URINE BILIRUBIN NEGATIVE (NEGATIVE); URINE COLOR YELLOW; URINE GLUCOSE (UA) TRACE (NEGATIVE); URINE KETONE TRACE (NEGATIVE); URINE LEUK ESTERASE NEGATIVE (NEGATIVE); URINE NITRITE NEGATIVE (NEGATIVE); URINE PROTEIN NEGATIVE (NEGATIVE)
[2021-04-30] MEDS ORDERED: chlordiazePOXIDE HCL 25 MG CAPSULE PO SCH (05:00)
[2021-04-30] MEDS: chlordiazePOXIDE HCL 25 MG CAPSULE PO SCH ×4 (05:40→22:24)
[2021-04-30] MEDS: INSULIN SLIDING SCALE (NOVOLOG) 1 VIAL SQ SCH ×4 (06:14→21:27)
[2021-04-30] MEDS: NAPH,MB-DB/K PH,MBDB POWDER PACKET PO SCH ×2 (10:51→21:26)
[2021-04-30] MEDS: VITAMIN B COMPLEX W/C COMBO TABLET (FP) PO SCH (10:51)
[2021-04-30] MEDS: CHOLECALCIFEROL (VIT D3) 1,000 UNIT (25 MCG) TABLET PO SCH (10:52)
[2021-04-30] MEDS: NADOLOL 20 MG TABLET (FP) PO SCH (10:52)
[2021-04-30] MEDS: FOLIC ACID 1 MG TABLET (FP) PO SCH (10:52)
[2021-04-30] MEDS: PANTOPRAZOLE 40 MG TABLET PO SCH ×2 (10:52→21:26)
[2021-04-30] MEDS: RIVAROXABAN 10 MG TABLET PO SCH (10:53)
[2021-04-30] MEDS: MUPIROCIN 2% TOPICAL OINTMENT 22 GM TUBE TP SCH ×2 (10:53→21:28)
[2021-04-30] MEDS: LORazepam 1 MG TABLET PO PRN (20:15)
[2021-04-30] MEDS ORDERED: INSULIN (NOVOLOG) ASPART 100 UNITS/ML 10ML VIAL ONE (20:39)
[2021-05-01] MEDS ORDERED: chlordiazePOXIDE HCL 10 MG CAPSULE PO PRN ×2
[2021-05-01] MEDS ORDERED: chlordiazePOXIDE HCL 10 MG CAPSULE PO SCH (05:00)
[2021-05-01] MEDS: chlordiazePOXIDE HCL 25 MG CAPSULE PO SCH (05:07)
[2021-05-01] MEDS: INSULIN SLIDING SCALE (NOVOLOG) 1 VIAL SQ SCH ×4 (06:10→22:39)
[2021-05-01 07:36] LABS: BASO % 0.3 % (0-2.0); EOS % 1.6 % (0-4.5); HEMATOCRIT 30.7 % (35.4-49); HEMOGLOBIN 9.6 GM/dL (11.7-16.9); LYMPH % 23.3 % (8-40); MCH 24.5 pg (25.7-33.7); MCHC 31.3 g/dl (32.0-35.9); MEAN CELL VOLUME 78.2 fl (80-96); MEAN PLT VOLUME 9.5 fl (7.5-11.1); MONO % 12.6 % (3.8-10.2); NEUT % 62.2 % (42.8-82.8); PLATELET COUNT 64 K/MM3 (134-434); RBC 3.93 M/mm3 (4.00-5.60); RDW 20.1 % (11.9-15.9); WHITE BLOOD COUNT 5.3 K/mm3 (4.0-10.0)
[2021-05-01 07:58] LABS: CALCIUM 7.9 mg/dL (8.5-10.1)
[2021-05-01 07:59] LABS: MAGNESIUM 1.7 mg/dL (1.8-2.4)
[2021-05-01 08:02] LABS: CREATININE 0.6 mg/dL (0.55-1.3)
[2021-05-01] MEDS ORDERED: PT OWN MED DRAWER 7, Y5N ONE (09:10)
[2021-05-01] MEDS: PANTOPRAZOLE 40 MG TABLET PO SCH ×2 (09:20→22:42)
[2021-05-01] MEDS: RIVAROXABAN 10 MG TABLET PO SCH (09:20)
[2021-05-01] MEDS: VITAMIN B COMPLEX W/C COMBO TABLET (FP) PO SCH (09:20)
[2021-05-01] MEDS: CHOLECALCIFEROL (VIT D3) 1,000 UNIT (25 MCG) TABLET PO SCH (09:20)
[2021-05-01] MEDS: FOLIC ACID 1 MG TABLET (FP) PO SCH (09:20)
[2021-05-01] MEDS: NADOLOL 20 MG TABLET (FP) PO SCH (09:20)
[2021-05-01] MEDS: MUPIROCIN 2% TOPICAL OINTMENT 22 GM TUBE TP SCH ×2 (09:21→22:44)
[2021-05-01] MEDS: NAPH,MB-DB/K PH,MBDB POWDER PACKET PO SCH ×2 (09:21→22:40)
[2021-05-01] MEDS: LORazepam 1 MG TABLET PO PRN ×2 (09:32→22:43)
[2021-05-01] MEDS: chlordiazePOXIDE HCL 10 MG CAPSULE PO SCH ×3 (11:43→22:40)
[2021-05-01] MEDS ORDERED: MAGNESIUM OXIDE 400 MG TABLET (FP) PO ONE (15:13)
[2021-05-01] MEDS ORDERED: POTASSIUM CHLORIDE TABS 20 MEQ TABLET.ER (FP) PO ONE (15:13)
[2021-05-01] MEDS ORDERED: ACETAMINOPHEN 500 MG TABLET (FP) PO ONE (15:17)
[2021-05-02] MEDS ORDERED: chlordiazePOXIDE HCL 10 MG CAPSULE PO SCH (05:00)
[2021-05-02] MEDS: LORazepam 1 MG TABLET PO PRN ×2 (05:54→15:15)
[2021-05-02] MEDS: chlordiazePOXIDE HCL 10 MG CAPSULE PO SCH ×3 (05:55→22:46)
[2021-05-02] MEDS: INSULIN SLIDING SCALE (NOVOLOG) 1 VIAL SQ SCH ×4 (06:08→21:03)
[2021-05-02 07:47] LABS: HEMATOCRIT 31.5 % (35.4-49); HEMOGLOBIN 9.9 GM/dL (11.7-16.9); MCH 24.8 pg (25.7-33.7); MCHC 31.4 g/dl (32.0-35.9); MEAN CELL VOLUME 78.8 fl (80-96); MEAN PLT VOLUME 9.4 fl (7.5-11.1); PLATELET COUNT 86 K/MM3 (134-434); RBC 3.99 M/mm3 (4.00-5.60); RDW 19.5 % (11.9-15.9); WHITE BLOOD COUNT 5.2 K/mm3 (4.0-10.0)
[2021-05-02 07:58] LABS: BLOOD UREA NITROGEN 4.3 mg/dL (7-18); CALCIUM 8.4 mg/dL (8.5-10.1); MAGNESIUM 1.7 mg/dL (1.8-2.4)
[2021-05-02 08:02] LABS: CREATININE 0.6 mg/dL (0.55-1.3)
[2021-05-02] MEDS ORDERED: MAGNESIUM SULF 50% (8.12 MEQ/2 ML-1 GM VIAL) IVPB ONE (08:37)
[2021-05-02] MEDS ORDERED: PT OWN MED DRAWER 7, Y5N ONE (09:51)
[2021-05-02] MEDS: NADOLOL 20 MG TABLET (FP) PO SCH (10:21)
[2021-05-02] MEDS: FOLIC ACID 1 MG TABLET (FP) PO SCH (10:21)
[2021-05-02] MEDS: VITAMIN B COMPLEX W/C COMBO TABLET (FP) PO SCH (10:22)
[2021-05-02] MEDS: PANTOPRAZOLE 40 MG TABLET PO SCH ×2 (10:22→21:01)
[2021-05-02] MEDS: CHOLECALCIFEROL (VIT D3) 1,000 UNIT (25 MCG) TABLET PO SCH (10:22)
[2021-05-02] MEDS: NAPH,MB-DB/K PH,MBDB POWDER PACKET PO SCH ×2 (10:22→21:01)
[2021-05-02] MEDS: RIVAROXABAN 10 MG TABLET PO SCH (10:23)
[2021-05-02 10:44] LABS: ALBUMIN 2.3 g/dl (3.4-5.0)
[2021-05-02 11:00] LABS: BILIRUBIN,DIRECT 0.4 mg/dL (0.0-0.2); BILIRUBIN,TOTAL 0.8 mg/dL (0.2-1); TOT PROT 6.2 g/dl (6.4-8.2)
[2021-05-02] MEDS: MUPIROCIN 2% TOPICAL OINTMENT 22 GM TUBE TP SCH ×2 (15:55→21:03)
[2021-05-02] MEDS ORDERED: RIVAROXABAN 10 MG TABLET PO SCH (22:43)
[2021-05-02 22:49] VITALS: BP 139/79; PULSE 65; TEMP 98.3
[2021-05-03] MEDS ORDERED: LORazepam 2 MG/ML SDV VIAL IVPUSH ONE (01:27)
[2021-05-03] MEDS ORDERED: KETOROLAC TROMETHAMINE 30 MG/1 ML VIAL IM ONE (02:01)
[2021-05-03] MEDS ORDERED: chlordiazePOXIDE HCL 10 MG CAPSULE PO ONE ×2 (05:00)
== END 2021-05-03 02:17 | disposition left against medical advice (07) | DRG 312 ==
LOC: JER 03:16 → JERBED 09:27 → OBSVTOIN 09:27 → J4W 16:26 → J8W 04-29 20:56
PROVIDERS: ADMIT Internal Medicine; ATTEND Internal Medicine
PROC: HZ2ZZZZ Detoxification Services for Substance Abuse Treatment (ICD-10-PCS; principal; 2021-04-28)
DX: R55 Syncope and collapse (principal); D68.2 Hereditary deficiency of other clotting factors; F10.239 Alcohol dependence with withdrawal, unspecified; I82.511 Chronic embolism and thrombosis of right femoral vein; L97.528 Non-pressure chronic ulcer of other part of left foot with other specified severity; L97.518 Non-pressure chronic ulcer of other part of right foot with other specified severity; I10 Essential (primary) hypertension; E78.5 Hyperlipidemia, unspecified; I25.10 Atherosclerotic heart disease of native coronary artery without angina pectoris; E11.42 Type 2 diabetes mellitus with diabetic polyneuropathy; I48.91 Unspecified atrial fibrillation; R29.6 Repeated falls; K21.9 Gastro-esophageal reflux disease without esophagitis; E78.00 Pure hypercholesterolemia, unspecified; D50.9 Iron deficiency anemia, unspecified; K70.10 Alcoholic hepatitis without ascites; I44.0 Atrioventricular block, first degree; I71.2 Thoracic aortic aneurysm, without rupture; I45.10 Unspecified right bundle-branch block; K64.9 Unspecified hemorrhoids; D69.6 Thrombocytopenia, unspecified; M25.461 Effusion, right knee; M54.5 Low back pain; E11.621 Type 2 diabetes mellitus with foot ulcer; M51.36 Other intervertebral disc degeneration, lumbar region; M50.30 Other cervical disc degeneration, unspecified cervical region; N40.0 Benign prostatic hyperplasia without lower urinary tract symptoms; E87.6 Hypokalemia; R45.1 Restlessness and agitation; F41.9 Anxiety disorder, unspecified; E83.42 Hypomagnesemia; E83.51 Hypocalcemia; Z86.711 Personal history of pulmonary embolism; Z86.73 Personal history of transient ischemic attack (TIA), and cerebral infarction without residual deficits; W18.39XA Other fall on same level, initial encounter; Y92.098 Other place in other non-institutional residence as the place of occurrence of the external cause
CPT/HCPCS: 36415; 70450-TC; 71045-TC-FY; 72125-TC; 73562-TC-RT-FY; 73630-TC-LT; 73700-TC-RT; 80048; 80053; 80076; 80307; 81003; 82550; 82728; 82962; 83010; 83540; 83550; 83615; 83735; 84100; 84484; 85025; 85027; 85045; 85610; 85730; 87040; 87086; 93005; 93010; 93306-TC; 93880-TC; 93971-TC; 97116-GP; 97162-GP; 99285-25; C9803; J1756; U0003; U0005

== ENCOUNTER 2021-05-08 10:23 | Inpatient (IN) | payer OTHER, BC ==
[2021-05-08 11:28] LABS: BASO % 1.3 % (0-2.0); EOS % 1.3 % (0-4.5); HEMATOCRIT 33.5 % (35.4-49); HEMOGLOBIN 10.4 GM/dL (11.7-16.9); LYMPH % 26.4 % (8-40); MCH 24.9 pg (25.7-33.7); MCHC 31.2 g/dl (32.0-35.9); MEAN CELL VOLUME 79.9 fl (80-96); MEAN PLT VOLUME 8.8 fl (7.5-11.1); MONO % 9.8 % (3.8-10.2); NEUT % 61.2 % (42.8-82.8); PLATELET COUNT 191 10^3/uL (134-434); RBC 4.19 M/mm3 (4.00-5.60); RDW 21.9 % (11.9-15.9); WHITE BLOOD COUNT 4.8 K/mm3 (4.0-10.0)
[2021-05-08 11:34] LABS: INR 1.54 (0.83-1.09); PROTHROMBIN TIME (PATIENT) 18.4 SEC (9.7-13.0)
[2021-05-08 11:36] LABS: ACTIVATED PTT 33.1 SECONDS (25.2-36.5)
[2021-05-08 11:47] LABS: CHLORIDE 103 mmol/L (98-107); SODIUM 136 mmol/L (136-145)
[2021-05-08 11:49] LABS: CALCIUM 8.5 mg/dL (8.5-10.1)
[2021-05-08 11:50] LABS: ALBUMIN 2.7 g/dl (3.4-5.0); ANION GAP 6 MMOL/L (8-16); CO2 27 mmol/L (21-32); GLUCOSE,RANDOM 204 mg/dL (74-106); MAGNESIUM 1.8 mg/dL (1.8-2.4)
[2021-05-08 11:53] LABS: CREATININE 0.7 mg/dL (0.55-1.3); SGOT/AST 27 U/L (15-37); SGPT/ALT 25 U/L (13-61)
[2021-05-08] MEDS ORDERED: ACETAMINOPHEN 1000 MG/100 ML VIAL (NON FORMULARY) IVPB ONE (11:53)
[2021-05-08 11:54] LABS: BILIRUBIN,TOTAL 0.4 mg/dL (0.2-1); TOT PROT 7.4 g/dl (6.4-8.2)
[2021-05-08 11:55] LABS: ALK PHOS 96 U/L (45-117)
[2021-05-08] MEDS ORDERED: ACETAMINOPHEN INJECTION 100 ML IVPB ONE (11:59)
[2021-05-08 13:36] LABS: ANISOCYTOSIS 1+; MACROCYTOSIS 0; PLATELET ESTIMATE DECREASED
[2021-05-08] MEDS ORDERED: THIAMINE HCL 200 MG/2 ML VIAL ONE (17:37)
[2021-05-08] MEDS ORDERED: FOLIC ACID 1 MG TABLET (FP) ONE (17:37)
[2021-05-08] MEDS: THIAMINE HCL 200 MG/2 ML VIAL IVPB SCH (17:44)
[2021-05-08] MEDS: NADOLOL 20 MG TABLET (FP) PO SCH (17:44)
[2021-05-08] MEDS: FOLIC ACID 1 MG TABLET (FP) PO SCH (17:44)
[2021-05-08] MEDS: RIVAROXABAN 10 MG TABLET PO SCH (17:44)
[2021-05-08 20:40] VITALS: BMI 27.9
[2021-05-08] MEDS: INSULIN SLIDING SCALE (NOVOLOG) 1 VIAL SQ SCH (21:10)
[2021-05-08] MEDS ORDERED: ACETAMINOPHEN 325 MG TABLET (FP) PO ONE (22:16)
[2021-05-09] MEDS: LORazepam 1 MG TABLET PO PRN ×3 (01:55→21:38)
[2021-05-09] MEDS: INSULIN SLIDING SCALE (NOVOLOG) 1 VIAL SQ SCH ×4 (06:01→21:40)
[2021-05-09 06:47] LABS: HEMATOCRIT 34.4 % (35.4-49); HEMOGLOBIN 10.7 GM/dL (11.7-16.9); MCHC 31.3 g/dl (32.0-35.9); PLATELET COUNT 189 10^3/uL (134-434); RDW 21.9 % (11.9-15.9); WHITE BLOOD COUNT 5.9 K/mm3 (4.0-10.0)
[2021-05-09 07:03] LABS: ALBUMIN 2.5 g/dl (3.4-5.0); BLOOD UREA NITROGEN 6.2 mg/dL (7-18); CALCIUM 8.7 mg/dL (8.5-10.1)
[2021-05-09 07:04] LABS: MAGNESIUM 1.7 mg/dL (1.8-2.4)
[2021-05-09 07:06] LABS: BILIRUBIN,TOTAL 0.8 mg/dL (0.2-1); CREATININE 0.7 mg/dL (0.55-1.3); TOT PROT 6.8 g/dl (6.4-8.2)
[2021-05-09 07:07] LABS: PHOSPHOROUS 3.6 mg/dL (2.5-4.9)
[2021-05-09 07:25] LABS: INR 1.77 (0.83-1.09); PROTHROMBIN TIME (PATIENT) 21.1 SEC (9.7-13.0)
[2021-05-09 07:28] LABS: ACTIVATED PTT 30.3 SECONDS (25.2-36.5)
[2021-05-09] MEDS: FOLIC ACID 1 MG TABLET (FP) PO SCH (09:51)
[2021-05-09] MEDS: THIAMINE HCL 200 MG/2 ML VIAL IVPB SCH (09:51)
[2021-05-09] MEDS: NADOLOL 20 MG TABLET (FP) PO SCH (10:37)
[2021-05-09] MEDS: RIVAROXABAN 10 MG TABLET PO SCH (10:37)
[2021-05-09] MEDS ORDERED: ACETAMINOPHEN 325 MG TABLET (FP) PO PRN (17:31)
[2021-05-10] MEDS: INSULIN SLIDING SCALE (NOVOLOG) 1 VIAL SQ SCH ×2 (06:25→11:56)
[2021-05-10 06:30] VITALS: TEMP 98.3
[2021-05-10 07:26] LABS: BASO % 1.4 % (0-2.0); HEMATOCRIT 34.9 % (35.4-49); HEMOGLOBIN 11.3 GM/dL (11.7-16.9); LYMPH % 32.6 % (8-40); MCH 25.6 pg (25.7-33.7); MCHC 32.5 g/dl (32.0-35.9); MEAN CELL VOLUME 78.8 fl (80-96); MEAN PLT VOLUME 8.8 fl (7.5-11.1); MONO % 9.2 % (3.8-10.2); NEUT % 55.8 % (42.8-82.8); PLATELET COUNT 239 10^3/uL (134-434); RBC 4.44 M/mm3 (4.00-5.60); RDW 22.5 % (11.9-15.9); WHITE BLOOD COUNT 5.6 K/mm3 (4.0-10.0)
[2021-05-10 08:08] LABS: BLOOD UREA NITROGEN 6.8 mg/dL (7-18)
[2021-05-10 08:09] LABS: ALBUMIN 2.7 g/dl (3.4-5.0); CALCIUM 8.8 mg/dL (8.5-10.1)
[2021-05-10 08:13] LABS: CREATININE 0.8 mg/dL (0.55-1.3)
[2021-05-10 08:14] LABS: BILIRUBIN,TOTAL 0.9 mg/dL (0.2-1); TOT PROT 7.5 g/dl (6.4-8.2)
[2021-05-10] MEDS ORDERED: PT OWN MED DRAWER 7, Y5N ONE (08:54)
[2021-05-10 09:28] VITALS: PULSE 62
[2021-05-10] MEDS: RIVAROXABAN 10 MG TABLET PO SCH (09:29)
[2021-05-10] MEDS: FOLIC ACID 1 MG TABLET (FP) PO SCH (09:29)
[2021-05-10] MEDS: NADOLOL 20 MG TABLET (FP) PO SCH (09:29)
[2021-05-10] MEDS: THIAMINE HCL 200 MG/2 ML VIAL IVPB SCH (09:34)
[2021-05-10 13:49] VITALS: BP 115/72
== END 2021-05-10 14:16 | disposition home or self-care (01) | DRG 897 ==
LOC: JER 10:23 → JERBED 13:30 → OBSVTOIN 16:50 → J4S 20:07
PROVIDERS: ADMIT Student in an Organized Health Care Education/Training Program; ATTEND Internal Medicine
DX: F10.220 Alcohol dependence with intoxication, uncomplicated (principal); D68.2 Hereditary deficiency of other clotting factors; R55 Syncope and collapse; I48.91 Unspecified atrial fibrillation; Z86.718 Personal history of other venous thrombosis and embolism; Z86.711 Personal history of pulmonary embolism; E11.9 Type 2 diabetes mellitus without complications; I25.10 Atherosclerotic heart disease of native coronary artery without angina pectoris; Z95.1 Presence of aortocoronary bypass graft; I10 Essential (primary) hypertension; D50.9 Iron deficiency anemia, unspecified; E11.42 Type 2 diabetes mellitus with diabetic polyneuropathy
CPT/HCPCS: 36415; 70450-TC; 71045-TC-FY; 71275-TC; 72125-TC; 72170-TC-FY; 80053; 80307; 82550; 82962; 83735; 83880; 84100; 84443; 84484; 85025; 85027; 85610; 85730; 86850; 86900; 86901; 93005; 93010; 97116-GP; 97161-GP; 99285-25; C9803; G0378; G0463-25; J0131; Q9967; U0003; U0005

== ENCOUNTER 2021-07-22 04:37 | Day surgery (SDC) | payer OTHER, BC ==
[2021-07-21 14:27] VITALS: BMI 29.7
[2021-07-22 11:39] VITALS: TEMP 97.8
[2021-07-22 12:36] VITALS: BP 134/85; PULSE 93
== END 2021-07-22 12:20 | disposition home or self-care (01) ==
LOC: JASU-ENDO 04:37
PROVIDERS: ATTEND Internal Medicine Gastroenterology
PROC: 0DB78ZX Excision of Stomach, Pylorus, Via Natural or Artificial Opening Endoscopic, Diagnostic (ICD-10-PCS; 2021-07-22)
PROC: 0DJD8ZZ Inspection of Lower Intestinal Tract, Via Natural or Artificial Opening Endoscopic (ICD-10-PCS; principal; 2021-07-22 10:00)
DX: Z12.11 Encounter for screening for malignant neoplasm of colon (principal); K31.7 Polyp of stomach and duodenum; K57.30 Diverticulosis of large intestine without perforation or abscess without bleeding; K64.8 Other hemorrhoids; Z86.010 Personal history of colon polyps; Z80.0 Family history of malignant neoplasm of digestive organs; K70.30 Alcoholic cirrhosis of liver without ascites; Z87.19 Personal history of other diseases of the digestive system; I10 Essential (primary) hypertension; E11.9 Type 2 diabetes mellitus without complications; Z79.4 Long term (current) use of insulin
CPT/HCPCS: 43251; G0105; 82962

== ENCOUNTER 2021-09-09 21:26 | Inpatient (IN) | payer OTHER, BC ==
[2021-09-09] MEDS ORDERED: LORazepam 2 MG TABLET PO ONE (21:59)
[2021-09-09] MEDS ORDERED: LORazepam 1 MG TABLET ONE (22:38)
[2021-09-09 22:47] LABS: EOS % 0.4 % (0-4.5); HEMATOCRIT 38.6 % (35.4-49); HEMOGLOBIN 12.8 GM/dL (11.7-16.9); LYMPH % 39.6 % (8-40); MCHC 33.1 g/dl (32.0-35.9); MEAN CELL VOLUME 81.8 fl (80-96); MEAN PLT VOLUME 8.1 fl (7.5-11.1); MONO % 8.6 % (3.8-10.2); NEUT % 50.4 % (42.8-82.8); PLATELET COUNT 70 10^3/uL (134-434); RBC 4.72 M/mm3 (4.00-5.60); RDW 21.5 % (11.9-15.9); WHITE BLOOD COUNT 3.7 K/mm3 (4.0-10.0)
[2021-09-09 23:15] LABS: ALBUMIN 2.9 g/dl (3.4-5.0); BLOOD UREA NITROGEN 4.2 mg/dL (7-18); CALCIUM 8.3 mg/dL (8.5-10.1)
[2021-09-09 23:19] LABS: CREATININE 0.8 mg/dL (0.55-1.3)
[2021-09-09 23:20] LABS: TOT PROT 7.7 g/dl (6.4-8.2)
[2021-09-09] MEDS ORDERED: SODIUM CHLORIDE 0.9% 500 ML INFUS.BAG IV ONE (23:27)
[2021-09-09 23:36] LABS: ANISOCYTOSIS 2+; MACROCYTOSIS 1+; OVALOCYTE 1+; PLATELET ESTIMATE DECREASED
[2021-09-10] MEDS ORDERED: LORazepam 2 MG/ML SDV VIAL IVPUSH ONE (02:30)
[2021-09-10] MEDS ORDERED: LORazepam 2 MG/ML SDV VIAL ONE (02:34)
[2021-09-10] MEDS ORDERED: FOLIC ACID INJECTION - 1 MG, THIAMINE HCL 200 MG, MULTIVIT INJECTION ADULT 10 ML in SOD... IVPB ONE (02:45)
[2021-09-10] MEDS: INSULIN SLIDING SCALE (NOVOLOG) 1 VIAL SQ SCH ×4 (06:55→22:11)
[2021-09-10 07:29] LABS: INR 1.53 (0.83-1.09)
[2021-09-10 09:47] VITALS: BMI 27.2
[2021-09-10] MEDS ORDERED: PT OWN MED DRAWER 7, Y5N ONE ×2 (10:01→17:14)
[2021-09-10] MEDS: TAMSULOSIN HCL 0.4 MG CAP PO SCH (10:10)
[2021-09-10] MEDS: NADOLOL 20 MG TABLET (FP) PO SCH (10:10)
[2021-09-10] MEDS: THIAMINE HCL 100 MG TABLET (FP) PO SCH (10:10)
[2021-09-10] MEDS: FOLIC ACID 1 MG TABLET (FP) PO SCH (10:10)
[2021-09-10] MEDS: DULoxetine HCL 30 MG CAPSULE.DR PO SCH (10:10)
[2021-09-10] MEDS: PANTOPRAZOLE 40 MG TABLET PO SCH ×2 (10:10→22:10)
[2021-09-10 10:47] LABS: PH,URINE 5.5 (5.0-8.0); URINE APPEARANCE CLEAR; URINE BILIRUBIN NEGATIVE (NEGATIVE); URINE COLOR DK YELLOW; URINE GLUCOSE (UA) NEGATIVE (NEGATIVE); URINE KETONE NEGATIVE (NEGATIVE); URINE LEUK ESTERASE NEGATIVE (NEGATIVE); URINE NITRITE NEGATIVE (NEGATIVE); URINE PROTEIN NEGATIVE (NEGATIVE)
[2021-09-10 10:56] LABS: COCAINE, UR NEGATIVE (NEGATIVE); URINE AMPHETAMINES NEGATIVE (NEGATIVE); URINE BARBITURATES NEGATIVE (NEGATIVE); URINE BENZODIAZEPINES NEGATIVE (NEGATIVE)
[2021-09-10 10:57] LABS: HEMATOCRIT 33.7 % (35.4-49); HEMOGLOBIN 11.2 GM/dL (11.7-16.9); MCH 27.4 pg (25.7-33.7); MCHC 33.3 g/dl (32.0-35.9); MEAN CELL VOLUME 82.1 fl (80-96); MEAN PLT VOLUME 8.9 fl (7.5-11.1); PLATELET COUNT 38 10^3/uL (134-434); RDW 21.4 % (11.9-15.9)
[2021-09-10 10:57] LABS: METHADONE, UR NEGATIVE (NEGATIVE); OPIATES, URI NEGATIVE (NEGATIVE); PHENCYCLIDINE,URINE NEGATIVE (NEGATIVE)
[2021-09-10] MEDS ORDERED: LORazepam 1 MG TABLET PO SCH (11:00)
[2021-09-10 15:59] LABS: BLOOD UREA NITROGEN 3.9 mg/dL (7-18); CALCIUM 7.1 mg/dL (8.5-10.1)
[2021-09-10 16:00] LABS: MAGNESIUM 1.6 mg/dL (1.8-2.4)
[2021-09-10 16:03] LABS: CREATININE 0.7 mg/dL (0.55-1.3); PHOSPHOROUS 3.2 mg/dL (2.5-4.9)
[2021-09-10 16:18] LABS: RETICULOCYTES 0.85 % (0.5-1.5); WHITE BLOOD COUNT 2.2 K/mm3 (4.0-10.0)
[2021-09-10] MEDS: LORazepam 1 MG TABLET PO SCH ×2 (17:19→22:18)
[2021-09-10] MEDS: VITAMIN B COMPLEX W/C COMBO TABLET (FP) PO SCH (18:00)
[2021-09-10] MEDS: RIVAROXABAN 10 MG TABLET PO SCH (18:00)
[2021-09-10] MEDS ORDERED: PROCHLORPERAZINE INJECTION 10 MG/2 ML VIAL IVPB ONE (23:47)
[2021-09-11] MEDS ORDERED: LORazepam 2 MG/ML SDV VIAL IVPUSH ONE ×2 (00:26→06:24)
[2021-09-11] MEDS ORDERED: PROCHLORPERAZINE INJECTION 10 MG/2 ML VIAL IVPB PRN (06:00)
[2021-09-11] MEDS: LORazepam 1 MG TABLET PO SCH ×2 (08:01→12:34)
[2021-09-11] MEDS: INSULIN SLIDING SCALE (NOVOLOG) 1 VIAL SQ SCH ×4 (08:02→21:07)
[2021-09-11] MEDS: TAMSULOSIN HCL 0.4 MG CAP PO SCH (08:03)
[2021-09-11 08:56] LABS: BASO % 0.3 % (0-2.0); EOS % 0.2 % (0-4.5); HEMATOCRIT 34.8 % (35.4-49); HEMOGLOBIN 11.6 GM/dL (11.7-16.9); LYMPH % 32.4 % (8-40); MCH 27.4 pg (25.7-33.7); MCHC 33.2 g/dl (32.0-35.9); MEAN CELL VOLUME 82.3 fl (80-96); MEAN PLT VOLUME 9.2 fl (7.5-11.1); MONO % 10.5 % (3.8-10.2); NEUT % 56.6 % (42.8-82.8); PLATELET COUNT 44 10^3/uL (134-434); RBC 4.23 M/mm3 (4.00-5.60); RDW 21.3 % (11.9-15.9); RETICULOCYTES 1.32 % (0.5-1.5); WHITE BLOOD COUNT 2.5 K/mm3 (4.0-10.0)
[2021-09-11 09:25] LABS: CALCIUM 7.9 mg/dL (8.5-10.1)
[2021-09-11 09:30] LABS: BILIRUBIN,TOTAL 1.6 mg/dL (0.2-1)
[2021-09-11 09:37] LABS: ALBUMIN 2.2 g/dl (3.4-5.0); BLOOD UREA NITROGEN 9.4 mg/dL (7-18); CREATININE 0.7 mg/dL (0.55-1.3)
[2021-09-11 10:07] LABS: MAGNESIUM 1.4 mg/dL (1.8-2.4)
[2021-09-11 10:11] LABS: PHOSPHOROUS 3.6 mg/dL (2.5-4.9)
[2021-09-11] MEDS ORDERED: PT OWN MED DRAWER 7, Y5N ONE ×2 (10:40→17:27)
[2021-09-11] MEDS: VITAMIN B COMPLEX W/C COMBO TABLET (FP) PO SCH (10:43)
[2021-09-11] MEDS: THIAMINE HCL 100 MG TABLET (FP) PO SCH (10:43)
[2021-09-11] MEDS: PANTOPRAZOLE 40 MG TABLET PO SCH ×2 (10:43→21:07)
[2021-09-11] MEDS: NADOLOL 20 MG TABLET (FP) PO SCH (10:43)
[2021-09-11] MEDS: FOLIC ACID 1 MG TABLET (FP) PO SCH (10:43)
[2021-09-11] MEDS: DULoxetine HCL 30 MG CAPSULE.DR PO SCH (10:43)
[2021-09-11] MEDS ORDERED: MAGNESIUM OXIDE 400 MG TABLET (FP) PO ONE (11:01)
[2021-09-11] MEDS: RIVAROXABAN 10 MG TABLET PO SCH (17:28)
[2021-09-12] MEDS: LORazepam 2 MG/ML SDV VIAL IVPUSH PRN ×2 (00:50→10:59)
[2021-09-12] MEDS: INSULIN SLIDING SCALE (NOVOLOG) 1 VIAL SQ SCH ×4 (06:37→21:42)
[2021-09-12 08:43] LABS: CHLORIDE 102 mmol/L (98-107); SODIUM 133 mmol/L (136-145)
[2021-09-12 08:46] LABS: CALCIUM 8.3 mg/dL (8.5-10.1)
[2021-09-12 08:47] LABS: ANION GAP 8 MMOL/L (8-16); BLOOD UREA NITROGEN 6.9 mg/dL (7-18); CO2 24 mmol/L (21-32); GLUCOSE,RANDOM 121 mg/dL (74-106)
[2021-09-12 08:50] LABS: CREATININE 0.7 mg/dL (0.55-1.3)
[2021-09-12] MEDS ORDERED: POTASSIUM CHLORIDE TABS 20 MEQ TABLET.ER (FP) PO ONE (09:15)
[2021-09-12 09:35] LABS: MAGNESIUM 1.2 mg/dL (1.8-2.4)
[2021-09-12 09:39] LABS: PHOSPHOROUS 2.1 mg/dL (2.5-4.9)
[2021-09-12] MEDS: PANTOPRAZOLE 40 MG TABLET PO SCH ×2 (09:40→21:42)
[2021-09-12] MEDS: NADOLOL 20 MG TABLET (FP) PO SCH (09:40)
[2021-09-12] MEDS: THIAMINE HCL 100 MG TABLET (FP) PO SCH (09:40)
[2021-09-12] MEDS: DULoxetine HCL 30 MG CAPSULE.DR PO SCH (09:40)
[2021-09-12] MEDS: FOLIC ACID 1 MG TABLET (FP) PO SCH (09:40)
[2021-09-12] MEDS: TAMSULOSIN HCL 0.4 MG CAP PO SCH (09:41)
[2021-09-12] MEDS: KCL 10 MEQ IVPB 10 MEQ/100 ML INFUS.BAG IVPB SCH ×3 (09:41→12:11)
[2021-09-12] MEDS ORDERED: PT OWN MED DRAWER 7, Y5N ONE ×2 (10:51→18:31)
[2021-09-12] MEDS: VITAMIN B COMPLEX W/C COMBO TABLET (FP) PO SCH (10:53)
[2021-09-12] MEDS ORDERED: MAGNESIUM 2GM/50ML STERILE WATER IVPB IVPB ONE (11:45)
[2021-09-12] MEDS ORDERED: SODIUM PHOSPHATE - 30 MM in SODIUM CHLORIDE 500 ML IVPB ONE (12:00)
[2021-09-12] MEDS: RIVAROXABAN 10 MG TABLET PO SCH (17:28)
[2021-09-12] MEDS ORDERED: INSULIN (NOVOLOG) ASPART 100 UNITS/ML 10ML VIAL ONE (21:37)
[2021-09-13] MEDS: LORazepam 2 MG/ML SDV VIAL IVPUSH PRN (02:06)
[2021-09-13] MEDS: INSULIN SLIDING SCALE (NOVOLOG) 1 VIAL SQ SCH ×4 (06:12→21:11)
[2021-09-13] MEDS ORDERED: PT OWN MED DRAWER 7, Y5N ONE (09:50)
[2021-09-13] MEDS: NADOLOL 20 MG TABLET (FP) PO SCH (10:06)
[2021-09-13] MEDS: PANTOPRAZOLE 40 MG TABLET PO SCH ×2 (10:06→21:08)
[2021-09-13] MEDS: THIAMINE HCL 100 MG TABLET (FP) PO SCH (10:06)
[2021-09-13] MEDS: FOLIC ACID 1 MG TABLET (FP) PO SCH (10:06)
[2021-09-13] MEDS: VITAMIN B COMPLEX W/C COMBO TABLET (FP) PO SCH (10:06)
[2021-09-13] MEDS: TAMSULOSIN HCL 0.4 MG CAP PO SCH (10:06)
[2021-09-13] MEDS: DULoxetine HCL 30 MG CAPSULE.DR PO SCH (10:06)
[2021-09-13 10:11] LABS: BASO % 0.3 % (0-2.0); EOS % 0.8 % (0-4.5); HEMATOCRIT 40.4 % (35.4-49); HEMOGLOBIN 13.5 GM/dL (11.7-16.9); LYMPH % 21.5 % (8-40); MCH 27.3 pg (25.7-33.7); MCHC 33.4 g/dl (32.0-35.9); MEAN CELL VOLUME 81.9 fl (80-96); MEAN PLT VOLUME 8.7 fl (7.5-11.1); MONO % 10.9 % (3.8-10.2); NEUT % 66.5 % (42.8-82.8); PLATELET COUNT 66 10^3/uL (134-434); RBC 4.93 M/mm3 (4.00-5.60); RDW 21.3 % (11.9-15.9); WHITE BLOOD COUNT 6.6 K/mm3 (4.0-10.0)
[2021-09-13 10:33] LABS: MAGNESIUM 1.8 mg/dL (1.8-2.4)
[2021-09-13 10:36] LABS: PHOSPHOROUS 2.7 mg/dL (2.5-4.9)
[2021-09-13] MEDS ORDERED: POTASSIUM CHLORIDE TABS 20 MEQ TABLET.ER (FP) PO ONE (14:49)
[2021-09-13] MEDS: RIVAROXABAN 10 MG TABLET PO SCH (17:14)
[2021-09-13] MEDS ORDERED: diazePAM 5 MG TABLET PO PRN (20:00)
[2021-09-13] MEDS ORDERED: MELATONIN 5 MG TABLETS PO ONE ×2 (22:13)
[2021-09-14] MEDS: diazePAM 5 MG TABLET PO PRN ×2 (00:27→22:25)
[2021-09-14] MEDS: INSULIN (LEVEMIR) 100 UNITS/ML UNITS SQ SCH (06:06)
[2021-09-14] MEDS: INSULIN SLIDING SCALE (NOVOLOG) 1 VIAL SQ SCH ×4 (06:06→22:30)
[2021-09-14 09:09] LABS: BASO % 0.3 % (0-2.0); EOS % 0.2 % (0-4.5); HEMOGLOBIN 12.7 GM/dL (11.7-16.9); LYMPH % 21.4 % (8-40); MCH 27.8 pg (25.7-33.7); MCHC 33.5 g/dl (32.0-35.9); MEAN CELL VOLUME 83.2 fl (80-96); MEAN PLT VOLUME 9.3 fl (7.5-11.1); MONO % 11.9 % (3.8-10.2); NEUT % 66.2 % (42.8-82.8); PLATELET COUNT 60 10^3/uL (134-434); RBC 4.57 M/mm3 (4.00-5.60); RDW 21.2 % (11.9-15.9); WHITE BLOOD COUNT 3.5 K/mm3 (4.0-10.0)
[2021-09-14 09:26] LABS: BLOOD UREA NITROGEN 7.5 mg/dL (7-18); CALCIUM 8.4 mg/dL (8.5-10.1); MAGNESIUM 1.7 mg/dL (1.8-2.4)
[2021-09-14 09:28] LABS: CREATININE 0.9 mg/dL (0.55-1.3); PHOSPHOROUS 2.4 mg/dL (2.5-4.9)
[2021-09-14 09:29] LABS: BILIRUBIN,TOTAL 1.5 mg/dL (0.2-1)
[2021-09-14 09:41] LABS: ALBUMIN 2.8 g/dl (3.4-5.0)
[2021-09-14] MEDS ORDERED: MAGNESIUM OXIDE 400 MG TABLET (FP) PO ONE (10:05)
[2021-09-14] MEDS ORDERED: PT OWN MED DRAWER 7, Y5N ONE ×2 (10:43→17:19)
[2021-09-14] MEDS: DULoxetine HCL 30 MG CAPSULE.DR PO SCH (10:45)
[2021-09-14] MEDS: FOLIC ACID 1 MG TABLET (FP) PO SCH (10:45)
[2021-09-14] MEDS: TAMSULOSIN HCL 0.4 MG CAP PO SCH (10:45)
[2021-09-14] MEDS: PANTOPRAZOLE 40 MG TABLET PO SCH ×2 (10:45→22:25)
[2021-09-14] MEDS: NADOLOL 20 MG TABLET (FP) PO SCH (10:45)
[2021-09-14] MEDS: THIAMINE HCL 100 MG TABLET (FP) PO SCH (10:45)
[2021-09-14] MEDS: VITAMIN B COMPLEX W/C COMBO TABLET (FP) PO SCH (10:46)
[2021-09-14] MEDS: NAPH,MB-DB/K PH,MBDB POWDER PACKET PO SCH ×2 (10:46→22:28)
[2021-09-14] MEDS: RIVAROXABAN 10 MG TABLET PO SCH (17:21)
[2021-09-14] MEDS ORDERED: ACETAMINOPHEN 325 MG TABLET (FP) PO ONE (23:21)
[2021-09-15] MEDS ORDERED: INSULIN (NOVOLOG) ASPART 100 UNITS/ML 10ML VIAL ONE (06:00)
[2021-09-15] MEDS: INSULIN (LEVEMIR) 100 UNITS/ML UNITS SQ SCH (06:13)
[2021-09-15] MEDS: INSULIN SLIDING SCALE (NOVOLOG) 1 VIAL SQ SCH ×5 (06:13→21:15)
[2021-09-15 08:59] LABS: HEMATOCRIT 33.4 % (35.4-49); HEMOGLOBIN 11.3 GM/dL (11.7-16.9); MCH 27.8 pg (25.7-33.7); MEAN PLT VOLUME 8.7 fl (7.5-11.1); PLATELET COUNT 45 10^3/uL (134-434); RBC 4.07 M/mm3 (4.00-5.60); RDW 21.5 % (11.9-15.9); WHITE BLOOD COUNT 2.8 K/mm3 (4.0-10.0)
[2021-09-15 09:20] LABS: CALCIUM 7.8 mg/dL (8.5-10.1)
[2021-09-15 09:21] LABS: BLOOD UREA NITROGEN 6.4 mg/dL (7-18); MAGNESIUM 1.5 mg/dL (1.8-2.4)
[2021-09-15 09:24] LABS: ALBUMIN 2.3 g/dl (3.4-5.0); CREATININE 0.8 mg/dL (0.55-1.3)
[2021-09-15 09:26] LABS: BILIRUBIN,TOTAL 1.1 mg/dL (0.2-1)
[2021-09-15 09:27] LABS: PHOSPHOROUS 3.1 mg/dL (2.5-4.9)
[2021-09-15 11:13] LABS: ANISOCYTOSIS 1+; MACROCYTOSIS 0; PLATELET ESTIMATE DECREASED
[2021-09-15] MEDS ORDERED: PT OWN MED DRAWER 7, Y5N ONE ×2 (11:27→17:22)
[2021-09-15] MEDS: diazePAM 5 MG TABLET PO PRN (11:28)
[2021-09-15] MEDS: FOLIC ACID 1 MG TABLET (FP) PO SCH (11:28)
[2021-09-15] MEDS: TAMSULOSIN HCL 0.4 MG CAP PO SCH (11:28)
[2021-09-15] MEDS: NADOLOL 20 MG TABLET (FP) PO SCH (11:29)
[2021-09-15] MEDS: PANTOPRAZOLE 40 MG TABLET PO SCH ×2 (11:29→21:14)
[2021-09-15] MEDS: VITAMIN B COMPLEX W/C COMBO TABLET (FP) PO SCH (11:29)
[2021-09-15] MEDS: THIAMINE HCL 100 MG TABLET (FP) PO SCH (11:29)
[2021-09-15] MEDS: DULoxetine HCL 30 MG CAPSULE.DR PO SCH (11:29)
[2021-09-15] MEDS ORDERED: diazePAM 5 MG TABLET PO PRN (12:30)
[2021-09-15] MEDS ORDERED: ACETAMINOPHEN 1000 MG/100 ML VIAL IVPB PRN (15:07)
[2021-09-15 17:17] LABS: URINE APPEARANCE CLEAR; URINE BILIRUBIN NEGATIVE (NEGATIVE); URINE COLOR DK YELLOW; URINE GLUCOSE (UA) NEGATIVE (NEGATIVE); URINE KETONE 1+ (NEGATIVE); URINE LEUK ESTERASE NEGATIVE (NEGATIVE); URINE NITRITE NEGATIVE (NEGATIVE); URINE PROTEIN NEGATIVE (NEGATIVE); URINE UROBILINOGEN 4.0 E.U/dl mg/dL (0.2-1.0)
[2021-09-15] MEDS: RIVAROXABAN 10 MG TABLET PO SCH (17:25)
[2021-09-16] MEDS: INSULIN SLIDING SCALE (NOVOLOG) 1 VIAL SQ SCH ×2 (06:03→12:08)
[2021-09-16] MEDS: INSULIN (LEVEMIR) 100 UNITS/ML UNITS SQ SCH (06:03)
[2021-09-16 08:38] LABS: HEMATOCRIT 36.5 % (35.4-49); HEMOGLOBIN 12.5 GM/dL (11.7-16.9); MCH 28.2 pg (25.7-33.7); MCHC 34.3 g/dl (32.0-35.9); MEAN CELL VOLUME 82.4 fl (80-96); MEAN PLT VOLUME 9.8 fl (7.5-11.1); PLATELET COUNT 60 10^3/uL (134-434); RBC 4.43 M/mm3 (4.00-5.60); RDW 21.6 % (11.9-15.9); WHITE BLOOD COUNT 5.1 K/mm3 (4.0-10.0)
[2021-09-16 09:23] LABS: CALCIUM 8.3 mg/dL (8.5-10.1)
[2021-09-16 09:24] LABS: ALBUMIN 2.2 g/dl (3.4-5.0); MAGNESIUM 1.2 mg/dL (1.8-2.4)
[2021-09-16 09:25] LABS: BLOOD UREA NITROGEN 7.9 mg/dL (7-18)
[2021-09-16 09:26] LABS: CREATININE 0.7 mg/dL (0.55-1.3)
[2021-09-16 09:28] LABS: BILIRUBIN,TOTAL 1.2 mg/dL (0.2-1); TOT PROT 6.3 g/dl (6.4-8.2)
[2021-09-16] MEDS ORDERED: PT OWN MED DRAWER 7, Y5N ONE (10:38)
[2021-09-16] MEDS: DULoxetine HCL 30 MG CAPSULE.DR PO SCH (10:42)
[2021-09-16] MEDS: FOLIC ACID 1 MG TABLET (FP) PO SCH (10:42)
[2021-09-16] MEDS: NADOLOL 20 MG TABLET (FP) PO SCH (10:42)
[2021-09-16] MEDS: TAMSULOSIN HCL 0.4 MG CAP PO SCH (10:42)
[2021-09-16] MEDS: THIAMINE HCL 100 MG TABLET (FP) PO SCH (10:43)
[2021-09-16] MEDS: PANTOPRAZOLE 40 MG TABLET PO SCH (10:43)
[2021-09-16] MEDS: VITAMIN B COMPLEX W/C COMBO TABLET (FP) PO SCH (10:43)
[2021-09-16 11:01] LABS: ANISOCYTOSIS 1+; MACROCYTOSIS 0; OVALOCYTE 1+; PLATELET ESTIMATE DECREASED; TEAR DROP CELLS 1+
[2021-09-16] MEDS ORDERED: INSULIN (NOVOLOG) ASPART 100 UNITS/ML 10ML VIAL ONE (11:55)
[2021-09-16 21:32] VITALS: BP 126/68; PULSE 71; TEMP 98.8
== END 2021-09-16 14:31 | disposition home or self-care (01) | DRG 897 ==
LOC: JER 21:26 → JERBED 09-10 01:15 → J8W 09-10 06:39 → OBSVTOIN 09-15 13:42
PROVIDERS: ADMIT Internal Medicine; ATTEND Internal Medicine
DX: F10.231 Alcohol dependence with withdrawal delirium (principal); R44.3 Hallucinations, unspecified; D68.2 Hereditary deficiency of other clotting factors; D61.818 Other pancytopenia; D68.59 Other primary thrombophilia; I50.1 Left ventricular failure, unspecified; R29.6 Repeated falls; K74.60 Unspecified cirrhosis of liver; E10.9 Type 1 diabetes mellitus without complications; E78.5 Hyperlipidemia, unspecified; N40.0 Benign prostatic hyperplasia without lower urinary tract symptoms
CPT/HCPCS: 36415; 70450-TC; 71045-TC-FY; 80048; 80053; 80307; 81003; 82140; 82607; 82728; 82962; 83540; 83550; 83605; 83690; 83735; 84100; 84132; 84484; 85025; 85027; 85045; 85610; 85730; 86140; 86850; 86900; 86901; 87040; 87086; 87186; 93005; 93010; 97116-GP; 97162-GP; 99285-25; C9803; G0378; J0131; U0003; U0005

== ENCOUNTER 2021-10-27 02:26 | Inpatient (IN) | payer OTHER, BC ==
[2021-10-27 03:44] LABS: HEMATOCRIT 40.6 % (35.4-49); MCH 29.6 pg (25.7-33.7); MCHC 34.4 g/dl (32.0-35.9); MEAN PLT VOLUME 8.1 fl (7.5-11.1); PLATELET COUNT 155 10^3/uL (134-434); RBC 4.73 M/mm3 (4.00-5.60); RDW 19.4 % (11.9-15.9); WHITE BLOOD COUNT 9.8 K/mm3 (4.0-10.0)
[2021-10-27 03:52] LABS: INR 1.93 (0.83-1.09); PROTHROMBIN TIME (PATIENT) 22.7 SEC (9.7-13.0)
[2021-10-27 03:54] LABS: ACTIVATED PTT 35.3 SECONDS (25.2-36.5)
[2021-10-27 04:03] LABS: CHLORIDE 101 mmol/L (98-107); SODIUM 134 mmol/L (136-145)
[2021-10-27 04:05] LABS: CALCIUM 7.6 mg/dL (8.5-10.1)
[2021-10-27 04:06] LABS: ALBUMIN 2.4 g/dl (3.4-5.0); ANION GAP 12 MMOL/L (8-16); BLOOD UREA NITROGEN 7.7 mg/dL (7-18); CO2 21 mmol/L (21-32); GLUCOSE,RANDOM 189 mg/dL (74-106)
[2021-10-27 04:09] LABS: CREATININE 0.8 mg/dL (0.55-1.3); SGOT/AST 36 U/L (15-37); SGPT/ALT 23 U/L (13-61)
[2021-10-27 04:10] LABS: BILIRUBIN,TOTAL 0.8 mg/dL (0.2-1)
[2021-10-27 04:11] LABS: TOT PROT 7.2 g/dl (6.4-8.2)
[2021-10-27 04:12] LABS: ALK PHOS 177 U/L (45-117)
[2021-10-27 04:14] LABS: N-TERMINAL BNP 8538.9 pg/ml (5-125)
[2021-10-27 04:16] LABS: LACTIC ACID 2.9 mmol/L (0.4-2.0)
[2021-10-27] MEDS ORDERED: SODIUM CHLORIDE 0.9% 500 ML INFUS.BAG IV ONE (04:22)
[2021-10-27] MEDS ORDERED: FOLIC ACID INJECTION - 1 MG, THIAMINE HCL 100 MG, MULTIVIT INJECTION ADULT 10 ML in SOD... IVPB ONE (04:25)
[2021-10-27 06:07] LABS: ANISOCYTOSIS 3+; MACROCYTOSIS 0; PLATELET ESTIMATE DECREASED; TEAR DROP CELLS 1+
[2021-10-27 08:55] LABS: EPI CELLS 0 /uL (0-25.1); HYALINE CASTS 16 /uL (0-3.1); PH,URINE 5.5 (5.0-8.0); URINE APPEARANCE Clear; URINE BACTERIA 387 /uL (0-1359); URINE BILIRUBIN Negative (NEGATIVE); URINE COLOR Yellow; URINE GLUCOSE (UA) Negative (NEGATIVE); URINE KETONE Negative (NEGATIVE); URINE LEUK ESTERASE Moderate (NEGATIVE); URINE NITRITE Negative (NEGATIVE); URINE PROTEIN Trace (NEGATIVE); URINE UROBILINOGEN 0.2 mg/dL (0.2-1.0); URINE WBC 620 /uL (0-25.8)
[2021-10-27 09:04] LABS: URINE RBC 24.9 /uL (0-23.9)
[2021-10-27] MEDS ORDERED: TAMSULOSIN HCL 0.4 MG CAP ONE (09:32)
[2021-10-27] MEDS: TAMSULOSIN HCL 0.4 MG CAP PO SCH (09:38)
[2021-10-27] MEDS ORDERED: FOLIC ACID 1 MG TABLET (FP) ONE (09:46)
[2021-10-27] MEDS ORDERED: THIAMINE HCL 100 MG TABLET (FP) ONE (09:46)
[2021-10-27] MEDS ORDERED: PANTOPRAZOLE 40 MG TABLET ONE (09:46)
[2021-10-27] MEDS ORDERED: DULoxetine HCL 30 MG CAPSULE.DR PO ONE (09:46)
[2021-10-27] MEDS: PANTOPRAZOLE 40 MG TABLET PO SCH ×2 (09:49→21:11)
[2021-10-27] MEDS: THIAMINE HCL 100 MG TABLET (FP) PO SCH (09:49)
[2021-10-27] MEDS: FOLIC ACID 1 MG TABLET (FP) PO SCH (09:49)
[2021-10-27] MEDS: DULoxetine HCL 30 MG CAPSULE.DR PO SCH (09:49)
[2021-10-27] MEDS ORDERED: RIVAROXABAN 10 MG TABLET PO SCH (10:00)
[2021-10-27] MEDS ORDERED: RIVAROXABAN 20 MG TABLET PO SCH ×2 (10:00)
[2021-10-27 10:49] LABS: OPIATES, URI NEGATIVE (NEGATIVE)
[2021-10-27 10:50] LABS: COCAINE, UR NEGATIVE (NEGATIVE); METHADONE, UR NEGATIVE (NEGATIVE); PHENCYCLIDINE,URINE NEGATIVE (NEGATIVE); URINE AMPHETAMINES NEGATIVE (NEGATIVE); URINE BENZODIAZEPINES NEGATIVE (NEGATIVE)
[2021-10-27 10:55] LABS: URINE BARBITURATES POSITIVE (NEGATIVE)
[2021-10-27 11:15] LABS: LACTIC ACID 2.6 mmol/L (0.4-2.0)
[2021-10-27] MEDS: INSULIN SLIDING SCALE (NOVOLOG) 1 VIAL SQ SCH ×3 (12:26→21:11)
[2021-10-27] MEDS: diazePAM 5 MG TABLET PO SCH ×3 (12:28→23:04)
[2021-10-27] MEDS ORDERED: ACETAMINOPHEN 1000 MG/100 ML VIAL IVPB PRN (12:40)
[2021-10-27 13:06] VITALS: BMI 25.7
[2021-10-27] MEDS: NADOLOL 20 MG TABLET (FP) PO SCH (13:34)
[2021-10-27] MEDS: LIDOCAINE 5% TOPICAL PATCH TP SCH (14:00)
[2021-10-27] MEDS ORDERED: METOPROLOL TARTRATE 5 MG/5 ML VIAL IVPUSH ONE (14:35)
[2021-10-27] MEDS: ACETAMINOPHEN 325 MG TABLET (FP) PO PRN (21:12)
[2021-10-27] MEDS ORDERED: LIDOCAINE PATCH REMOVAL MC SCH (22:00)
[2021-10-28] MEDS: ACETAMINOPHEN 325 MG TABLET (FP) PO PRN ×4 (03:41→22:03)
[2021-10-28] MEDS: diazePAM 5 MG TABLET PO SCH ×4 (04:26→22:01)
[2021-10-28] MEDS: INSULIN SLIDING SCALE (NOVOLOG) 1 VIAL SQ SCH ×4 (06:07→22:01)
[2021-10-28 08:32] LABS: HEMATOCRIT 34.3 % (35.4-49); HEMOGLOBIN 11.7 GM/dL (11.7-16.9); MCH 29.7 pg (25.7-33.7); MCHC 34.1 g/dl (32.0-35.9); MEAN CELL VOLUME 87.2 fl (80-96); MEAN PLT VOLUME 8.7 fl (7.5-11.1); PLATELET COUNT 88 10^3/uL (134-434); RBC 3.93 M/mm3 (4.00-5.60); RDW 19.3 % (11.9-15.9); WHITE BLOOD COUNT 5.9 K/mm3 (4.0-10.0)
[2021-10-28 09:12] LABS: CALCIUM 7.2 mg/dL (8.5-10.1)
[2021-10-28 09:13] LABS: BLOOD UREA NITROGEN 10.6 mg/dL (7-18); MAGNESIUM 1.6 mg/dL (1.8-2.4)
[2021-10-28 09:15] LABS: CREATININE 0.6 mg/dL (0.55-1.3); PHOSPHOROUS 2.6 mg/dL (2.5-4.9)
[2021-10-28 09:17] LABS: BILIRUBIN,TOTAL 0.8 mg/dL (0.2-1); TOT PROT 5.7 g/dl (6.4-8.2)
[2021-10-28] MEDS: FOLIC ACID 1 MG TABLET (FP) PO SCH (09:40)
[2021-10-28] MEDS: LIDOCAINE 5% TOPICAL PATCH TP SCH (09:40)
[2021-10-28] MEDS: PANTOPRAZOLE 40 MG TABLET PO SCH ×2 (09:40→22:01)
[2021-10-28] MEDS: DULoxetine HCL 30 MG CAPSULE.DR PO SCH (09:40)
[2021-10-28] MEDS: THIAMINE HCL 100 MG TABLET (FP) PO SCH (09:40)
[2021-10-28] MEDS: TAMSULOSIN HCL 0.4 MG CAP PO SCH (09:40)
[2021-10-28] MEDS: RIVAROXABAN 10 MG TABLET PO SCH (09:41)
[2021-10-28 09:43] LABS: ALBUMIN 1.8 g/dl (3.4-5.0)
[2021-10-28] MEDS ORDERED: RIVAROXABAN 20 MG TABLET PO SCH (10:00)
[2021-10-28] MEDS: LISINOPRIL 5 MG TABLET PO SCH (11:26)
[2021-10-28] MEDS ORDERED: PT OWN MED DRAWER 7, Y5N ONE (13:20)
[2021-10-28] MEDS: NADOLOL 20 MG TABLET (FP) PO SCH (13:21)
[2021-10-28] MEDS: SPIRONOLACTONE 25 MG TABLET PO SCH (14:37)
[2021-10-28] MEDS ORDERED: oxyCODONE HCL 5 MG TABLET PO ONE (17:12)
[2021-10-28] MEDS: INSULIN (LEVEMIR) 100 UNITS/ML UNITS SQ SCH (22:00)
[2021-10-28] MEDS ORDERED: INSULIN (LEVEMIR) 100 UNITS/ML UNITS SQ SCH (22:00)
[2021-10-28] MEDS: LIDOCAINE PATCH REMOVAL MC SCH (22:01)
[2021-10-28] MEDS: ATORVASTATIN CA 40 MG TABLET (FP) PO SCH (22:01)
[2021-10-29] MEDS ORDERED: HALOPERIDOL LACTATE 5 MG/ML IM ONE (03:33)
[2021-10-29] MEDS ORDERED: LORazepam 2 MG/ML SDV VIAL IVPUSH PRN ×2 (04:39→06:15)
[2021-10-29] MEDS ORDERED: diazePAM 5 MG TABLET PO SCH (06:00)
[2021-10-29] MEDS: diazePAM 5 MG TABLET PO SCH ×3 (06:13→18:41)
[2021-10-29] MEDS: INSULIN SLIDING SCALE (NOVOLOG) 1 VIAL SQ SCH ×4 (06:14→21:35)
[2021-10-29] MEDS: INSULIN (LEVEMIR) 100 UNITS/ML UNITS SQ SCH ×2 (06:14→21:24)
[2021-10-29 08:33] LABS: BASO % 0.1 % (0-2.0); EOS % 0.1 % (0-4.5); HEMATOCRIT 38.5 % (35.4-49); HEMOGLOBIN 13.1 GM/dL (11.7-16.9); LYMPH % 5.9 % (8-40); MCH 29.4 pg (25.7-33.7); MEAN CELL VOLUME 86.3 fl (80-96); MEAN PLT VOLUME 8.9 fl (7.5-11.1); MONO % 8.7 % (3.8-10.2); NEUT % 85.2 % (42.8-82.8); PLATELET COUNT 91 10^3/uL (134-434); RBC 4.46 M/mm3 (4.00-5.60); RDW 19.2 % (11.9-15.9); WHITE BLOOD COUNT 12.3 K/mm3 (4.0-10.0)
[2021-10-29 09:05] LABS: ALBUMIN 1.9 g/dl (3.4-5.0); BLOOD UREA NITROGEN 9.9 mg/dL (7-18); CALCIUM 7.8 mg/dL (8.5-10.1)
[2021-10-29 09:06] LABS: MAGNESIUM 1.6 mg/dL (1.8-2.4)
[2021-10-29 09:09] LABS: BILIRUBIN,TOTAL 0.9 mg/dL (0.2-1); PHOSPHOROUS 2.3 mg/dL (2.5-4.9); TOT PROT 6.2 g/dl (6.4-8.2)
[2021-10-29 09:17] LABS: CREATININE 0.7 mg/dL (0.55-1.3)
[2021-10-29] MEDS ORDERED: PT OWN MED DRAWER 7, Y5N ONE (10:06)
[2021-10-29] MEDS: ACETAMINOPHEN 325 MG TABLET (FP) PO PRN (10:10)
[2021-10-29] MEDS: SPIRONOLACTONE 25 MG TABLET PO SCH (10:11)
[2021-10-29] MEDS: PANTOPRAZOLE 40 MG TABLET PO SCH ×2 (10:12→21:23)
[2021-10-29] MEDS: THIAMINE HCL 100 MG TABLET (FP) PO SCH (10:12)
[2021-10-29] MEDS: TAMSULOSIN HCL 0.4 MG CAP PO SCH (10:12)
[2021-10-29] MEDS: RIVAROXABAN 10 MG TABLET PO SCH (10:13)
[2021-10-29] MEDS: DULoxetine HCL 30 MG CAPSULE.DR PO SCH (10:13)
[2021-10-29] MEDS: NADOLOL 20 MG TABLET (FP) PO SCH (10:13)
[2021-10-29] MEDS: FOLIC ACID 1 MG TABLET (FP) PO SCH (10:14)
[2021-10-29] MEDS: LIDOCAINE 5% TOPICAL PATCH TP SCH (10:14)
[2021-10-29] MEDS: LISINOPRIL 5 MG TABLET PO SCH (10:14)
[2021-10-29] MEDS: diazePAM 5 MG TABLET PO PRN ×2 (10:15→21:42)
[2021-10-29] MEDS ORDERED: MAGNESIUM SULF 50% (8.12 MEQ/2 ML-1 GM VIAL) IVPB ONE (10:36)
[2021-10-29] MEDS ORDERED: VANCOMYCIN 1 GM in D5W (PRE-DOCKED) 1,000 MG/250 ML IVPB ONE (13:15)
[2021-10-29] MEDS: THIAMINE HCL 200 MG/2 ML VIAL IM SCH (13:18)
[2021-10-29] MEDS: CYANOCOBALAMIN 1,000 MCG TABLET (FP) PO SCH (13:30)
[2021-10-29] MEDS ORDERED: SODIUM CHLORIDE 1,000 ML IV STA (14:25)
[2021-10-29] MEDS: CHOLECALCIFEROL (VIT D3) 1,000 UNIT (25 MCG) TABLET PO SCH (15:30)
[2021-10-29] MEDS: DOPAMINE 400 MG/D5W - 400,000 MCG/250 ML INFUS.BAG IVPB SCH (17:35)
[2021-10-29] MEDS: NYSTATIN 500,000 UNITS/5 ML SUSPENSION PO SCH (18:05)
[2021-10-29] MEDS ORDERED: CEFEPIME HCL 1 GM VIAL (RESTRICTED TO ID) ONE ×2 (19:30→21:22)
[2021-10-29] MEDS ORDERED: DEXTROSE 5%-WATER 100 ML IVPB ONE ×2 (19:30→21:22)
[2021-10-29] MEDS: CEFEPIME 1 GM in DEXTROSE 5%-WATER 1 GM/100 ML BAG IVPB SCH ×2 (19:31→22:39)
[2021-10-29] MEDS: MUPIROCIN 2% TOPICAL OINTMENT FOR DECOLONIZATION NS SCH (21:23)
[2021-10-29] MEDS: ATORVASTATIN CA 40 MG TABLET (FP) PO SCH (21:23)
[2021-10-29] MEDS: LIDOCAINE PATCH REMOVAL MC SCH (21:24)
[2021-10-29] MEDS: CHLORHEXIDINE GLUCONATE 4% CLEANSER FOR DECOLONIZATION TP SCH (21:24)
[2021-10-30] MEDS: NYSTATIN 500,000 UNITS/5 ML SUSPENSION PO SCH ×5 (01:05→23:23)
[2021-10-30] MEDS ORDERED: VANCOMYCIN 1,000 MG in DEXTROSE 5%-WATER - 250 ML IVPB SCH (03:00)
[2021-10-30] MEDS ORDERED: diazePAM 5 MG TABLET PO ONE (06:00)
[2021-10-30] MEDS: INSULIN (LEVEMIR) 100 UNITS/ML UNITS SQ SCH ×2 (06:14→21:05)
[2021-10-30] MEDS: INSULIN SLIDING SCALE (NOVOLOG) 1 VIAL SQ SCH ×4 (06:14→21:17)
[2021-10-30 06:42] LABS: BASO % 0.4 % (0-2.0); EOS % 0.1 % (0-4.5); HEMATOCRIT 37.7 % (35.4-49); LYMPH % 7.6 % (8-40); MCH 30.2 pg (25.7-33.7); MCHC 34.5 g/dl (32.0-35.9); MEAN CELL VOLUME 87.5 fl (80-96); MEAN PLT VOLUME 9.5 fl (7.5-11.1); NEUT % 82.9 % (42.8-82.8); PLATELET COUNT 79 10^3/uL (134-434); RBC 4.31 M/mm3 (4.00-5.60); WHITE BLOOD COUNT 8.6 K/mm3 (4.0-10.0)
[2021-10-30] MEDS ORDERED: VANCOMYCIN 1 GRAM (PRE-DOCKED) 1,000 MG/250 ML BAG IVPB ONE (06:45)
[2021-10-30 07:00] LABS: BLOOD UREA NITROGEN 12.6 mg/dL (7-18); CALCIUM 7.6 mg/dL (8.5-10.1)
[2021-10-30 07:01] LABS: ALBUMIN 1.6 g/dl (3.4-5.0); MAGNESIUM 1.8 mg/dL (1.8-2.4)
[2021-10-30 07:03] LABS: CREATININE 0.7 mg/dL (0.55-1.3); PHOSPHOROUS 2.6 mg/dL (2.5-4.9)
[2021-10-30 07:05] LABS: BILIRUBIN,TOTAL 0.7 mg/dL (0.2-1); TOT PROT 5.9 g/dl (6.4-8.2)
[2021-10-30] MEDS ORDERED: FUROSEMIDE 40 MG/4 ML INJECTABLE VIAL ONE (07:57)
[2021-10-30] MEDS: ACETAMINOPHEN 325 MG TABLET (FP) PO PRN (08:05)
[2021-10-30] MEDS: TAMSULOSIN HCL 0.4 MG CAP PO SCH (08:05)
[2021-10-30] MEDS ORDERED: FUROSEMIDE 40 MG/4 ML INJECTABLE VIAL IVPUSH ONE (08:30)
[2021-10-30] MEDS ORDERED: CEFEPIME HCL 1 GM VIAL (RESTRICTED TO ID) ONE ×2 (09:32→21:02)
[2021-10-30] MEDS ORDERED: DEXTROSE 5%-WATER 100 ML IVPB ONE ×2 (09:32→21:02)
[2021-10-30] MEDS: CEFEPIME 1 GM in DEXTROSE 5%-WATER 1 GM/100 ML BAG IVPB SCH ×2 (09:38→21:04)
[2021-10-30] MEDS: LIDOCAINE 5% TOPICAL PATCH TP SCH (09:39)
[2021-10-30] MEDS: PANTOPRAZOLE 40 MG TABLET PO SCH ×2 (09:45→21:04)
[2021-10-30] MEDS: FOLIC ACID 1 MG TABLET (FP) PO SCH (09:46)
[2021-10-30] MEDS: CHOLECALCIFEROL (VIT D3) 1,000 UNIT (25 MCG) TABLET PO SCH (09:46)
[2021-10-30] MEDS: RIVAROXABAN 10 MG TABLET PO SCH (09:47)
[2021-10-30] MEDS: THIAMINE HCL 200 MG/2 ML VIAL IM SCH (09:47)
[2021-10-30] MEDS: CYANOCOBALAMIN 1,000 MCG TABLET (FP) PO SCH (09:47)
[2021-10-30] MEDS: DULoxetine HCL 30 MG CAPSULE.DR PO SCH (09:56)
[2021-10-30] MEDS: MUPIROCIN 2% TOPICAL OINTMENT FOR DECOLONIZATION NS SCH ×2 (09:56→21:06)
[2021-10-30] MEDS ORDERED: VANCOMYCIN 1 GM in D5W (PRE-DOCKED) 1,000 MG/250 ML IVPB SCH (13:00)
[2021-10-30] MEDS ORDERED: VANCOMYCIN 1 GRAM (PRE-DOCKED) 1,000 MG/250 ML BAG IVPB SCH (15:00)
[2021-10-30] MEDS: DOPAMINE 400 MG/D5W - 400,000 MCG/250 ML INFUS.BAG IVPB SCH (17:34)
[2021-10-30] MEDS ORDERED: PT OWN MED DRAWER 7, Y5N ONE (18:23)
[2021-10-30] MEDS: VANCOMYCIN/WATER BAGS 1,250 MG/250 ML BAG IVPB SCH (18:24)
[2021-10-30] MEDS: ATORVASTATIN CA 40 MG TABLET (FP) PO SCH (21:04)
[2021-10-30] MEDS: diazePAM 5 MG TABLET PO PRN (21:04)
[2021-10-30] MEDS: LIDOCAINE PATCH REMOVAL MC SCH (21:06)
[2021-10-30] MEDS: CHLORHEXIDINE GLUCONATE 4% CLEANSER FOR DECOLONIZATION TP SCH (21:06)
[2021-10-31] MEDS: INSULIN SLIDING SCALE (NOVOLOG) 1 VIAL SQ SCH ×4 (06:11→21:35)
[2021-10-31] MEDS: NYSTATIN 500,000 UNITS/5 ML SUSPENSION PO SCH ×3 (06:14→18:39)
[2021-10-31] MEDS: INSULIN (LEVEMIR) 100 UNITS/ML UNITS SQ SCH ×2 (06:29→21:34)
[2021-10-31] MEDS: VANCOMYCIN/WATER BAGS 1,250 MG/250 ML BAG IVPB SCH (06:30)
[2021-10-31 07:32] LABS: BASO % 0.2 % (0-2.0); EOS % 0.5 % (0-4.5); HEMATOCRIT 35.7 % (35.4-49); HEMOGLOBIN 12.1 GM/dL (11.7-16.9); LYMPH % 11.3 % (8-40); MCH 29.3 pg (25.7-33.7); MCHC 33.8 g/dl (32.0-35.9); MEAN CELL VOLUME 86.5 fl (80-96); MEAN PLT VOLUME 8.9 fl (7.5-11.1); MONO % 10.3 % (3.8-10.2); NEUT % 77.7 % (42.8-82.8); PLATELET COUNT 72 10^3/uL (134-434); RBC 4.13 M/mm3 (4.00-5.60); WHITE BLOOD COUNT 7.1 K/mm3 (4.0-10.0)
[2021-10-31] MEDS ORDERED: PT OWN MED DRAWER 7, Y5N ONE (07:39)
[2021-10-31] MEDS ORDERED: CEFEPIME HCL 1 GM VIAL (RESTRICTED TO ID) ONE (07:39)
[2021-10-31] MEDS ORDERED: DEXTROSE 5%-WATER 100 ML IVPB ONE (07:39)
[2021-10-31 07:55] LABS: ALBUMIN 1.5 g/dl (3.4-5.0); BLOOD UREA NITROGEN 10.8 mg/dL (7-18); CALCIUM 7.6 mg/dL (8.5-10.1); MAGNESIUM 1.6 mg/dL (1.8-2.4)
[2021-10-31 07:59] LABS: BILIRUBIN,TOTAL 0.8 mg/dL (0.2-1); CREATININE 0.7 mg/dL (0.55-1.3); PHOSPHOROUS 2.2 mg/dL (2.5-4.9); TOT PROT 5.7 g/dl (6.4-8.2)
[2021-10-31] MEDS: TAMSULOSIN HCL 0.4 MG CAP PO SCH (08:43)
[2021-10-31] MEDS ORDERED: NAPH,MB-DB/K PH,MBDB POWDER PACKET PO ONE (09:15)
[2021-10-31] MEDS ORDERED: MAGNESIUM 1GM/D5W 100ML - 100 ML IVPB IVPB ONE (09:15)
[2021-10-31] MEDS: THIAMINE HCL 200 MG/2 ML VIAL IM SCH (09:42)
[2021-10-31] MEDS: FOLIC ACID 1 MG TABLET (FP) PO SCH (09:43)
[2021-10-31] MEDS: RIVAROXABAN 10 MG TABLET PO SCH (09:43)
[2021-10-31] MEDS: PANTOPRAZOLE 40 MG TABLET PO SCH ×2 (09:43→21:34)
[2021-10-31] MEDS: CHOLECALCIFEROL (VIT D3) 1,000 UNIT (25 MCG) TABLET PO SCH (09:43)
[2021-10-31] MEDS: CYANOCOBALAMIN 1,000 MCG TABLET (FP) PO SCH (09:43)
[2021-10-31] MEDS: MUPIROCIN 2% TOPICAL OINTMENT FOR DECOLONIZATION NS SCH ×2 (09:44→21:34)
[2021-10-31] MEDS: LIDOCAINE 5% TOPICAL PATCH TP SCH (09:44)
[2021-10-31] MEDS: DULoxetine HCL 30 MG CAPSULE.DR PO SCH (09:44)
[2021-10-31] MEDS: CEFEPIME 1 GM in DEXTROSE 5%-WATER 1 GM/100 ML BAG IVPB SCH (09:47)
[2021-10-31] MEDS: KCL 10 MEQ IVPB 10 MEQ/100 ML INFUS.BAG IVPB SCH ×3 (10:12→11:55)
[2021-10-31] MEDS ORDERED: SODIUM CHLORIDE 1,000 ML IV SCH (12:00)
[2021-10-31] MEDS: DAPTOMYCIN 750 MG in SODIUM CHLORIDE 50 ML IVPB SCH (18:38)
[2021-10-31] MEDS: DOPAMINE 400 MG/D5W - 400,000 MCG/250 ML INFUS.BAG IVPB SCH (18:38)
[2021-10-31] MEDS: CHLORHEXIDINE GLUCONATE 4% CLEANSER FOR DECOLONIZATION TP SCH (21:34)
[2021-10-31] MEDS: LIDOCAINE PATCH REMOVAL MC SCH (21:34)
[2021-10-31] MEDS: diazePAM 5 MG TABLET PO PRN (21:35)
[2021-10-31] MEDS: ACETAMINOPHEN 325 MG TABLET (FP) PO PRN (21:35)
[2021-11-01] MEDS ORDERED: diazePAM 5 MG TABLET PO PRN (00:26)
[2021-11-01] MEDS: NYSTATIN 500,000 UNITS/5 ML SUSPENSION PO SCH ×5 (00:30→23:59)
[2021-11-01] MEDS: SODIUM CHLORIDE 1,000 ML IV SCH (02:10)
[2021-11-01] MEDS: INSULIN SLIDING SCALE (NOVOLOG) 1 VIAL SQ SCH ×4 (06:13→23:27)
[2021-11-01] MEDS: INSULIN (LEVEMIR) 100 UNITS/ML UNITS SQ SCH ×2 (06:13→23:23)
[2021-11-01 07:52] LABS: BASO % 0.6 % (0-2.0); EOS % 1.3 % (0-4.5); HEMATOCRIT 34.9 % (35.4-49); MCH 29.9 pg (25.7-33.7); MCHC 34.3 g/dl (32.0-35.9); MEAN CELL VOLUME 87.3 fl (80-96); MONO % 9.9 % (3.8-10.2); NEUT % 71.2 % (42.8-82.8); PLATELET COUNT 89 10^3/uL (134-434); RDW 18.9 % (11.9-15.9); WHITE BLOOD COUNT 5.1 K/mm3 (4.0-10.0)
[2021-11-01 08:08] LABS: ALBUMIN 1.5 g/dl (3.4-5.0); CALCIUM 7.8 mg/dL (8.5-10.1)
[2021-11-01 08:09] LABS: BLOOD UREA NITROGEN 7.2 mg/dL (7-18)
[2021-11-01 08:11] LABS: CREATININE 0.5 mg/dL (0.55-1.3); PHOSPHOROUS 2.4 mg/dL (2.5-4.9)
[2021-11-01 08:13] LABS: BILIRUBIN,TOTAL 0.7 mg/dL (0.2-1); TOT PROT 5.5 g/dl (6.4-8.2)
[2021-11-01] MEDS: TAMSULOSIN HCL 0.4 MG CAP PO SCH (08:25)
[2021-11-01] MEDS ORDERED: PT OWN MED DRAWER 7, Y5N ONE ×2 (09:23→11:53)
[2021-11-01] MEDS: MUPIROCIN 2% TOPICAL OINTMENT FOR DECOLONIZATION NS SCH ×2 (09:58→23:26)
[2021-11-01] MEDS: FOLIC ACID 1 MG TABLET (FP) PO SCH (09:59)
[2021-11-01] MEDS: CYANOCOBALAMIN 1,000 MCG TABLET (FP) PO SCH (09:59)
[2021-11-01] MEDS: ACETAMINOPHEN 325 MG TABLET (FP) PO PRN ×2 (10:00→21:05)
[2021-11-01] MEDS ORDERED: THIAMINE HCL 200 MG/2 ML VIAL IM SCH (10:00)
[2021-11-01] MEDS: DULoxetine HCL 30 MG CAPSULE.DR PO SCH (10:00)
[2021-11-01] MEDS: LIDOCAINE 5% TOPICAL PATCH TP SCH (10:01)
[2021-11-01] MEDS: CHOLECALCIFEROL (VIT D3) 1,000 UNIT (25 MCG) TABLET PO SCH (10:01)
[2021-11-01] MEDS: PANTOPRAZOLE 40 MG TABLET PO SCH ×2 (10:01→21:05)
[2021-11-01] MEDS ORDERED: DAPTOMYCIN 750 MG in SODIUM CHLORIDE 50 ML IVPB SCH (10:18)
[2021-11-01] MEDS ORDERED: DEXTROSE 50%-WATER - 25 GM/50 ML VIAL IVPUSH ONE (12:02)
[2021-11-01] MEDS ORDERED: DEXTROSE 50%-WATER - 25 GM/50 ML VIAL IVPUSH PRN (12:03)
[2021-11-01] MEDS ORDERED: DEXTROSE 50%-WATER 25 GM/50 ML DISP.SYRIN ONE (12:07)
[2021-11-01] MEDS: DAPTOMYCIN 750 MG in SODIUM CHLORIDE 50 ML IVPB SCH (12:21)
[2021-11-01] MEDS ORDERED: CEFTAROLINE FOSAMIL ACETATE 600 MG in DEXTROSE 5%-WATER - 250 ML IVPB SCH (18:00)
[2021-11-01] MEDS ORDERED: RIVAROXABAN 10 MG TABLET PO SCH (18:00)
[2021-11-01] MEDS ORDERED: POTASSIUM PHOSPHATE 15 MM in SODIUM CHLORIDE 250 ML IVPB ONE (18:40)
[2021-11-01] MEDS: THIAMINE HCL 100 MG TABLET (FP) PO SCH (21:06)
[2021-11-01] MEDS ORDERED: LIDOCAINE PATCH REMOVAL MC SCH (22:00)
[2021-11-01] MEDS ORDERED: CHLORHEXIDINE GLUCONATE 4% CLEANSER FOR DECOLONIZATION TP SCH (22:00)
[2021-11-02] MEDS: SODIUM CHLORIDE 1,000 ML IV SCH (00:26)
[2021-11-02] MEDS: NYSTATIN 500,000 UNITS/5 ML SUSPENSION PO SCH ×3 (06:01→17:49)
[2021-11-02] MEDS: INSULIN SLIDING SCALE (NOVOLOG) 1 VIAL SQ SCH ×3 (06:02→17:47)
[2021-11-02] MEDS ORDERED: SODIUM CHLORIDE 500 ML IV STA (07:55)
[2021-11-02] MEDS ORDERED: INSULIN (LEVEMIR) 100 UNITS/ML UNITS SQ SCH (08:00)
[2021-11-02 08:18] LABS: BASO % 0.8 % (0-2.0); HEMATOCRIT 34.7 % (35.4-49); HEMOGLOBIN 11.9 GM/dL (11.7-16.9); LYMPH % 20.5 % (8-40); MCH 29.9 pg (25.7-33.7); MCHC 34.2 g/dl (32.0-35.9); MEAN CELL VOLUME 87.2 fl (80-96); MEAN PLT VOLUME 9.6 fl (7.5-11.1); MONO % 9.5 % (3.8-10.2); NEUT % 68.2 % (42.8-82.8); PLATELET COUNT 115 10^3/uL (134-434); RBC 3.98 M/mm3 (4.00-5.60); RDW 18.5 % (11.9-15.9); WHITE BLOOD COUNT 5.2 K/mm3 (4.0-10.0)
[2021-11-02 08:26] LABS: ALBUMIN 1.5 g/dl (3.4-5.0); BLOOD UREA NITROGEN 6.7 mg/dL (7-18)
[2021-11-02 08:27] LABS: CALCIUM 7.6 mg/dL (8.5-10.1)
[2021-11-02 08:28] LABS: CREATININE 0.4 mg/dL (0.55-1.3); MAGNESIUM 1.8 mg/dL (1.8-2.4); PHOSPHOROUS 3.3 mg/dL (2.5-4.9)
[2021-11-02 08:30] LABS: BILIRUBIN,TOTAL 0.8 mg/dL (0.2-1); TOT PROT 5.5 g/dl (6.4-8.2)
[2021-11-02] MEDS ORDERED: ACETAMINOPHEN 1000 MG/100 ML VIAL IVPB PRN (08:52)
[2021-11-02] MEDS ORDERED: DEXTROSE 5%-WATER 100 ML IVPB ONE ×2 (08:55→16:59)
[2021-11-02] MEDS ORDERED: MEROPENEM 1 GM VIAL (RESTRICTED TO ID) IVPB ONE ×2 (08:55→16:59)
[2021-11-02] MEDS: MEROPENEM 1 GM in DEXTROSE 5%-WATER 100 ML IVPB SCH ×3 (09:10→17:47)
[2021-11-02] MEDS: TAMSULOSIN HCL 0.4 MG CAP PO SCH (09:11)
[2021-11-02] MEDS: FOLIC ACID 1 MG TABLET (FP) PO SCH (09:11)
[2021-11-02] MEDS: THIAMINE HCL 100 MG TABLET (FP) PO SCH (09:11)
[2021-11-02] MEDS: MUPIROCIN 2% TOPICAL OINTMENT FOR DECOLONIZATION NS SCH (09:11)
[2021-11-02] MEDS: DULoxetine HCL 30 MG CAPSULE.DR PO SCH (09:11)
[2021-11-02] MEDS: CHOLECALCIFEROL (VIT D3) 1,000 UNIT (25 MCG) TABLET PO SCH (09:11)
[2021-11-02] MEDS: PANTOPRAZOLE 40 MG TABLET PO SCH (09:11)
[2021-11-02] MEDS: LIDOCAINE 5% TOPICAL PATCH TP SCH (09:11)
[2021-11-02] MEDS: CYANOCOBALAMIN 1,000 MCG TABLET (FP) PO SCH (09:11)
[2021-11-02] MEDS ORDERED: SODIUM CHLORIDE IVPB SCH (11:00)
[2021-11-02] MEDS ORDERED: DAPTOMYCIN IVPB SCH (11:00)
[2021-11-02 11:26] LABS: INR 1.25 (0.83-1.09)
[2021-11-02 15:07] VITALS: BP 111/82; PULSE 81; TEMP 98.1
== END 2021-11-02 21:25 | disposition short-term general hospital (02) | DRG 871 ==
LOC: JER 02:26 → OBSVTOIN 03:06 → JERBED 03:06 → J4S 12:15 → JICU 10-29 17:20 → J2W 11-01 00:25
PROVIDERS: ADMIT Internal Medicine; ATTEND Internal Medicine
DX: A41.02 Sepsis due to Methicillin resistant Staphylococcus aureus (principal); R65.21 Severe sepsis with septic shock; S22.49XA Multiple fractures of ribs, unspecified side, initial encounter for closed fracture; I82.501 Chronic embolism and thrombosis of unspecified deep veins of right lower extremity; F10.231 Alcohol dependence with withdrawal delirium; I42.9 Cardiomyopathy, unspecified; D68.51 Activated protein C resistance; N39.0 Urinary tract infection, site not specified; D68.9 Coagulation defect, unspecified; I85.00 Esophageal varices without bleeding; I42.8 Other cardiomyopathies; D68.59 Other primary thrombophilia; R18.8 Other ascites; J90 Pleural effusion, not elsewhere classified; M48.56XA Collapsed vertebra, not elsewhere classified, lumbar region, initial encounter for fracture; M48.54XA Collapsed vertebra, not elsewhere classified, thoracic region, initial encounter for fracture; J98.11 Atelectasis; L02.213 Cutaneous abscess of chest wall; M86.9 Osteomyelitis, unspecified; G62.1 Alcoholic polyneuropathy; K70.30 Alcoholic cirrhosis of liver without ascites; E78.00 Pure hypercholesterolemia, unspecified; J44.9 Chronic obstructive pulmonary disease, unspecified; K21.9 Gastro-esophageal reflux disease without esophagitis; I48.0 Paroxysmal atrial fibrillation; F10.220 Alcohol dependence with intoxication, uncomplicated; E78.5 Hyperlipidemia, unspecified; I25.10 Atherosclerotic heart disease of native coronary artery without angina pectoris; I11.0 Hypertensive heart disease with heart failure; E83.39 Other disorders of phosphorus metabolism; E83.42 Hypomagnesemia; E88.09 Other disorders of plasma-protein metabolism, not elsewhere classified; R31.0 Gross hematuria; M54.2 Cervicalgia; R16.1 Splenomegaly, not elsewhere classified; F17.210 Nicotine dependence, cigarettes, uncomplicated; D69.6 Thrombocytopenia, unspecified; W19.XXXA Unspecified fall, initial encounter; Y93.9 Activity, unspecified; Y92.89 Other specified places as the place of occurrence of the external cause; Y99.9 Unspecified external cause status; E66.9 Obesity, unspecified; Z68.27 Body mass index [BMI] 27.0-27.9, adult
CPT/HCPCS: 36415; 70450-TC; 71045-TC-FY; 71260-TC; 72125-TC; 72128-TC; 72131-TC; 74177-TC; 80053; 80307; 81003; 82140; 82306; 82550; 82607; 82962; 83605; 83735; 83880; 84100; 84443; 84484; 85025; 85027; 85610; 85730; 86140; 86780; 87040; 87086; 87186; 93005; 93010; 93306-TC; 93880-TC; 93971-TC; 94010; 97116-GP; 97161-GP; 99285-25; C9803; G0480; J0131; J0878; Q9967; U0003; U0005

== ENCOUNTER 2022-01-09 02:09 | Observation (INO) | payer OTHER, BC ==
[2022-01-09] MEDS ORDERED: ACETAMINOPHEN 1000 MG/100 ML BAG IVPB ONE (03:12)
[2022-01-09] MEDS ORDERED: ACETAMINOPHEN INJECTION 100 ML IVPB ONE (03:13)
[2022-01-09 03:45] LABS: BASO % 0.6 % (0-2.0); EOS % 0.4 % (0-4.5); HEMOGLOBIN 12.2 GM/dL (11.7-16.9); LYMPH % 18.8 % (8-40); MCH 29.8 pg (25.7-33.7); MEAN CELL VOLUME 87.6 fl (80-96); MEAN PLT VOLUME 7.6 fl (7.5-11.1); MONO % 9.6 % (3.8-10.2); NEUT % 70.6 % (42.8-82.8); PLATELET COUNT 150 10^3/uL (134-434); RBC 4.11 M/mm3 (4.00-5.60); RDW 17.9 % (11.9-15.9); WHITE BLOOD COUNT 5.5 K/mm3 (4.0-10.0)
[2022-01-09 03:52] LABS: PH,URINE 6.5 (5.0-8.0); URINE APPEARANCE CLEAR; URINE BILIRUBIN NEGATIVE (NEGATIVE); URINE COLOR YELLOW; URINE GLUCOSE (UA) NEGATIVE (NEGATIVE); URINE KETONE NEGATIVE (NEGATIVE); URINE LEUK ESTERASE NEGATIVE (NEGATIVE); URINE NITRITE NEGATIVE (NEGATIVE); URINE PROTEIN NEGATIVE (NEGATIVE); URINE UROBILINOGEN 0.2 mg/dL (0.2-1.0)
[2022-01-09 03:53] LABS: INR 1.64 (0.83-1.09); PROTHROMBIN TIME (PATIENT) 18.9 SEC (9.7-13.0)
[2022-01-09 03:56] LABS: ACTIVATED PTT 36.4 SECONDS (25.2-36.5)
[2022-01-09 04:07] LABS: CALCIUM 8.5 mg/dL (8.5-10.1)
[2022-01-09 04:08] LABS: ALBUMIN 3.1 g/dl (3.4-5.0); BLOOD UREA NITROGEN 3.8 mg/dL (7-18); MAGNESIUM 1.9 mg/dL (1.8-2.4)
[2022-01-09 04:11] LABS: CREATININE 0.7 mg/dL (0.55-1.3); PHOSPHOROUS 3.5 mg/dL (2.5-4.9)
[2022-01-09 04:13] LABS: BILIRUBIN,TOTAL 0.8 mg/dL (0.2-1); TOT PROT 7.3 g/dl (6.4-8.2)
[2022-01-09 04:16] LABS: LACTIC ACID 2.2 mmol/L (0.4-2.0)
[2022-01-09] MEDS ORDERED: LACTATED RINGERS SOLUTION 1000 ML INFUS.BAG IV ONE (04:29)
[2022-01-09] MEDS ORDERED: KETOROLAC TROMETHAMINE 10 MG TABLET PO ONE ×2 (08:50→09:00)
[2022-01-09 09:09] LABS: BASO % 0.3 % (0-2.0); EOS % 0.5 % (0-4.5); HEMATOCRIT 33.5 % (35.4-49); HEMOGLOBIN 11.6 GM/dL (11.7-16.9); LYMPH % 29.5 % (8-40); MCH 30.1 pg (25.7-33.7); MCHC 34.7 g/dl (32.0-35.9); MEAN CELL VOLUME 86.8 fl (80-96); MEAN PLT VOLUME 7.7 fl (7.5-11.1); MONO % 10.7 % (3.8-10.2); PLATELET COUNT 133 10^3/uL (134-434); RBC 3.85 M/mm3 (4.00-5.60); WHITE BLOOD COUNT 4.4 K/mm3 (4.0-10.0)
[2022-01-09] MEDS ORDERED: THIAMINE HCL 100 MG TABLET (FP) ONE (09:21)
[2022-01-09] MEDS ORDERED: PANTOPRAZOLE 40 MG TABLET ONE (09:21)
[2022-01-09] MEDS ORDERED: AMIODARONE HCL 200 MG TABLET ONE (09:22)
[2022-01-09] MEDS ORDERED: LISINOPRIL 5 MG TABLET ONE (09:22)
[2022-01-09] MEDS ORDERED: FOLIC ACID 1 MG TABLET (FP) ONE (09:22)
[2022-01-09] MEDS ORDERED: DULoxetine HCL 30 MG CAPSULE.DR PO ONE (09:22)
[2022-01-09] MEDS ORDERED: SPIRONOLACTONE 25 MG TABLET ONE (09:22)
[2022-01-09] MEDS: INSULIN SLIDING SCALE (NOVOLOG) 1 VIAL SQ SCH ×4 (09:27→23:11)
[2022-01-09 09:28] LABS: CALCIUM 8.3 mg/dL (8.5-10.1)
[2022-01-09] MEDS: AMIODARONE HCL 200 MG TABLET PO SCH (09:28)
[2022-01-09] MEDS: PANTOPRAZOLE 40 MG TABLET PO SCH (09:28)
[2022-01-09] MEDS: LISINOPRIL 5 MG TABLET PO SCH (09:28)
[2022-01-09] MEDS: THIAMINE HCL 100 MG TABLET (FP) PO SCH (09:28)
[2022-01-09] MEDS: DULoxetine HCL 30 MG CAPSULE.DR PO SCH (09:28)
[2022-01-09] MEDS: SPIRONOLACTONE 25 MG TABLET PO SCH (09:28)
[2022-01-09] MEDS: FOLIC ACID 1 MG TABLET (FP) PO SCH (09:28)
[2022-01-09 09:29] LABS: ALBUMIN 2.9 g/dl (3.4-5.0); BLOOD UREA NITROGEN 3.8 mg/dL (7-18)
[2022-01-09 09:30] LABS: MAGNESIUM 1.8 mg/dL (1.8-2.4)
[2022-01-09 09:32] LABS: CREATININE 0.6 mg/dL (0.55-1.3); PHOSPHOROUS 3.4 mg/dL (2.5-4.9)
[2022-01-09 09:34] LABS: BILIRUBIN,TOTAL 0.8 mg/dL (0.2-1); TOT PROT 6.5 g/dl (6.4-8.2)
[2022-01-09] MEDS ORDERED: morphine CARPU-JECT 2 MG/1 ML DISP.SYRIN IVPUSH ONE (18:31)
[2022-01-09] MEDS ORDERED: ACETAMINOPHEN 325 MG TABLET (FP) ONE (23:15)
[2022-01-09] MEDS: ACETAMINOPHEN 325 MG TABLET (FP) PO PRN (23:18)
[2022-01-10 00:26] VITALS: BMI 23.7
[2022-01-10] MEDS: INSULIN SLIDING SCALE (NOVOLOG) 1 VIAL SQ SCH ×4 (07:15→21:44)
[2022-01-10 07:32] LABS: BASO % 0.5 % (0-2.0); EOS % 1.7 % (0-4.5); HEMATOCRIT 32.5 % (35.4-49); HEMOGLOBIN 11.3 GM/dL (11.7-16.9); LYMPH % 29.5 % (8-40); MCH 30.5 pg (25.7-33.7); MCHC 34.8 g/dl (32.0-35.9); MEAN CELL VOLUME 87.6 fl (80-96); MEAN PLT VOLUME 7.5 fl (7.5-11.1); MONO % 9.9 % (3.8-10.2); NEUT % 58.4 % (42.8-82.8); PLATELET COUNT 132 10^3/uL (134-434); RBC 3.72 M/mm3 (4.00-5.60); RDW 18.1 % (11.9-15.9); WHITE BLOOD COUNT 4.5 K/mm3 (4.0-10.0)
[2022-01-10 07:45] LABS: ALBUMIN 2.6 g/dl (3.4-5.0); BLOOD UREA NITROGEN 5.2 mg/dL (7-18); MAGNESIUM 1.5 mg/dL (1.8-2.4)
[2022-01-10 07:49] LABS: CREATININE 0.7 mg/dL (0.55-1.3); PHOSPHOROUS 4.1 mg/dL (2.5-4.9)
[2022-01-10 07:50] LABS: BILIRUBIN,TOTAL 0.9 mg/dL (0.2-1); TOT PROT 5.9 g/dl (6.4-8.2)
[2022-01-10] MEDS: DULoxetine HCL 30 MG CAPSULE.DR PO SCH (09:59)
[2022-01-10] MEDS: LISINOPRIL 5 MG TABLET PO SCH (09:59)
[2022-01-10] MEDS: PANTOPRAZOLE 40 MG TABLET PO SCH (10:00)
[2022-01-10] MEDS: FOLIC ACID 1 MG TABLET (FP) PO SCH (10:00)
[2022-01-10] MEDS: SPIRONOLACTONE 25 MG TABLET PO SCH (10:00)
[2022-01-10] MEDS: THIAMINE HCL 100 MG TABLET (FP) PO SCH (10:00)
[2022-01-10] MEDS: AMIODARONE HCL 200 MG TABLET PO SCH (10:00)
[2022-01-10] MEDS ORDERED: MAGNESIUM 2GM/50ML STERILE WATER IVPB IVPB ONE (11:04)
[2022-01-10] MEDS: ACETAMINOPHEN 325 MG TABLET (FP) PO PRN (17:17)
[2022-01-10] MEDS ORDERED: RIVAROXABAN 20 MG TABLET PO SCH (18:00)
[2022-01-10] MEDS ORDERED: ATORVASTATIN CA 40 MG TABLET (FP) PO SCH (22:00)
[2022-01-11] MEDS ORDERED: BACITRACIN 15 GM TUBE TOPICAL OINTMENT TP ONE ×2 (02:00→06:00)
[2022-01-11] MEDS: INSULIN SLIDING SCALE (NOVOLOG) 1 VIAL SQ SCH ×2 (06:39→11:47)
[2022-01-11 07:17] LABS: HEMATOCRIT 32.9 % (35.4-49); HEMOGLOBIN 11.1 GM/dL (11.7-16.9); MCH 29.7 pg (25.7-33.7); MCHC 33.8 g/dl (32.0-35.9); MEAN CELL VOLUME 87.9 fl (80-96); MEAN PLT VOLUME 7.9 fl (7.5-11.1); PLATELET COUNT 139 10^3/uL (134-434); RBC 3.75 M/mm3 (4.00-5.60); WHITE BLOOD COUNT 5.1 K/mm3 (4.0-10.0)
[2022-01-11 07:46] LABS: ALBUMIN 2.7 g/dl (3.4-5.0); BLOOD UREA NITROGEN 3.6 mg/dL (7-18); CALCIUM 8.5 mg/dL (8.5-10.1)
[2022-01-11 07:49] LABS: CREATININE 0.6 mg/dL (0.55-1.3)
[2022-01-11 07:51] LABS: TOT PROT 6.1 g/dl (6.4-8.2)
[2022-01-11] MEDS: DULoxetine HCL 30 MG CAPSULE.DR PO SCH (09:43)
[2022-01-11] MEDS: FOLIC ACID 1 MG TABLET (FP) PO SCH (09:43)
[2022-01-11] MEDS: THIAMINE HCL 100 MG TABLET (FP) PO SCH (09:43)
[2022-01-11] MEDS: AMIODARONE HCL 200 MG TABLET PO SCH ×2 (09:43→09:48)
[2022-01-11] MEDS: PANTOPRAZOLE 40 MG TABLET PO SCH (09:43)
[2022-01-11] MEDS: LISINOPRIL 5 MG TABLET PO SCH (09:43)
[2022-01-11] MEDS: SPIRONOLACTONE 25 MG TABLET PO SCH (09:43)
[2022-01-11] MEDS ORDERED: NADOLOL 20 MG TABLET (FP) PO SCH (10:45)
[2022-01-11] MEDS ORDERED: SODIUM BICARBONATE 650 MG TABLET PO ONE (14:45)
[2022-01-11 15:03] VITALS: BP 118/80; PULSE 85; TEMP 98.2
== END 2022-01-11 17:09 | disposition home or self-care (01) ==
LOC: JER 02:09 → JERBED 05:23 → J4W 23:50
PROVIDERS: ADMIT Hospitalist; ATTEND Internal Medicine
PROC: 3E0337Z Introduction of Electrolytic and Water Balance Substance into Peripheral Vein, Percutaneous Approach (ICD-10-PCS; principal; 2022-01-09)
PROC: 3E033NZ Introduction of Analgesics, Hypnotics, Sedatives into Peripheral Vein, Percutaneous Approach (ICD-10-PCS; 2022-01-09)
PROC: 3E033GC Introduction of Other Therapeutic Substance into Peripheral Vein, Percutaneous Approach (ICD-10-PCS; 2022-01-09)
DX: I25.10 Atherosclerotic heart disease of native coronary artery without angina pectoris (principal); I11.9 Hypertensive heart disease without heart failure; F10.99 Alcohol use, unspecified with unspecified alcohol-induced disorder; I48.91 Unspecified atrial fibrillation; W18.39XA Other fall on same level, initial encounter; Y93.89 Activity, other specified; Y92.89 Other specified places as the place of occurrence of the external cause; E78.5 Hyperlipidemia, unspecified; E11.9 Type 2 diabetes mellitus without complications; D68.51 Activated protein C resistance; Z86.73 Personal history of transient ischemic attack (TIA), and cerebral infarction without residual deficits; Z79.01 Long term (current) use of anticoagulants; I71.9 Aortic aneurysm of unspecified site, without rupture; R55 Syncope and collapse; Z88.8 Allergy status to other drugs, medicaments and biological substances
CPT/HCPCS: 36415; 70450-TC; 70486-TC; 71045-TC-FY; 72125-TC; 80053; 80307; 81003; 82962; 83036; 83605; 83735; 83930; 84100; 84443; 84484; 85025; 85027; 85610; 85730; 87081; 87086; 93005; 93010; 96374; 96375; 97116-GP; 97162-GP; 99285-25; C9803; G0378; U0003; U0005

== ENCOUNTER 2022-02-05 15:22 | Inpatient (IN) | payer OTHER, BC ==
[2022-02-05 18:26] LABS: BASO % 0.6 % (0-2.0); EOS % 0.3 % (0-4.5); HEMATOCRIT 34.9 % (35.4-49); HEMOGLOBIN 11.9 GM/dL (11.7-16.9); MCH 29.4 pg (25.7-33.7); MCHC 34.1 g/dl (32.0-35.9); MEAN CELL VOLUME 86.3 fl (80-96); MEAN PLT VOLUME 7.5 fl (7.5-11.1); MONO % 12.7 % (3.8-10.2); NEUT % 62.4 % (42.8-82.8); PLATELET COUNT 136 10^3/uL (134-434); RBC 4.05 M/mm3 (4.00-5.60); RDW 16.9 % (11.9-15.9)
[2022-02-05 18:34] LABS: INR 2.15 (0.83-1.09); PROTHROMBIN TIME (PATIENT) 24.9 SEC (9.7-13.0)
[2022-02-05 18:37] LABS: ACTIVATED PTT 44.7 SECONDS (25.2-36.5)
[2022-02-05 19:03] LABS: BLOOD UREA NITROGEN 3.3 mg/dL (7-18); CALCIUM 8.7 mg/dL (8.5-10.1)
[2022-02-05 19:04] LABS: ALBUMIN 3.1 g/dl (3.4-5.0)
[2022-02-05 19:10] LABS: BILIRUBIN,TOTAL 0.6 mg/dL (0.2-1); CREATININE 0.6 mg/dL (0.55-1.3); TOT PROT 6.6 g/dl (6.4-8.2)
[2022-02-05] MEDS ORDERED: ACETAMINOPHEN 325 MG TABLET (FP) PO PRN (21:54)
[2022-02-05] MEDS ORDERED: HEPARIN NA (PORCINE) 5,000 UNITS/ML 1ML VIAL IVPUSH PRN (22:34)
[2022-02-05] MEDS ORDERED: HEPARIN INFUSION - 25,000 UNITS/500 ML INFUS.BAG IVPB SCH (22:45)
[2022-02-05] MEDS ORDERED: HEPARIN INFUSION - 25,000 UNITS/500 ML INFUS.BAG IVPB ONE (23:05)
[2022-02-05] MEDS ORDERED: LORazepam 1 MG TABLET ONE (23:05)
[2022-02-05] MEDS: LORazepam 1 MG TABLET PO PRN (23:20)
[2022-02-06 01:30] LABS: PH,URINE 7.5 (5.0-8.0); URINE APPEARANCE CLEAR; URINE BILIRUBIN NEGATIVE (NEGATIVE); URINE COLOR YELLOW; URINE GLUCOSE (UA) NEGATIVE (NEGATIVE); URINE KETONE NEGATIVE (NEGATIVE); URINE LEUK ESTERASE NEGATIVE (NEGATIVE); URINE NITRITE NEGATIVE (NEGATIVE); URINE PROTEIN NEGATIVE (NEGATIVE); URINE UROBILINOGEN 0.2 mg/dL (0.2-1.0)
[2022-02-06] MEDS: LORazepam 1 MG TABLET PO PRN ×2 (04:43→09:34)
[2022-02-06 05:16] VITALS: BMI 23.1
[2022-02-06] MEDS: INSULIN SLIDING SCALE (NOVOLOG) 1 VIAL SQ SCH ×4 (06:20→21:41)
[2022-02-06] MEDS ORDERED: THIAMINE HCL 200 MG/2 ML VIAL IVPB ONE (07:45)
[2022-02-06] MEDS: NADOLOL 20 MG TABLET (FP) PO SCH (09:33)
[2022-02-06] MEDS: SPIRONOLACTONE 25 MG TABLET PO SCH (09:33)
[2022-02-06] MEDS: PANTOPRAZOLE 40 MG TABLET PO SCH (09:33)
[2022-02-06] MEDS: FOLIC ACID 1 MG TABLET (FP) PO SCH (09:34)
[2022-02-06] MEDS: LISINOPRIL 5 MG TABLET PO SCH (09:34)
[2022-02-06] MEDS: AMIODARONE HCL 200 MG TABLET PO SCH (09:36)
[2022-02-06] MEDS ORDERED: PATIENT'S OWN MEDICATION (NON-FORMULARY) (Mirabegron [Myrbetriq] 25 MG Tab.Er.24h) PO SCH (10:00)
[2022-02-06 10:20] LABS: BASO % 0.5 % (0-2.0); EOS % 0.4 % (0-4.5); HEMATOCRIT 35.4 % (35.4-49); HEMOGLOBIN 11.9 GM/dL (11.7-16.9); LYMPH % 27.4 % (8-40); MCHC 33.6 g/dl (32.0-35.9); MEAN CELL VOLUME 86.4 fl (80-96); MEAN PLT VOLUME 7.4 fl (7.5-11.1); MONO % 12.9 % (3.8-10.2); NEUT % 58.8 % (42.8-82.8); PLATELET COUNT 133 10^3/uL (134-434); RDW 16.6 % (11.9-15.9)
[2022-02-06] MEDS: DULoxetine HCL 30 MG CAPSULE.DR PO SCH (10:44)
[2022-02-06 11:13] LABS: MAGNESIUM 1.8 mg/dL (1.8-2.4)
[2022-02-06 11:15] LABS: ALBUMIN 2.8 g/dl (3.4-5.0)
[2022-02-06 11:16] LABS: CALCIUM 8.5 mg/dL (8.5-10.1)
[2022-02-06 11:17] LABS: BLOOD UREA NITROGEN 4.5 mg/dL (7-18); MAGNESIUM 1.7 mg/dL (1.8-2.4)
[2022-02-06 11:17] LABS: PHOSPHOROUS 3.9 mg/dL (2.5-4.9)
[2022-02-06 11:19] LABS: BILIRUBIN,TOTAL 0.8 mg/dL (0.2-1); CREATININE 0.7 mg/dL (0.55-1.3); PHOSPHOROUS 4.3 mg/dL (2.5-4.9); TOT PROT 6.1 g/dl (6.4-8.2)
[2022-02-06] MEDS: HEPARIN - 25,000 UNIT in SODIUM CHLORIDE 495 ML IV SCH (12:25)
[2022-02-06] MEDS ORDERED: MAGNESIUM OXIDE 400 MG TABLET (FP) PO ONE (13:50)
[2022-02-06] MEDS: SODIUM CHLORIDE 1 GM TABLET PO SCH ×2 (14:23→21:40)
[2022-02-06] MEDS ORDERED: diazePAM 5 MG TABLET PO PRN ×2 (16:10→16:17)
[2022-02-06] MEDS ORDERED: diazePAM 5 MG TABLET PO SCH ×3 (16:45→17:00)
[2022-02-06] MEDS: diazePAM 5 MG TABLET PO SCH ×2 (17:09→23:59)
[2022-02-06 20:17] LABS: INR 1.38 (0.83-1.09); PROTHROMBIN TIME (PATIENT) 15.9 SEC (9.7-13.0)
[2022-02-06 20:19] LABS: ACTIVATED PTT 45.5 SECONDS (25.2-36.5)
[2022-02-06] MEDS: ATORVASTATIN CA 40 MG TABLET (FP) PO SCH (21:40)
[2022-02-06] MEDS: HEPARIN NA (PORCINE) 5,000 UNITS/ML 1ML VIAL IVPUSH PRN (21:49)
[2022-02-07] MEDS: diazePAM 5 MG TABLET PO SCH ×4 (06:00→22:31)
[2022-02-07] MEDS: INSULIN SLIDING SCALE (NOVOLOG) 1 VIAL SQ SCH ×4 (06:28→22:33)
[2022-02-07] MEDS: HEPARIN - 25,000 UNIT in SODIUM CHLORIDE 495 ML IV SCH ×2 (06:47→11:18)
[2022-02-07] MEDS: HEPARIN NA (PORCINE) 5,000 UNITS/ML 1ML VIAL IVPUSH PRN (07:31)
[2022-02-07 09:17] LABS: BASO % 0.6 % (0-2.0); HEMATOCRIT 35.5 % (35.4-49); LYMPH % 28.9 % (8-40); MCH 29.1 pg (25.7-33.7); MCHC 33.8 g/dl (32.0-35.9); MEAN CELL VOLUME 86.2 fl (80-96); MEAN PLT VOLUME 7.5 fl (7.5-11.1); MONO % 12.6 % (3.8-10.2); NEUT % 56.9 % (42.8-82.8); PLATELET COUNT 155 10^3/uL (134-434); RBC 4.12 M/mm3 (4.00-5.60); WHITE BLOOD COUNT 4.8 K/mm3 (4.0-10.0)
[2022-02-07] MEDS ORDERED: SODIUM CHLORIDE 250 ML IV STA (09:29)
[2022-02-07 09:38] LABS: ALBUMIN 2.6 g/dl (3.4-5.0); CALCIUM 8.5 mg/dL (8.5-10.1); MAGNESIUM 1.8 mg/dL (1.8-2.4)
[2022-02-07 09:41] LABS: CREATININE 0.7 mg/dL (0.55-1.3); PHOSPHOROUS 3.9 mg/dL (2.5-4.9)
[2022-02-07 09:44] LABS: BILIRUBIN,TOTAL 0.7 mg/dL (0.2-1)
[2022-02-07] MEDS: DULoxetine HCL 30 MG CAPSULE.DR PO SCH (09:50)
[2022-02-07] MEDS: PANTOPRAZOLE 40 MG TABLET PO SCH (09:50)
[2022-02-07] MEDS: SPIRONOLACTONE 25 MG TABLET PO SCH (09:50)
[2022-02-07] MEDS: AMIODARONE HCL 200 MG TABLET PO SCH (09:51)
[2022-02-07] MEDS: FOLIC ACID 1 MG TABLET (FP) PO SCH (09:51)
[2022-02-07] MEDS: THIAMINE HCL 100 MG TABLET (FP) PO SCH (10:28)
[2022-02-07] MEDS: NADOLOL 20 MG TABLET (FP) PO SCH (10:28)
[2022-02-07] MEDS: LISINOPRIL 5 MG TABLET PO SCH (10:28)
[2022-02-07] MEDS: SODIUM CHLORIDE 1 GM TABLET PO SCH ×2 (13:49→22:29)
[2022-02-07] MEDS ORDERED: MELATONIN 5 MG TABLETS PO PRN (14:28)
[2022-02-07] MEDS: ATORVASTATIN CA 40 MG TABLET (FP) PO SCH (22:30)
[2022-02-08] MEDS ORDERED: diazePAM 5 MG TABLET PO SCH (06:00)
[2022-02-08] MEDS: diazePAM 5 MG TABLET PO SCH ×3 (06:03→21:29)
[2022-02-08] MEDS: INSULIN SLIDING SCALE (NOVOLOG) 1 VIAL SQ SCH ×4 (06:04→21:40)
[2022-02-08 09:01] LABS: BASO % 0.8 % (0-2.0); EOS % 0.5 % (0-4.5); HEMATOCRIT 34.4 % (35.4-49); HEMOGLOBIN 11.4 GM/dL (11.7-16.9); LYMPH % 35.8 % (8-40); MCH 28.7 pg (25.7-33.7); MCHC 33.3 g/dl (32.0-35.9); MEAN CELL VOLUME 86.3 fl (80-96); MEAN PLT VOLUME 7.9 fl (7.5-11.1); MONO % 10.8 % (3.8-10.2); NEUT % 52.1 % (42.8-82.8); PLATELET COUNT 156 10^3/uL (134-434); RBC 3.99 M/mm3 (4.00-5.60); RDW 16.8 % (11.9-15.9); WHITE BLOOD COUNT 4.9 K/mm3 (4.0-10.0)
[2022-02-08 09:30] LABS: CALCIUM 8.1 mg/dL (8.5-10.1)
[2022-02-08 09:31] LABS: ALBUMIN 2.5 g/dl (3.4-5.0); BLOOD UREA NITROGEN 5.6 mg/dL (7-18)
[2022-02-08 09:34] LABS: CREATININE 0.7 mg/dL (0.55-1.3)
[2022-02-08 09:35] LABS: BILIRUBIN,TOTAL 0.6 mg/dL (0.2-1); TOT PROT 5.8 g/dl (6.4-8.2)
[2022-02-08] MEDS: THIAMINE HCL 100 MG TABLET (FP) PO SCH (09:55)
[2022-02-08] MEDS: AMIODARONE HCL 200 MG TABLET PO SCH (09:55)
[2022-02-08] MEDS: SPIRONOLACTONE 25 MG TABLET PO SCH (09:55)
[2022-02-08] MEDS: DULoxetine HCL 30 MG CAPSULE.DR PO SCH (09:55)
[2022-02-08] MEDS: PANTOPRAZOLE 40 MG TABLET PO SCH (09:55)
[2022-02-08] MEDS: FOLIC ACID 1 MG TABLET (FP) PO SCH (09:55)
[2022-02-08] MEDS: LISINOPRIL 5 MG TABLET PO SCH (09:55)
[2022-02-08] MEDS: NADOLOL 20 MG TABLET (FP) PO SCH (09:55)
[2022-02-08] MEDS: HEPARIN - 25,000 UNIT in SODIUM CHLORIDE 495 ML IV SCH (10:37)
[2022-02-08] MEDS: LACTULOSE 20 GM/30 ML UDC (FOR ORAL USE ONLY) PO SCH ×3 (11:38→21:28)
[2022-02-08] MEDS: SODIUM CHLORIDE 1 GM TABLET PO SCH ×2 (12:26→21:28)
[2022-02-08] MEDS: ATORVASTATIN CA 40 MG TABLET (FP) PO SCH (21:29)
[2022-02-08] MEDS ORDERED: INSULIN (NOVOLOG) ASPART 100 UNITS/ML 10ML VIAL ONE (21:37)
[2022-02-09] MEDS: LACTULOSE 20 GM/30 ML UDC (FOR ORAL USE ONLY) PO SCH ×3 (05:07→22:14)
[2022-02-09] MEDS ORDERED: diazePAM 5 MG TABLET PO SCH ×3 (06:00→11:36)
[2022-02-09] MEDS: INSULIN SLIDING SCALE (NOVOLOG) 1 VIAL SQ SCH ×4 (06:47→22:14)
[2022-02-09 08:18] LABS: BASO % 0.5 % (0-2.0); EOS % 0.7 % (0-4.5); HEMATOCRIT 35.8 % (35.4-49); HEMOGLOBIN 12.2 GM/dL (11.7-16.9); LYMPH % 33.5 % (8-40); MCH 29.3 pg (25.7-33.7); MEAN CELL VOLUME 86.1 fl (80-96); MEAN PLT VOLUME 7.4 fl (7.5-11.1); MONO % 9.9 % (3.8-10.2); NEUT % 55.4 % (42.8-82.8); PLATELET COUNT 167 10^3/uL (134-434); RBC 4.15 M/mm3 (4.00-5.60); RDW 16.7 % (11.9-15.9)
[2022-02-09 08:37] LABS: BLOOD UREA NITROGEN 4.4 mg/dL (7-18); CALCIUM 8.5 mg/dL (8.5-10.1)
[2022-02-09 08:41] LABS: CREATININE 0.8 mg/dL (0.55-1.3); MAGNESIUM 1.7 mg/dL (1.8-2.4)
[2022-02-09] MEDS ORDERED: MAGNESIUM OXIDE 400 MG TABLET (FP) PO ONE ×2 (08:58→10:30)
[2022-02-09] MEDS ORDERED: MAGNESIUM SULF 50% (8.12 MEQ/2 ML-1 GM VIAL) IVPB ONE (09:06)
[2022-02-09] MEDS: AMIODARONE HCL 200 MG TABLET PO SCH (10:13)
[2022-02-09] MEDS: SPIRONOLACTONE 25 MG TABLET PO SCH (10:13)
[2022-02-09] MEDS: LISINOPRIL 5 MG TABLET PO SCH (10:14)
[2022-02-09] MEDS: NADOLOL 20 MG TABLET (FP) PO SCH (10:14)
[2022-02-09] MEDS: SODIUM CHLORIDE 1 GM TABLET PO SCH ×2 (10:32→22:14)
[2022-02-09] MEDS: PANTOPRAZOLE 40 MG TABLET PO SCH (10:32)
[2022-02-09] MEDS: DULoxetine HCL 30 MG CAPSULE.DR PO SCH (10:33)
[2022-02-09] MEDS: HEPARIN - 25,000 UNIT in SODIUM CHLORIDE 495 ML IV SCH (10:33)
[2022-02-09] MEDS: FOLIC ACID 1 MG TABLET (FP) PO SCH (10:33)
[2022-02-09] MEDS: THIAMINE HCL 100 MG TABLET (FP) PO SCH (10:33)
[2022-02-09] MEDS ORDERED: ARTIFICIAL TEARS (POLYVINYL ALCOHOL) OPTH DROPS OU PRN (11:32)
[2022-02-09] MEDS ORDERED: SODIUM CHLORIDE 250 ML IV STA (11:32)
[2022-02-09] MEDS ORDERED: AMIODARONE HCL 200 MG TABLET PO SCH (11:35)
[2022-02-09] MEDS ORDERED: INSULIN (NOVOLOG) ASPART 100 UNITS/ML 10ML VIAL ONE (11:56)
[2022-02-09] MEDS: ATORVASTATIN CA 40 MG TABLET (FP) PO SCH (22:14)
[2022-02-10] MEDS ORDERED: diazePAM 5 MG TABLET PO ONE ×2 (06:00)
[2022-02-10] MEDS: LACTULOSE 20 GM/30 ML UDC (FOR ORAL USE ONLY) PO SCH ×2 (06:09→13:14)
[2022-02-10] MEDS: INSULIN SLIDING SCALE (NOVOLOG) 1 VIAL SQ SCH ×2 (06:17→11:19)
[2022-02-10] MEDS: HEPARIN - 25,000 UNIT in SODIUM CHLORIDE 495 ML IV SCH (06:29)
[2022-02-10 08:47] LABS: ACTIVATED PTT 79.4 SECONDS (25.2-36.5)
[2022-02-10 09:10] LABS: CALCIUM 8.9 mg/dL (8.5-10.1)
[2022-02-10 09:14] LABS: CREATININE 0.8 mg/dL (0.55-1.3)
[2022-02-10] MEDS: DULoxetine HCL 30 MG CAPSULE.DR PO SCH (09:52)
[2022-02-10] MEDS: THIAMINE HCL 100 MG TABLET (FP) PO SCH (09:53)
[2022-02-10] MEDS: FOLIC ACID 1 MG TABLET (FP) PO SCH (09:53)
[2022-02-10] MEDS: SPIRONOLACTONE 25 MG TABLET PO SCH (09:53)
[2022-02-10 11:43] LABS: INR 1.08 (0.83-1.09); PROTHROMBIN TIME (PATIENT) 12.4 SEC (9.7-13.0)
[2022-02-10 14:42] VITALS: BP 118/69; PULSE 66; TEMP 98.6
[2022-02-10] MEDS ORDERED: APIXABAN 5 MG TABLET PO SCH (22:00)
[2022-02-11 19:12] LABS: SARS-CoV-2 NAA Not Detected (Not Detected)
== END 2022-02-10 15:45 | disposition home health service (06) | DRG 300 ==
LOC: JER 15:22 → JERBED 18:40 → OBSVTOIN 22:36 → J6S 02-06 04:34
PROVIDERS: ADMIT Hospitalist; ATTEND Internal Medicine
DX: I82.431 Acute embolism and thrombosis of right popliteal vein (principal); E46 Unspecified protein-calorie malnutrition; D68.2 Hereditary deficiency of other clotting factors; D68.51 Activated protein C resistance; E87.1 Hypo-osmolality and hyponatremia; D68.59 Other primary thrombophilia; E11.40 Type 2 diabetes mellitus with diabetic neuropathy, unspecified; I11.0 Hypertensive heart disease with heart failure; J44.9 Chronic obstructive pulmonary disease, unspecified; E78.5 Hyperlipidemia, unspecified; I25.10 Atherosclerotic heart disease of native coronary artery without angina pectoris; I48.91 Unspecified atrial fibrillation; K21.9 Gastro-esophageal reflux disease without esophagitis; G62.9 Polyneuropathy, unspecified; K70.30 Alcoholic cirrhosis of liver without ascites; G62.1 Alcoholic polyneuropathy; E11.42 Type 2 diabetes mellitus with diabetic polyneuropathy; F10.220 Alcohol dependence with intoxication, uncomplicated; Z95.1 Presence of aortocoronary bypass graft; I50.9 Heart failure, unspecified
CPT/HCPCS: 36415; 70450-TC; 73502-TC-RT-FY; 76700-TC; 80048; 80053; 81003; 82105; 82140; 82728; 82962; 83540; 83550; 83735; 83930; 83935; 84100; 84300; 85025; 85384; 85610; 85730; 87086; 93005; 93010; 93970-TC; 94010; 97116-GP; 97162-GP; 99285-25; C9803-CS; G0378; J1644; U0003; U0005

== ENCOUNTER 2022-02-12 11:22 | Inpatient (IN) | payer OTHER, BC ==
[2022-02-12] MEDS ORDERED: ACETAMINOPHEN 325 MG TABLET (FP) PO ONE (11:50)
[2022-02-12] MEDS ORDERED: THIAMINE HCL 100 MG TABLET (FP) PO ONE (11:53)
[2022-02-12] MEDS ORDERED: THIAMINE HCL 100 MG TABLET (FP) ONE (12:12)
[2022-02-12] MEDS ORDERED: ACETAMINOPHEN 325 MG TABLET (FP) ONE (12:13)
[2022-02-12 12:38] LABS: INR 1.17 (0.83-1.09); PROTHROMBIN TIME (PATIENT) 13.5 SEC (9.7-13.0)
[2022-02-12 12:41] LABS: ACTIVATED PTT 34.6 SECONDS (25.2-36.5); BASO % 0.6 % (0-2.0); EOS % 0.7 % (0-4.5); HEMOGLOBIN 12.8 GM/dL (11.7-16.9); LYMPH % 17.6 % (8-40); MCH 28.7 pg (25.7-33.7); MCHC 33.6 g/dl (32.0-35.9); MEAN CELL VOLUME 85.3 fl (80-96); MEAN PLT VOLUME 7.5 fl (7.5-11.1); MONO % 11.2 % (3.8-10.2); NEUT % 69.9 % (42.8-82.8); PLATELET COUNT 173 10^3/uL (134-434); RBC 4.46 M/mm3 (4.00-5.60); RDW 16.5 % (11.9-15.9); WHITE BLOOD COUNT 5.2 K/mm3 (4.0-10.0)
[2022-02-12 12:51] LABS: CALCIUM 8.8 mg/dL (8.5-10.1)
[2022-02-12 12:52] LABS: BLOOD UREA NITROGEN 4.9 mg/dL (7-18); MAGNESIUM 1.8 mg/dL (1.8-2.4)
[2022-02-12 12:55] LABS: CREATININE 0.8 mg/dL (0.55-1.3)
[2022-02-12 12:57] LABS: BILIRUBIN,TOTAL 0.6 mg/dL (0.2-1); TOT PROT 7.4 g/dl (6.4-8.2)
[2022-02-12 13:08] LABS: ALBUMIN 3.3 g/dl (3.4-5.0)
[2022-02-12] MEDS ORDERED: ATORVASTATIN CA 40 MG TABLET (FP) PO SCH (22:00)
[2022-02-12] MEDS: chlordiazePOXIDE 5 MG CAPSULE PO PRN (22:41)
[2022-02-13 01:18] VITALS: BMI 24.0
[2022-02-13] MEDS ORDERED: ACETAMINOPHEN 325 MG TABLET (FP) PO PRN (02:35)
[2022-02-13] MEDS: ACETAMINOPHEN 325 MG TABLET (FP) PO PRN ×3 (03:14→21:46)
[2022-02-13] MEDS ORDERED: THIAMINE HCL 200 MG/2 ML VIAL IVPB ONE (08:03)
[2022-02-13] MEDS: chlordiazePOXIDE 5 MG CAPSULE PO PRN ×2 (08:06→14:13)
[2022-02-13 08:07] LABS: HEMATOCRIT 34.1 % (35.4-49); HEMOGLOBIN 11.8 GM/dL (11.7-16.9); MCHC 34.5 g/dl (32.0-35.9); MEAN CELL VOLUME 84.2 fl (80-96); PLATELET COUNT 152 10^3/uL (134-434); RBC 4.06 M/mm3 (4.00-5.60); RDW 16.3 % (11.9-15.9); WHITE BLOOD COUNT 5.6 K/mm3 (4.0-10.0)
[2022-02-13 09:07] LABS: BLOOD UREA NITROGEN 8.9 mg/dL (7-18); CALCIUM 8.3 mg/dL (8.5-10.1)
[2022-02-13 09:08] LABS: ALBUMIN 2.9 g/dl (3.4-5.0)
[2022-02-13 09:11] LABS: CREATININE 0.8 mg/dL (0.55-1.3)
[2022-02-13 09:12] LABS: TOT PROT 6.6 g/dl (6.4-8.2)
[2022-02-13 09:13] LABS: BILIRUBIN,TOTAL 0.6 mg/dL (0.2-1)
[2022-02-13] MEDS ORDERED: DULoxetine HCL 30 MG CAPSULE.DR PO SCH (10:00)
[2022-02-13] MEDS ORDERED: FOLIC ACID 1 MG TABLET (FP) PO SCH (10:00)
[2022-02-13] MEDS ORDERED: AMIODARONE HCL 200 MG TABLET PO SCH (10:00)
[2022-02-13] MEDS ORDERED: PANTOPRAZOLE 40 MG TABLET PO SCH (10:00)
[2022-02-13] MEDS ORDERED: SODIUM CHLORIDE 1 GM TABLET PO SCH (10:00)
[2022-02-13] MEDS ORDERED: SPIRONOLACTONE 25 MG TABLET PO SCH (10:00)
[2022-02-13] MEDS ORDERED: THIAMINE HCL 100 MG TABLET (FP) PO SCH (10:00)
[2022-02-13] MEDS ORDERED: ACETAMINOPHEN 500 MG TABLET (FP) PO ONE (11:53)
[2022-02-13 13:07] LABS: SARS-CoV-2 NAA Not Detected (Not Detected)
[2022-02-13] MEDS ORDERED: chlordiazePOXIDE 5 MG CAPSULE PO PRN (15:41)
[2022-02-13] MEDS: SODIUM CHLORIDE 1 GM TABLET PO SCH (21:48)
[2022-02-13] MEDS ORDERED: MELATONIN 5 MG TABLETS PO SCH (22:00)
[2022-02-13] MEDS ORDERED: ATORVASTATIN CA 40 MG TABLET (FP) PO SCH (22:00)
[2022-02-14 08:25] LABS: BASO % 0.5 % (0-2.0); EOS % 0.2 % (0-4.5); HEMOGLOBIN 12.2 GM/dL (11.7-16.9); LYMPH % 23.9 % (8-40); MCH 28.2 pg (25.7-33.7); MCHC 32.9 g/dl (32.0-35.9); MEAN CELL VOLUME 85.7 fl (80-96); MEAN PLT VOLUME 8.2 fl (7.5-11.1); NEUT % 64.4 % (42.8-82.8); PLATELET COUNT 168 10^3/uL (134-434); RBC 4.32 M/mm3 (4.00-5.60); RDW 16.7 % (11.9-15.9); WHITE BLOOD COUNT 5.4 K/mm3 (4.0-10.0)
[2022-02-14 08:28] LABS: INR 1.17 (0.83-1.09); PROTHROMBIN TIME (PATIENT) 13.5 SEC (9.7-13.0)
[2022-02-14 08:40] LABS: BLOOD UREA NITROGEN 6.9 mg/dL (7-18); CALCIUM 8.7 mg/dL (8.5-10.1); MAGNESIUM 1.8 mg/dL (1.8-2.4)
[2022-02-14 08:43] LABS: CREATININE 0.8 mg/dL (0.55-1.3); PHOSPHOROUS 3.8 mg/dL (2.5-4.9)
[2022-02-14] MEDS: ACETAMINOPHEN 325 MG TABLET (FP) PO PRN ×2 (09:39→21:57)
[2022-02-14] MEDS: SODIUM CHLORIDE 1 GM TABLET PO SCH ×2 (09:45→21:56)
[2022-02-14] MEDS ORDERED: AMIODARONE HCL 200 MG TABLET PO SCH (10:00)
[2022-02-14] MEDS ORDERED: APIXABAN 5 MG TABLET PO SCH (10:00)
[2022-02-14] MEDS ORDERED: FOLIC ACID 1 MG TABLET (FP) PO SCH (10:00)
[2022-02-14] MEDS ORDERED: PATIENT'S OWN MEDICATION (NON-FORMULARY) (Mirabegron [Myrbetriq] 25 MG Tab.Er.24h) PO SCH (10:00)
[2022-02-14] MEDS ORDERED: AMIODARONE HCL 100 MG PO SCH (10:00)
[2022-02-14] MEDS ORDERED: DULoxetine HCL 30 MG CAPSULE.DR PO SCH (10:00)
[2022-02-14] MEDS ORDERED: THIAMINE HCL 100 MG TABLET (FP) PO SCH (10:00)
[2022-02-14] MEDS ORDERED: PANTOPRAZOLE 40 MG TABLET PO SCH (10:00)
[2022-02-14] MEDS ORDERED: SPIRONOLACTONE 25 MG TABLET PO SCH (10:00)
[2022-02-14] MEDS ORDERED: MIDAZOLAM HCL 2 MG/2 ML SINGLE DOSE VIAL ONE (16:09)
[2022-02-14] MEDS ORDERED: diphenhydrAMINE HCL 25 MG CAPSULE (FP) PO PRN ×2 (16:43→17:41)
[2022-02-14] MEDS ORDERED: PROPOFOL 20 ML ONE (16:54)
[2022-02-14] MEDS ORDERED: oxyCODONE HCL 5 MG TABLET PO PRN ×2 (17:02→17:41)
[2022-02-14] MEDS ORDERED: ONDANSETRON 4 MG/2 ML VIAL IVPUSH PRN ×2 (17:02→17:41)
[2022-02-14] MEDS ORDERED: PROMETHAZINE HCL 25 MG/1 ML VIAL IVPUSH PRN ×2 (17:02→17:41)
[2022-02-14] MEDS ORDERED: CLINDAMYCIN PHOSPHATE 600 MG/4 ML VIAL IVPB ONE (17:03)
[2022-02-14] MEDS ORDERED: CLINDAMYCIN PHOSPHATE 600 MG/4 ML VIAL ONE (17:04)
[2022-02-14] MEDS: ATORVASTATIN CA 40 MG TABLET (FP) PO SCH (21:56)
[2022-02-14] MEDS: MELATONIN 5 MG TABLETS PO SCH (21:56)
[2022-02-15] MEDS: APIXABAN 5 MG TABLET PO SCH ×2 (09:57→22:04)
[2022-02-15] MEDS: MULTIVITAMINS THER W-MINERALS COMBO TABLET (FP) PO SCH (09:57)
[2022-02-15] MEDS: SPIRONOLACTONE 25 MG TABLET PO SCH (09:57)
[2022-02-15] MEDS: PANTOPRAZOLE 40 MG TABLET PO SCH (09:57)
[2022-02-15] MEDS: THIAMINE HCL 100 MG TABLET (FP) PO SCH (09:57)
[2022-02-15] MEDS: FOLIC ACID 1 MG TABLET (FP) PO SCH (09:57)
[2022-02-15] MEDS: SODIUM CHLORIDE 1 GM TABLET PO SCH ×2 (09:58→22:06)
[2022-02-15] MEDS ORDERED: PATIENT'S OWN MEDICATION (NON-FORMULARY) (Mirabegron [Myrbetriq] 25 MG) PO SCH (10:00)
[2022-02-15] MEDS: AMIODARONE HCL 200 MG TABLET PO SCH (10:02)
[2022-02-15] MEDS: DULoxetine HCL 30 MG CAPSULE.DR PO SCH (10:04)
[2022-02-15 11:10] LABS: BASO % 0.1 % (0-2.0); HEMATOCRIT 34.5 % (35.4-49); HEMOGLOBIN 11.8 GM/dL (11.7-16.9); LYMPH % 9.2 % (8-40); MCH 29.1 pg (25.7-33.7); MCHC 34.3 g/dl (32.0-35.9); MEAN CELL VOLUME 84.8 fl (80-96); NEUT % 82.7 % (42.8-82.8); PLATELET COUNT 161 10^3/uL (134-434); RBC 4.07 M/mm3 (4.00-5.60); RDW 16.8 % (11.9-15.9); WHITE BLOOD COUNT 5.9 K/mm3 (4.0-10.0)
[2022-02-15 11:29] LABS: CALCIUM 8.7 mg/dL (8.5-10.1)
[2022-02-15 11:30] LABS: BLOOD UREA NITROGEN 9.2 mg/dL (7-18)
[2022-02-15 11:33] LABS: CREATININE 0.8 mg/dL (0.55-1.3)
[2022-02-15] MEDS ORDERED: ACETAMINOPHEN 1000 MG/100 ML BAG IVPB ONE (21:42)
[2022-02-15] MEDS: ATORVASTATIN CA 40 MG TABLET (FP) PO SCH (22:04)
[2022-02-15] MEDS: MELATONIN 5 MG TABLETS PO SCH (22:04)
[2022-02-16 08:30] LABS: ALBUMIN 2.9 g/dl (3.4-5.0); BLOOD UREA NITROGEN 7.1 mg/dL (7-18); CALCIUM 9.1 mg/dL (8.5-10.1)
[2022-02-16 08:33] LABS: CREATININE 0.8 mg/dL (0.55-1.3)
[2022-02-16 08:35] LABS: BILIRUBIN,TOTAL 0.4 mg/dL (0.2-1); TOT PROT 6.7 g/dl (6.4-8.2)
[2022-02-16] MEDS: DULoxetine HCL 30 MG CAPSULE.DR PO SCH (09:23)
[2022-02-16] MEDS: SPIRONOLACTONE 25 MG TABLET PO SCH (09:23)
[2022-02-16] MEDS: PANTOPRAZOLE 40 MG TABLET PO SCH (09:23)
[2022-02-16] MEDS: THIAMINE HCL 100 MG TABLET (FP) PO SCH (09:23)
[2022-02-16] MEDS: FOLIC ACID 1 MG TABLET (FP) PO SCH (09:23)
[2022-02-16] MEDS: AMIODARONE HCL 200 MG TABLET PO SCH (09:23)
[2022-02-16] MEDS: MULTIVITAMINS THER W-MINERALS COMBO TABLET (FP) PO SCH (09:24)
[2022-02-16] MEDS: SODIUM CHLORIDE 1 GM TABLET PO SCH (09:26)
[2022-02-16] MEDS: APIXABAN 5 MG TABLET PO SCH ×2 (09:26→21:14)
[2022-02-16] MEDS: ATORVASTATIN CA 40 MG TABLET (FP) PO SCH (21:14)
[2022-02-16] MEDS: MELATONIN 5 MG TABLETS PO SCH (21:14)
[2022-02-16] MEDS: ACETAMINOPHEN 325 MG TABLET (FP) PO PRN (21:14)
[2022-02-17 06:08] VITALS: BP 119/65; PULSE 55; TEMP 98.2
[2022-02-17] MEDS ORDERED: SODIUM CHLORIDE 1 GM TABLET PO SCH (10:00)
[2022-02-17] MEDS: MULTIVITAMINS THER W-MINERALS COMBO TABLET (FP) PO SCH (10:46)
[2022-02-17] MEDS: SPIRONOLACTONE 25 MG TABLET PO SCH (10:46)
[2022-02-17] MEDS: THIAMINE HCL 100 MG TABLET (FP) PO SCH (10:46)
[2022-02-17] MEDS: DULoxetine HCL 30 MG CAPSULE.DR PO SCH (10:46)
[2022-02-17] MEDS: PANTOPRAZOLE 40 MG TABLET PO SCH (10:46)
[2022-02-17] MEDS: FOLIC ACID 1 MG TABLET (FP) PO SCH (10:46)
[2022-02-17] MEDS: APIXABAN 5 MG TABLET PO SCH (10:46)
[2022-02-17] MEDS: AMIODARONE HCL 200 MG TABLET PO SCH (10:47)
== END 2022-02-17 12:00 | disposition home or self-care (01) | DRG 641 ==
LOC: JER 11:22 → JERBED 13:48 → UNDOADMOB 13:48 → INTOOBSV 13:48 → JERBED 14:12 → J2W 21:26 → OBSVTOIN 02-13 12:00 → J7W 02-13 15:34
PROVIDERS: ADMIT Internal Medicine; ATTEND Internal Medicine
PROC: 0T7D8DZ Dilation of Urethra with Intraluminal Device, Via Natural or Artificial Opening Endoscopic (ICD-10-PCS; principal; 2022-02-14 15:30)
DX: E87.1 Hypo-osmolality and hyponatremia (principal); I42.9 Cardiomyopathy, unspecified; D68.51 Activated protein C resistance; I82.441 Acute embolism and thrombosis of right tibial vein; I50.1 Left ventricular failure, unspecified; I48.0 Paroxysmal atrial fibrillation; E11.9 Type 2 diabetes mellitus without complications; N40.1 Benign prostatic hyperplasia with lower urinary tract symptoms; R33.9 Retention of urine, unspecified; K70.30 Alcoholic cirrhosis of liver without ascites; F10.20 Alcohol dependence, uncomplicated; G62.9 Polyneuropathy, unspecified; Z95.1 Presence of aortocoronary bypass graft; I25.119 Atherosclerotic heart disease of native coronary artery with unspecified angina pectoris
CPT/HCPCS: 36415; 70450-TC; 71045-TC-FY; 72125-TC; 73030-TC-LT-FY; 73030-TC-RT-FY; 80048; 80053; 82962; 83735; 83930; 84100; 84443; 84484; 85025; 85027; 85610; 85730; 93005; 93010; 94760; 97116-GP; 97161-GP; 99285-25; C9803-CS; G0378; U0003; U0005

== ENCOUNTER 2022-02-18 16:03 | Emergency (ER) | payer OTHER, BC ==
[2022-02-18 16:21] VITALS: BMI 24.1
[2022-02-18 16:57] VITALS: BP 120/82; PULSE 65
[2022-02-18 17:44] LABS: BASO % 0.8 % (0-2.0); EOS % 0.5 % (0-4.5); HEMATOCRIT 38.5 % (35.4-49); HEMOGLOBIN 12.8 GM/dL (11.7-16.9); LYMPH % 16.9 % (8-40); MCH 28.2 pg (25.7-33.7); MCHC 33.2 g/dl (32.0-35.9); MEAN CELL VOLUME 85.2 fl (80-96); MONO % 8.4 % (3.8-10.2); NEUT % 73.4 % (42.8-82.8); PLATELET COUNT 215 10^3/uL (134-434); RBC 4.52 M/mm3 (4.00-5.60); RDW 16.7 % (11.9-15.9); WHITE BLOOD COUNT 5.6 K/mm3 (4.0-10.0)
[2022-02-18 18:01] LABS: ALBUMIN 3.3 g/dl (3.4-5.0); MAGNESIUM 1.8 mg/dL (1.8-2.4)
[2022-02-18 18:04] LABS: CREATININE 0.7 mg/dL (0.55-1.3)
[2022-02-18 18:06] LABS: ACTIVATED PTT 33.2 SECONDS (25.2-36.5); BILIRUBIN,TOTAL 0.6 mg/dL (0.2-1); INR 1.21 (0.83-1.09); PROTHROMBIN TIME (PATIENT) 13.9 SEC (9.7-13.0); TOT PROT 7.4 g/dl (6.4-8.2)
[2022-02-18 18:24] LABS: LACTIC ACID 2.9 mmol/L (0.4-2.0)
[2022-02-18] MEDS ORDERED: SODIUM CHLORIDE 0.9% 500 ML INFUS.BAG IV ONE (20:04)
[2022-02-20 00:07] LABS: SARS-CoV-2 NAA Not Detected (Not Detected)
== END 2022-02-18 22:18 | disposition short-term general hospital (02) ==
LOC: JER 16:03
PROC: 3E033GC Introduction of Other Therapeutic Substance into Peripheral Vein, Percutaneous Approach (ICD-10-PCS; principal; 2022-02-18)
DX: S12.100A Unspecified displaced fracture of second cervical vertebra, initial encounter for closed fracture (principal); W19.XXXA Unspecified fall, initial encounter
CPT/HCPCS: 36415; 70450-TC; 70486-TC; 71045-TC-FY; 72125-TC; 72170-TC-FY; 80053; 82962; 83605; 83735; 84484; 85025; 85610; 85730; 99285-25; C9803-CS; U0003; U0005

== ENCOUNTER 2022-03-26 02:38 | Emergency (ER) | payer OTHER, BC ==
[2022-03-26 03:01] VITALS: TEMP 98.2; BMI 23.7
[2022-03-26] MEDS ORDERED: LIDOCAINE 1%/EPI 1:100000 (20 ML MULTI DOSE VIAL) ONE (04:04)
[2022-03-26] MEDS ORDERED: LIDOCAINE 1%/EPI 1:100000 (20 ML MULTI DOSE VIAL) INF ONE (04:05)
[2022-03-26 04:50] LABS: BASO % 0.5 % (0-2.0); EOS % 0.6 % (0-4.5); HEMATOCRIT 31.2 % (35.4-49); HEMOGLOBIN 10.5 GM/dL (11.7-16.9); LYMPH % 36.5 % (8-40); MCH 27.1 pg (25.7-33.7); MCHC 33.6 g/dl (32.0-35.9); MEAN CELL VOLUME 80.7 fl (80-96); MONO % 14.3 % (3.8-10.2); NEUT % 48.1 % (42.8-82.8); PLATELET COUNT 139 10^3/uL (134-434); RBC 3.86 M/mm3 (4.00-5.60); WHITE BLOOD COUNT 3.5 K/mm3 (4.0-10.0)
[2022-03-26 05:10] LABS: CALCIUM 8.1 mg/dL (8.5-10.1)
[2022-03-26 05:11] LABS: ALBUMIN 3.2 g/dl (3.4-5.0); BLOOD UREA NITROGEN 7.3 mg/dL (7-18)
[2022-03-26 05:14] LABS: CREATININE 0.7 mg/dL (0.55-1.3)
[2022-03-26 05:15] LABS: BILIRUBIN,TOTAL 0.4 mg/dL (0.2-1)
[2022-03-26 06:41] VITALS: BP 115/77; PULSE 63
== END 2022-03-26 06:51 | disposition short-term general hospital (02) ==
LOC: JER 02:38
DX: S06.5X9A Traumatic subdural hemorrhage with loss of consciousness of unspecified duration, initial encounter (principal); W19.XXXA Unspecified fall, initial encounter
CPT/HCPCS: 36415; 70450-TC; 71045-TC-FY; 72125-TC; 80053; 84484; 85025; 93005; 93010; 99285-25; C9803-CS; U0003; U0005

== ENCOUNTER 2023-05-25 20:12 | Inpatient (IN) | payer OTHER, BC ==
[2023-05-25 21:13] LABS: URINE APPEARANCE CLEAR; URINE BILIRUBIN NEGATIVE (NEGATIVE); URINE COLOR YELLOW; URINE GLUCOSE (UA) NEGATIVE (NEGATIVE); URINE KETONE NEGATIVE (NEGATIVE); URINE LEUK ESTERASE NEGATIVE (NEGATIVE); URINE NITRITE NEGATIVE (NEGATIVE); URINE PROTEIN NEGATIVE (NEGATIVE)
[2023-05-25 21:14] LABS: BASO % 0.7 % (0-2.0); HEMOGLOBIN 14.2 GM/dL (11.7-16.9); LYMPH % 35.4 % (8-40); MCH 33.8 pg (25.7-33.7); MCHC 33.9 g/dl (32.0-35.9); MEAN CELL VOLUME 99.7 fl (80-96); MONO % 16.4 % (3.8-10.2); NEUT % 47.5 % (42.8-82.8); RBC 4.21 M/mm3 (4.00-5.60); RDW 16.2 % (11.9-15.9)
[2023-05-25 21:19] LABS: INR 1.07 (0.83-1.09); PROTHROMBIN TIME (PATIENT) 12.4 SEC (9.7-13.0)
[2023-05-25 21:22] LABS: ACTIVATED PTT 32.4 SECONDS (25.2-36.5)
[2023-05-25 21:33] LABS: CHLORIDE 110 mmol/L (98-107); MEAN PLT VOLUME 10.6 fl (7.5-11.1); PLATELET COUNT 40 10^3/uL (134-434); POTASSIUM 3.4 mmol/L (3.5-5.1); SODIUM 143 mmol/L (136-145)
[2023-05-25] MEDS ORDERED: THIAMINE HCL 200 MG/2 ML VIAL IVPB ONE (21:34)
[2023-05-25 21:36] LABS: ALBUMIN 2.9 g/dl (3.4-5.0); ANION GAP 9 MMOL/L (8-16); CALCIUM 8.4 mg/dL (8.5-10.1); CO2 23 mmol/L (21-32); GLUCOSE,RANDOM 141 mg/dL (74-106); MAGNESIUM 1.8 mg/dL (1.8-2.4)
[2023-05-25 21:39] LABS: CREATININE 0.7 mg/dL (0.55-1.3); SGOT/AST 56 U/L (15-37); SGPT/ALT 32 U/L (13-61)
[2023-05-25 21:41] LABS: BILIRUBIN,TOTAL 1.2 mg/dL (0.2-1); TOT PROT 7.2 g/dl (6.4-8.2)
[2023-05-25 21:42] LABS: ALK PHOS 210 U/L (45-117)
[2023-05-25] MEDS ORDERED: POTASSIUM CHLORIDE TABS 20 MEQ TABLET.ER (FP) PO ONE ×2 (21:44→22:38)
[2023-05-25] MEDS ORDERED: LACTATED RINGERS SOLUTION 1,000 ML/1,000 ML INFUS.BAG IV SCH (21:45)
[2023-05-25 21:51] LABS: BLOOD UREA NITROGEN 2.9 mg/dL (7-18)
[2023-05-25] MEDS ORDERED: FAMOTIDINE 20 MG/50 ML IVPB 20 MG/50 ML MG IVPB ONE (22:02)
[2023-05-25] MEDS ORDERED: THIAMINE HCL 200 MG/2 ML VIAL ONE (22:38)
[2023-05-25] MEDS ORDERED: LORazepam 2 MG/ML SDV VIAL IVPUSH ONE (23:11)
[2023-05-26] MEDS ORDERED: LORazepam 1 MG TABLET PO PRN ×2 (02:10→02:19)
[2023-05-26] MEDS: LORazepam 2 MG TABLET PO SCH ×2 (05:43→11:45)
[2023-05-26 06:04] LABS: HEMATOCRIT 41.5 % (35.4-49); HEMOGLOBIN 13.8 GM/dL (11.7-16.9); MCH 33.6 pg (25.7-33.7); MCHC 33.1 g/dl (32.0-35.9); MEAN CELL VOLUME 101.3 fl (80-96); MEAN PLT VOLUME 10.6 fl (7.5-11.1); RDW 16.4 % (11.9-15.9)
[2023-05-26 06:08] LABS: PLATELET COUNT 28 10^3/uL (134-434); WHITE BLOOD COUNT 1.6 K/mm3 (4.0-10.0)
[2023-05-26 06:22] LABS: CHLORIDE 114 mmol/L (98-107); POTASSIUM 3.6 mmol/L (3.5-5.1); SODIUM 148 mmol/L (136-145)
[2023-05-26 06:27] LABS: ALBUMIN 2.6 g/dl (3.4-5.0); ANION GAP 9 MMOL/L (8-16); CALCIUM 8.6 mg/dL (8.5-10.1); CO2 26 mmol/L (21-32); GLUCOSE,RANDOM 101 mg/dL (74-106); MAGNESIUM 1.7 mg/dL (1.8-2.4)
[2023-05-26 06:29] LABS: CREATININE 0.6 mg/dL (0.55-1.3); PHOSPHOROUS 3.8 mg/dL (2.5-4.9); SGOT/AST 56 U/L (15-37); SGPT/ALT 27 U/L (13-61)
[2023-05-26 06:30] LABS: BILIRUBIN,TOTAL 1.2 mg/dL (0.2-1); TOT PROT 6.5 g/dl (6.4-8.2)
[2023-05-26 06:32] LABS: ALK PHOS 185 U/L (45-117)
[2023-05-26 06:35] LABS: BLOOD UREA NITROGEN 2.2 mg/dL (7-18)
[2023-05-26] MEDS ORDERED: LORazepam 1 MG TABLET ONE ×2 (06:44→11:45)
[2023-05-26] MEDS ORDERED: MAGNESIUM SULF 50% (8.12 MEQ/2 ML-1 GM VIAL) IVPB ONE (08:51)
[2023-05-26] MEDS ORDERED: MAGNESIUM SULFATE IN WATER 2 GM/50 ML IVPB IVPB ONE (09:27)
[2023-05-26] MEDS: INSULIN SLIDING SCALE (NOVOLOG) 1 VIAL SQ SCH ×4 (09:32→22:18)
[2023-05-26] MEDS ORDERED: PANTOPRAZOLE 40 MG TABLET PO ONE (09:37)
[2023-05-26] MEDS ORDERED: FOLIC ACID 1 MG TABLET (FP) ONE (09:37)
[2023-05-26] MEDS ORDERED: THIAMINE HCL 100 MG TABLET (FP) ONE (09:37)
[2023-05-26] MEDS ORDERED: AMIODARONE HCL 200 MG TABLET ONE (09:37)
[2023-05-26] MEDS ORDERED: DULoxetine HCL 30 MG CAPSULE.DR PO ONE (09:37)
[2023-05-26] MEDS: FOLIC ACID 1 MG TABLET (FP) PO SCH (09:41)
[2023-05-26] MEDS: DULoxetine HCL 30 MG CAPSULE.DR PO SCH (09:41)
[2023-05-26] MEDS: PANTOPRAZOLE 40 MG TABLET PO SCH (09:41)
[2023-05-26] MEDS: THIAMINE HCL 100 MG TABLET (FP) PO SCH (09:42)
[2023-05-26] MEDS ORDERED: AMIODARONE HCL 200 MG TABLET PO SCH (10:00)
[2023-05-26] MEDS ORDERED: APIXABAN 5 MG TABLET PO SCH ×2 (10:00→22:00)
[2023-05-26] MEDS ORDERED: PANTOPRAZOLE 40 MG TABLET PO SCH (10:00)
[2023-05-26] MEDS ORDERED: DICYCLOMINE HCL 10 MG CAPSULE PO PRN (13:20)
[2023-05-26] MEDS ORDERED: BENZONATATE 200 MG CAPSULE PO PRN (13:20)
[2023-05-26] MEDS ORDERED: MAG HYDROX/AL HYDROX/SIMETH 30 ML UNIT-DOSE CUP PO PRN (13:20)
[2023-05-26] MEDS ORDERED: POLYETHYLENE GLYCOL (HEALTHYLAX) 3350 17 GM PACKET PO PRN (13:20)
[2023-05-26] MEDS ORDERED: NICOTINE POLACRILEX 4 MG GUM BUC PRN (13:20)
[2023-05-26] MEDS ORDERED: MAGNESIUM HYDROX 2400MG/30ML ORAL SUSPENSION 30 ML CUP PO PRN (13:20)
[2023-05-26] MEDS ORDERED: METHOCARBAMOL 500 MG TABLET PO PRN (13:20)
[2023-05-26] MEDS ORDERED: BENZOCAINE/MENTHOL (CHLORASEPTIC ) LOZENGE MM PRN (13:20)
[2023-05-26] MEDS ORDERED: NICOTINE 10 MG CARTRIDGE (INHALER) IH PRN (13:20)
[2023-05-26] MEDS ORDERED: guaiFENesin 600 MG TABLET.ER (FP) PO PRN (13:20)
[2023-05-26] MEDS ORDERED: LOPERAMIDE HCL 2 MG CAPSULE PO PRN (13:20)
[2023-05-26] MEDS ORDERED: hydrOXYzine PAMOATE 25 MG CAPSULE (FP) PO PRN (13:20)
[2023-05-26] MEDS ORDERED: LORazepam 1 MG TABLET PO SCH (17:58)
[2023-05-26] MEDS: LORazepam 1 MG TABLET PO SCH ×2 (18:29→22:21)
[2023-05-26] MEDS: ATORVASTATIN CA 40 MG TABLET (FP) PO SCH (22:19)
[2023-05-26] MEDS: MELATONIN 5 MG TABLETS PO SCH (22:19)
[2023-05-26] MEDS: APIXABAN 5 MG TABLET PO SCH (22:20)
[2023-05-27] MEDS ORDERED: LACTATED RINGERS SOLUTION 1,000 ML/1,000 ML INFUS.BAG IV SCH (00:51)
[2023-05-27] MEDS: LORazepam 1 MG TABLET PO SCH ×4 (05:57→22:23)
[2023-05-27] MEDS: INSULIN SLIDING SCALE (NOVOLOG) 1 VIAL SQ SCH ×4 (06:38→22:33)
[2023-05-27] MEDS: FOLIC ACID 1 MG TABLET (FP) PO SCH (09:30)
[2023-05-27] MEDS: APIXABAN 5 MG TABLET PO SCH (09:30)
[2023-05-27] MEDS: THIAMINE HCL 100 MG TABLET (FP) PO SCH (09:30)
[2023-05-27] MEDS: PRENATAL VITAMINS W/ FOLIC ACID TABLET (FP) PO SCH (09:30)
[2023-05-27] MEDS: DULoxetine HCL 30 MG CAPSULE.DR PO SCH (09:30)
[2023-05-27] MEDS: PANTOPRAZOLE 40 MG TABLET PO SCH (09:30)
[2023-05-27] MEDS ORDERED: APIXABAN 5 MG TABLET PO SCH (10:00)
[2023-05-27 10:43] LABS: HEMATOCRIT 43.9 % (35.4-49); HEMOGLOBIN 14.6 GM/dL (11.7-16.9); LYMPH % 33.9 % (8-40); MCH 33.7 pg (25.7-33.7); MCHC 33.2 g/dl (32.0-35.9); MEAN CELL VOLUME 101.5 fl (80-96); MEAN PLT VOLUME 9.5 fl (7.5-11.1); MONO % 13.4 % (3.8-10.2); NEUT % 51.7 % (42.8-82.8); PLATELET COUNT 50 10^3/uL (134-434); RBC 4.32 M/mm3 (4.00-5.60); RDW 15.7 % (11.9-15.9); WHITE BLOOD COUNT 2.2 K/mm3 (4.0-10.0)
[2023-05-27 11:00] LABS: POTASSIUM 3.5 mmol/L (3.5-5.1)
[2023-05-27 11:03] LABS: CALCIUM 8.7 mg/dL (8.5-10.1)
[2023-05-27 11:04] LABS: ALBUMIN 2.6 g/dl (3.4-5.0); BLOOD UREA NITROGEN 7.2 mg/dL (7-18); MAGNESIUM 1.9 mg/dL (1.8-2.4)
[2023-05-27 11:07] LABS: CREATININE 0.7 mg/dL (0.55-1.3)
[2023-05-27 11:09] LABS: BILIRUBIN,TOTAL 2.1 mg/dL (0.2-1); TOT PROT 6.6 g/dl (6.4-8.2)
[2023-05-27] MEDS: ATORVASTATIN CA 40 MG TABLET (FP) PO SCH (22:22)
[2023-05-27] MEDS: MELATONIN 5 MG TABLETS PO SCH (22:22)
[2023-05-27] MEDS ORDERED: LORazepam 1 MG TABLET PO ONE (23:49)
[2023-05-28] MEDS ORDERED: LORazepam 0.5 MG TABLET PO PRN
[2023-05-28] MEDS: LORazepam 0.5 MG TABLET PO SCH ×3 (03:27→15:00)
[2023-05-28] MEDS: ACETAMINOPHEN 325 MG TABLET (FP) PO PRN (06:13)
[2023-05-28] MEDS: INSULIN SLIDING SCALE (NOVOLOG) 1 VIAL SQ SCH ×4 (06:36→21:35)
[2023-05-28] MEDS: DULoxetine HCL 30 MG CAPSULE.DR PO SCH (09:21)
[2023-05-28] MEDS: THIAMINE HCL 100 MG TABLET (FP) PO SCH (09:21)
[2023-05-28] MEDS: PANTOPRAZOLE 40 MG TABLET PO SCH (09:21)
[2023-05-28] MEDS: FOLIC ACID 1 MG TABLET (FP) PO SCH (09:22)
[2023-05-28] MEDS: PRENATAL VITAMINS W/ FOLIC ACID TABLET (FP) PO SCH (09:22)
[2023-05-28 10:07] LABS: BASO % 0.9 % (0-2.0); HEMATOCRIT 42.4 % (35.4-49); HEMOGLOBIN 14.3 GM/dL (11.7-16.9); LYMPH % 27.8 % (8-40); MCH 33.9 pg (25.7-33.7); MCHC 33.7 g/dl (32.0-35.9); MEAN CELL VOLUME 100.6 fl (80-96); MEAN PLT VOLUME 10.1 fl (7.5-11.1); MONO % 14.7 % (3.8-10.2); NEUT % 56.6 % (42.8-82.8); PLATELET COUNT 56 10^3/uL (134-434); RBC 4.21 M/mm3 (4.00-5.60); RDW 15.3 % (11.9-15.9); WHITE BLOOD COUNT 2.3 K/mm3 (4.0-10.0)
[2023-05-28 10:24] LABS: POTASSIUM 3.5 mmol/L (3.5-5.1)
[2023-05-28 10:27] LABS: CALCIUM 8.8 mg/dL (8.5-10.1)
[2023-05-28 10:28] LABS: ALBUMIN 2.6 g/dl (3.4-5.0); BLOOD UREA NITROGEN 8.5 mg/dL (7-18); MAGNESIUM 1.7 mg/dL (1.8-2.4)
[2023-05-28 10:31] LABS: CREATININE 0.7 mg/dL (0.55-1.3)
[2023-05-28 10:32] LABS: TOT PROT 6.5 g/dl (6.4-8.2)
[2023-05-28 10:33] LABS: BILIRUBIN,TOTAL 2.1 mg/dL (0.2-1)
[2023-05-28] MEDS ORDERED: MAGNESIUM 1GM/D5W - 1 GM/100 ML IVPB IVPB ONE (13:30)
[2023-05-28] MEDS ORDERED: chlordiazePOXIDE HCL 25 MG CAPSULE PO PRN (15:06)
[2023-05-28] MEDS: THIAMINE HCL 200 MG/2 ML VIAL IVPB SCH ×2 (15:46→21:53)
[2023-05-28 17:10] VITALS: BMI 22.8
[2023-05-28] MEDS: chlordiazePOXIDE HCL 25 MG CAPSULE PO SCH ×2 (18:23→22:01)
[2023-05-28] MEDS: MELATONIN 5 MG TABLETS PO SCH (21:01)
[2023-05-28] MEDS: ATORVASTATIN CA 40 MG TABLET (FP) PO SCH (21:01)
[2023-05-28] MEDS: GABAPENTIN 300 MG CAPSULE PO SCH (21:01)
[2023-05-29] MEDS ORDERED: LORazepam 0.5 MG TABLET PO ONE (05:00)
[2023-05-29] MEDS: chlordiazePOXIDE HCL 25 MG CAPSULE PO SCH ×4 (05:35→22:51)
[2023-05-29] MEDS: INSULIN SLIDING SCALE (NOVOLOG) 1 VIAL SQ SCH ×5 (06:01→22:52)
[2023-05-29] MEDS: THIAMINE HCL 200 MG/2 ML VIAL IVPB SCH (07:51)
[2023-05-29] MEDS ORDERED: THIAMINE HCL 500 MG in SODIUM CHLORIDE 250 ML IM SCH (08:00)
[2023-05-29] MEDS: THIAMINE HCL 500 MG in SODIUM CHLORIDE 250 ML IVPB SCH ×3 (09:46→23:47)
[2023-05-29] MEDS: FOLIC ACID 1 MG TABLET (FP) PO SCH (09:46)
[2023-05-29] MEDS: PANTOPRAZOLE 40 MG TABLET PO SCH (09:46)
[2023-05-29] MEDS: DULoxetine HCL 30 MG CAPSULE.DR PO SCH (09:46)
[2023-05-29] MEDS: PRENATAL VITAMINS W/ FOLIC ACID TABLET (FP) PO SCH (09:52)
[2023-05-29 09:54] LABS: BASO % 0.7 % (0-2.0); HEMATOCRIT 40.1 % (35.4-49); HEMOGLOBIN 13.7 GM/dL (11.7-16.9); LYMPH % 27.9 % (8-40); MCH 34.1 pg (25.7-33.7); MCHC 34.1 g/dl (32.0-35.9); MEAN CELL VOLUME 99.9 fl (80-96); MEAN PLT VOLUME 10.4 fl (7.5-11.1); MONO % 16.1 % (3.8-10.2); NEUT % 55.3 % (42.8-82.8); PLATELET COUNT 50 10^3/uL (134-434); RBC 4.01 M/mm3 (4.00-5.60); RDW 15.5 % (11.9-15.9); WHITE BLOOD COUNT 2.1 K/mm3 (4.0-10.0)
[2023-05-29 09:57] LABS: POTASSIUM 3.2 mmol/L (3.5-5.1)
[2023-05-29 10:07] LABS: ALBUMIN 2.4 g/dl (3.4-5.0); BLOOD UREA NITROGEN 5.7 mg/dL (7-18); CALCIUM 8.5 mg/dL (8.5-10.1); MAGNESIUM 1.6 mg/dL (1.8-2.4)
[2023-05-29 10:10] LABS: CREATININE 0.6 mg/dL (0.55-1.3); PHOSPHOROUS 3.8 mg/dL (2.5-4.9)
[2023-05-29 10:12] LABS: BILIRUBIN,TOTAL 1.7 mg/dL (0.2-1); TOT PROT 6.1 g/dl (6.4-8.2)
[2023-05-29] MEDS: APIXABAN 5 MG TABLET PO SCH ×2 (11:17→22:51)
[2023-05-29] MEDS ORDERED: chlordiazePOXIDE HCL 25 MG CAPSULE PO SCH (13:00)
[2023-05-29] MEDS ORDERED: MAGNESIUM SULFATE IN WATER 2 GM/50 ML IVPB IVPB ONE (13:15)
[2023-05-29] MEDS ORDERED: POTASSIUM CHLORIDE TABS 20 MEQ TABLET.ER (FP) PO ONE (13:15)
[2023-05-29] MEDS ORDERED: chlordiazePOXIDE HCL 25 MG CAPSULE PO PRN (13:21)
[2023-05-29] MEDS: ATORVASTATIN CA 40 MG TABLET (FP) PO SCH (22:51)
[2023-05-29] MEDS: MELATONIN 5 MG TABLETS PO SCH (22:52)
[2023-05-29] MEDS: GABAPENTIN 300 MG CAPSULE PO SCH (22:52)
[2023-05-30] MEDS ORDERED: chlordiazePOXIDE HCL 25 MG CAPSULE PO SCH (05:00)
[2023-05-30] MEDS: THIAMINE HCL 500 MG in SODIUM CHLORIDE 250 ML IVPB SCH (06:14)
[2023-05-30] MEDS: chlordiazePOXIDE HCL 10 MG CAPSULE PO SCH ×4 (06:14→22:27)
[2023-05-30] MEDS: INSULIN SLIDING SCALE (NOVOLOG) 1 VIAL SQ SCH ×4 (07:13→22:38)
[2023-05-30 10:45] LABS: HEMATOCRIT 39.9 % (35.4-49); HEMOGLOBIN 13.7 GM/dL (11.7-16.9); MCH 33.9 pg (25.7-33.7); MCHC 34.2 g/dl (32.0-35.9); MEAN CELL VOLUME 99.2 fl (80-96); MEAN PLT VOLUME 9.6 fl (7.5-11.1); PLATELET COUNT 73 10^3/uL (134-434); RBC 4.02 M/mm3 (4.00-5.60); RDW 15.9 % (11.9-15.9); WHITE BLOOD COUNT 2.7 K/mm3 (4.0-10.0)
[2023-05-30 10:47] LABS: BASO % 0.7 % (0-2.0); HEMOGLOBIN 13.7 GM/dL (11.7-16.9); LYMPH % 30.2 % (8-40); MCHC 34.3 g/dl (32.0-35.9); MEAN CELL VOLUME 99.3 fl (80-96); MEAN PLT VOLUME 9.2 fl (7.5-11.1); MONO % 17.4 % (3.8-10.2); NEUT % 51.7 % (42.8-82.8); PLATELET COUNT 70 10^3/uL (134-434); RBC 4.03 M/mm3 (4.00-5.60); RDW 15.6 % (11.9-15.9); WHITE BLOOD COUNT 2.6 K/mm3 (4.0-10.0)
[2023-05-30] MEDS: ACETAMINOPHEN 325 MG TABLET (FP) PO PRN (11:02)
[2023-05-30] MEDS: PRENATAL VITAMINS W/ FOLIC ACID TABLET (FP) PO SCH (11:02)
[2023-05-30] MEDS: APIXABAN 5 MG TABLET PO SCH ×2 (11:03→21:06)
[2023-05-30] MEDS: DULoxetine HCL 30 MG CAPSULE.DR PO SCH (11:03)
[2023-05-30] MEDS: FOLIC ACID 1 MG TABLET (FP) PO SCH (11:03)
[2023-05-30] MEDS: PANTOPRAZOLE 40 MG TABLET PO SCH (11:03)
[2023-05-30 11:11] LABS: POTASSIUM 3.8 mmol/L (3.5-5.1)
[2023-05-30 11:17] LABS: CALCIUM 8.9 mg/dL (8.5-10.1); MAGNESIUM 1.7 mg/dL (1.8-2.4)
[2023-05-30 11:18] LABS: ALBUMIN 2.4 g/dl (3.4-5.0); BLOOD UREA NITROGEN 6.4 mg/dL (7-18)
[2023-05-30 11:21] LABS: PHOSPHOROUS 3.5 mg/dL (2.5-4.9)
[2023-05-30 11:22] LABS: BILIRUBIN,TOTAL 1.3 mg/dL (0.2-1); CREATININE 0.6 mg/dL (0.55-1.3)
[2023-05-30 11:24] LABS: TOT PROT 6.2 g/dl (6.4-8.2)
[2023-05-30] MEDS ORDERED: chlordiazePOXIDE HCL 10 MG CAPSULE PO SCH (13:00)
[2023-05-30] MEDS ORDERED: MAGNESIUM SULF 50% (8.12 MEQ/2 ML-1 GM VIAL) IVPB ONE ×2 (13:34→14:15)
[2023-05-30] MEDS: LACTULOSE 20 GM/30 ML UDC (FOR ORAL USE ONLY) PO SCH ×2 (14:23→22:28)
[2023-05-30] MEDS: ATORVASTATIN CA 40 MG TABLET (FP) PO SCH (22:27)
[2023-05-30] MEDS: MELATONIN 5 MG TABLETS PO SCH (22:27)
[2023-05-30] MEDS: GABAPENTIN 300 MG CAPSULE PO SCH (22:27)
[2023-05-31] MEDS ORDERED: chlordiazePOXIDE HCL 10 MG CAPSULE PO PRN
[2023-05-31] MEDS ORDERED: chlordiazePOXIDE HCL 10 MG CAPSULE PO SCH ×2 (05:00→12:00)
[2023-05-31] MEDS: chlordiazePOXIDE HCL 10 MG CAPSULE PO SCH ×2 (05:26→16:45)
[2023-05-31] MEDS: INSULIN SLIDING SCALE (NOVOLOG) 1 VIAL SQ SCH ×4 (06:01→22:03)
[2023-05-31 10:01] LABS: POTASSIUM 3.4 mmol/L (3.5-5.1)
[2023-05-31 10:06] LABS: ALBUMIN 2.4 g/dl (3.4-5.0); BLOOD UREA NITROGEN 6.1 mg/dL (7-18)
[2023-05-31 10:07] LABS: MAGNESIUM 1.7 mg/dL (1.8-2.4)
[2023-05-31] MEDS: APIXABAN 5 MG TABLET PO SCH ×2 (10:08→21:51)
[2023-05-31] MEDS: FOLIC ACID 1 MG TABLET (FP) PO SCH (10:08)
[2023-05-31] MEDS: DULoxetine HCL 30 MG CAPSULE.DR PO SCH (10:08)
[2023-05-31] MEDS: PRENATAL VITAMINS W/ FOLIC ACID TABLET (FP) PO SCH (10:08)
[2023-05-31] MEDS: PANTOPRAZOLE 40 MG TABLET PO SCH (10:08)
[2023-05-31 10:09] LABS: CREATININE 0.6 mg/dL (0.55-1.3)
[2023-05-31 10:10] LABS: BILIRUBIN,TOTAL 1.1 mg/dL (0.2-1); TOT PROT 6.2 g/dl (6.4-8.2)
[2023-05-31 10:18] LABS: BASO % 0.8 % (0-2.0); EOS % 0.1 % (0-4.5); HEMATOCRIT 40.9 % (35.4-49); HEMOGLOBIN 13.5 GM/dL (11.7-16.9); LYMPH % 29.9 % (8-40); MCH 33.6 pg (25.7-33.7); MCHC 33.1 g/dl (32.0-35.9); MEAN CELL VOLUME 101.5 fl (80-96); MONO % 19.4 % (3.8-10.2); NEUT % 49.8 % (42.8-82.8); PLATELET COUNT 73 10^3/uL (134-434); RBC 4.03 M/mm3 (4.00-5.60); RDW 15.3 % (11.9-15.9); WHITE BLOOD COUNT 2.3 K/mm3 (4.0-10.0)
[2023-05-31] MEDS ORDERED: LACTULOSE 20 GM/30 ML UDC (FOR ORAL USE ONLY) PO SCH (14:00)
[2023-05-31] MEDS: LACTULOSE 20 GM/30 ML UDC (FOR ORAL USE ONLY) PO SCH ×3 (14:19→21:51)
[2023-05-31] MEDS ORDERED: POTASSIUM CHLORIDE TABS 20 MEQ TABLET.ER (FP) PO ONE (15:00)
[2023-05-31] MEDS ORDERED: MAGNESIUM SULFATE IN WATER 2 GM/50 ML IVPB IVPB ONE (15:00)
[2023-05-31] MEDS: THIAMINE HCL 200 MG/2 ML VIAL IVPB SCH (15:14)
[2023-05-31] MEDS: MELATONIN 5 MG TABLETS PO SCH (21:51)
[2023-05-31] MEDS: ATORVASTATIN CA 40 MG TABLET (FP) PO SCH (21:51)
[2023-05-31] MEDS: GABAPENTIN 300 MG CAPSULE PO SCH (21:53)
[2023-06-01] MEDS ORDERED: chlordiazePOXIDE HCL 10 MG CAPSULE PO PRN
[2023-06-01] MEDS ORDERED: chlordiazePOXIDE HCL 10 MG CAPSULE PO ONE (05:00)
[2023-06-01] MEDS ORDERED: chlordiazePOXIDE HCL 10 MG CAPSULE PO SCH (05:00)
[2023-06-01] MEDS: INSULIN SLIDING SCALE (NOVOLOG) 1 VIAL SQ SCH ×4 (08:23→22:20)
[2023-06-01 09:28] LABS: HEMATOCRIT 43.4 % (35.4-49); HEMOGLOBIN 14.3 GM/dL (11.7-16.9); LYMPH % 35.7 % (8-40); MCH 33.9 pg (25.7-33.7); MEAN CELL VOLUME 102.6 fl (80-96); MEAN PLT VOLUME 9.8 fl (7.5-11.1); MONO % 16.8 % (3.8-10.2); NEUT % 46.5 % (42.8-82.8); PLATELET COUNT 98 10^3/uL (134-434); RBC 4.23 M/mm3 (4.00-5.60); RDW 15.4 % (11.9-15.9); WHITE BLOOD COUNT 3.1 K/mm3 (4.0-10.0)
[2023-06-01 09:51] LABS: POTASSIUM 3.8 mmol/L (3.5-5.1)
[2023-06-01 10:00] LABS: CALCIUM 9.3 mg/dL (8.5-10.1)
[2023-06-01 10:01] LABS: ALBUMIN 2.8 g/dl (3.4-5.0); MAGNESIUM 1.7 mg/dL (1.8-2.4)
[2023-06-01 10:04] LABS: CREATININE 0.8 mg/dL (0.55-1.3); PHOSPHOROUS 3.5 mg/dL (2.5-4.9)
[2023-06-01 10:05] LABS: BILIRUBIN,TOTAL 1.1 mg/dL (0.2-1); TOT PROT 6.9 g/dl (6.4-8.2)
[2023-06-01] MEDS: DULoxetine HCL 30 MG CAPSULE.DR PO SCH (10:26)
[2023-06-01] MEDS: LACTULOSE 20 GM/30 ML UDC (FOR ORAL USE ONLY) PO SCH ×4 (10:26→22:18)
[2023-06-01] MEDS: FOLIC ACID 1 MG TABLET (FP) PO SCH (10:26)
[2023-06-01] MEDS: APIXABAN 5 MG TABLET PO SCH ×2 (10:26→22:14)
[2023-06-01] MEDS: PANTOPRAZOLE 40 MG TABLET PO SCH (10:26)
[2023-06-01] MEDS: PRENATAL VITAMINS W/ FOLIC ACID TABLET (FP) PO SCH (10:26)
[2023-06-01] MEDS: THIAMINE HCL 200 MG/2 ML VIAL IVPB SCH (10:26)
[2023-06-01] MEDS ORDERED: MAGNESIUM SULFATE IN WATER 2 GM/50 ML IVPB IVPB ONE (14:30)
[2023-06-01] MEDS: ATORVASTATIN CA 40 MG TABLET (FP) PO SCH (22:14)
[2023-06-01] MEDS: MELATONIN 5 MG TABLETS PO SCH (22:14)
[2023-06-01] MEDS: GABAPENTIN 300 MG CAPSULE PO SCH (22:14)
[2023-06-02] MEDS ORDERED: chlordiazePOXIDE HCL 10 MG CAPSULE PO ONE ×2 (05:00)
[2023-06-02] MEDS ORDERED: chlordiazePOXIDE HCL 10 MG CAPSULE PO SCH (05:00)
[2023-06-02] MEDS: INSULIN SLIDING SCALE (NOVOLOG) 1 VIAL SQ SCH ×4 (06:12→21:10)
[2023-06-02 09:31] LABS: HEMATOCRIT 41.3 % (35.4-49); HEMOGLOBIN 13.7 GM/dL (11.7-16.9); MCH 33.6 pg (25.7-33.7); MCHC 33.2 g/dl (32.0-35.9); MEAN CELL VOLUME 101.2 fl (80-96); MEAN PLT VOLUME 10.6 fl (7.5-11.1); PLATELET COUNT 68 10^3/uL (134-434); RBC 4.08 M/mm3 (4.00-5.60); RDW 15.4 % (11.9-15.9); WHITE BLOOD COUNT 2.2 K/mm3 (4.0-10.0)
[2023-06-02 09:45] LABS: POTASSIUM 3.5 mmol/L (3.5-5.1)
[2023-06-02 10:00] LABS: ALBUMIN 2.6 g/dl (3.4-5.0); BLOOD UREA NITROGEN 4.5 mg/dL (7-18)
[2023-06-02 10:01] LABS: CALCIUM 9.1 mg/dL (8.5-10.1)
[2023-06-02 10:02] LABS: CREATININE 0.7 mg/dL (0.55-1.3); MAGNESIUM 1.6 mg/dL (1.8-2.4); TOT PROT 6.4 g/dl (6.4-8.2)
[2023-06-02] MEDS: LACTULOSE 20 GM/30 ML UDC (FOR ORAL USE ONLY) PO SCH (10:16)
[2023-06-02] MEDS ORDERED: MAGNESIUM SULF 50% (8.12 MEQ/2 ML-1 GM VIAL) IVPB ONE (10:22)
[2023-06-02] MEDS: APIXABAN 5 MG TABLET PO SCH ×2 (10:25→21:10)
[2023-06-02] MEDS: PRENATAL VITAMINS W/ FOLIC ACID TABLET (FP) PO SCH (10:25)
[2023-06-02] MEDS: THIAMINE HCL 200 MG/2 ML VIAL IVPB SCH (10:25)
[2023-06-02] MEDS: DULoxetine HCL 30 MG CAPSULE.DR PO SCH (10:25)
[2023-06-02] MEDS: FOLIC ACID 1 MG TABLET (FP) PO SCH (10:25)
[2023-06-02] MEDS: PANTOPRAZOLE 40 MG TABLET PO SCH (10:25)
[2023-06-02] MEDS: MELATONIN 5 MG TABLETS PO SCH (21:10)
[2023-06-02] MEDS: ATORVASTATIN CA 40 MG TABLET (FP) PO SCH (21:10)
[2023-06-02] MEDS: GABAPENTIN 300 MG CAPSULE PO SCH (21:11)
[2023-06-02] MEDS ORDERED: LACTULOSE 20 GM/30 ML UDC (FOR ORAL USE ONLY) PO SCH (22:00)
[2023-06-03] MEDS ORDERED: chlordiazePOXIDE HCL 10 MG CAPSULE PO ONE (05:00)
[2023-06-03] MEDS: INSULIN SLIDING SCALE (NOVOLOG) 1 VIAL SQ SCH ×4 (06:20→21:42)
[2023-06-03 08:59] LABS: HEMATOCRIT 38.4 % (35.4-49); HEMOGLOBIN 12.9 GM/dL (11.7-16.9); MCH 33.8 pg (25.7-33.7); MCHC 33.6 g/dl (32.0-35.9); MEAN CELL VOLUME 100.7 fl (80-96); MEAN PLT VOLUME 10.2 fl (7.5-11.1); PLATELET COUNT 84 10^3/uL (134-434); RBC 3.81 M/mm3 (4.00-5.60); RDW 15.1 % (11.9-15.9); WHITE BLOOD COUNT 2.4 K/mm3 (4.0-10.0)
[2023-06-03] MEDS: PRENATAL VITAMINS W/ FOLIC ACID TABLET (FP) PO SCH (09:43)
[2023-06-03] MEDS: LACTULOSE 20 GM/30 ML UDC (FOR ORAL USE ONLY) PO SCH ×4 (09:43→21:34)
[2023-06-03] MEDS: PANTOPRAZOLE 40 MG TABLET PO SCH (09:43)
[2023-06-03] MEDS: DULoxetine HCL 30 MG CAPSULE.DR PO SCH (09:43)
[2023-06-03] MEDS: APIXABAN 5 MG TABLET PO SCH ×2 (09:43→21:35)
[2023-06-03] MEDS: FOLIC ACID 1 MG TABLET (FP) PO SCH (09:43)
[2023-06-03] MEDS: THIAMINE HCL 200 MG/2 ML VIAL IVPB SCH (09:44)
[2023-06-03 10:28] LABS: POTASSIUM 3.3 mmol/L (3.5-5.1)
[2023-06-03 10:39] LABS: BLOOD UREA NITROGEN 7.9 mg/dL (7-18); CALCIUM 8.6 mg/dL (8.5-10.1); MAGNESIUM 1.6 mg/dL (1.8-2.4)
[2023-06-03 10:42] LABS: PHOSPHOROUS 3.6 mg/dL (2.5-4.9)
[2023-06-03 10:43] LABS: CREATININE 0.6 mg/dL (0.55-1.3)
[2023-06-03] MEDS ORDERED: POTASSIUM CHLORIDE ORAL LIQUID 20 MEQ/15 ML PO ONE (10:49)
[2023-06-03] MEDS ORDERED: MAGNESIUM SULF 50% (8.12 MEQ/2 ML-1 GM VIAL) IVPB ONE (10:49)
[2023-06-03 18:03] VITALS: RESP 18
[2023-06-03] MEDS: ATORVASTATIN CA 40 MG TABLET (FP) PO SCH (21:35)
[2023-06-03] MEDS: MELATONIN 5 MG TABLETS PO SCH (21:35)
[2023-06-03] MEDS: GABAPENTIN 300 MG CAPSULE PO SCH (21:35)
[2023-06-04] MEDS: INSULIN SLIDING SCALE (NOVOLOG) 1 VIAL SQ SCH ×4 (06:07→22:06)
[2023-06-04] MEDS: DULoxetine HCL 30 MG CAPSULE.DR PO SCH (11:53)
[2023-06-04] MEDS: PANTOPRAZOLE 40 MG TABLET PO SCH (11:53)
[2023-06-04] MEDS: FOLIC ACID 1 MG TABLET (FP) PO SCH (11:53)
[2023-06-04] MEDS: THIAMINE HCL 100 MG TABLET (FP) PO SCH (11:53)
[2023-06-04] MEDS: LACTULOSE 20 GM/30 ML UDC (FOR ORAL USE ONLY) PO SCH ×4 (11:53→22:05)
[2023-06-04] MEDS: PRENATAL VITAMINS W/ FOLIC ACID TABLET (FP) PO SCH (11:54)
[2023-06-04] MEDS: APIXABAN 5 MG TABLET PO SCH ×2 (12:15→22:06)
[2023-06-04] MEDS: ATORVASTATIN CA 40 MG TABLET (FP) PO SCH (22:06)
[2023-06-04] MEDS: GABAPENTIN 300 MG CAPSULE PO SCH (22:06)
[2023-06-04] MEDS: MELATONIN 5 MG TABLETS PO SCH (22:06)
[2023-06-05] MEDS: INSULIN SLIDING SCALE (NOVOLOG) 1 VIAL SQ SCH ×2 (06:03→11:05)
[2023-06-05] MEDS: THIAMINE HCL 100 MG TABLET (FP) PO SCH (11:06)
[2023-06-05] MEDS: PRENATAL VITAMINS W/ FOLIC ACID TABLET (FP) PO SCH (11:06)
[2023-06-05] MEDS: DULoxetine HCL 30 MG CAPSULE.DR PO SCH (11:06)
[2023-06-05] MEDS: APIXABAN 5 MG TABLET PO SCH (11:06)
[2023-06-05] MEDS: FOLIC ACID 1 MG TABLET (FP) PO SCH (11:06)
[2023-06-05] MEDS: LACTULOSE 20 GM/30 ML UDC (FOR ORAL USE ONLY) PO SCH ×2 (11:06→13:53)
[2023-06-05] MEDS: PANTOPRAZOLE 40 MG TABLET PO SCH (11:06)
[2023-06-05 14:33] VITALS: BP 109/75; PULSE 64; TEMP 98.3
== END 2023-06-05 14:40 | DRG 896 ==
LOC: JER 20:12 → OBSVTOIN 21:49 → UNDOADMOB 21:49 → JERBED 21:49 → INTOOBSV 21:49 → JERBED 05-26 11:12 → J5S 05-26 17:04 → OBSVTOIN 05-28 10:10
PROVIDERS: ADMIT Internal Medicine
DX: F10.239 Alcohol dependence with withdrawal, unspecified (principal); E43 Unspecified severe protein-calorie malnutrition; I10 Essential (primary) hypertension; J44.9 Chronic obstructive pulmonary disease, unspecified; E11.51 Type 2 diabetes mellitus with diabetic peripheral angiopathy without gangrene; E78.5 Hyperlipidemia, unspecified; G62.1 Alcoholic polyneuropathy; E11.42 Type 2 diabetes mellitus with diabetic polyneuropathy; K21.9 Gastro-esophageal reflux disease without esophagitis; D53.9 Nutritional anemia, unspecified; I48.0 Paroxysmal atrial fibrillation; D69.6 Thrombocytopenia, unspecified; R07.9 Chest pain, unspecified; D72.819 Decreased white blood cell count, unspecified; I25.10 Atherosclerotic heart disease of native coronary artery without angina pectoris; K74.60 Unspecified cirrhosis of liver; E88.09 Other disorders of plasma-protein metabolism, not elsewhere classified; K59.00 Constipation, unspecified; Z68.22 Body mass index [BMI] 22.0-22.9, adult
CPT/HCPCS: 36415; 71045-TC-FY; 71275-TC; 80048; 80053; 80307; 81003; 82140; 82550; 82607; 82962; 83036; 83735; 84100; 84484; 85025; 85027; 85610; 85730; 86850; 86900; 86901; 87081; 87086; 87186; 87635; 93005; 93010; 94010; 97116-GP; 97162-GP; 99285-25; G0378; Q9967

== ENCOUNTER 2025-07-18 21:27 | Inpatient (IN) | payer OTHER, BC ==
[2025-07-18 21:58] VITALS: BMI 27.1
[2025-07-18] MEDS ORDERED: LOPERAMIDE HCL 2 MG CAPSULE PO PRN (23:33)
[2025-07-18] MEDS ORDERED: BENZONATATE 200 MG CAPSULE PO PRN (23:33)
[2025-07-18] MEDS ORDERED: IBUPROFEN 600 MG TABLET (FP) PO PRN (23:33)
[2025-07-18] MEDS ORDERED: ONDANSETRON *ODT* 4 MG TABLET SL PRN (23:33)
[2025-07-18] MEDS ORDERED: MAG HYDROX/AL HYDROX/SIMETH 30 ML UNIT-DOSE CUP PO PRN (23:33)
[2025-07-18] MEDS ORDERED: BISMUTH SUBSALICYLATE 524 MG/30 ML PO PRN (23:33)
[2025-07-18] MEDS ORDERED: MAGNESIUM HYDROX 2400MG/30ML ORAL SUSPENSION 30 ML CUP PO PRN (23:33)
[2025-07-18] MEDS ORDERED: guaiFENesin 600 MG TABLET.ER (FP) PO PRN (23:33)
[2025-07-18] MEDS ORDERED: NALOXONE (NARCAN) HCL 4 MG/0.1 ML SPRAY NS PRN (23:33)
[2025-07-18] MEDS ORDERED: DICYCLOMINE HCL 10 MG CAPSULE PO PRN (23:33)
[2025-07-18] MEDS ORDERED: BENZOCAINE/MENTHOL (CHLORASEPTIC ) LOZENGE MM PRN (23:33)
[2025-07-18] MEDS ORDERED: IBUPROFEN 400 MG TABLET (FP) PO PRN (23:33)
[2025-07-18] MEDS ORDERED: POLYETHYLENE GLYCOL (HEALTHYLAX) 3350 17 GM PACKET PO PRN (23:33)
[2025-07-19] MEDS ORDERED: MELATONIN 5 MG TABLETS ONE (00:20)
[2025-07-19] MEDS ORDERED: PRENATAL VITAMINS W/ FOLIC ACID TABLET (FP) PO ONE (00:20)
[2025-07-19 09:44] LABS: MCHC 34.2 g/dl (32.3-36.5); MEAN CELL VOLUME 89.5 fl (79.0-92.2); MEAN PLT VOLUME 12.3 fl (9.4-12.4); RDW 16.0 % (12.2-16.4)
[2025-07-19 10:14] LABS: GLUCOSE,RANDOM 134.0 mg/dL (74-106); TOT PROT 7.3 g/dl (6.4-8.2)
[2025-07-19 10:15] LABS: CO2 18.0 mmol/L (21-32)
[2025-07-19 10:17] LABS: ALK PHOS 111.0 U/L (40-150)
[2025-07-19 10:19] LABS: SGPT/ALT 32.0 U/L (0-55)
[2025-07-19 10:20] LABS: CREATININE 0.97 mg/dL (0.55-1.3); SGOT/AST 72.0 U/L (5-34)
[2025-07-19] MEDS: PRENATAL VITAMINS W/ FOLIC ACID TABLET (FP) PO SCH (10:28)
[2025-07-19] MEDS: BACITRACIN 0.9 GM PACKET TP SCH (10:28)
[2025-07-19] MEDS: hydrOXYzine PAMOATE 25 MG CAPSULE (FP) PO PRN (16:53)
[2025-07-19] MEDS: GABAPENTIN 300 MG CAPSULE PO SCH (21:58)
[2025-07-19] MEDS: APIXABAN 2.5 MG TABLET PO SCH (21:58)
[2025-07-19] MEDS: MELATONIN 5 MG TABLETS PO SCH (21:58)
[2025-07-19] MEDS: THIAMINE 100 MG TABLET PO SCH (21:58)
[2025-07-21 18:13] LABS: EPI CELLS 1 /uL (0-25.1); HYALINE CASTS 6 /uL (0-3.1); URINE APPEARANCE CLOUDY; URINE BACTERIA 6527 /uL (0-1359); URINE BILIRUBIN NEGATIVE (NEGATIVE); URINE COLOR ORANGE; URINE GLUCOSE (UA) TRACE (NEGATIVE); URINE KETONE NEGATIVE (NEGATIVE); URINE LEUK ESTERASE 3+ (NEGATIVE); URINE NITRITE POSITIVE (NEGATIVE); URINE PROTEIN 1+ (NEGATIVE); URINE RBC 3338 /uL (0-23.9); URINE UROBILINOGEN 2.0 mg/dL (0.2-1.0)
[2025-07-23 10:56] VITALS: TEMP 97.1
[2025-07-23 11:20] VITALS: BP 112/73; PULSE 87; RESP 15
== END 2025-07-23 10:40 | disposition home or self-care (01) | DRG 897 ==
LOC: YASAS 21:27 → Y3N 23:48
PROVIDERS: ADMIT Allergy & Immunology; ATTEND Allergy & Immunology
PROC: HZ2ZZZZ Detoxification Services for Substance Abuse Treatment (ICD-10-PCS; principal; 2025-07-18)
DX: F19.230 Other psychoactive substance dependence with withdrawal, uncomplicated (principal); N39.0 Urinary tract infection, site not specified; F10.230 Alcohol dependence with withdrawal, uncomplicated; G62.9 Polyneuropathy, unspecified; I48.0 Paroxysmal atrial fibrillation; E11.9 Type 2 diabetes mellitus without complications; Z79.01 Long term (current) use of anticoagulants; Z79.84 Long term (current) use of oral hypoglycemic drugs; Z87.718 Personal history of other specified (corrected) congenital malformations of genitourinary system; Z88.8 Allergy status to other drugs, medicaments and biological substances
CPT/HCPCS: 36415; 80053; 81003; 82962; 83036; 85027; 86780; 87086; 93005; 93010